=== PATIENT | female | born 1940 | race Two or more races ===

== ENCOUNTER → 2020-08-29 11:30 | Outpatient (BNVA) | payer MEDICARE, SELFPAY | PROVIDERS: PCP Internal Medicine; Referring Provider Internal Medicine; Visit Provider Student in an Organized Health Care Education/Training Program | DX: M81.0 Age-related osteoporosis without current pathological fracture (principal); Z79.899 Other long term (current) drug therapy | CPT/HCPCS: 96372; 99213; J0897 ==

== ENCOUNTER 2020-10-17 10:56 | Outpatient (REF) | payer MEDICARE, SELFPAY ==
--- NOTE | 2020-10-17 | MM_ITS ---
EXAMINATION: MM SCREENING DIGITAL BREAST TOMOSYNTHESIS, BILATERAL CLINICAL INFORMATION: Screening. Asymptomatic. The lifetime risk of breast cancer based on the Tyrer-Cuzick Model is 1.5%. COMPARISON: Mammography: January 28, 2018 and studies dating back to March 28, 2010 TECHNIQUE: Digital breast tomosynthesis is performed in both the craniocaudal and mediolateral oblique views along with computer-aided detection (CAD). Synthesized 2D images are generated from the tomosynthesis. FINDINGS: There are scattered areas of fibroglandular density (ACR BI-RADS breast composition Category b). There are no significant masses, abnormal calcifications, or other abnormalities. MM/MM tomosynthesis screening BI IMPRESSION: There are no significant changes from prior study. ASSESSMENT: BI-RADS 1: Negative RECOMMENDATION: Routine annual mammography screening. This patient's information was entered into a reminder system with a target due date for their next mammogram.
== END 2020-10-17 10:57 | disposition home or self-care (01) ==
LOC: HO.MAMMO 10:56
PROVIDERS: PCP Nurse Practitioner Family; Visit Provider Nurse Practitioner Family
DX: Z12.31 Encounter for screening mammogram for malignant neoplasm of breast (principal)
CPT/HCPCS: 77063; 77067

== ENCOUNTER → 2021-04-01 09:34 | Outpatient (BNVA) | payer MEDICARE, SELFPAY | PROVIDERS: PCP Internal Medicine; Visit Provider Internal Medicine Pulmonary Disease | DX: J44.9 Chronic obstructive pulmonary disease, unspecified (principal); R06.00 Dyspnea, unspecified | CPT/HCPCS: 99202 ==

== ENCOUNTER 2021-04-15 09:32 | Outpatient (REF) | payer MEDICARE, SELFPAY ==
--- NOTE | 2021-04-15 17:46 | PFT_ITS ---
Forced vital capacity and FEV1 both moderately reduced. FEV1 over FVC ratio is normal. [id number] is normal. MVV moderately reduced. TLC, total lung capacity is moderately reduced. Residual volume is slightly reduced. Diffusion capacity moderately reduced. As noted by the geoscience technician, the efforts were suboptimal. The reported findings are consistent with moderately severe restrictive pulmonary disorder. Bronchodilator challenge was not performed. Clinical correlation recommended. MD TASHI Hale/MONTEZ / [id number]
== END 2021-04-15 09:33 | disposition home or self-care (01) ==
LOC: HO.RESP 09:32
PROVIDERS: PCP Internal Medicine; Visit Provider Internal Medicine Pulmonary Disease
DX: R06.00 Dyspnea, unspecified (principal); R05 Cough
CPT/HCPCS: 94010; 94727; 94729

== ENCOUNTER 2021-05-02 09:27 | Outpatient (REF) | payer MEDICARE, SELFPAY ==
[2021-05-02 12:00] LABS: Anion Gap 13 (12-20); Blood Urea Nitrogen 23 mg/dL (9-16); Calcium 9.7 mg/dL (8.4-10.2); Carbon Dioxide 31 mmol/L (22-29); Chloride 102 mmol/L (96-108); Estimated Glomerular Filt Rate 47; Glucose Random 98 mg/dL (60-115); Potassium 4.9 mmol/L (3.3-5.1); Sodium 141 mmol/L (135-145)
[2021-05-02 12:05] LABS: B Type Natriuretic Peptide 182 pg/mL (<100)
== END 2021-05-02 09:28 | disposition home or self-care (01) ==
LOC: HO.LAB 09:27
PROVIDERS: PCP Internal Medicine; Referring Provider Internal Medicine; Visit Provider Internal Medicine Cardiovascular Disease
DX: I48.19 Other persistent atrial fibrillation (principal); I44.7 Left bundle-branch block, unspecified; R06.02 Shortness of breath; I10 Essential (primary) hypertension; M81.0 Age-related osteoporosis without current pathological fracture; Z98.51 Tubal ligation status; Z88.0 Allergy status to penicillin; Z79.82 Long term (current) use of aspirin; Z79.899 Other long term (current) drug therapy
CPT/HCPCS: 36415; 80048; 83880; 93005; 99202

== ENCOUNTER → 2021-05-14 10:51 | Outpatient (BNVA) | payer OTHER, SELFPAY | PROVIDERS: PCP Internal Medicine; Visit Provider Student in an Organized Health Care Education/Training Program | DX: M81.0 Age-related osteoporosis without current pathological fracture (principal) | CPT/HCPCS: 96372 ==

== ENCOUNTER → 2021-05-28 09:15 | Outpatient (REF) | payer MEDICARE, SELFPAY ==
--- NOTE | 2021-05-28 14:00 | ECG_ITS ---
Hook-up date: 2021-05-28 09:34:00 Duration: 27:12:00 Test Indications: PVC Medications: [id number] QRS complexes 529 Ventricular ectopics which represent <1 % of total QRS comp. * Supraventricular ectopics which represent % of total QRS comp. * Paced QRS complexs which represent % of total QRS comp. VENTRICULAR ECTOPY 517 Isolated 0 Bigeminal Cycles 2 Couplets 1 Runs 8 Beats in Runs 8 Beats LONGEST at 136 BPM at 13:48:07 2021-05-28 8 Beats FASTEST at 136 BPM at 13:48:07 2021-05-28 SUPRAVENTRICULAR ECTOPY * Isolated * Couplets * Runs * Beats in Runs * Beats LONGEST at * BPM at :: -- * Beats FASTEST at * BPM at :: -- HEART RATES 50 MIN at 07:56:10 2021-05-29 79 AVG 178 MAX at 10:42:03 2021-05-28 LONGEST RR 2.2000 secs at 07:54:44 2021-05-29 S-T LEVELS Channel 1 - 128 mm at 09:34:00 2021-05-28 - 128 mm at 09:34:00 2021-05-28 Channel 2 - 128 mm at 09:34:00 2021-05-28 - 128 mm at 09:34:00 2021-05-28 Channel 3 - 128 mm at 02:85:31 -- - 128 mm at 02:85:31 Artifact noted in tracings; Underlying rhythm is atrial fibrillation; Average ventricular rate 79/min; range 50-178/min; About 8% of rates >100/min; Longest pause 2.2sec at 07:54Hrs; Occasional Premature ventricular complexes - (<1%); longest run 8 beats; Overall reasonable rate control with some tendency for tachycardia; Patient diary not available for review. Referred By: Marquise Pak Overread By: PARISH ECHAVARRIA
== END ==
LOC: HO.CARD 09:15
PROVIDERS: PCP Internal Medicine; Referring Provider Internal Medicine; Visit Provider Internal Medicine Cardiovascular Disease
DX: I48.19 Other persistent atrial fibrillation (principal); I49.3 Ventricular premature depolarization
CPT/HCPCS: 93226

== ENCOUNTER → 2021-05-30 11:02 | Outpatient (BNVA) | payer MEDICARE, SELFPAY | PROVIDERS: PCP Internal Medicine; Visit Provider Internal Medicine Pulmonary Disease | DX: J44.9 Chronic obstructive pulmonary disease, unspecified (principal) | CPT/HCPCS: 99212 ==

== ENCOUNTER → 2021-07-03 10:32 | Outpatient (REF) | payer MEDICARE, SELFPAY ==
--- NOTE | 2021-07-03 10:39 | CA_ITS ---
Transthoracic Echocardiogram Patient (Last, First, Middle): Jemma Esquivel A Gender: Female Date of : 1940 Age: 81 Procedure Date: 07/03/2021 Procedure Type: Transthoracic Echocardiogram Location: OP Height: 149.86 cm Weight: 63.96 kg BSA: 1.59 m2 Heart Rate: bpm BP: 108 / 58 mmHg Solar Sales Advisor: AYNY Referring MD: Marquise Pak MD Product Advisor: Marquise Pak MD Symptoms: I48.19 - Other persistent atrial fibrillation Study Quality: Fair ECG Rhythm: Atrial Fibrillation Conclusions: - 1. Normal LV systolic function 2. Mildly dilated left atrium 3. Normal cardiac valvular Doppler 4. Normal RV systolic pressure 5. No gross pericardial effusion Findings Left Ventricle Normal left ventricular size, thickness, and systolic function. The visually estimated ejection fraction is between 55-60%. Regional wall motion abnormalities can not be excluded due to suboptimal endocardial definition. Diastolic function is indeterminate on the basis of available data. E/E prime ratio is between 8 and 15 consistent with indeterminate filling pressures. Right Ventricle Normal right ventricular cavity size and systolic function. Atria The left atrium is mildly dilated. Interatrial shunt cannot be excluded. The right atrium is normal in size. Aortic Valve The aortic valve was not well visualized. There is no aortic valve stenosis. There is no aortic valve regurgitation. Mitral Valve Likely normal mitral valve structure and function. There is trace mitral valve regurgitation. There is no mitral valve stenosis. Pulmonic Valve The pulmonic valve was not well visualized. Tricuspid Valve Likely normal tricuspid valve structure and function. There is trace tricuspid valve regurgitation. The right ventricular systolic pressure is normal. The right ventricular systolic pressure is 30 mmHg. Normal right atrial pressure. There is no evidence of pulmonary hypertension. Great Vessels All visible segments of the aorta are normal in size. The pulmonary artery was not well visualized. Venous The inferior vena cava is normal in size and collapses greater than 50% with inspiration. Pericardium/Pleural There is no evidence of pericardial effusion. Prior Study Comparison Changes noted compared to prior study dated: 12/20/2017. LV systolic function appears marginally improved Measurements 2D Linear Measurements IVSd: 1.02 0.6-0.9/0.6-1.0 cm LVIDd: 3.84 3.9-5.3/4.2-5.9 cm LVIDd Index: 2.42 2.4-3.2/2.2-3.1 cm/m2 LVIDs: 2.77 2.0-3.6 cm LVPWd: 0.79 0.7-1.1 cm Ao Root: 2.70 2.1-3.5 cm LA Diam: 3.40 2.7-3.8/3.0-4.0 cm LAIDs Index: 2.14 1.5-2.3 cm/m2 LV Mass: 158.42 67-162/88-224 g LV Mass Index: 99.64 43-95/49-115 g/m2 LVOT Diam: 1.90 3.0+(-)1.3 cm 2D Systolic Function EF 4C: 63.60 >55% EF 2C: 60.40 >55% EF BiP: 61.40 >55% Mitral Valve MV Pk E: 0.95 MV Decel Time: 120.00 E'Lateral: 8.74 E'Medial: 4.73 E/E' Med: 20.10 E/E' Lat: 10.90 PHT: 36.00 MVA PHT: 6.11 Decel Otero: 8.34 Aortic Valve AoV Pk Jed: 0.98 AoV Pk Grad: 4.00 LVOT LVOT Diam: 1.90 LVOT Area: 2.84 Diastolic Function MV Pk E: 0.95 E'Medial: 4.73 E/E' Med: 20.10 E' Laterial: 8.74 E/E' Lat: 10.90 Right Ventricle TAPSE (mm): 1.74 Tricuspid Valve TR Pk Jed: 2.58 TR Pk Grad: 27.00 RA Press: 3.00 RVSP: 30.00 Great Vessels Aorta Ao Root-2D: 2.70 2.0-3.7 cm Ao Asc: 3.10 2.1-3.4 cm Updated in Other Vendor System with Status of Final Marquise Pak MD electronically signed on 07/03/2021 12:42:25 PM with status of Final
== END ==
LOC: HO.CARD 10:32
PROVIDERS: Visit Provider Internal Medicine Cardiovascular Disease
DX: I48.19 Other persistent atrial fibrillation (principal); I49.3 Ventricular premature depolarization
CPT/HCPCS: 93306

== ENCOUNTER → 2021-07-07 13:19 | Outpatient (BNVA) | payer MEDICARE, SELFPAY | PROVIDERS: PCP Internal Medicine; Referring Provider Internal Medicine; Visit Provider Internal Medicine Cardiovascular Disease | DX: I48.19 Other persistent atrial fibrillation (principal); I50.9 Heart failure, unspecified | CPT/HCPCS: 99212 ==

== ENCOUNTER 2021-07-16 08:14 | Day surgery (SDC) | payer MEDICARE, SELFPAY ==
--- NOTE | 2021-07-15 10:35 | HO.ANESPROP2 ---
Documented by User: Merissa Kothari NP 07/15/21 10:41 HPI - Anesthesia Eval Consult details Narrative: 81yo F for Cardioversion Juanatye [facility] Active Problems Active Problems: All Active Problems (Updated 05/02/21 @ 10:08 by Marquise Pak MD) HTN (hypertension) (Acute) Left bundle branch block (Acute) Persistent atrial fibrillation (Acute) Asthma-COPD overlap syndrome (Acute) Dyspnea on exertion (Acute) Osteoporosis (Acute) Tubular adenoma of colon (Acute) Chronic idiopathic constipation (Acute) GERD (gastroesophageal reflux disease) (Acute) Past Medical History Medical History HTN (hypertension) Left bundle branch block Osteoporosis Persistent atrial fibrillation Family History Family History Father No problems noted. Mother Alzheimer disease Brother Heart disease CVD (cardiovascular disease) Son Diabetes Daughter Diabetes Paternal Aunt CVD (cardiovascular disease) Other Osteoarthritis Surgical History Surgical History History of nasal surgery Hx of colonoscopy (03/05/15) Hx of endoscopy Hx of tubal ligation Social History Social History Household Members: None Alcohol intake: never Advance Directives: No Advance Directives Information Provided: Yes Meds Allergies Allergy/AdvReac Type Severity Reaction Status Date / Time Penicillins Allergy Intermediate ITCHING Verified 05/30/21 11:11 Home Medications Medication Instructions Recorded Confirmed Last Taken Type docusate sodium 100 mg capsule 100 mg PO BID 08/20/20 07/07/21 Unknown History (Colace) famotidine 40 mg tablet (Pepcid) 40 mg PO DAILY 08/20/20 07/07/21 Unknown History acetaminophen 650 mg 650 mg PO Q12H PRN 08/29/20 07/07/21 Unknown History tablet,extended release (Tylenol 8 Hour) atorvastatin 40 mg tablet 40 mg PO DAILY 08/29/20 07/07/21 Unknown History benazepril 40 mg tablet 40 mg PO DAILY 08/29/20 07/07/21 Unknown History calcium carbonate 600 mg calcium 600 mg PO BID 08/29/20 07/07/21 Unknown History (1,500 mg) tablet (Calcium) loratadine 10 mg tablet (Allergy 10 mg PO DAILY 08/29/20 07/07/21 Unknown History Relief (loratadine)) memantine 10 mg tablet 10 mg PO BID 08/29/20 07/07/21 Unknown History metoprolol tartrate 25 mg tablet 25 mg PO BID 08/29/20 07/07/21 Unknown History multivitamin 1 tab PO DAILY 08/29/20 07/07/21 Unknown History venlafaxine 37.5 mg 37.5 mg PO BEDTIME 08/29/20 07/07/21 Unknown History tablet,extended release 24 hr cholecalciferol (vitamin D3) 50 50 mcg PO DAILY 07/07/21 07/07/21 Unknown History mcg (2,000 unit) capsule Exam Exam Date and Time: July 15, 2021 1035 Pertinent Lab Results Pertinent Lab Results: Laboratory Tests 09/15/19 05/02/21 09:25 10:40 WBC 6.4 Hgb 13.1 Hct 40.0 Plt Count 238 Sodium 141 Potassium 4.9 Chloride 102 Carbon Dioxide 31 H BUN 23 H Creatinine 1.12 Narrative Narrative: EKG 04/2021 atrial fibrillation with left bundle-branch block Holter 05/2021 Artifact noted in tracings; Underlying rhythm is atrial fibrillation; Average ventricular rate 79/min; range 50-178/min; About 8% of rates >100/min; Longest pause 2.2sec at 07:54Hrs; Occasional Premature ventricular complexes - (<1%);? longest run 8 beats; Overall reasonable rate control with some tendency for tachycardia; Patient diary not available for review.? ECHO 05/2021 Conclusions: -? 1. Normal LV systolic function? 2. Mildly dilated left atrium? 3. Normal cardiac valvular Doppler ? 4. Normal RV systolic pressure ? 5. No gross pericardial effusion ? ? Assessment and Plan Assessment Anesthesia Assessment: Chart Reviewed Documented by User: Vianey Mayfield MD 07/16/21 10:13 [facility] Past Medical History Medical History HTN (hypertension) Left bundle branch block Osteoporosis Persistent atrial fibrillation Family History Family History Father No problems noted. Mother Alzheimer disease Brother Heart disease CVD (cardiovascular disease) Son Diabetes Daughter Diabetes Paternal Aunt CVD (cardiovascular disease) Other Osteoarthritis Family history of problems with anesthesia: No Surgical History Surgical History History of nasal surgery Hx of colonoscopy (03/05/15) Hx of endoscopy Hx of tubal ligation History of Problems with Anesthesia: No Social History Social History Household Members: None Alcohol intake: never Advance Directives: No Advance Directives Information Provided: Yes Meds Allergies Allergy/AdvReac Type Severity Reaction Status Date / Time Penicillins Allergy Intermediate ITCHING Verified 05/30/21 11:11 Home Medications Medication Instructions Recorded Confirmed Last Taken Type docusate sodium 100 mg capsule 100 mg PO BID 08/20/20 07/07/21 Unknown History (Colace) famotidine 40 mg tablet (Pepcid) 40 mg PO DAILY 08/20/20 07/07/21 Unknown History acetaminophen 650 mg 650 mg PO Q12H PRN 08/29/20 07/07/21 Unknown History tablet,extended release (Tylenol 8 Hour) atorvastatin 40 mg tablet 40 mg PO DAILY 08/29/20 07/07/21 Unknown History benazepril 40 mg tablet 40 mg PO DAILY 08/29/20 07/07/21 Unknown History calcium carbonate 600 mg calcium 600 mg PO BID 08/29/20 07/07/21 Unknown History (1,500 mg) tablet (Calcium) loratadine 10 mg tablet (Allergy 10 mg PO DAILY 08/29/20 07/07/21 Unknown History Relief (loratadine)) memantine 10 mg tablet 10 mg PO BID 08/29/20 07/07/21 Unknown History metoprolol tartrate 25 mg tablet 25 mg PO BID 08/29/20 07/07/21 Unknown History multivitamin 1 tab PO DAILY 08/29/20 07/07/21 Unknown History venlafaxine 37.5 mg 37.5 mg PO BEDTIME 08/29/20 07/07/21 Unknown History tablet,extended release 24 hr cholecalciferol (vitamin D3) 50 50 mcg PO DAILY 07/07/21 07/07/21 Unknown History mcg (2,000 unit) capsule Exam Airway Mallampati Class: II TM Dist: >3cm Neck ROM: Full Denture: Upper Partial: Lower Heart: rrr Lungs: cta Assessment and Plan Assessment Anesthesia Assessment: Anesthesia Plan Discussed Final Anesthetic Review Family History of Problems with Anesthesia: No History of Problems with Anesthesia: No NPO: Yes ASA Class: III Final Preanesthetic Review: No Changes in Pt Med Stat, Meds/Allgs Chart Reviewed and Consent Obtained/Reviewed Patient Risk: Intermediate Procedure Risk: Intermediate Anesthetic Plan Anesthetic Plan: MAC: Disposition: Standard PACU
--- NOTE | 2021-07-16 09:17 | MHC.SHP ---
Pre-Procedural Eval Section A Date of Service: 07/16/21 The patient is an INPATIENT: No Changes since office visit: Yes Patient answered all questions; No Cold of Flu in the past 2 weeks, No New Medical Problems and No Changes in Medication The History & Physical has been completed within 30 days and I have reviewed it.: Yes Section B Chief Complaint: A fib Allergies: Allergies Allergy/AdvReac Type Severity Reaction Status Date / Time Penicillins Allergy Intermediate ITCHING Verified 05/30/21 11:11 Plan I have reviewed the history and physical and performed a pertinent physical examination on my patient. No changes have occurred unless specified.
[2021-07-16 10:05] VITALS: BP 169/83; PULSE 67; RESP 18; TEMP 36.3; O2SAT 98; BMI 41.3
[2021-07-16] MEDS: Lactated Ringers 1,000 ML 100 ML IVCONT (10:30)
[2021-07-16] MEDS: Apixaban 5 MG TABLET PO (10:41)
--- NOTE | 2021-07-16 11:10 | ECG_ITS ---
Test Reason : POST CARDIOVERSION Blood Pressure : / mmHG Vent. Rate : 070 BPM Atrial Rate : 000 BPM P-R Int : 000 ms QRS Dur : 122 ms QT Int : 454 ms P-R-T Axes : 000 -25 100 degrees QTc Int : 490 ms Normal sinus rhythm Left bundle branch block Abnormal ECG When compared with ECG of 02-SEP-2017 10:54, Left bundle branch block is now Present Referred By: Marquise Pak Electronically Signed By:TAMMY SUAREZ
[2021-07-16 11:13] VITALS: BP 114/62; PULSE 82; RESP 16; TEMP 36.3; O2SAT 100
--- NOTE | 2021-07-16 11:14 | P.PNCAR_ITS ---
Cardioversion Procedure Note Cardioversion Date of Procedure: 07/16/2021 Ordering Provider: Myself Performing Provider: Myself Indication for Procedure: Recurrent heart failure hospitalization with no other clear abnormality with persistent atrial fibrillation Pre-Op Diagnosis: Persistent atrial fibrillation Post-Op Diagnosis: Sinus rhythm Performed with Transesophageal Echo: No History: See history and physical for detail Consent: Verbal and Written consent was obtained from the patient before starting and providing her with a dose of Eliquis, consent obtained with help of substance abuse rn The patient was made aware of the risk of synchronized cardioversion including risk, benefits, alternatives to the procedure. Procedure: After consent obtained, cardioversion pads were attached in AP and the patient was sedated by the anesthesia team. Once adequate sedation achieved, 200 joules of biphasic synchronized energy was delivered in anterior-posterior configuration Complications: None Impression: Successful conversion to sinus rhythm Recommendations: 1. Twelve lead EKG 2. Continue full oral anticoagulation 3. Follow up with outpatient Holter monitor in few weeks
[2021-07-16 11:18] VITALS: BP 119/67; PULSE 75; RESP 18; O2SAT 100
[2021-07-16 11:23] VITALS: BP 118/62; PULSE 73; RESP 18; O2SAT 97
[2021-07-16 11:28] VITALS: BP 122/62; PULSE 74; RESP 20; O2SAT 95
[2021-07-16 11:43] VITALS: BP 143/75; PULSE 85; RESP 16; TEMP 36.5; O2SAT 97
== END 2021-07-16 12:41 | disposition home or self-care (01) ==
PROVIDERS: PCP Internal Medicine; Visit Provider Internal Medicine Cardiovascular Disease
PROC: 5A2204Z Restoration of Cardiac Rhythm, Single (ICD-10-PCS; principal; 2021-07-16 10:10)
DX: I48.19 Other persistent atrial fibrillation (principal); I11.0 Hypertensive heart disease with heart failure; I50.9 Heart failure, unspecified; I44.7 Left bundle-branch block, unspecified; J44.9 Chronic obstructive pulmonary disease, unspecified; Z79.01 Long term (current) use of anticoagulants; Z79.899 Other long term (current) drug therapy
CPT/HCPCS: 92960; 93005

== ENCOUNTER → 2021-07-29 11:05 | Outpatient (REF) | payer MEDICARE, SELFPAY | LOC: HO.CARD 11:05 | PROVIDERS: PCP Internal Medicine; Visit Provider Internal Medicine Cardiovascular Disease | DX: I48.19 Other persistent atrial fibrillation (principal) | CPT/HCPCS: 93242 ==

== ENCOUNTER → 2021-08-14 10:01 | Outpatient (BNVA) | payer MEDICARE, SELFPAY | PROVIDERS: PCP Internal Medicine; Visit Provider Nurse Practitioner | CPT/HCPCS: Q3014 ==

== ENCOUNTER → 2021-08-22 09:56 | Outpatient (REF) | payer MEDICARE, SELFPAY ==
--- NOTE | 2021-08-22 10:00 | HM_ITS ---
Conclusion: 1. Patient was monitored for total period of 3 days. 2. Patient in atrial fibrillation as baseline rhythm with average heart of 89 beats per minute. Maximum heart rate 125 beats per minute. Overall adequate rate control 3. No significant pauses or bradycardia noted 4. Total of 1080 PVCs or guarding 4 0.29% of total burden of cardiac for rare PVCs 5. No patient reported events MTDD
== END ==
LOC: HO.CARD 09:56
PROVIDERS: PCP Internal Medicine; Visit Provider Internal Medicine Cardiovascular Disease
DX: I48.19 Other persistent atrial fibrillation (principal)
CPT/HCPCS: 93242

== ENCOUNTER 2021-11-17 11:14 | Outpatient (REF) | payer MEDICARE, SELFPAY ==
[2021-11-17 11:51] LABS: Alanine Aminotransferase 12 U/L (0-31); Albumin Level 4.1 g/dL (3.5-5.0); Alkaline Phosphatase 45 U/L (39-117); Anion Gap 14 (12-20); Aspartate Amino Transferase 17 U/L (5-31); Bilirubin Total 0.3 mg/dL (0.0-1.0); Blood Urea Nitrogen 17 mg/dL (9-16); Calcium 9.5 mg/dL (8.4-10.2); Carbon Dioxide 28 mmol/L (22-29); Chloride 102 mmol/L (96-108); Estimated Glomerular Filt Rate 48; Glucose Random 119 mg/dL (60-115); Potassium 4.1 mmol/L (3.3-5.1); Sodium 140 mmol/L (135-145); Total Protein 7.3 g/dL (6.5-8.0)
[2021-11-17 12:11] LABS: Vitamin D 25-OH Total 40.1 ng/mL (>30)
== END 2021-11-17 11:15 | disposition home or self-care (01) ==
LOC: HO.LAB 11:14
PROVIDERS: PCP Internal Medicine; Visit Provider Nurse Practitioner Family
DX: M81.0 Age-related osteoporosis without current pathological fracture (principal)
CPT/HCPCS: 36415; 80053; 82306

== ENCOUNTER → 2021-11-20 10:53 | Outpatient (BNVA) | payer MEDICARE, SELFPAY | PROVIDERS: PCP Internal Medicine; Visit Provider Nurse Practitioner Family | DX: M81.0 Age-related osteoporosis without current pathological fracture (principal) | CPT/HCPCS: 96372 ==

== ENCOUNTER → 2021-12-22 11:15 | Outpatient (BNVA) | payer MEDICARE, SELFPAY | PROVIDERS: PCP Internal Medicine; Visit Provider Nurse Practitioner Family | DX: M81.0 Age-related osteoporosis without current pathological fracture (principal) | CPT/HCPCS: 99212 ==

== ENCOUNTER → 2021-12-24 11:29 | Outpatient (BNVA) | payer MEDICARE, SELFPAY | PROVIDERS: PCP Internal Medicine; Visit Provider Internal Medicine Pulmonary Disease | DX: J44.9 Chronic obstructive pulmonary disease, unspecified (principal); G47.34 Idiopathic sleep related nonobstructive alveolar hypoventilation | CPT/HCPCS: 99212 ==

== ENCOUNTER → 2022-02-27 14:41 | Outpatient (BNVA) | payer MEDICARE, SELFPAY | PROVIDERS: PCP Internal Medicine; Visit Provider Internal Medicine Pulmonary Disease | DX: J44.9 Chronic obstructive pulmonary disease, unspecified (principal); G47.34 Idiopathic sleep related nonobstructive alveolar hypoventilation; Z79.899 Other long term (current) drug therapy; Z87.891 Personal history of nicotine dependence | CPT/HCPCS: 99212 ==

== ENCOUNTER → 2022-03-03 12:33 | Outpatient (BNVA) | payer OTHER, SELFPAY | PROVIDERS: PCP Internal Medicine; Referring Provider Internal Medicine; Visit Provider Internal Medicine Cardiovascular Disease | DX: I50.32 Chronic diastolic (congestive) heart failure (principal); I48.19 Other persistent atrial fibrillation | CPT/HCPCS: 93005; 99212 ==

== ENCOUNTER 2022-06-26 13:56 | Outpatient (REF) | payer OTHER, SELFPAY ==
[2022-06-26 15:38] LABS: Alanine Aminotransferase 7 U/L (0-31); Albumin Level 4.4 g/dL (3.5-5.0); Alkaline Phosphatase 53 U/L (39-117); Anion Gap 17 (12-20); Aspartate Amino Transferase 14 U/L (5-31); Bilirubin Total 0.7 mg/dL (0.0-1.0); Blood Urea Nitrogen 21 mg/dL (9-16); Calcium 10.2 mg/dL (8.4-10.2); Carbon Dioxide 32 mmol/L (22-29); Chloride 98 mmol/L (96-108); Estimated Glomerular Filt Rate 59; Glucose Random 99 mg/dL (60-115); Potassium 4.5 mmol/L (3.3-5.1); Sodium 142 mmol/L (135-145); Total Protein 7.6 g/dL (6.5-8.0)
[2022-06-26 15:59] LABS: Vitamin D 25-OH Total 43.7 ng/mL (>30)
== END 2022-06-26 13:57 | disposition home or self-care (01) ==
LOC: HO.LAB 13:56
PROVIDERS: PCP Internal Medicine; Visit Provider Nurse Practitioner Family
DX: M81.0 Age-related osteoporosis without current pathological fracture (principal)
CPT/HCPCS: 36415; 80053; 82306

== ENCOUNTER 2022-06-29 11:04 | Outpatient (REF) | payer OTHER, SELFPAY ==
--- NOTE | ~2022-06-29 | XR_ITS ---
EXAMINATION: XR KNEE, LEFT CLINICAL INFORMATION: Pain COMPARISON: None TECHNIQUE: Three views of the left knee. FINDINGS: No fracture or dislocation. No suprapatellar joint effusion. Mild narrowing of the lateral joint space height. Small tricompartmental marginal osteophytes. Chondrocalcinosis noted. No focal soft tissue swelling of the anterior knee. Vascular calcifications appreciated. XR/XR knee LT 3V IMPRESSION: Mild to moderate degenerative changes of the left knee.
== END 2022-06-29 11:05 | disposition home or self-care (01) ==
LOC: HO.XRAY 11:04
PROVIDERS: PCP Internal Medicine; Visit Provider Nurse Practitioner Family
DX: M81.0 Age-related osteoporosis without current pathological fracture (principal); M25.562 Pain in left knee; Z79.899 Other long term (current) drug therapy
CPT/HCPCS: 73562; 96372; 99212

== ENCOUNTER → 2022-07-10 12:51 | Outpatient (BNVA) | payer OTHER, SELFPAY | PROVIDERS: PCP Internal Medicine; Visit Provider Internal Medicine Pulmonary Disease | DX: J44.9 Chronic obstructive pulmonary disease, unspecified (principal); G47.34 Idiopathic sleep related nonobstructive alveolar hypoventilation | CPT/HCPCS: 99212 ==

== ENCOUNTER 2022-11-13 13:59 | Outpatient (REF) | payer OTHER, SELFPAY ==
--- NOTE | ~2022-11-13 | MM_ITS ---
EXAMINATION: BONE DENSITOMETRY CLINICAL INDICATION: Age-related osteoporosis without current pathological fracture. COMPARISON: Previous BD dated 07/25/2020 and baseline BD dated 01/28/2007. TECHNIQUE: Using a ShieldEffect DXA System (software version: 13.1) manufactured by [employer], dual-energy x-ray absorptiometry was performed of the lumbar spine and left hip. The images are of good technical quality. Summary results are attached. FINDINGS: AP SPINE L1-L3 (excluding L4): The data of L1-L4 has been changed to exclude the L4 vertebral body, because degenerative changes at this level may cause overestimation of lumbar spine density. Current: BMD 1.020 g/cm2, Z-score 0.7, T-score -1.2, osteopenia, 1.8% decrease from previous, 9.3% increase from baseline (<5% change is not significant). Prior: BMD 1.039 g/cm2. Baseline: BMD 0.933 g/cm2. LEFT FEMUR, NECK: Current: BMD 0.615 g/cm2, Z-score -0.7, T-score -3.0, osteoporosis. Prior: BMD 0.729 g/cm2. Baseline: BMD 0.708 g/cm2. LEFT FEMUR, TOTAL: Current: BMD 0.705 g/cm2, Z-score -0.2, T-score -2.4, osteopenia, 21.0% decrease from previous, 17.9% decrease from baseline (<5% change is not significant). Prior: BMD 0.892 g/cm2. Baseline: BMD 0.859 g/cm2. IDENTIFIED RISK FACTORS: Rheumatoid arthritis. Dementia. Menopause. HISTORY OF FRACTURE: None listed. MEDICATIONS: Calcium supplement or multivitamin. Vitamin D. MM/XR DEXA axial skeleton IMPRESSION: 1. DIAGNOSIS: Osteoporosis based on the lowest T-score value of -3.0 in the femoral neck applying World Health Organization criteria. 2. 10-YEAR FRACTURE RISK PREDICTION, FRAX: According to the guidelines, FRAX calculation should only be performed on patients in the osteopenia bone density category. Therefore, FRAX was not performed on this patient.? 3. Treatment Recommendations: NOF guidelines recommend consideration for treatment in postmenopausal women and men age 50 and older presenting with the following: -A hip or vertebral (clinical or morphometric) fracture. -T-score less than or equal to -2.5 at the femoral neck or spine after appropriate evaluation to exclude secondary causes. -Low bone mass at the hip or spine and a 10-year fracture probability by FRAX of greater than or equal to 3% for hip fracture or greater than or equal to 20% for major osteoporotic fracture based on the [place] adapted WHO algorithm. 4. Other Recommendations: All treatment decisions require clinical judgment and consideration of individual patient factors, including patient preferences, comorbidities, previous drug use, risk factors not captured in the FRAX model (e.g. frailty, falls, vitamin D deficiency, increased bone turnover, interval significant decline in bone density) and possible under or overestimation of fracture risk by FRAX. Additional medical evaluation for secondary cause of low bone mineral density may be appropriate. FUTURE SCAN RECOMMENDATION: People with diagnosed cases of osteoporosis or at high risk for fracture should have regular bone mineral density tests. For patients eligible for Medicare, routine testing is allowed once every 2 years. The testing frequency can be increased to one year for patients who have rapidly progressing disease, those who are receiving or discontinuing medical therapy to restore bone mass, or have additional risk factors.
== END 2022-11-13 14:00 | disposition home or self-care (01) ==
LOC: HO.MAMMO 13:59
PROVIDERS: Visit Provider Nurse Practitioner Family
DX: Z13.820 Encounter for screening for osteoporosis (principal); Z78.0 Asymptomatic menopausal state; M81.0 Age-related osteoporosis without current pathological fracture
CPT/HCPCS: 77080

== ENCOUNTER 2023-03-01 14:05 | Outpatient (REF) | payer OTHER, SELFPAY ==
[2023-03-01 16:06] LABS: Alanine Aminotransferase 10 U/L (0-31); Albumin Level 4.4 g/dL (3.5-5.0); Alkaline Phosphatase 59 U/L (39-117); Anion Gap 16 (12-20); Aspartate Amino Transferase 17 U/L (5-31); Bilirubin Total 0.6 mg/dL (0.0-1.0); Blood Urea Nitrogen 18 mg/dL (9-16); Calcium 9.9 mg/dL (8.4-10.2); Carbon Dioxide 35 mmol/L (22-29); Chloride 96 mmol/L (96-108); Estimated Glomerular Filt Rate 52; Glucose Random 85 mg/dL (60-115); Phosphorus 2.8 mg/dL (2.7-4.5); Potassium 4.2 mmol/L (3.3-5.1); Sodium 143 mmol/L (135-145); Total Protein 7.5 g/dL (6.5-8.0)
[2023-03-01 16:23] LABS: Vitamin D 25-OH Total 69.3 ng/mL (>30)
== END 2023-03-01 14:06 | disposition home or self-care (01) ==
LOC: HO.LAB 14:05
PROVIDERS: PCP Internal Medicine; Visit Provider Nurse Practitioner Family
DX: M81.0 Age-related osteoporosis without current pathological fracture (principal)
CPT/HCPCS: 36415; 80053; 82306; 84100

== ENCOUNTER → 2023-03-05 11:08 | Outpatient (BNVA) | payer OTHER, SELFPAY | PROVIDERS: PCP Internal Medicine; Visit Provider Nurse Practitioner Family ==

== ENCOUNTER → 2023-03-16 10:20 | Outpatient (BNVA) | payer OTHER, SELFPAY | PROVIDERS: PCP Internal Medicine; Visit Provider Internal Medicine Pulmonary Disease | DX: J44.9 Chronic obstructive pulmonary disease, unspecified (principal); J45.909 Unspecified asthma, uncomplicated; R06.00 Dyspnea, unspecified; G47.34 Idiopathic sleep related nonobstructive alveolar hypoventilation; Z87.891 Personal history of nicotine dependence; Z99.81 Dependence on supplemental oxygen | CPT/HCPCS: 99212 ==

== ENCOUNTER 2023-07-07 14:22 | Outpatient (AMB) | payer OTHER, SELFPAY ==
[2023-07-07 14:24] VITALS: BP 132/70; PULSE 86; O2SAT 97; BMI 27.2
--- NOTE | 2023-07-07 14:24 | MHC.OFFVIS ---
Intake Vital Signs 07/07/23 14:24 Height 4 ft 11 in Weight 134 lb 7.712 oz BMI 27.2 BP 132/70 Blood Pressure Location Lt brachial Position Sitting Pulse 86 Pulse Source Doppler Pulse Oximetry (%) 97 Oxygen Delivery Method Room Air Intake Visit Reasons: asthma Allergies Penicillins Allergy (Intermediate, Verified 07/07/23 14:27) ITCHING HPI asthma HPI Details 83-year-old lady, former 30+ pack-year smoker, quit 20 years prior, followed for asthma/COPD overlap syndrome.? Patient has been using Trelegy and albuterol MDI with good control of her symptoms.? She also has been using supplemental oxygen at 2 L at night for nocturnal hypoxia.? She denies any recent exacerbations. Her heart failure symptoms are also well controlled. [facility] Medical History (Updated 06/29/22 @ 20:57 by Idalia Damon NP) Chronic heart failure with preserved ejection fraction (HFpEF) HTN (hypertension) Left bundle branch block Osteoporosis Persistent atrial fibrillation Surgical History History of nasal surgery Hx of colonoscopy (03/05/15) Hx of endoscopy Hx of tubal ligation Family History Father No problems noted. Mother Alzheimer disease Brother Heart disease CVD (cardiovascular disease) Son Diabetes Daughter Diabetes Paternal Aunt CVD (cardiovascular disease) Other Osteoarthritis Social History Household Members: None Housing: Apartment Alcohol intake: never Patient Tobacco Use Status: Former Tobacco user Second Hand Smoke Exposure: No Review of Systems Const Denies daytime sleepiness, Denies excessive sweating, Denies fatigue, Denies fever(s), Denies lethargy, Denies malaise, Denies night sweats, Denies snoring and Denies weight loss Eyes Denies blurry vision and Denies itchy eyes ENT Denies nasal congestion, Denies post nasal drip, Denies sinus pain, Denies sinus pressure and Denies other ( Thrush) Card Denies chest pain, Denies pedal edema, Denies dyspnea, Denies orthopnea and Denies paroxysmal nocturnal dyspnea Resp Denies cough, Denies hemoptysis, Denies excessive phlegm production, Denies dyspnea, Denies snoring and Denies wheezing GI Denies abdominal pain and Denies heartburn Musc Denies myalgias, Denies arthralgias and Denies joint swelling Skin/Breast Denies rash Neuro Denies memory loss and Denies seizure-like activity Psych Denies abnormal sleep pattern, Denies anxiety and Denies memory loss Endo Denies excessive sweating, Denies fatigue and Denies heat intolerance Regulo/Lymph Denies easy bruising Aller/Immun Denies itchy eyes, Denies seasonal rhinorrhea and Denies wheezing Physical Exam Vital Signs: Last Vital Signs Pulse 86 07/07/23 14:24 BP 132/70 07/07/23 14:24 Pulse Ox 97 07/07/23 14:24 Oxygen Delivery Method Room Air 07/07/23 14:24 BMI result Body Mass Index 27.2 Const General: no acute distress and alert Nutritional Appearance: not obese Orientation/consciousness: Other orientation findings ( oriented) HEENT Head: Yes atraumatic Eyes General: appearance normal, both eyes and all related structures Sclerae: sclerae normal EOM: EOMs intact bilaterally Neck Neck: Yes supple Lymphatic: no lymphadenopathy noted Resp Effort & Inspection: normal respiratory effort and no use of accessory muscles Auscultation: clear to auscultation bilaterally Cardio Rate: regular rate Rhythm: regular rhythm Heart sounds: no gallops, no murmurs and no rubs Skin General skin exam: other ( warm) Extrem General: No clubbing, No cyanosis and No edema Assessment & Plan Assessment & Plan (1) Asthma-COPD overlap syndrome: Code(s): J44.9 - Chronic obstructive pulmonary disease, unspecified Plan: Well controlled on current regimen of Trelegy and albuterol MDI. Continue current regimen. Coding Level of Care Code Est Pt Level 3 (32054) Diagnoses Asthma-COPD overlap syndrome J44.9
== END 2023-07-07 14:39 | disposition home or self-care (01) ==
PROVIDERS: PCP Internal Medicine; Visit Provider Internal Medicine Pulmonary Disease
DX: J44.9 Chronic obstructive pulmonary disease, unspecified (principal)
CPT/HCPCS: 99213

== ENCOUNTER → 2023-07-07 14:22 | Outpatient (BNVA) | payer OTHER, SELFPAY | PROVIDERS: PCP Internal Medicine; Visit Provider Internal Medicine Pulmonary Disease | DX: J44.9 Chronic obstructive pulmonary disease, unspecified (principal); Z79.899 Other long term (current) drug therapy | CPT/HCPCS: 99212 ==

== ENCOUNTER 2023-08-02 09:26 | Outpatient (AMB) | payer OTHER, SELFPAY ==
--- NOTE | 2023-08-02 09:32 | MHC.OFFVIS ---
Intake Vital Signs 08/02/23 09:33 Height 4 ft 11 in Weight 134 lb 14.766 oz BMI 27.2 BP 130/62 Blood Pressure Location Lt brachial Position Sitting Intake Visit Reasons: F/U Intake Note: f/u Spout Worker Required: Yes Spout Worker Language: Quality Control Microbiology Supervisor Name: kiet benedict [id number] Elementary Tutor: Elementary Tutor Present Accompanied by: Son Allergies Penicillins Allergy (Intermediate, Verified 08/02/23 09:38) ITCHING Medication List - Last Reconciled 08/02/23 by ELLIOT Kaur acetaminophen ER (Tylenol 8 Hour) 650 mg PO Q12H PRN albuterol sulfate 90 mcg/actuation 2 puffs inhalation Q6H PRN apixaban (Eliquis) 5 mg PO BID 90 days atorvastatin 40 mg PO DAILY cholecalciferol (vitamin D3) (Vitamin D3) 50 mcg PO DAILY docusate sodium (Colace) 100 mg PO BID ferrous sulfate (FeroSul) 325 mg PO DAILY fluticasone propionate 50 mcg/actuation sprays intranasal spkwnivmxge-xovzgmhrp-ebwujdrg 100-62.5-25 mcg (Trelegy Ellipta) 1 ea inhalation DAILY furosemide 1 tablet in a.m. and half tablet in p.m. PO daily; lansoprazole 30 mg PO DAILY lisinopril 10 mg PO DAILY loratadine (Allergy Relief (loratadine)) 10 mg PO DAILY melatonin 3 mg PO BEDTIME memantine 10 mg PO BID metoprolol tartrate 25 mg PO BID multivitamin 1 tab PO DAILY venlafaxine ER 37.5 mg PO BEDTIME HPI F/U HPI Details Kesha is an 83-year-old female with past medical history of hypertension, left bundle branch block, paroxysmal AFib, heart failure with preserved EF who presents for follow-up. Today she reports that she was hospitalized 6 months ago at [facility] for fluid buildup. She has been doing well since that time. She was discharged on her usual Lasix 40 mg in the morning and 20 mg in the afternoon. She currently describes her breathing as being normal. She denies PND, orthopnea or edema. No chest discomfort, palpitations, dizziness, presyncope, syncope, falls. Taking meds as directed. No bleeding issues reported. Certified automobile locator used. Son is present. [facility] Medical History (Updated 08/02/23 @ 11:34 by ANGI KaurC) Chronic heart failure with preserved ejection fraction (HFpEF) HTN (hypertension) Left bundle branch block Persistent atrial fibrillation Osteoporosis Surgical History Hx of endoscopy Hx of colonoscopy (03/05/15) Hx of tubal ligation History of nasal surgery Family History Father No problems noted. Mother Alzheimer disease Brother Heart disease CVD (cardiovascular disease) Son Diabetes Daughter Diabetes Paternal Aunt CVD (cardiovascular disease) Other Osteoarthritis Social History Household Members: None Housing: Apartment Alcohol intake: never Patient Tobacco Use Status: Former Tobacco user Second Hand Smoke Exposure: No Review of Systems Const All systems reviewed & are unremarkable except as noted in HPI and below ENT Denies dizziness Card Denies chest pain, Denies chest pain at rest, Denies chest pain with activity, Denies rapid heart rate, Denies pedal edema, Denies edema, Denies leg edema, Denies lightheadedness, Denies palpitations, Denies dyspnea, Denies dyspnea on exertion and Denies orthopnea Resp Denies cough, Denies dyspnea and Denies dyspnea on exertion GI Denies hematochezia and Denies change in stool character Musc Details: Uses cane Denies abnormal gait, Denies muscle weakness, Denies numbness, Denies radiating pain into limb, Denies stiffness and Denies tingling Neuro Denies abnormal gait, Denies dizziness, Denies numbness and Denies tingling Endo Denies palpitations Physical Exam Vital Signs: Last Vital Signs BP 130/62 08/02/23 09:33 BMI result Body Mass Index 27.2 Const General: cooperative, healthy appearing, comfortable and no acute distress Orientation/consciousness: patient oriented x3 Resp Effort & Inspection: normal respiratory effort Auscultation: clear to auscultation bilaterally, no crackles, no rales, no rhonchi and no wheezes Cardio Jugular venous distension: no JVD Rate: regular rate Rhythm: abnormal rhythm Heart sounds: S1 normal heart sound present, S2 normal heart sound present, no gallops, no murmurs and no rubs Neuro General: patient oriented x3 Extrem General: Yes normal to inspection and No no pedal edema Psych Appearance: grossly normal Mental Status: mental status grossly normal Speech and movement: Normal speech and movement present Office Procedures EKG Details: Today, read by me, atrial fibrillation, left bundle branch block, nonspecific T-wave abnormality, rate 63 [id number], Complete Assessment & Plan Assessment & Plan (1) Chronic heart failure with preserved ejection fraction (HFpEF): Code(s): I50.32 - Chronic diastolic (congestive) heart failure Plan: History of heart failure with preserved EF. Last echo in our system 07/03/2021 showing EF 55-60%, mildly dilated left atrium, normal valves. Today she reports she was hospitalized at [facility] 6 months ago with what sounds like decompensated heart failure. She was continued on her usual Lasix 40 mg in the morning and 20 mg in the evening. Her med list also includes metoprolol, lisinopril which were unchanged. Will work on obtaining those records. Will plan to update echocardiogram unless they did one at [facility]. On examination today she does not appear fluid overloaded. Will continue on current medications without change. Will have her update labs including CMP and CBC. Signs and symptoms of heart failure reviewed with her. Cardiology follow-up in 6 months, sooner if needed (2) Left bundle branch block: Code(s): I44.7 - Left bundle-branch block, unspecified Plan: Chronic left bundle branch block. (3) Persistent atrial fibrillation: Code(s): I48.19 - Other persistent atrial fibrillation Plan: History of persistent atrial fibrillation. EKG done today is showing atrial fibrillation with controlled heart rate at 63. She is on metoprolol 25 mg b.i.d. for heart rate control. She is on Eliquis 5 mg b.i.d. for anticoagulation. Labs done 03/01/2023 showed creatinine 1.02. Current weight is 61 kg. Weight goes below 60 kg her dose should be reduced to 2.5 mg b.i.d.. She has upcoming visits with rheumatology and pulmonology and weight is can be checked at that time. Please notify Cardiology if weight has dropped. (4) HTN (hypertension): Code(s): I10 - Essential (primary) hypertension Qualifiers: Hypertension type: primary hypertension Qualified Code(s): I10 - Essential (primary) hypertension Plan: Well controlled at this time. No med changes made. Updating last (5) Nocturnal hypoxemia: Code(s): G47.34 - Idiopathic sleep related nonobstructive alveolar hypoventilation Plan: She wears oxygen 2 L at night. Followed by pulmonology Orders: Orders Complete Blood Count Auto Diff Today I48.19 - Other persistent atrial fibrillation Comprehensive Met. Panel Today I48.19 - Other persistent atrial fibrillation Coding Level of Care Code Est Pt Level 4 (86011) Diagnoses Chronic heart failure with preserved ejection fraction (HFpEF) I50.32 Left bundle branch block I44.7 Persistent atrial fibrillation I48.19 Primary hypertension I10 Hypertension type: primary hypertension Nocturnal hypoxemia G47.34 CPT Codes EKG - CPT: 86924-[id number], Complete ([id number]) Time Spent (min) 26
[2023-08-02 09:33] VITALS: BP 130/62; BMI 27.2
== END 2023-08-02 10:04 | disposition home or self-care (01) ==
PROVIDERS: PCP Internal Medicine; Visit Provider Nurse Practitioner Family
DX: I50.32 Chronic diastolic (congestive) heart failure (principal); I44.7 Left bundle-branch block, unspecified; I48.19 Other persistent atrial fibrillation; I10 Essential (primary) hypertension; G47.34 Idiopathic sleep related nonobstructive alveolar hypoventilation
CPT/HCPCS: 93010; 99214

== ENCOUNTER → 2023-08-02 09:26 | Outpatient (BNVA) | payer OTHER, SELFPAY | PROVIDERS: PCP Internal Medicine; Visit Provider Nurse Practitioner Family | DX: I11.0 Hypertensive heart disease with heart failure (principal); I50.32 Chronic diastolic (congestive) heart failure; I44.7 Left bundle-branch block, unspecified; I48.19 Other persistent atrial fibrillation; G47.34 Idiopathic sleep related nonobstructive alveolar hypoventilation | CPT/HCPCS: 93005; 99212 ==

== ENCOUNTER 2023-08-10 11:08 | Outpatient (AMB) | payer OTHER, SELFPAY ==
--- NOTE | 2023-08-10 11:11 | MHC.OFFVIS ---
Intake Vital Signs 08/10/23 11:14 Height 4 ft 11 in Weight 135 lb 9.349 oz BMI 27.4 BP 110/60 Blood Pressure Location Lt brachial Position Sitting Respiration 24 H Pulse 76 Pulse Source Palpation Temp 97.3 F Temp Source Skin Intake Visit Reasons: Osteoporosis Intake Note: Patient presents today to follow up on osteoporosis. Accounting Machine Servicer Required: Yes Accounting Machine Servicer Language: Ramp Flight Attendant Name: Mukund Information Interpreted: clinical only Accompanied by: Son Allergies Penicillins Allergy (Intermediate, Verified 08/10/23 11:14) ITCHING Medication List - Last Reconciled 08/10/23 by You Ojeda MD acetaminophen ER (Tylenol 8 Hour) 650 mg PO Q12H PRN albuterol sulfate 90 mcg/actuation 2 puffs inhalation Q6H PRN apixaban (Eliquis) 5 mg PO BID 90 days atorvastatin 40 mg PO DAILY calcium carbonate 600 mg PO BID cholecalciferol (vitamin D3) (Vitamin D3) 50 mcg PO DAILY docusate sodium (Colace) 100 mg PO BID ferrous sulfate (FeroSul) 325 mg PO DAILY fluticasone propionate 50 mcg/actuation sprays intranasal hwxejfayumz-xgctjrihb-oncassyh 100-62.5-25 mcg (Trelegy Ellipta) 1 ea inhalation DAILY furosemide 20 mg PO DAILY lansoprazole 30 mg PO DAILY lisinopril 10 mg PO DAILY loratadine (Allergy Relief (loratadine)) 10 mg PO DAILY melatonin 3 mg PO BEDTIME memantine 10 mg PO BID metoprolol tartrate 25 mg PO BID multivitamin 1 tab PO DAILY venlafaxine ER 37.5 mg PO DAILY HPI HPI Comments History of Present Illness Details The patient presents today with her son to evaluate her osteoporosis treatment. We used the [employer] translating service to communicate. They indicate the patient has had a difficult year this year with repeated admissions for CHF. She is here to discuss her Prolia injections. These have been uneventful. She has received them apparently for about 10 years now. This would be the last planned injection this fall. Looking through her record, there may have been a few missed doses in around 2014. She had a fracture in 2019 of the radius. There was an attempt to get her to agree to treatment with daily Tymlos injections but she declined. She did have bone density done in the last year. She remains on vitamin-D supplementation. There have been no side effects with the Prolia injections. She gets occasional pains in the hands, lower back and the feet attributed to osteoarthritis. She does take occasional acetaminophen for the pains. [facility] Medical History (Updated 08/02/23 @ 11:34 by ELLIOT Kaur) Chronic heart failure with preserved ejection fraction (HFpEF) HTN (hypertension) Left bundle branch block Persistent atrial fibrillation Osteoporosis Surgical History Hx of endoscopy Hx of colonoscopy (03/05/15) Hx of tubal ligation History of nasal surgery Family History Father No problems noted. Mother Alzheimer disease Brother Heart disease CVD (cardiovascular disease) Son Diabetes Daughter Diabetes Paternal Aunt CVD (cardiovascular disease) Other Osteoarthritis Social History Household Members: None Housing: Apartment Alcohol intake: never Patient Tobacco Use Status: Former Tobacco user Second Hand Smoke Exposure: No Review of Systems Const Details: The low energy. Negative for appetite change, weight change, fever, chills, malaise Skin/Breast Details: Negative for itching, rash, hives, Raynaud's symptoms, sun sensitivity, and skin cancer Neuro Details: Some cognitive impairment and memory difficulties. Negative for epilepsy, palsy, stroke, changes in speech, tingling and weakness Endo Details: Negative for polyuria and polydypsia Regulo/Lymph Details: Negative for excessive bruising or bleeding. Physical Exam Vital Signs: Last Vital Signs Temp 97.3 F 08/10/23 11:14 Pulse 76 08/10/23 11:14 Resp 24 H 08/10/23 11:14 BP 110/60 08/10/23 11:14 BMI result Body Mass Index 27.4 APPEARANCE: Patient in no acute distress EXTREMITIES: No edema, no calf tenderness, normal peripheral pulses. JOINT EXAM:? Cervical Spine:? Full range of motion without pain; no tenderness. Thoracic Spine:? No scoliosis.? No tenderness on palpation. Lumbar Spine:? Alignment normal.? Mild pain with extremes of range of motion. No tenderness. Hands:? Normal pain-free range of motion without tenderness, swelling, increased warmth or erythema. Able to make a full fist and has a good drafter landscape strength. Wrists:? Normal pain-free range of motion without tenderness, swelling, increased warmth or erythema. Elbows: Normal pain-free range of motion without tenderness, swelling, increased warmth or erythema. Shoulders:? Full range of motion with mild discomfort at the extremes of motion. There is some slight anterior tenderness without weakness, swelling, increased warmth or erythema. Hips:? Full range of motion without pain. Hip bursa: No tenderness. Knees: LEFT: Tenderness to palpation of medial joint line, lateral joint line, and infrapatellar area. Pain radiates down the left maradiaga. No tenderness to palpation, erythema, or swelling noted of the left calf. Able to flex and extend knee, some pain with extension. No effusion or crepitation noted. RIGHT:? Normal pain-free range of motion without tenderness, swelling, increased warmth or erythema.? There is no effusion or crepitation Ankles: Normal pain-free range of motion without tenderness, swelling, increased warmth or erythema. Feet:? Normal pain-free range of motion without tenderness, swelling, increased warmth or erythema. Results Reviewed Results Reviewed: [facility] [place] [address] Mammography Report Signed Patient: Jemma Esquivel MR#: [id number] : 1940 Acct:[id number] Age/Sex: 82 / F ADM Date: 11/13/[address]: Idalia Damon NP Ordering Physician: Idalia Damon NP Results: Date of Service: 11/13/22 Follow Up: Procedure(s): XR DEXA axial skeleton Accession Number(s): [id number] cc: Idalia Damon NP~ EXAMINATION: BONE DENSITOMETRY CLINICAL INDICATION: Age-related osteoporosis without current pathological fracture. COMPARISON: Previous BD dated 07/25/2020 and baseline BD dated 01/28/2007. TECHNIQUE: Using a [employer] DXA System (software version: 13.1) manufactured by [employer], dual-energy x-ray absorptiometry was performed of the lumbar spine and left hip. The images are of good technical quality. Summary results are attached. FINDINGS: AP SPINE L1-L3 (excluding L4): The data of L1-L4 has been changed to exclude the L4 vertebral body, because degenerative changes at this level may cause overestimation of lumbar spine density. Current: BMD 1.020 g/cm2, Z-score 0.7, T-score -1.2, osteopenia, 1.8% decrease from previous, 9.3% increase from baseline (<5% change is not significant). Prior: BMD 1.039 g/cm2. Baseline: BMD 0.933 g/cm2. LEFT FEMUR, NECK: Current: BMD 0.615 g/cm2, Z-score -0.7, T-score -3.0, osteoporosis. Prior: BMD 0.729 g/cm2. Baseline: BMD 0.708 g/cm2. LEFT FEMUR, TOTAL: Current: BMD 0.705 g/cm2, Z-score -0.2, T-score -2.4, osteopenia, 21.0% decrease from previous, 17.9% decrease from baseline (<5% change is not significant). Prior: BMD 0.892 g/cm2. Baseline: BMD 0.859 g/cm2. IDENTIFIED RISK FACTORS: Rheumatoid arthritis. Dementia. Menopause. HISTORY OF FRACTURE: None listed. MEDICATIONS: Calcium supplement or multivitamin. Vitamin D. MM/XR DEXA axial skeleton IMPRESSION: 1. DIAGNOSIS: Osteoporosis based on the lowest T-score value of -3.0 in the femoral neck applying World Health Organization criteria. 2. 10-YEAR FRACTURE RISK PREDICTION, FRAX: According to the guidelines, FRAX calculation should only be performed on patients in the osteopenia bone density category. Therefore, FRAX was not performed on this patient.? 3. Treatment Recommendations: NOF guidelines recommend consideration for treatment in postmenopausal women and men age 50 and older presenting with the following: -A hip or vertebral (clinical or morphometric) fracture. -T-score less than or equal to -2.5 at the femoral neck or spine after appropriate evaluation to exclude secondary causes. -Low bone mass at the hip or spine and a 10-year fracture probability by FRAX of greater than or equal to 3% for hip fracture or greater than or equal to 20% for major osteoporotic fracture based on the [place] adapted WHO algorithm. 4. Other Recommendations: All treatment decisions require clinical judgment and consideration of individual patient factors, including patient preferences, comorbidities, previous drug use, risk factors not captured in the FRAX model (e.g. frailty, falls, vitamin D deficiency, increased bone turnover, interval significant decline in bone density) and possible under or overestimation of fracture risk by FRAX. Additional medical evaluation for secondary cause of low bone mineral density may be appropriate. FUTURE SCAN RECOMMENDATION: People with diagnosed cases of osteoporosis or at high risk for fracture should have regular bone mineral density tests. For patients eligible for Medicare, routine testing is allowed once every 2 years. The testing frequency can be increased to one year for patients who have rapidly progressing disease, those who are receiving or discontinuing medical therapy to restore bone mass, or have additional risk factors. Dictated By: Augusto Gil MD Laboratory Tests 03/01/23 14:22 Creatinine 1.02 Calcium 9.9 Phosphorus 2.8 25-OH Vitamin D Total 69.3 Assessment & Plan Assessment & Plan (1) Osteoporosis: Comment: prolia started 10/30/2014 Code(s): M81.0 - Age-related osteoporosis without current pathological fracture Qualifiers: Osteoporosis type: age-related Presence of current pathological fracture: without current pathological fracture Qualified Code(s): M81.0 - Age-related osteoporosis without current pathological fracture Plan Osteoporosis with no recent fractures. She seems to tolerate the Prolia without any difficulties. The vitamin-D level is adequate. The last bone density did show some worsening in the femur and femoral neck but persistent improvement in the LS spine. Given that the baseline studies we date back 10 years, it could have just been some effect from her aging. Alternatively I think she might have missed a few doses of the drug during the last 10 years. At this point I think we should recheck renal function, vitamin-D and calcium level. If those look okay we will administer the final dose of the Prolia. She would then schedule back for about 6 months to be considered for IV zoledronic acid. Orders: Orders Comprehensive Met. Panel Today M81.0 - Age-related osteoporosis without current pathological fracture Vitamin D 25-OH (D2 and D3) Today M81.0 - Age-related osteoporosis without current pathological fracture Coding Level of Care Code Est Pt Level 3 (56503) Diagnoses Age-related osteoporosis without current pathological fracture M81.0 Osteoporosis type: age-related Presence of current pathological fracture: without current pathological fracture
[2023-08-10 11:14] VITALS: BP 110/60; PULSE 76; RESP 24; TEMP 36.3; BMI 27.4
== END 2023-08-10 11:49 | disposition home or self-care (01) ==
PROVIDERS: PCP Internal Medicine; Visit Provider Internal Medicine Rheumatology
DX: M81.0 Age-related osteoporosis without current pathological fracture (principal)
CPT/HCPCS: 99213

== ENCOUNTER 2023-08-10 11:08 | Outpatient (REF) | payer OTHER, SELFPAY ==
[2023-08-10 12:14] LABS: MANUAL DIFF FLAG NO
[2023-08-10 12:50] LABS: Basophils Percent Auto 0.6 % (0-2); Eosinophils Absolute Auto 0.2 X10*3/uL (0.0-0.4); Eosinophils Percent Auto 2.2 % (0-4); Hematocrit 40.9 % (37.0-47.0); Hemoglobin 12.5 g/dl (12.0-16.0); Imm Gran Abs Auto 0.03 X10*3/uL (0.00-0.03); Imm Gran Pct Auto 0.4 % (0.0-0.4); Lymphocytes Absolute Auto 1.3 X10*3/uL (1.2-4.9); Lymphocytes Percent Auto 18.4 % (20-40); Mean Corpuscular HGB Conc 30.6 g/dl (31.0-35.0); Mean Corpuscular Hemoglobin 27.1 pg (27.0-33.0); Mean Corpuscular Volume 88.5 fL (80.0-98.0); Mean Platelet Volume 12.3 fL (9.4-12.3); Monocytes Absolute Auto 0.7 X10*3/uL (0.1-1.2); Monocytes Percent Auto 9.1 % (2-11); Neutrophils Percent Auto 69.3 % (45-73); Platelet Count 257 X10*3/uL (160-400); Red Blood Count 4.62 X10*6/uL (4.20-5.50); Red Cell Distribution Width 14.5 % (11.0-16.0); White Blood Count 7.3 X10*3/uL (4.8-10.8)
[2023-08-10 13:20] LABS: Alanine Aminotransferase 13 U/L (0-31); Albumin Level 4.4 g/dL (3.5-5.0); Alkaline Phosphatase 47 U/L (39-117); Anion Gap 15 (12-20); Aspartate Amino Transferase 22 U/L (5-31); Bilirubin Total 0.4 mg/dL (0.0-1.0); Blood Urea Nitrogen 15 mg/dL (9-16); Calcium 10.5 mg/dL (8.4-10.2); Carbon Dioxide 33 mmol/L (22-29); Chloride 97 mmol/L (96-108); Estimated Glomerular Filt Rate > 60; Glucose Random 102 mg/dL (60-115); Sodium 141 mmol/L (135-145); Total Protein 7.9 g/dL (6.5-8.0)
[2023-08-14 15:44] LABS: Vitamin D 25-OH, D2 <4 ng/mL; Vitamin D 25-OH, D3 37 ng/mL; Vitamin D 25-OH, Total 37 ng/mL (30-100)
== END 2023-08-10 11:09 | disposition home or self-care (01) ==
LOC: HO.LAB 11:08
PROVIDERS: Nurse Practitioner Family; PCP Internal Medicine; Visit Provider Internal Medicine Rheumatology
DX: I48.19 Other persistent atrial fibrillation (principal); M81.0 Age-related osteoporosis without current pathological fracture
CPT/HCPCS: 36415; 80053; 82306; 85025; 99212

== ENCOUNTER 2023-09-07 10:49 | Outpatient (AMB) | payer OTHER, SELFPAY ==
--- NOTE | 2023-09-07 14:19 | AM.OFFVISNUR ---
Intake Intake Visit Reasons: osteoporosis/prolia Allergies Penicillins Allergy (Intermediate, Verified 08/10/23 11:14) ITCHING Nursing Note Patient here for continued Prolia therapy. Dr. Ojeda reviewed labs and Prolia can be administered. Patient denies a reaction from previous injection or any new allergies. She gave verbal consent to administer Prolia. Prolia administered on left upper arm. Patient tolerated injection well. Office Meds Prolia 60 mg/mL subcutaneous syringe Performing Provider: Piper Sprague MD Performing Location: [facility] Rheumatology Administered by: Sandi Case RN on 09/07/23 14:38 Dose Route Admin Location Dispensed Lot Number Expiration Date [facility] [employer]le [employer] Mechan[employer] 60 mg subcut left upper arm 1 mL [id number] 11/01/25 19567-336-16 [employer]GEN Coding Level of Care Code Procedure Only Assessment & Plan Assessment & Plan Orders: Orders AMB Denosumab Injection Patient Supplied Today M81.0 - Age-related osteoporosis without current pathological fracture
== END 2023-09-07 11:25 | disposition home or self-care (01) ==
PROVIDERS: PCP Internal Medicine; Visit Provider Student in an Organized Health Care Education/Training Program
DX: M81.0 Age-related osteoporosis without current pathological fracture (principal)

== ENCOUNTER → 2023-09-07 10:49 | Outpatient (BNVA) | payer OTHER, SELFPAY | PROVIDERS: PCP Internal Medicine | DX: M81.0 Age-related osteoporosis without current pathological fracture (principal) | CPT/HCPCS: 96372; J0897 ==

== ENCOUNTER 2023-09-16 10:34 | Outpatient (AMB) | payer OTHER, SELFPAY ==
[2023-09-16 10:37] VITALS: BP 127/62; PULSE 73; O2SAT 94; BMI 26.0
--- NOTE | 2023-09-16 10:37 | A.OFFVIS_ITS ---
Intake Vital Signs 09/16/23 10:37 Height 4 ft 11 in Weight 128 lb 15.527 oz BMI 26.0 BP 127/62 Blood Pressure Location Rt brachial Position Sitting Pulse 73 Pulse Source Doppler Pulse Oximetry (%) 94 Oxygen Delivery Method Room Air Intake Visit Reasons: Asthma Allergies Penicillins Allergy (Intermediate, Verified 09/16/23 10:42) ITCHING HPI Asthma HPI Details 83-year-old lady, former 30+ pack-year s moker, quit 20 years prior, followed for asthma/COPD overlap syndrome.? Patient has been using Trelegy and albuterol MDI with good control of her symptoms.? She also has been using supplemental oxygen at 2 L at night for nocturnal hypoxia.? Recently evaluated at [facility] for shortness of breath and treated with course of prednisone [facility] Medical History (Updated 08/02/23 @ 11:34 by ANGI KaurC) Chronic heart failure with preserved ejection fraction (HFpEF) HTN (hypertension) Left bundle branch block Persistent atrial fibrillation Osteoporosis Surgical History Hx of endoscopy Hx of colonoscopy (03/05/15) Hx of tubal ligation History of nasal surgery Family History Father No problems noted. Mother Alzheimer disease Brother Heart disease CVD (cardiovascular disease) Son Diabetes Daughter Diabetes Paternal Aunt CVD (cardiovascular disease) Other Osteoarthritis Social History Household Members: None Housing: Apartment Alcohol intake: never Patient Tobacco Use Status: Former Tobacco user Second Hand Smoke Exposure: No Review of Systems Const Denies daytime sleepiness, Denies excessive sweating, Denies fatigue, Denies fever(s), Denies lethargy, Denies malaise, Denies night sweats, Denies snoring and Denies weight loss Eyes Denies blurry vision and Denies itchy eyes ENT Denies nasal congestion, Denies post nasal drip, Denies sinus pain, Denies sinus pressure and Denies other ( Thrush) Card Denies chest pain, Denies pedal edema, Denies dyspnea, Denies orthopnea and Denies paroxysmal nocturnal dyspnea Resp Denies cough, Denies hemoptysis, Denies excessive phlegm production, Denies dyspnea, Denies snoring and Denies wheezing GI Denies abdominal pain and Denies heartburn Musc Denies myalgias, Denies arthralgias and Denies joint swelling Skin/Breast Denies rash Neuro Denies memory loss and Denies seizure-like activity Psych Denies abnormal sleep pattern, Denies anxiety and Denies memory loss Endo Denies excessive sweating, Denies fatigue and Denies heat intolerance Regulo/Lymph Denies easy bruising Aller/Immun Denies itchy eyes, Denies seasonal rhinorrhea and Denies wheezing Physical Exam Vital Signs: Last Vital Signs Pulse 73 09/16/23 10:37 BP 127/62 09/16/23 10:37 Pulse Ox 94 09/16/23 10:37 Oxygen Delivery Method Room Air 09/16/23 10:37 BMI result Body Mass Index 26.0 Const General: no acute distress and alert Nutritional Appearance: not obese Orientation/consciousness: Other orientation findings ( oriented) HEENT Head: Yes atraumatic Eyes General: appearance normal, both eyes and all related structures Sclerae: sclerae normal EOM: EOMs intact bilaterally Neck Neck: Yes supple Lymphatic: no lymphadenopathy noted Resp Effort & Inspection: normal respiratory effort and no use of accessory muscles Auscultation: clear to auscultation bilaterally Cardio Rate: regular rate Rhythm: regular rhythm Heart sounds: no gallops, no murmurs and no rubs Skin General skin exam: other ( warm) Extrem General: No clubbing, No cyanosis and No edema Assessment & Plan Assessment & Plan (1) Asthma-COPD overlap syndrome: Code(s): J44.9 - Chronic obstructive pulmonary disease, unspecified Plan: Well controlled on current regimen of Trelegy and albuterol MDI. Continue current regimen. (2) Nocturnal hypoxemia: Code(s): G47.34 - Idiopathic sleep related nonobstructive alveolar hypoventilation Plan: Controlled on supplemental oxygen at 2 L at night. Continue current O2 therapy. Coding Level of Care Code Est Pt Level 4 (25922) Diagnoses Asthma-COPD overlap syndrome J44.9 Nocturnal hypoxemia G47.34
== END 2023-09-16 10:56 | disposition home or self-care (01) ==
PROVIDERS: PCP Internal Medicine; Visit Provider Internal Medicine Pulmonary Disease
DX: J44.9 Chronic obstructive pulmonary disease, unspecified (principal); G47.34 Idiopathic sleep related nonobstructive alveolar hypoventilation
CPT/HCPCS: 99214

== ENCOUNTER → 2023-09-16 10:34 | Outpatient (BNVA) | payer OTHER, SELFPAY | PROVIDERS: PCP Internal Medicine; Visit Provider Internal Medicine Pulmonary Disease | DX: J44.9 Chronic obstructive pulmonary disease, unspecified (principal); G47.34 Idiopathic sleep related nonobstructive alveolar hypoventilation | CPT/HCPCS: 99212 ==

== ENCOUNTER 2023-09-22 12:02 | Outpatient (REF) | payer OTHER, SELFPAY ==
[2023-09-22 12:57] LABS: B Type Natriuretic Peptide 265 pg/mL (<100)
[2023-09-22 13:19] LABS: Anion Gap 15 (12-20)
[2023-09-22 13:21] LABS: Blood Urea Nitrogen 34 mg/dL (9-16); Calcium 10.4 mg/dL (8.4-10.2); Estimated Glomerular Filt Rate 46; Glucose Random 144 mg/dL (60-115)
[2023-09-22 13:39] LABS: Carbon Dioxide 41 mmol/L (22-29); Chloride 96 mmol/L (96-108); Sodium 146 mmol/L (135-145)
== END 2023-09-22 12:03 | disposition home or self-care (01) ==
LOC: HO.LAB 12:02
PROVIDERS: PCP Internal Medicine; Visit Provider Internal Medicine
DX: I50.22 Chronic systolic (congestive) heart failure (principal)
CPT/HCPCS: 36415; 80048; 83880

== ENCOUNTER 2023-09-27 11:22 | Outpatient (REF) | payer OTHER, SELFPAY ==
[2023-09-27 12:59] LABS: B Type Natriuretic Peptide 205 pg/mL (<100)
[2023-09-27 13:10] LABS: Anion Gap 15 (12-20); Blood Urea Nitrogen 14 mg/dL (9-16); Calcium 9.9 mg/dL (8.4-10.2); Carbon Dioxide 36 mmol/L (22-29); Chloride 96 mmol/L (96-108); Estimated Glomerular Filt Rate 54; Glucose Random 142 mg/dL (60-115); Magnesium 1.8 mg/dL (1.6-2.6); Potassium 4.4 mmol/L (3.3-5.1); Sodium 143 mmol/L (135-145)
== END 2023-09-27 11:23 | disposition home or self-care (01) ==
LOC: HO.LAB 11:22
PROVIDERS: Visit Provider Internal Medicine
DX: I50.22 Chronic systolic (congestive) heart failure (principal); N18.31 Chronic kidney disease, stage 3a
CPT/HCPCS: 36415; 80048; 83735; 83880

== ENCOUNTER 2023-09-28 12:25 | Outpatient (REF) | payer OTHER, SELFPAY | END 2023-09-28 12:26 | disposition home or self-care (01) | LOC: HO.HHCLNP 12:25 | PROVIDERS: Visit Provider Nurse Practitioner Family | DX: Z13.89 Encounter for screening for other disorder (principal) ==

== ENCOUNTER 2023-11-30 11:22 | Outpatient (REF) | payer OTHER, SELFPAY ==
[2023-11-30 12:33] LABS: Anion Gap 14 (12-20); Blood Urea Nitrogen 17 mg/dL (9-16); Calcium 10.2 mg/dL (8.4-10.2); Carbon Dioxide 35 mmol/L (22-29); Chloride 98 mmol/L (96-108); Estimated Glomerular Filt Rate 40; Glucose Random 118 mg/dL (60-115); Potassium 4.6 mmol/L (3.3-5.1); Sodium 142 mmol/L (135-145)
== END 2023-11-30 11:23 | disposition home or self-care (01) ==
LOC: HO.LAB 11:22
PROVIDERS: Absent Provider Internal Medicine; PCP Internal Medicine; Visit Provider Internal Medicine
DX: I50.22 Chronic systolic (congestive) heart failure (principal)
CPT/HCPCS: 36415; 80048

== ENCOUNTER 2023-12-10 12:39 | Outpatient (REF) | payer OTHER, SELFPAY ==
[2023-12-10 14:20] LABS: B Type Natriuretic Peptide 158 pg/mL (<100)
[2023-12-10 15:11] LABS: Anion Gap 15 (12-20); Blood Urea Nitrogen 24 mg/dL (9-16); Calcium 9.7 mg/dL (8.4-10.2); Carbon Dioxide 31 mmol/L (22-29); Chloride 99 mmol/L (96-108); Estimated Glomerular Filt Rate 49; Glucose Random 117 mg/dL (60-115); Phosphorus 3.5 mg/dL (2.7-4.5); Potassium 4.4 mmol/L (3.3-5.1); Sodium 141 mmol/L (135-145)
== END 2023-12-10 12:40 | disposition home or self-care (01) ==
LOC: HO.LAB 12:39
PROVIDERS: PCP Internal Medicine; Visit Provider Internal Medicine
DX: I48.91 Unspecified atrial fibrillation (principal); I11.0 Hypertensive heart disease with heart failure; I50.22 Chronic systolic (congestive) heart failure; N18.31 Chronic kidney disease, stage 3a
CPT/HCPCS: 36415; 80048; 83735; 83880; 84100

== ENCOUNTER 2023-12-27 10:13 | Outpatient (REF) | payer OTHER, SELFPAY ==
[2023-12-27 11:19] LABS: Anion Gap 14 (12-20); Blood Urea Nitrogen 22 mg/dL (9-16); Carbon Dioxide 33 mmol/L (22-29); Chloride 98 mmol/L (96-108); Estimated Glomerular Filt Rate 42; Glucose Random 116 mg/dL (60-115); Potassium 4.1 mmol/L (3.3-5.1); Sodium 141 mmol/L (135-145)
== END 2023-12-27 10:14 | disposition home or self-care (01) ==
LOC: HO.LAB 10:13
PROVIDERS: PCP Internal Medicine; Visit Provider Internal Medicine
DX: I10 Essential (primary) hypertension (principal)
CPT/HCPCS: 36415; 80048

== ENCOUNTER 2024-01-25 10:02 | Outpatient (AMB) | payer OTHER, SELFPAY ==
[2024-01-25 10:18] VITALS: BP 114/72; PULSE 50; BMI 26.5
--- NOTE | 2024-01-25 10:18 | A.OFFVIS_ITS ---
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 Embosser Apprentice Language: Program Management Intern Name: kiet de luna [id number] Movie Shot Cameraman: Movie Shot Cameraman Present Allergies Penicillins Allergy (Intermediate, Verified 01/25/24 10:21) ITCHING Medication List - Last Reconciled 01/25/24 by ELLIOT Kaur acetaminophen ER (Tylenol 8 Hour) 650 mg PO Q12H PRN albuterol sulfate 90 mcg/actuation 2 puffs inhalation Q6H PRN apixaban (Eliquis) 5 mg PO BID 90 days atorvastatin 40 mg PO DAILY calcium carbonate 600 mg PO BID cholecalciferol (vitamin D3) (Vitamin D3) 50 mcg PO DAILY docusate sodium (Colace) 100 mg PO BID ferrous sulfate (FeroSul) 325 mg PO DAILY fluticasone propionate 50 mcg/actuation sprays intranasal vgakwsoasqq-fgmvulqme-ylbcqyqh 100-62.5-25 mcg (Trelegy Ellipta) 1 ea PO DAILY furosemide 20 mg PO DAILY lansoprazole 30 mg PO DAILY lisinopril 10 mg PO DAILY loratadine (Allergy Relief (loratadine)) 10 mg PO DAILY melatonin 3 mg PO BEDTIME memantine 10 mg PO BID metoprolol tartrate 25 mg PO BID multivitamin 1 tab PO DAILY venlafaxine ER 37.5 mg PO DAILY HPI 6 mth f/up HPI Details Kesha is an 84-year-old female with past medical history of hypertension, left bundle branch block, paroxysmal AFib, heart failure with preserved EF who presents for follow-up. Today she reports that she was hospitalized 2 months ago at [facility] for fluid buildup. She has been doing well since that time. She was discharged on her usual Lasix 40 mg in the morning and 20 mg in the afternoon. She currently describes her breathing as being normal. She denies PND, orthopnea or edema. No chest discomfort, palpitations, dizziness, presyncope, syncope, falls. Taking meds as directed. No bleeding issues reported. She does only light physical activity at home. Certified marketing intelligence manager used. Son is present. [facility] Medical History Chronic heart failure with preserved ejection fraction (HFpEF) HTN (hypertension) Left bundle branch block Persistent atrial fibrillation Osteoporosis Surgical History Hx of endoscopy Hx of colonoscopy (03/05/15) Hx of tubal ligation History of nasal surgery Family History Father No problems noted. Mother Alzheimer disease Brother Heart disease CVD (cardiovascular disease) Son Diabetes Daughter Diabetes Paternal Aunt CVD (cardiovascular disease) Other Osteoarthritis Social History Household Members: None Housing: Apartment Alcohol intake: never Patient Tobacco Use Status: Former Tobacco user Second Hand Smoke Exposure: No Review of Systems Const All systems reviewed & are unremarkable except as noted in HPI and below ENT Denies dizziness Card Denies chest pain, Denies chest pain at rest, Denies chest pain with activity, Denies rapid heart rate, Denies pedal edema, Denies edema, Denies leg edema, Denies lightheadedness, Denies palpitations, Denies dyspnea, Denies dyspnea on exertion and Denies orthopnea Resp Details: sleeps with 2 pillows Denies cough, Denies dyspnea and Denies dyspnea on exertion GI Denies hematochezia and Denies change in stool character Musc Denies abnormal gait, Denies limited range of motion, Denies muscle cramps, Denies muscle weakness, Denies numbness, Denies radiating pain into limb, Denies stiffness and Denies tingling Neuro Denies abnormal gait, Denies dizziness, Denies numbness and Denies tingling Endo Denies palpitations Physical Exam Vital Signs: Last Vital Signs Pulse 50 01/25/24 10:18 BP 114/72 01/25/24 10:18 BMI result Body Mass Index 26.5 Const General: cooperative, healthy appearing, comfortable and no acute distress Orientation/consciousness: patient oriented x3 Neck Neck: Yes normal visual inspection and Yes no JVD Resp Effort & Inspection: normal respiratory effort Auscultation: clear to auscultation bilaterally, no crackles, no rales, no rhonchi and no wheezes Cardio Jugular venous distension: no JVD Rate: regular rate Rhythm: abnormal rhythm Heart sounds: S1 normal heart sound present, S2 normal heart sound present, no murmurs and no rubs Neuro General: patient oriented x3 Extrem General: Yes normal to inspection and No no pedal edema Psych Appearance: grossly normal Mental Status: mental status grossly normal Speech and movement: Normal speech and movement present Office Procedures EKG Details: Today, read by me, atrial fibrillation, low-voltage QRS, septal Q-wave, can not exclude lateral infarct, incomplete left bundle branch block, rate 66, QTC 490 millisecond [id number], Complete Assessment & Plan Assessment & Plan (1) Chronic heart failure with preserved ejection fraction (HFpEF): Code(s): I50.32 - Chronic diastolic (congestive) heart failure Plan: History of heart failure with preserved EF. Last echo at [facility] for 02/2023 showed EF 60-65%, mildly dilated left atrium, mild TR. Today she reports she was hospitalized at [facility] 2 months ago with what sounds like decompensated heart failure. She was continued on her usual Lasix 40 mg in the morning and 20 mg in the evening. Her med list also includes metoprolol, lisinopril which were unchanged. Will work on obtaining those records. On examination today she does not appear fluid overloaded. Will continue on current medications without change. Signs and symptoms of heart failure reviewed with her. Cardiology follow-up in 6 months, sooner if needed (2) Left bundle branch block: Code(s): I44.7 - Left bundle-branch block, unspecified Plan: Chronic left bundle branch block. EKG done today looks more like incomplete left bundle branch block. (3) Persistent atrial fibrillation: Code(s): I48.19 - Other persistent atrial fibrillation Plan: History of persistent atrial fibrillation. EKG done today is showing atrial fibrillation with controlled heart rate at 66. She is on metoprolol 25 mg b.i.d. for heart rate control. She is on Eliquis 5 mg b.i.d. for anticoagulation. Labs done 12/27/2023 showed creatinine 1.22. Current weight is 59.5kg. Since her weight is below 60 kg age 84 will reduce her Eliquis down to 2.5 mg b.i.d. (4) HTN (hypertension): Code(s): I10 - Essential (primary) hypertension Qualifiers: Hypertension type: primary hypertension Qualified Code(s): I10 - Essential (primary) hypertension Plan: Well controlled at this time. No med changes made. (5) Nocturnal hypoxemia: Code(s): G47.34 - Idiopathic sleep related nonobstructive alveolar hypoventilation Plan: She wears oxygen 2 L at night. Followed by pulmonology Plan Time spent on chart review, documentation, interview and assessment Medications: New apixaban (Eliquis) Dose reduction: age 84, Wt 59.5kg 2.5 mg PO BID 60 tabs 5RF Discontinued apixaban (Eliquis) Discontinued Reason: Doctor's Order 5 mg PO BID 180 tabs 3RF 90 days Coding Level of Care Code Est Pt Level 4 (96186) Diagnoses Chronic heart failure with preserved ejection fraction (HFpEF) I50.32 Left bundle branch block I44.7 Persistent atrial fibrillation I48.19 Primary hypertension I10 Hypertension type: primary hypertension Nocturnal hypoxemia G47.34 CPT Codes EKG - CPT: 76771-[id number], Complete ([id number]) Time Spent (min) 28
== END 2024-01-25 10:53 | disposition home or self-care (01) ==
PROVIDERS: PCP Internal Medicine; Visit Provider Nurse Practitioner Family
DX: I50.32 Chronic diastolic (congestive) heart failure (principal); I44.7 Left bundle-branch block, unspecified; I48.19 Other persistent atrial fibrillation; I10 Essential (primary) hypertension; G47.34 Idiopathic sleep related nonobstructive alveolar hypoventilation
CPT/HCPCS: 93010; 99214

== ENCOUNTER → 2024-01-25 10:02 | Outpatient (BNVA) | payer OTHER, SELFPAY | PROVIDERS: PCP Internal Medicine; Visit Provider Nurse Practitioner Family | DX: I48.0 Paroxysmal atrial fibrillation (principal); I44.7 Left bundle-branch block, unspecified; I11.0 Hypertensive heart disease with heart failure; I50.32 Chronic diastolic (congestive) heart failure; G47.34 Idiopathic sleep related nonobstructive alveolar hypoventilation | CPT/HCPCS: 93005; 99212 ==

== ENCOUNTER 2024-01-27 10:57 | Outpatient (AMB) | payer OTHER, SELFPAY ==
--- NOTE | 2024-01-27 11:19 | MHC.OFFVIS ---
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 Ojeda, presents today for follow up and Prolia injection. 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 Easton 84-year-old female is here today with her son, Jonny, to evaluate her osteoporosis treatment. The patient continues to be monitored for CHF. She has received Prolia apparently for about 10 years now, the last injection was July 2023. At that last visit it was identified that there may have been a few missed doses in around 2014. She had a fracture in 2018 of the radius. There was an attempt to get her to agree to treatment with daily Tymlos injections but she declined. She did have bone density done November 2022. She remains on vitamin-D supplementation. There have been no side effects with the Prolia injections. She gets occasional pains in the hands, lower back and the feet attributed to osteoarthritis. She does take occasional acetaminophen for the pains. She was referred by PCP and has to schedule an appointment with the speech therapist early intervention. [facility] Medical History (Updated 01/27/24 @ 13:43 by Barbara Arthur [facility]) Chronic kidney disease Hypovitaminosis D Chronic heart failure with preserved ejection fraction (HFpEF) HTN (hypertension) Left bundle branch block Persistent atrial fibrillation Osteoporosis Surgical History Hx of endoscopy Hx of colonoscopy (03/05/15) Hx of tubal ligation History of nasal surgery Family History Father No problems noted. Mother Alzheimer disease Brother Heart disease CVD (cardiovascular disease) Son Diabetes Daughter Diabetes Paternal Aunt CVD (cardiovascular disease) Other Osteoarthritis Social History Household Members: None Housing: Apartment Alcohol intake: never Patient Tobacco Use Status: Former Tobacco user Second Hand Smoke Exposure: No Review of Systems Const All systems reviewed & are unremarkable except as noted in HPI and below Physical Exam Vital Signs: Last Vital Signs Pulse 64 01/27/24 11:21 Resp 18 01/27/24 11:21 BP 98/58 L 01/27/24 11:21 BMI result Body Mass Index 26.5 Vital signs reviewed. Constitutional: Non-toxic appearing. No acute distress. Well-developed and well-nourished. HEENT: Normocephalic and atraumatic. External auditory canals without erythema or edema bilaterally. Dry mucous membranes. No pharyngeal erythema or exudates. Skin: Warm and dry. No rashes or lesions noted. Neck: Full and painless range of motion. No cervical lymphadenopathy. Cardio: Regular rate and rhythm. No murmurs, gallops, or rubs. No lower extremity edema. No JVD. Pulmonary: No respiratory distress. No accessory muscle usage. Genitourinary: No CVA tenderness. Musculoskeletal: Normal range of motion in joints throughout the body. No deformity or other signs of injury. Neuro: Alert and oriented x3. Cranial nerves 2-12 grossly intact. No focal deficits appreciated. Results Reviewed Results Reviewed: [facility] [address] [place] [address] Mammography Report Signed Patient: Jemma Esquivel MR#: [id number] : 1940 Acct:[id number] Age/Sex: 82 / F ADM Date: 11/13/[address]: Idalia Damon NP Ordering Physician: Idalia Damon NP Results: Date of Service: 11/13/22 Follow Up: Procedure(s): XR DEXA axial skeleton Accession Number(s): [id number] cc: Idalia Damon NP~ EXAMINATION: BONE DENSITOMETRY CLINICAL INDICATION: Age-related osteoporosis without current pathological fracture. COMPARISON: Previous BD dated 07/25/2020 and baseline BD dated 01/28/2007. TECHNIQUE: Using a [employer] DXA System (software version: 13.1) manufactured by [employer], dual-energy x-ray absorptiometry was performed of the lumbar spine and left hip. The images are of good technical quality. Summary results are attached. FINDINGS: AP SPINE L1-L3 (excluding L4): The data of L1-L4 has been changed to exclude the L4 vertebral body, because degenerative changes at this level may cause overestimation of lumbar spine density. Current: BMD 1.020 g/cm2, Z-score 0.7, T-score -1.2, osteopenia, 1.8% decrease from previous, 9.3% increase from baseline (<5% change is not significant). Prior: BMD 1.039 g/cm2. Baseline: BMD 0.933 g/cm2. LEFT FEMUR, NECK: Current: BMD 0.615 g/cm2, Z-score -0.7, T-score -3.0, osteoporosis. Prior: BMD 0.729 g/cm2. Baseline: BMD 0.708 g/cm2. LEFT FEMUR, TOTAL: Current: BMD 0.705 g/cm2, Z-score -0.2, T-score -2.4, osteopenia, 21.0% decrease from previous, 17.9% decrease from baseline (<5% change is not significant). Prior: BMD 0.892 g/cm2. Baseline: BMD 0.859 g/cm2. IDENTIFIED RISK FACTORS: Rheumatoid arthritis. Dementia. Menopause. HISTORY OF FRACTURE: None listed. MEDICATIONS: Calcium supplement or multivitamin. Vitamin D. MM/XR DEXA axial skeleton IMPRESSION: 1. DIAGNOSIS: Osteoporosis based on the lowest T-score value of -3.0 in the femoral neck applying World Health Organization criteria. 2. 10-YEAR FRACTURE RISK PREDICTION, FRAX: According to the guidelines, FRAX calculation should only be performed on patients in the osteopenia bone density category. Therefore, FRAX was not performed on this patient.? 3. Treatment Recommendations: NOF guidelines recommend consideration for treatment in postmenopausal women and men age 50 and older presenting with the following: -A hip or vertebral (clinical or morphometric) fracture. -T-score less than or equal to -2.5 at the femoral neck or spine after appropriate evaluation to exclude secondary causes. -Low bone mass at the hip or spine and a 10-year fracture probability by FRAX of greater than or equal to 3% for hip fracture or greater than or equal to 20% for major osteoporotic fracture based on the [place] adapted WHO algorithm. 4. Other Recommendations: All treatment decisions require clinical judgment and consideration of individual patient factors, including patient preferences, comorbidities, previous drug use, risk factors not captured in the FRAX model (e.g. frailty, falls, vitamin D deficiency, increased bone turnover, interval significant decline in bone density) and possible under or overestimation of fracture risk by FRAX. Additional medical evaluation for secondary cause of low bone mineral density may be appropriate. FUTURE SCAN RECOMMENDATION: People with diagnosed cases of osteoporosis or at high risk for fracture should have regular bone mineral density tests. For patients eligible for Medicare, routine testing is allowed once every 2 years. The testing frequency can be increased to one year for patients who have rapidly progressing disease, those who are receiving or discontinuing medical therapy to restore bone mass, or have additional risk factors. Dictated By: Augusto Gil MD Laboratory Tests 03/01/23 14:22 Creatinine 1.02 Calcium 9.9 Phosphorus 2.8 25-OH Vitamin D Total 69.3 Laboratory Tests 12/27/23 10:23 Sodium 141 Potassium 4.1 Chloride 98 Carbon Dioxide 33 H BUN 22 H Creatinine 1.22 Estimated GFR 42 Calcium 10.0 Assessment & Plan Assessment & Plan (1) Osteoporosis: Comment: prolia started 10/30/2014 Code(s): M81.0 - Age-related osteoporosis without current pathological fracture Qualifiers: Osteoporosis type: age-related Presence of current pathological fracture: without current pathological fracture Qualified Code(s): M81.0 - Age-related osteoporosis without current pathological fracture (2) Hypovitaminosis D: Code(s): E55.9 - Vitamin D deficiency, unspecified (3) Chronic heart failure with preserved ejection fraction (HFpEF): Code(s): I50.32 - Chronic diastolic (congestive) heart failure (4) Chronic kidney disease: Code(s): N18.9 - Chronic kidney disease, unspecified Qualifiers: Chronic kidney disease stage: stage 3 (moderate) Chronic kidney disease stage 3 subtype: stage 3a (GFR 45-59) Qualified Code(s): N18.31 - Chronic kidney disease, stage 3a Plan # osteoporosis/CHF/vitamin-D Osteoporosis with no recent fractures. The vitamin-D level is adequate. The November 2022 bone density did show some worsening in the femur and femoral neck but persistent improvement in the LS spine. Given that the baseline studies we date back 10 years, it could have just been some effect from her aging. Alternatively I think she might have missed a few doses of the drug during the last 10 years. At this point I think we should recheck her bone density. We will also obtain labs for renal function, vitamin-D and calcium level to assess for start IV zoledronic acid. I discussed with the patient and her son the possible side effects of IV zoledronic acid to include but not limited to flu-like symptoms a week or so afterwards, but, should not persist beyond 2 weeks. For this she can take Tylenol. There is also the potential for personal allergies with the medication. In light of her history of CHF, they should monitor her the day after treatment to make sure there is no increased fluid retention and to call the office or seek medical attention if this occurs. She will continue her vitamin-D supplements. The patient and her son agrees with this plan #CKD:They will follow-up with the speech therapist early intervention to start closer monitoring of her kidney function. Orders: Orders Vitamin D 1,25 dihydroxy 1 Week E55.9 - Vitamin D deficiency, unspecified, M81.0 - Age-related osteoporosis without current pathological fracture Comprehensive Met. Panel 1 Week M81.0 - Age-related osteoporosis without current pathological fracture Collagen Crosslinks NTX 1 Week M81.0 - Age-related osteoporosis without current pathological fracture Collagen Type I C-Telopeptide 1 Week M81.0 - Age-related osteoporosis without current pathological fracture XR DEXA axial skeleton 1 Week M81.0 - Age-related osteoporosis without current pathological fracture Collagen Cross-linked,24U 1 Week M81.0 - Age-related osteoporosis without current pathological fracture Alkaline Phosphatase Bone 1 Week M81.0 - Age-related osteoporosis without current pathological fracture Albumin Level 1 Week M81.0 - Age-related osteoporosis without current pathological fracture Phosphorus 1 Week M81.0 - Age-related osteoporosis without current pathological fracture Parathyroid Hormone Intact 1 Week M81.0 - Age-related osteoporosis without current pathological fracture Coding Level of Care Code Est Pt Level 4 (03631) Diagnoses Age-related osteoporosis without current pathological fracture M81.0 Osteoporosis type: age-related Presence of current pathological fracture: without current pathological fracture Hypovitaminosis D E55.9 Chronic heart failure with preserved ejection fraction (HFpEF) I50.32 Stage 3a chronic kidney disease N18.31 Chronic kidney disease stage: stage 3 (moderate) Chronic kidney disease stage 3 subtype: stage 3a (GFR 45-59)
[2024-01-27 11:21] VITALS: BP 98/58; PULSE 64; RESP 18; BMI 26.5
== END 2024-01-27 11:39 | disposition home or self-care (01) ==
PROVIDERS: PCP Internal Medicine; Visit Provider Nurse Practitioner Family
DX: M81.0 Age-related osteoporosis without current pathological fracture (principal); E55.9 Vitamin D deficiency, unspecified; I50.32 Chronic diastolic (congestive) heart failure; N18.31 Chronic kidney disease, stage 3a
CPT/HCPCS: 99214

== ENCOUNTER → 2024-01-27 10:57 | Outpatient (BNVA) | payer OTHER, SELFPAY | PROVIDERS: PCP Internal Medicine; Visit Provider Nurse Practitioner Family | DX: M81.0 Age-related osteoporosis without current pathological fracture (principal); E55.9 Vitamin D deficiency, unspecified; N18.31 Chronic kidney disease, stage 3a; I50.32 Chronic diastolic (congestive) heart failure | CPT/HCPCS: 99212 ==

== ENCOUNTER 2024-04-07 10:19 | Outpatient (AMB) | payer OTHER, SELFPAY ==
[2024-04-07 10:21] VITALS: BP 132/60; PULSE 60; O2SAT 98; BMI 26.1
--- NOTE | 2024-04-07 10:21 | HO.NEPHOV_ITS ---
Vital Signs 04/07/24 10:21 Height 4 ft 11 in Weight 129 lb BMI 26.1 BP 132/60 Blood Pressure Location Lt brachial Position Sitting Pulse 60 Pulse Source Pulse Oximeter Pulse Oximetry (%) 98 Oxygen Delivery Method Room Air Intake Visit Reasons: STG 3 CKD/ Confirmed Forge Press Operator Required: Yes Forge Press Operator Name: Miguelito [id number] Accompanied by: Son Allergies Penicillins Allergy (Intermediate, Verified 04/07/24 10:24) ITCHING HPI Comments Details: . Jemma is a pleasant 84-year-old woman referred for chronic kidney disease. In 12/28/2023 serum creatinine was 1.22 with a EGFR of 42 mL/minute. She was accompanied by her son. Forge Press Operator service was used. Jemma has history of congestive heart failure. She is on low-dose of Lasix. Her son monitors her weight daily and she has on a low-sodium diet. History of COPD. Has a history of hypertension. Blood pressure has been well controlled. Today she has no specific complaints. No headache nausea vomiting. No shortness of breath no cough. No edema no urinary symptoms no polyuria polydipsia. No hematuria. No rash no joint pains. [facility] Medical History (Updated 04/07/24 @ 10:42 by Shree Briseno MD) Chronic kidney disease Hypovitaminosis D Chronic heart failure with preserved ejection fraction (HFpEF) HTN (hypertension) Left bundle branch block Persistent atrial fibrillation Osteoporosis Surgical History Hx of endoscopy Hx of colonoscopy (03/05/15) Hx of tubal ligation History of nasal surgery Family History Father No problems noted. Mother Alzheimer disease Brother Heart disease CVD (cardiovascular disease) Son Diabetes Daughter Diabetes Paternal Aunt CVD (cardiovascular disease) Other Osteoarthritis Social History Household Members: None Housing: Apartment Alcohol intake: never Patient Tobacco Use Status: Former Tobacco user Second Hand Smoke Exposure: No Physical Exam Vital Signs: Last Vital Signs Pulse 60 04/07/24 10:21 BP 132/60 04/07/24 10:21 Pulse Ox 98 04/07/24 10:21 Oxygen Delivery Method Room Air 04/07/24 10:21 BMI result Body Mass Index 26.1 Const General: comfortable Nutritional Appearance: well nourished Orientation/consciousness: patient oriented x3 HEENT Head: No normal to inspection Mouth: moist mucous membranes Neck Neck: Yes supple and Yes no JVD Resp Auscultation: no rales and rub present Cardio Jugular venous distension: no JVD Palpation: no palpable S3 and no palpable S4 Heart sounds: no rubs GI Palpation (GI): Soft to palpation and nontender Percussion: No Fluid wave present General: Yes no CVA tenderness Back/Spine/Pelvis Back: no CVA tenderness Skin General skin exam: no rashes or lesions noted Neuro General: patient oriented x3 Extrem General: Yes no pedal edema and No clubbing Results Reviewed Nephrology Results: Sodium 141 mmol/L (135-145) 12/27/23 Potassium 4.1 mmol/L (3.3-5.1) 12/27/23 Chloride 98 mmol/L (96-108) 12/27/23 Carbon Dioxide 33 mmol/L (22-29) H 12/27/23 BUN 22 mg/dL (9-16) H 12/27/23 Creatinine 1.22 mg/dL (0.5-1.4) 12/27/23 Calcium 10.0 mg/dL (8.4-10.2) 12/27/23 Phosphorus 3.5 mg/dL (2.7-4.5) 12/10/23 Assessment & Plan Assessment & Plan (1) Chronic heart failure with preserved ejection fraction (HFpEF): Code(s): I50.32 - Chronic diastolic (congestive) heart failure Category: Medical (2) Asthma-COPD overlap syndrome: Code(s): J44.9 - Chronic obstructive pulmonary disease, unspecified Category: Medical (3) CKD (chronic kidney disease) stage 3, GFR 30-59 ml/min: Code(s): N18.30 - Chronic kidney disease, stage 3 unspecified Category: Medical Plan Margoth Easton is a 84-year-old man with a history of longstanding hypertension and congestive heart failure with stage 3 chronic kidney disease. Baseline serum creatinine is around 1.2-1.2 mg/dL. With a EGFR of about 42 mL/minute. She probably has a age-related loss of nephrons/hypertensive nephrosclerosis. Obstructive uropathy should be ruled out all those seems unlikely at this point. There is no reason to believe she is any active glomerulonephritis or interstitial disease. Nevertheless we will rule that out. Blood pressure is well controlled. As for the congestive heart failure she appears well compensated. Recommendations Continue to keep on low-sodium diet. Continue to avoid nephrotoxic agents including NSAIDs. I have not made any changes to her antihypertensive regimen. We will screen for comorbid conditions including anemia and secondary hyperparathyroidism. Obtain renal ultrasonogram to assess echogenicity and to rule out hyd ronephrosis. Urine studies ordered to check for any proteinuria. Lab work ordered to assess renal function All questions were answered. Orders: Orders Comprehensive Met. Panel Today I50.32 - Chronic diastolic (congestive) heart failure, N18.30 - Chronic kidney disease, stage 3 unspecified, N18.9 - Chronic kidney disease, unspecified Total Protein Urine Random Today I50.32 - Chronic diastolic (congestive) heart failure, N18.30 - Chronic kidney disease, stage 3 unspecified UA and rflx microscopic Today I50.32 - Chronic diastolic (congestive) heart failure, N18.30 - Chronic kidney disease, stage 3 unspecified US renal BI Today I50.32 - Chronic diastolic (congestive) heart failure, N18.30 - Chronic kidney disease, stage 3 unspecified Complete Blood Count Auto Diff Today I50.32 - Chronic diastolic (congestive) heart failure, N18.30 - Chronic kidney disease, stage 3 unspecified Creatinine Urine Today I50.32 - Chronic diastolic (congestive) heart failure, N18.30 - Chronic kidney disease, stage 3 unspecified Vitamin D 25-OH (D2 and D3) Today N18.30 - Chronic kidney disease, stage 3 unspecified Coding Level of Care Code New Pt Level 4 (10054) Diagnoses Chronic heart failure with preserved ejection fraction (HFpEF) I50.32 Asthma-COPD overlap syndrome J44.9 CKD (chronic kidney disease) stage 3, GFR 30-59 ml/min N18.30
== END 2024-04-07 10:52 | disposition home or self-care (01) ==
PROVIDERS: PCP Internal Medicine; Referring Provider Internal Medicine; Visit Provider Internal Medicine Hypertension Specialist
DX: I50.32 Chronic diastolic (congestive) heart failure (principal); J44.9 Chronic obstructive pulmonary disease, unspecified; N18.30 Chronic kidney disease, stage 3 unspecified
CPT/HCPCS: 99204

== ENCOUNTER → 2024-04-07 10:19 | Outpatient (BNVA) | payer OTHER, SELFPAY | PROVIDERS: PCP Internal Medicine; Referring Provider Internal Medicine; Visit Provider Internal Medicine Hypertension Specialist | DX: N18.30 Chronic kidney disease, stage 3 unspecified (principal); I50.32 Chronic diastolic (congestive) heart failure; J44.9 Chronic obstructive pulmonary disease, unspecified | CPT/HCPCS: 99202 ==

== ENCOUNTER 2024-04-07 11:09 | Outpatient (REF) | payer OTHER, SELFPAY ==
[2024-04-07 13:18] LABS: Appearance Urine Clear; Color Urine Yellow; Glucose Urine UA Negative (Negative); Leukocyte Esterase Urine Negative (Negative); Nitrite Urine Negative (Negative); PH 7.5 (5.0-9.0); Specific Gravity - Urine <= 1.005 (1.005-1.025); Urine Blood Negative (Negative); Urine Ketones Negative (Negative); Urine Protein Negative (Neg-Trace)
[2024-04-07 13:35] LABS: MANUAL DIFF FLAG NO
[2024-04-07 13:53] LABS: Basophils Absolute Auto 0.1 X10*3/uL (0.0-0.2); Basophils Percent Auto 0.8 % (0-2); Eosinophils Absolute Auto 0.5 X10*3/uL (0.0-0.4); Eosinophils Percent Auto 5.1 % (0-4); Hematocrit 39.6 % (37.0-47.0); Hemoglobin 12.2 g/dl (12.0-16.0); Imm Gran Abs Auto 0.03 X10*3/uL (0.00-0.03); Imm Gran Pct Auto 0.3 % (0.0-0.4); Lymphocytes Percent Auto 22.8 % (20-40); Mean Corpuscular HGB Conc 30.8 g/dl (31.0-35.0); Mean Corpuscular Hemoglobin 26.1 pg (27.0-33.0); Mean Corpuscular Volume 84.6 fL (80.0-98.0); Mean Platelet Volume 12.4 fL (9.4-12.3); Monocytes Absolute Auto 0.8 X10*3/uL (0.1-1.2); Monocytes Percent Auto 8.7 % (2-11); Neutrophils Absolute Auto 5.5 x10*3/uL (2.0-8.3); Neutrophils Percent Auto 62.3 % (45-73); Platelet Count 280 X10*3/uL (160-400); Red Blood Count 4.68 X10*6/uL (4.20-5.50); Red Cell Distribution Width 15.9 % (11.0-16.0); White Blood Count 8.8 X10*3/uL (4.8-10.8)
[2024-04-07 14:02] LABS: Alanine Aminotransferase 7 U/L (0-31); Albumin Level 4.1 g/dL (3.5-5.0); Alkaline Phosphatase 55 U/L (39-117); Anion Gap 16 (12-20); Aspartate Amino Transferase 15 U/L (5-31); Bilirubin Total 0.4 mg/dL (0.0-1.0); Blood Urea Nitrogen 17 mg/dL (9-16); Calcium 10.4 mg/dL (8.4-10.2); Carbon Dioxide 33 mmol/L (22-29); Chloride 96 mmol/L (96-108); Estimated Glomerular Filt Rate 58; Glucose Random 124 mg/dL (60-115); Potassium 3.8 mmol/L (3.3-5.1); Sodium 141 mmol/L (135-145); Total Protein 7.7 g/dL (6.5-8.0)
[2024-04-07 14:36] LABS: Creatinine Urine 13.86 mg/dL; Total Protein Urine Random < 7 mg/dL (<12)
[2024-04-12 14:13] LABS: Vitamin D 25-OH, D2 <4 ng/mL; Vitamin D 25-OH, D3 31 ng/mL; Vitamin D 25-OH, Total 31 ng/mL (30-100)
== END 2024-04-07 11:10 | disposition home or self-care (01) ==
LOC: HO.10HDL 11:09
PROVIDERS: Visit Provider Internal Medicine Hypertension Specialist
DX: N18.9 Chronic kidney disease, unspecified (principal); N18.30 Chronic kidney disease, stage 3 unspecified; I50.32 Chronic diastolic (congestive) heart failure
CPT/HCPCS: 36415; 80053; 81003; 82306; 82570; 84156; 85025

== ENCOUNTER 2024-04-13 11:18 | Outpatient (REF) | payer OTHER, SELFPAY ==
--- NOTE | ~2024-04-13 | US_ITS ---
EXAMINATION: US RETROPERITONEAL LIMITED (RENAL ONLY) CLINICAL INFORMATION: Chronic kidney disease, stage III, unspecified. COMPARISON: CT abdomen and pelvis 03/05/2015. TECHNIQUE: Real-time imaging of the kidneys. Limited visualization due to bowel gas. FINDINGS: RIGHT KIDNEY: 9.5 x 4.2 x 5.4 cm (SAG x AP x TRV). 4 mm right lower pole echogenic focus may represent a nonobstructive calculus versus nonobstructive vessel. 0.7 cm lateral pole cyst with benign features. There is no indication for follow up imaging. 3.5 x 3.1 x 3.0 cm right renal upper pole echogenic mass. Limited visualization. LEFT KIDNEY: 9.9 x 4.7 x 5.2 cm (SAG x AP x TRV). Left renal 5 mm calculus versus cluster of calculi versus calcified vessels difficult to evaluate due to limited visualization. No hydronephrosis. Limited visualization. Renal cortical thickness is normal. US/US renal BI IMPRESSION: 1. 3.5 cm right renal upper pole echogenic mass. CT scan with intravenous contrast employing renal mass protocol recommended for further evaluation. 2. Bilateral renal calculi versus calcified vessels. No hydronephrosis. This study was presented Friday, April 26, 2024, for interpretation. [facility] staff will provide results to referring provider at this time.
== END 2024-04-13 11:19 | disposition home or self-care (01) ==
LOC: HO.US 11:18
PROVIDERS: PCP Internal Medicine; Visit Provider Psychiatry & Neurology Neurology
DX: N18.30 Chronic kidney disease, stage 3 unspecified (principal); I50.32 Chronic diastolic (congestive) heart failure
CPT/HCPCS: 76775

== ENCOUNTER 2024-04-27 10:52 | Outpatient (AMB) | payer OTHER, SELFPAY ==
[2024-04-27 10:55] VITALS: BP 128/70; PULSE 68; O2SAT 97; BMI 26.5
--- NOTE | 2024-04-27 10:55 | HO.NEPHOV_ITS ---
Vital Signs 04/27/24 10:55 Height 4 ft 11 in Weight 131 lb BMI 26.5 BP 128/70 Blood Pressure Location Lt brachial Position Sitting Pulse 68 Pulse Source Pulse Oximeter Pulse Oximetry (%) 97 Oxygen Delivery Method Room Air Intake Visit Reasons: 3 wks follow up/ Conf Carpenter Helper Hardwood Flooring Required: Yes Carpenter Helper Hardwood Flooring Name: Kamari [id number] Accompanied by: Son Allergies Penicillins Allergy (Intermediate, Verified 04/27/24 10:57) ITCHING Medication List - Last Reconciled 04/27/24 by Shree Briseno MD acetaminophen ER (Tylenol 8 Hour) 650 mg PO Q12H PRN albuterol sulfate 90 mcg/actuation 2 puffs inhalation Q6H PRN apixaban (Eliquis) 2.5 mg PO BID atorvastatin 40 mg PO DAILY calcium carbonate 600 mg PO ONCE cholecalciferol (vitamin D3) (Vitamin D3) 50 mcg PO .every other day docusate sodium (Colace) 100 mg PO BID ferrous sulfate (FeroSul) 325 mg PO DAILY xeaxihvydjy-jcskaewje-mjeiblvj 100-62.5-25 mcg (Trelegy Ellipta) 1 ea PO DAILY furosemide 20 mg PO DAILY lansoprazole 30 mg PO DAILY lisinopril 10 mg PO DAILY loratadine (Allergy Relief (loratadine)) 10 mg PO DAILY melatonin 3 mg PO BEDTIME memantine 10 mg PO BID metoprolol tartrate 25 mg PO BID multivitamin 1 tab PO DAILY venlafaxine ER (Effexor XR) 37.5 mg PO DAILY venlafaxine ER 37.5 mg PO DAILY HPI Comments Details: . Jemma is a pleasant 84-year-old woman referred for chronic kidney disease. In 12/28/2023 serum creatinine was 1.22 with a EGFR of 42 mL/minute. She was accompanied by her son. Jemma has history of congestive heart failure. She is on low-dose of Lasix. Her son monitors her weight daily and she has on a low-sodium diet. History of COPD. Has a history of hypertension. Blood pressure has been well controlled. Today she has no specific complaints. No headache nausea vomiting. No shortness of breath no cough. No edema no urinary symptoms no polyuria polydipsia. No hematuria. No rash no joint pains. 04/27/2024. Overall doing well. No new issues.Carpenter Hel[employer] service was used. PFSH Medical History (Updated 04/27/24 @ 11:10 by Shree Briseno MD) Chronic kidney disease Hypovitaminosis D Chronic heart failure with preserved ejection fraction (HFpEF) HTN (hypertension) Left bundle branch block Persistent atrial fibrillation Osteoporosis Surgical History Hx of endoscopy Hx of colonoscopy (03/05/15) Hx of tubal ligation History of nasal surgery Family History Father No problems noted. Mother Alzheimer disease Brother Heart disease CVD (cardiovascular disease) Son Diabetes Daughter Diabetes Paternal Aunt CVD (cardiovascular disease) Other Osteoarthritis Social History Household Members: None Housing: Apartment Alcohol intake: never Patient Tobacco Use Status: Former Tobacco user Second Hand Smoke Exposure: No Physical Exam Vital Signs: Last Vital Signs Pulse 68 04/27/24 10:55 BP 128/70 04/27/24 10:55 Pulse Ox 97 04/27/24 10:55 Oxygen Delivery Method Room Air 04/27/24 10:55 BMI result Body Mass Index 26.5 Const General: comfortable; No acute distress Orientation/consciousness: patient oriented x3 Eyes General: appearance normal, both eyes and all related structures Visual Martinez: normal visual martinez by confrontation Neck Neck: Yes supple and Yes no JVD Resp Effort & Inspection: normal respiratory effort and respiratory effort not decreased Auscultation: rhonchi Cardio Palpation: no palpable S3 and no palpable S4 Heart sounds: no rubs GI Inspection: Yes normal to inspection Palpation (GI): Soft to palpation Percussion: Yes normal to percussion Auscultation: normal bowel sounds General: Yes no CVA tenderness Back/Spine/Pelvis Back: no CVA tenderness Skin General skin exam: no petechiae and no purpura Neuro General: patient oriented x3 and no focal motor deficits Extrem General: No clubbing and No edema Results Reviewed Results Reviewed: Renal ultrasonogram April 2024 RIGHT KIDNEY: 9.5 x 4.2 x 5.4 cm (SAG x AP x TRV). 4 mm right lower pole echogenic focus may represent a nonobstructive calculus versus nonobstructive vessel. 0.7 cm lateral pole cyst with benign features. There is no indication for follow up imaging. 3.5 x 3.1 x 3.0 cm right renal upper pole echogenic mass. Limited visualization. LEFT KIDNEY: 9.9 x 4.7 x 5.2 cm (SAG x AP x TRV). Left renal 5 mm calculus versus cluster of calculi versus calcified vessels difficult to evaluate due to limited visualization. No hydronephrosis. Limited visualization. Renal cortical thickness is normal. US/US renal BI IMPRESSION: 1. 3.5 cm right renal upper pole echogenic mass. CT scan with intravenous contrast employing renal mass protocol recommended for further evaluation. 2. Bilateral renal calculi versus calcified vessels. No hydronephrosis. Nephrology Results: Hgb 12.2 g/dl (12.0-16.0) 04/07/24 WBC 8.8 X10*3/uL (4.8-10.8) 04/07/24 Plt Count 280 X10*3/uL (160-400) 04/07/24 Sodium 141 mmol/L (135-145) 04/07/24 Potassium 3.8 mmol/L (3.3-5.1) 04/07/24 Chloride 96 mmol/L (96-108) 04/07/24 Carbon Dioxide 33 mmol/L (22-29) H 04/07/24 BUN 17 mg/dL (9-16) H 04/07/24 Creatinine 0.93 mg/dL (0.5-1.4) 04/07/24 Calcium 10.4 mg/dL (8.4-10.2) H 04/07/24 Phosphorus 3.5 mg/dL (2.7-4.5) 12/10/23 Urine Protein Negative mg/dL (Neg-Trace) 04/07/24 Urine Creatinine 13.86 mg/dL 04/07/24 Renal US 04/13/24 Assessment & Plan Assessment & Plan (1) Chronic heart failure with preserved ejection fraction (HFpEF): Code(s): I50.32 - Chronic diastolic (congestive) heart failure Category: Medical (2) Asthma-COPD overlap syndrome: Code(s): J44.9 - Chronic obstructive pulmonary disease, unspecified Category: Medical (3) CKD (chronic kidney disease) stage 3, GFR 30-59 ml/min: Code(s): N18.30 - Chronic kidney disease, stage 3 unspecified Category: Medical (4) Renal cyst: Code(s): N28.1 - Cyst of kidney, acquired Category: Medical Plan . Jemma is a 84-year-old woman with a history of longstanding hypertension and congestive heart failure with stage 3 chronic kidney disease. Baseline serum creatinine is around 1.2-1.2 mg/dL. With a EGFR of about 42 mL/minute. Repeat creatinine was 0.92. 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 No Obstructive uropathy based on ultrasonogram There is no reason to believe she is any active glomerulonephritis or interstitial disease. Urine sediments or bland Blood pressure is well controlled. As for the congestive heart failure she appears well compensated. Renal cyst. CT scan has been recommended. Mild hypercalcemia. Most likely due to increase calcium supplementation and high dose of vitamin-D. Recommendations Continue to keep on low-sodium diet. Continue to avoid nephrotoxic agents including NSAIDs. I have not made any changes to her antihypertensive regimen. No evidence of anemia and secondary hyperparathyroidism. Obtain renal ultrasonogram to assess echogenicity and to rule out hydronephrosis. Decrease calcium supplementation to 600 mg once a day from twice a day. Decrease vitamin D 2000 units a day down to 2000 units every other day. Recheck serum calcium Ordered CT scan with IV contrast to assess renal cyst. Orders: Orders CT abdomen w IV con Today N28.1 - Cyst of kidney, acquired Medications: New calcium carbonate 600 mg PO ONCE 90 tabs 1RF cholecalciferol (vitamin D3) (Vitamin D3) 50 mcg PO .every other day 90 caps 0RF Coding Level of Care Code Est Pt Level 4 (05258) Diagnoses Chronic heart failure with preserved ejection fraction (HFpEF) I50.32 Asthma-COPD overlap syndrome J44.9 CKD (chronic kidney disease) stage 3, GFR 30-59 ml/min N18.30 Renal cyst N28.1
== END 2024-04-27 11:14 | disposition home or self-care (01) ==
PROVIDERS: PCP Internal Medicine; Visit Provider Internal Medicine Hypertension Specialist
DX: I50.32 Chronic diastolic (congestive) heart failure (principal); J44.9 Chronic obstructive pulmonary disease, unspecified; N18.30 Chronic kidney disease, stage 3 unspecified; N28.1 Cyst of kidney, acquired
CPT/HCPCS: 99214

== ENCOUNTER 2024-04-27 10:52 | Outpatient (REF) | payer OTHER, SELFPAY ==
--- NOTE | ~2024-04-27 | XR_ITS ---
EXAMINATION: XR CHEST CLINICAL INFORMATION: Productive cough. COPD exacerbation. COMPARISON: Previous chest x-ray from 2018 TECHNIQUE: 2 views of the chest were obtained. FINDINGS: The cardiac silhouette is enlarged but stable. Hilar and mediastinal contours are unremarkable. The lungs are clear without evidence of pneumonia. No pleural effusion or pneumothorax. Mild old lower thoracic vertebral body compression fracture unchanged. Degenerative changes of the spine. XR/XR chest 2V IMPRESSION: No evidence for acute disease in the chest.
== END 2024-04-27 10:53 | disposition home or self-care (01) ==
LOC: HO.HHCX 10:52
PROVIDERS: PCP Internal Medicine; Visit Provider Internal Medicine Hypertension Specialist
DX: J44.1 Chronic obstructive pulmonary disease with (acute) exacerbation (principal); I50.9 Heart failure, unspecified; N18.30 Chronic kidney disease, stage 3 unspecified; N28.1 Cyst of kidney, acquired; Z79.899 Other long term (current) drug therapy
CPT/HCPCS: 71046; 99212

== ENCOUNTER 2024-05-04 11:07 | Outpatient (AMB) | payer OTHER, SELFPAY ==
[2024-05-04 11:08] VITALS: BP 120/64; PULSE 62; O2SAT 93; BMI 27.1
--- NOTE | 2024-05-04 11:08 | MHC.OFFVIS ---
Vital Signs 05/04/24 11:08 Height 4 ft 11 in Weight 134 lb BMI 27.1 BP 120/64 Blood Pressure Location Rt brachial Position Sitting Pulse 62 Pulse Source Doppler Pulse Oximetry (%) 93 Oxygen Delivery Method Room Air Intake Visit Reasons: Asthma Electric Power Machine Operator Required: Yes Electric Power Machine Operator Name: Barbara Beard RuslanDarnell Allergies Penicillins Allergy (Intermediate, Verified 04/27/24 10:57) ITCHING HPI HPI Asthma: Details: 84-year-old lady, former 30+ pack-year smoker, quit 20 years prior, followed for asthma/COPD overlap syndrome and nocturnal hypoxemia.? Patient has been using Trelegy and albuterol MDI with good control of her symptoms.? She also has been using supplemental oxygen at 2 L at night for nocturnal hypoxia.? Patient denies any recent exacerbations. [facility] Medical History (Updated 04/27/24 @ 11:10 by Shree Briseno MD) Chronic kidney disease Hypovitaminosis D Chronic heart failure with preserved ejection fraction (HFpEF) HTN (hypertension) Left bundle branch block Persistent atrial fibrillation Osteoporosis Surgical History Hx of endoscopy Hx of colonoscopy (03/05/15) Hx of tubal ligation History of nasal surgery Family History Father No problems noted. Mother Alzheimer disease Brother Heart disease CVD (cardiovascular disease) Son Diabetes Daughter Diabetes Paternal Aunt CVD (cardiovascular disease) Other Osteoarthritis Social History Household Members: None Housing: Apartment Alcohol intake: never Patient Tobacco Use Status: Former Tobacco user Second Hand Smoke Exposure: No Review of Systems Const Denies daytime sleepiness, Denies excessive sweating, Denies fatigue, Denies fever(s), Denies lethargy, Denies malaise, Denies night sweats, Denies snoring and Denies weight loss Eyes Denies blurry vision and Denies itchy eyes ENT Denies nasal congestion, Denies post nasal drip, Denies sinus pain, Denies sinus pressure and Denies other ( Thrush) Card Denies chest pain, Denies pedal edema, Denies dyspnea, Denies orthopnea and Denies paroxysmal nocturnal dyspnea Resp Denies cough, Denies hemoptysis, Denies excessive phlegm production, Denies dyspnea, Denies snoring and Denies wheezing GI Denies abdominal pain and Denies heartburn Musc Denies myalgias, Denies arthralgias and Denies joint swelling Skin/Breast Denies rash Neuro Denies memory loss and Denies seizure-like activity Psych Denies abnormal sleep pattern, Denies anxiety and Denies memory loss Endo Denies excessive sweating, Denies fatigue and Denies heat intolerance Regulo/Lymph Denies easy bruising Aller/Immun Denies itchy eyes, Denies seasonal rhinorrhea and Denies wheezing Physical Exam Vital Signs: Last Vital Signs Pulse 62 05/04/24 11:08 BP 120/64 05/04/24 11:08 Pulse Ox 93 05/04/24 11:08 Oxygen Delivery Method Room Air 05/04/24 11:08 BMI result Body Mass Index 27.1 Const General: no acute distress and alert Nutritional Appearance: not obese Orientation/consciousness: Other orientation findings ( oriented) HEENT Head: Yes atraumatic Eyes General: appearance normal, both eyes and all related structures Sclerae: sclerae normal EOM: EOMs intact bilaterally Neck Neck: Yes supple Lymphatic: no lymphadenopathy noted Resp Effort & Inspection: normal respiratory effort and no use of accessory muscles Auscultation: clear to auscultation bilaterally Cardio Rate: regular rate Rhythm: regular rhythm Heart sounds: no gallops, no murmurs and no rubs Skin General skin exam: other ( warm) Extrem General: No clubbing, No cyanosis and No edema Assessment & Plan Assessment & Plan (1) Asthma-COPD overlap syndrome: Code(s): J44.9 - Chronic obstructive pulmonary disease, unspecified Category: Medical Plan: Well controlled on Trelegy and albuterol MDI. Continue current regimen. (2) Nocturnal hypoxemia: Code(s): G47.34 - Idiopathic sleep related nonobstructive alveolar hypoventilation Category: Medical Plan: Controlled on nocturnal oxygen at 2 L continuous flow. Continue supplemental oxygen to maintain O2 sat above 88%. Coding Level of Care Code Est Pt Level 4 (58805) Diagnoses Asthma-COPD overlap syndrome J44.9 Nocturnal hypoxemia G47.34
== END 2024-05-04 11:31 | disposition home or self-care (01) ==
PROVIDERS: PCP Internal Medicine; Visit Provider Internal Medicine Pulmonary Disease
DX: J44.9 Chronic obstructive pulmonary disease, unspecified (principal); G47.34 Idiopathic sleep related nonobstructive alveolar hypoventilation
CPT/HCPCS: 99214

== ENCOUNTER → 2024-05-04 11:07 | Outpatient (BNVA) | payer OTHER, SELFPAY | PROVIDERS: PCP Internal Medicine; Visit Provider Internal Medicine Pulmonary Disease | DX: J44.9 Chronic obstructive pulmonary disease, unspecified (principal); G47.34 Idiopathic sleep related nonobstructive alveolar hypoventilation; Z99.81 Dependence on supplemental oxygen | CPT/HCPCS: 99212 ==

== ENCOUNTER 2024-06-29 11:03 | Outpatient (AMB) | payer OTHER, SELFPAY ==
[2024-06-29 11:08] VITALS: BP 122/54; PULSE 59; O2SAT 97; BMI 26.5
--- NOTE | 2024-06-29 11:08 | HO.NEPHOV_ITS ---
Vital Signs 06/29/24 11:08 Height 4 ft 11 in Weight 131 lb BMI 26.5 BP 122/54 L Blood Pressure Location Lt brachial Position Sitting Pulse 59 Pulse Source Pulse Oximeter Pulse Oximetry (%) 97 Oxygen Delivery Method Room Air Intake Visit Reasons: Asthma-COPD/ Conf Custodial Maintenance Worker Required: Yes Custodial Maintenance Worker Name: [id number] Hilario Accompanied by: Son Allergies Penicillins Allergy (Intermediate, Verified 06/29/24 11:12) ITCHING Medication List - Last Reconciled 06/29/24 by Shree Briseno MD acetaminophen ER (Tylenol 8 Hour) 650 mg PO Q12H PRN albuterol sulfate 90 mcg/actuation 2 puffs inhalation Q6H PRN apixaban (Eliquis) 2.5 mg PO BID atorvastatin 40 mg PO DAILY calcium carbonate 600 mg PO ONCE cetirizine (All Day Allergy (cetirizine)) 10 mg PO DAILY PRN cholecalciferol (vitamin D3) (Vitamin D3) 50 mcg PO .every other day docusate sodium (Colace) 100 mg PO BID ferrous sulfate (FeroSul) 325 mg PO DAILY fluticasone propionate 50 mcg/actuation sprays intranasal czkqkwgwtvj-hbtpdcvzs-hviabshd 100-62.5-25 mcg (Trelegy Ellipta) 1 ea PO DAILY furosemide 20 mg PO DAILY lansoprazole 30 mg PO DAILY lisinopril 10 mg PO DAILY melatonin 3 mg PO BEDTIME memantine 10 mg PO BID metoprolol tartrate 25 mg PO BID multivitamin 1 tab PO DAILY venlafaxine ER (Effexor XR) 37.5 mg PO DAILY HPI Comments Details: . Jemma is a pleasant 84-year-old woman referred for chronic kidney disease. In 12/28/2023 serum creatinine was 1.22 with a EGFR of 42 mL/minute. She was accompanied by her son. Jemma has history of congestive heart failure. She is on low-dose of Lasix. Her son monitors her weight daily and she has on a low-sodium diet. History of COPD. Has a history of hypertension. Blood pressure has been well controlled. Today she has no specific complaints. No headache nausea vomiting. No shortness of breath no cough. No edema no urinary symptoms no polyuria polydipsia. No hematuria. No rash no joint pains. 04/27/2024. Overall doing well. No new issues.Custodial Maintenance Worker service was used. [facility] Medical History (Updated 04/27/24 @ 11:10 by Shree Briseno MD) Chronic kidney disease Hypovitaminosis D Chronic heart failure with preserved ejection fraction (HFpEF) HTN (hypertension) Left bundle branch block Persistent atrial fibrillation Osteoporosis Surgical History Hx of endoscopy Hx of colonoscopy (03/05/15) Hx of tubal ligation History of nasal surgery Family History Father No problems noted. Mother Alzheimer disease Brother Heart disease CVD (cardiovascular disease) Son Diabetes Daughter Diabetes Paternal Aunt CVD (cardiovascular disease) Other Osteoarthritis Social History Household Members: None Housing: Apartment Alcohol intake: never Patient Tobacco Use Status: Former Tobacco user Second Hand Smoke Exposure: No Physical Exam Vital Signs: Last Vital Signs Pulse 59 06/29/24 11:08 BP 122/54 L 06/29/24 11:08 Pulse Ox 97 06/29/24 11:08 Oxygen Delivery Method Room Air 06/29/24 11:08 BMI result Body Mass Index 26.5 Const General: comfortable; No acute distress Orientation/consciousness: patient oriented x3 Eyes General: appearance normal, both eyes and all related structures Visual Martinez: normal visual martinez by confrontation Neck Neck: Yes supple and Yes no JVD Resp Effort & Inspection: normal respiratory effort and respiratory effort not d ecreased Auscultation: rhonchi Cardio Palpation: no palpable S3 and no palpable S4 Heart sounds: no rubs GI Inspection: Yes normal to inspection Palpation (GI): Soft to palpation Percussion: Yes normal to percussion Auscultation: normal bowel sounds General: Yes no CVA tenderness Back/Spine/Pelvis Back: no CVA tenderness Skin General skin exam: no petechiae and no purpura Neuro General: patient oriented x3 and no focal motor deficits Extrem General: No clubbing and No edema Results Reviewed Nephrology Results: Hgb 12.2 g/dl (12.0-16.0) 04/07/24 WBC 8.8 X10*3/uL (4.8-10.8) 04/07/24 Plt Count 280 X10*3/uL (160-400) 04/07/24 Sodium 141 mmol/L (135-145) 04/07/24 Potassium 3.8 mmol/L (3.3-5.1) 04/07/24 Chloride 96 mmol/L (96-108) 04/07/24 Carbon Dioxide 33 mmol/L (22-29) H 04/07/24 BUN 17 mg/dL (9-16) H 04/07/24 Creatinine 0.93 mg/dL (0.5-1.4) 04/07/24 Calcium 10.4 mg/dL (8.4-10.2) H 04/07/24 Urine Protein Negative mg/dL (Neg-Trace) 04/07/24 Urine Creatinine 13.86 mg/dL 04/07/24 Renal US 04/13/24 Assessment & Plan Assessment & Plan (1) Chronic heart failure with preserved ejection fraction (HFpEF): Code(s): I50.32 - Chronic diastolic (congestive) heart failure Category: Medical (2) Asthma-COPD overlap syndrome: Code(s): J44.9 - Chronic obstructive pulmonary disease, unspecified Category: Medical (3) CKD (chronic kidney disease) stage 3, GFR 30-59 ml/min: Code(s): N18.30 - Chronic kidney disease, stage 3 unspecified Category: Medical (4) Renal cyst: Code(s): N28.1 - Cyst of kidney, acquired Category: Medical Plan . Jemma is a 84-year-old woman with a history of longstanding hypertension and congestive heart failure with stage 3 chronic kidney disease. Baseline serum creatinine is around 1.2-1.2 mg/dL. With a EGFR of about 42 mL/minute. Repeat creatinine was 0.92. 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 No Obstructive uropathy based on ultrasonogram There is no reason to believe she is any active glomerulonephritis or interstitial disease. Urine sediments or bland Blood pressure is well controlled. As for the congestive heart failure she appears well compensated. Renal cyst. CT scan has been recommended. Mild hypercalcemia. Most likely due to increase calcium supplementation and high dose of vitamin-D. Recommendations Continue to keep on low-sodium diet. Continue to avoid nephrotoxic agents including NSAIDs. I have not made any changes to her antihypertensive regimen. No evidence of anemia and secondary hyperparathyroidism. Obtain renal ultrasonogram to assess echogenicity and to rule out hydronephrosis. Decrease calcium supplementation to 600 mg once a day from twice a day. Decrease vitamin D 2000 units a day down to 2000 units every other day. Recheck serum calcium - reordered today Ordered CT scan with IV contrast to assess renal cyst.-- reordered Orders: Orders Basic Metabolic Panel Today N18.30 - Chronic kidney disease, stage 3 unspecified, N28.1 - Cyst of kidney, acquired CT abdomen pelvis wo IV con Today N28.1 - Cyst of kidney, acquired Coding Level of Care Code Est Pt Level 4 (01240) Diagnoses Chronic heart failure with preserved ejection fraction (HFpEF) I50.32 Asthma-COPD overlap syndrome J44.9 CKD (chronic kidney disease) stage 3, GFR 30-59 ml/min N18.30 Renal cyst N28.1
== END 2024-06-29 11:28 | disposition home or self-care (01) ==
PROVIDERS: PCP Internal Medicine; Visit Provider Internal Medicine Hypertension Specialist
DX: I50.32 Chronic diastolic (congestive) heart failure (principal); J44.9 Chronic obstructive pulmonary disease, unspecified; N18.30 Chronic kidney disease, stage 3 unspecified; N28.1 Cyst of kidney, acquired
CPT/HCPCS: 99214

== ENCOUNTER 2024-06-29 11:03 | Outpatient (REF) | payer OTHER, SELFPAY ==
[2024-06-29 12:38] LABS: Anion Gap 16 (12-20); Blood Urea Nitrogen 10 mg/dL (9-16); Calcium 10.6 mg/dL (8.4-10.2); Carbon Dioxide 31 mmol/L (22-29); Chloride 98 mmol/L (96-108); Estimated Glomerular Filt Rate > 60; Glucose Random 99 mg/dL (60-115); Potassium 4.1 mmol/L (3.3-5.1); Sodium 141 mmol/L (135-145)
== END 2024-06-29 11:04 | disposition home or self-care (01) ==
LOC: HO.LAB 11:03
PROVIDERS: PCP Internal Medicine; Visit Provider Internal Medicine Hypertension Specialist
DX: N28.1 Cyst of kidney, acquired (principal); N18.30 Chronic kidney disease, stage 3 unspecified; I50.32 Chronic diastolic (congestive) heart failure; J44.9 Chronic obstructive pulmonary disease, unspecified
CPT/HCPCS: 36415; 80048; 99212

== ENCOUNTER 2024-08-09 10:34 | Outpatient (AMB) | payer OTHER, SELFPAY ==
--- NOTE | 2024-08-09 10:35 | MHC.OFFVIS ---
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 Patient has been using Trelegy and albuterol MDI with good control of her symptoms.? She continues to use supplemental oxygen at 2 L at night for nocturnal hypoxia.? Patient denies any recent exacerbations. [facility] Medical History (Updated 04/27/24 @ 11:10 by Shree Briseno MD) Chronic kidney disease Hypovitaminosis D Chronic heart failure with preserved ejection fraction (HFpEF) HTN (hypertension) Left bundle branch block Persistent atrial fibrillation Osteoporosis Surgical History Hx of endoscopy Hx of colonoscopy (03/05/15) Hx of tubal ligation History of nasal surgery Family History Father No problems noted. Mother Alzheimer disease Brother Heart disease CVD (cardiovascular disease) Son Diabetes Daughter Diabetes Paternal Aunt CVD (cardiovascular disease) Other Osteoarthritis Social History Household Members: None Housing: Apartment Alcohol intake: never Patient Tobacco Use Status: Former Tobacco user Second Hand Smoke Exposure: No Review of Systems Const Denies daytime sleepiness, Denies excessive sweating, Denies fatigue, Denies fever(s), Denies lethargy, Denies malaise, Denies night sweats, Denies snoring and Denies weight loss Eyes Denies blurry vision and Denies itchy eyes ENT Denies nasal congestion, Denies post nasal drip, Denies sinus pain, Denies sinus pressure and Denies other ( Thrush) Card Denies chest pain, Denies pedal edema, Denies dyspnea, Denies orthopnea and Denies paroxysmal nocturnal dyspnea Resp Denies cough, Denies hemoptysis, Denies excessive phlegm production, Denies dyspnea, Denies snoring and Denies wheezing GI Denies abdominal pain and Denies heartburn Musc Denies myalgias, Denies arthralgias and Denies joint swelling Skin/Breast Denies rash Neuro Denies memory loss and Denies seizure-like activity Psych Denies abnormal sleep pattern, Denies anxiety and Denies memory loss Endo Denies excessive sweating, Denies fatigue and Denies heat intolerance Regulo/Lymph Denies easy bruising Aller/Immun Denies itchy eyes, Denies seasonal rhinorrhea and Denies wheezing Physical Exam Vital Signs: Last Vital Signs Pulse 66 08/09/24 10:36 BP 110/60 08/09/24 10:36 Pulse Ox 95 08/09/24 10:36 Oxygen Delivery Method Room Air 08/09/24 10:36 BMI result Body Mass Index 26.7 Const General: no acute distress and alert Nutritional Appearance: not obese Orientation/consciousness: Other orientation findings ( oriented) HEENT Head: Yes atraumatic Eyes General: appearance normal, both eyes and all related structures Sclerae: sclerae normal EOM: EOMs intact bilaterally Neck Neck: Yes supple Lymphatic: no lymphadenopathy noted Resp Effort & Inspection: normal respiratory effort and no use of accessory muscles Auscultation: clear to auscultation bilaterally Cardio Rate: regular rate Rhythm: regular rhythm Heart sounds: no gallops, no murmurs and no rubs Skin General skin exam: other ( warm) Extrem General: No clubbing, No cyanosis and No edema Assessment & Plan Assessment & Plan (1) Asthma-COPD overlap syndrome: Code(s): J44.9 - Chronic obstructive pulmonary disease, unspecified Category: Medical Plan: Well controlled on the current regimen of Trelegy and albuterol MDI. Continue current regimen. (2) Nocturnal hypoxemia: Code(s): G47.34 - Idiopathic sleep related nonobstructive alveolar hypoventilation Category: Medical Plan: Continue nocturnal supplemental O2 to maintain O2 sat >88%. Coding Level of Care Code Est Pt Level 4 (36075) Diagnoses Asthma-COPD overlap syndrome J44.9 Nocturnal hypoxemia G47.34
[2024-08-09 10:36] VITALS: BP 110/60; PULSE 66; O2SAT 95; BMI 26.7
== END 2024-08-09 10:49 | disposition home or self-care (01) ==
PROVIDERS: PCP Internal Medicine; Visit Provider Internal Medicine Pulmonary Disease
DX: J44.9 Chronic obstructive pulmonary disease, unspecified (principal); G47.34 Idiopathic sleep related nonobstructive alveolar hypoventilation
CPT/HCPCS: 99214

== ENCOUNTER → 2024-08-09 10:34 | Outpatient (BNVA) | payer OTHER, SELFPAY | PROVIDERS: PCP Internal Medicine; Visit Provider Internal Medicine Pulmonary Disease | DX: J44.9 Chronic obstructive pulmonary disease, unspecified (principal); G47.34 Idiopathic sleep related nonobstructive alveolar hypoventilation | CPT/HCPCS: 99212 ==

== ENCOUNTER 2024-09-05 15:17 | Outpatient (AMB) | payer OTHER, SELFPAY ==
--- NOTE | 2024-09-05 15:32 | A.OFFVIS_ITS ---
Vital Signs 09/05/24 15:34 Height 4 ft 11 in Weight 135 lb 9.349 oz BMI 27.4 BP 112/63 Blood Pressure Location Lt brachial Pulse 59 Pulse Source Pulse Oximeter Pulse Oximetry (%) 96 Oxygen Delivery Method Room Air Intake Visit Reasons: Osteoporosis/ Changing to Reclast. Intake Note: Patient presents today for follow up on osteoporosis/ changing to Reclast and lab review. She was last seen in the office by Barbara Arthur on 01/27/24. Comb Winder Name: [id number] Kathya /Neo [id number] Accompanied by: Son Allergies Penicillins Allergy (Intermediate, Verified 09/05/24 15:38) ITCHING Medication List - Last Reconciled 09/05/24 by Lolita Fagan MD acetaminophen ER (Tylenol 8 Hour) 650 mg PO Q12H PRN albuterol sulfate 90 mcg/actuation 2 puffs inhalation Q6H PRN apixaban (Eliquis) 2.5 mg PO BID atorvastatin 40 mg PO DAILY calcium carbonate 600 mg PO ONCE cetirizine (All Day Allergy (cetirizine)) 10 mg PO DAILY PRN cholecalciferol (vitamin D3) (Vitamin D3) 50 mcg PO .every other day docusate sodium (Colace) 100 mg PO BID ferrous sulfate (FeroSul) 325 mg PO DAILY fluticasone propionate 50 mcg/actuation sprays intranasal guwhmurfrse-znbexrzlf-jhsnusfq 100-62.5-25 mcg (Trelegy Ellipta) 1 ea PO DAILY furosemide 20 mg PO DAILY lansoprazole 30 mg PO DAILY lisinopril 10 mg PO DAILY melatonin 3 mg PO BEDTIME memantine 10 mg PO BID metoprolol tartrate 25 mg PO BID multivitamin 1 tab PO DAILY venlafaxine ER (Effexor XR) 37.5 mg PO DAILY HPI Comments Details: Patient is an 84-year-old female with hyperlipidemia, hypertension complicated by heart failure with preserved ejection fraction who presents for follow-up of her osteoporosis Interval History: Patient last seen 01/27/2024 with Barbara Arthur. At that time decision was made to switch from Prolia to IV Reclast due to worsening osteoporosis. Patient came today with son. No new fractures and no falls. Rheumatologic History: Has had osteoporosis for several years. Was receiving Prolia for about 10 years. Had repeat DEXA which showed worsening bone density. Current Rheumatology Medication(s): Calcium and vitamin-D COUNTS INCLUDE 234 BEDS AT THE [facility] Medical History (Updated 09/05/24 @ 16:31 by Lolita Fagan MD) Chronic kidney disease Hypovitaminosis D Chronic heart failure with preserved ejection fraction (HFpEF) HTN (hypertension) Left bundle branch block Persistent atrial fibrillation Osteoporosis Surgical History Hx of endoscopy Hx of colonoscopy (03/05/15) Hx of tubal ligation History of nasal surgery Family History Father No problems noted. Mother Alzheimer disease Brother Heart disease CVD (cardiovascular disease) Son Diabetes Daughter Diabetes Paternal Aunt CVD (cardiovascular disease) Other Osteoarthritis Social History Household Members: None Housing: Apartment Alcohol intake: never Patient Tobacco Use Status: Former Tobacco user Second Hand Smoke Exposure: No Review of Systems Const Details: Review of Systems Constitutional: Denies fever, chills, weight loss ENT: Denies vision changes, eye pain or eye redness, dental caries, dry mouth GI: Denies nausea, vomiting, diarrhea, abdominal pain, change in BM Pulm: Denies SOB, JUSTICE, hemoptysis, wheezing Cards: Denies chest pain, palpitations Skin: Denies Raynaud's, rash, nail changes, photosensitivity, ORAL AND MAXILLOFACIAL SURGERY RESIDENT: Denies headaches, weakness, paresthesias, recurrent falls MSK: as per HPI All other systems reviewed and are unremarkable except noted above Physical Exam Vital Signs: Last Vital Signs Pulse 59 09/05/24 15:34 BP 112/63 09/05/24 15:34 Pulse Ox 96 09/05/24 15:34 Oxygen Delivery Method Room Air 09/05/24 15:34 BMI result Body Mass Index 27.4 Vital signs reviewed. Constitutional: Non-toxic appearing. No acute distress. Well-developed and well-nourished. HEENT: Normocephalic and atraumatic. External auditory canals without erythema or edema bilaterally. Dry mucous membranes. No pharyngeal erythema or exudates. Skin: Warm and dry. No rashes or lesions noted. Neck: Full and painless range of motion. No cervical lymphadenopathy. Cardio: Regular rate and rhythm. No murmurs, gallops, or rubs. No lower extremity edema. No JVD. Pulmonary: No respiratory distress. No accessory muscle usage. Genitourinary: No CVA tenderness. Musculoskeletal: Normal range of motion in joints throughout the body. No deformity or other signs of injury. Neuro: Alert and oriented x3. Cranial nerves 2-12 grossly intact. No focal def icits appreciated. Results Reviewed Results Reviewed: Normal vitamin-D. Elevated calcium Assessment & Plan Assessment & Plan (1) Hypovitaminosis D: Code(s): E55.9 - Vitamin D deficiency, unspecified Category: Medical Plan: Vitamin D Deficiency Vitamin-D was normal last check. We will recheck again prior to getting IV Reclast. (2) Osteoporosis: Comment: prolia started 10/30/2014. Stoppe 01/2024 IV reclast 08/2024 Code(s): M81.0 - Age-related osteoporosis without current pathological fracture Category: Medical Qualifiers: Osteoporosis type: age-related Presence of current pathological fracture: without current pathological fracture Qualified Code(s): M81.0 - Age- related osteoporosis without current pathological fracture Plan: #Osteoporosis Patient with osteoporosis and history of fragility fracture. We will start IV Reclast. Plan I spent 20 minutes reviewing the record and labs, seeing the patient, discussing the treatment plan and documenting in the medical record ? Orders: Orders Parathyroid Hormone Intact Today E55.9 - Vitamin D deficiency, unspecified, M81.0 - Age-related osteoporosis without current pathological fracture Protein Electrophoresis, Serum Today E55.9 - Vitamin D deficiency, unspecified, M81.0 - Age-related osteoporosis without current pathological fracture Calcium Today E55.9 - Vitamin D deficiency, unspecified, M81.0 - Age-related osteoporosis without current pathological fracture Calcium, Ionized Today E55.9 - Vitamin D deficiency, unspecified, M81.0 - Age-related osteoporosis without current pathological fracture Comprehensive Met. Panel Today E55.9 - Vitamin D deficiency, unspecified, M81.0 - Age-related osteoporosis without current pathological fracture Vitamin D 25-OH (D2 and D3) Today E55.9 - Vitamin D deficiency, unspecified, M81.0 - Age-related osteoporosis without current pathological fracture Thyroid Stimulating Hormone Today E55.9 - Vitamin D deficiency, unspecified, M81.0 - Age-related osteoporosis without current pathological fracture Referrals Infusion Center Notification M81.0 - Age-related osteoporosis without current pathological fracture Coding Level of Care Code Est Pt Level 3 (60109) Diagnoses Hypovitaminosis D E55.9 Age-related osteoporosis without current pathological fracture M81.0 Osteoporosis type: age-related Presence of current pathological fracture: without current pathological fracture
[2024-09-05 15:34] VITALS: BP 112/63; PULSE 59; O2SAT 96; BMI 27.4
== END 2024-09-05 16:14 | disposition home or self-care (01) ==
LOC: HO.RHE 15:18
PROVIDERS: PCP Internal Medicine; Visit Provider Student in an Organized Health Care Education/Training Program
DX: E55.9 Vitamin D deficiency, unspecified (principal); M81.0 Age-related osteoporosis without current pathological fracture
CPT/HCPCS: 99213

== ENCOUNTER 2024-09-05 15:17 | Outpatient (REF) | payer OTHER, SELFPAY ==
[2024-09-05 17:44] LABS: Alanine Aminotransferase 9 U/L (0-31); Alkaline Phosphatase 60 U/L (39-117); Anion Gap 13 (12-20); Aspartate Amino Transferase 19 U/L (5-31); Bilirubin Total 0.4 mg/dL (0.0-1.0); Blood Urea Nitrogen 20 mg/dL (9-16); Calcium 9.9 mg/dL (8.4-10.2); Carbon Dioxide 33 mmol/L (22-29); Chloride 99 mmol/L (96-108); Estimated Glomerular Filt Rate 50; Glucose Random 102 mg/dL (60-115); Potassium 4.4 mmol/L (3.3-5.1); Sodium 141 mmol/L (135-145); Total Protein 7.5 g/dL (6.5-8.0)
[2024-09-05 18:00] LABS: Thyroid Stimulating Hormone 1.64 uIU/mL (0.32-4.0)
[2024-09-06 06:26] LABS: Parathyroid Hormone Intact 112.1 pg/mL (8.7-77.1)
[2024-09-07 14:28] LABS: Prot Elec - Albumin 3.6 g/dL (3.8-4.8); Prot Elec - Alpha1 0.3 g/dL (0.2-0.3); Prot Elec - Alpha2 1.1 g/dL (0.5-0.9); Prot Elec - Beta 1 0.5 g/dL (0.4-0.6); Prot Elec - Beta 2 0.5 g/dL (0.2-0.5); Prot Elec - Gamma 1.1 g/dL (0.8-1.7)
[2024-09-07 15:48] LABS: Calcium, Ionized 5.1 mg/dL (4.7-5.5)
[2024-09-11 16:09] LABS: Vitamin D 25-OH, D2 <4 ng/mL; Vitamin D 25-OH, D3 27 ng/mL; Vitamin D 25-OH, Total 27 ng/mL (30-100)
== END 2024-09-05 15:18 | disposition home or self-care (01) ==
LOC: HO.LAB 15:17
PROVIDERS: PCP Internal Medicine; Visit Provider Student in an Organized Health Care Education/Training Program
DX: E55.9 Vitamin D deficiency, unspecified (principal); M81.0 Age-related osteoporosis without current pathological fracture; Z79.899 Other long term (current) drug therapy
CPT/HCPCS: 36415; 80053; 82306; 82330; 83970; 84165; 84443; 99212

== ENCOUNTER 2024-09-12 13:08 | Outpatient (RCR) | payer OTHER, SELFPAY ==
[2024-09-12 13:16] VITALS: BP 142/59; PULSE 64; RESP 16; TEMP 36.6; O2SAT 96
[2024-09-12] MEDS: Zoledronic Acid/Mannitol-Water 5 MG/100 ML PGGYBK.BTL IV (13:24)
== END 2024-09-12 13:41 | disposition home or self-care (01) ==
LOC: HO.INF 13:08
PROVIDERS: Visit Provider Student in an Organized Health Care Education/Training Program
DX: M81.0 Age-related osteoporosis without current pathological fracture (principal)
CPT/HCPCS: 96374; J3489

== ENCOUNTER 2024-09-14 09:47 | Outpatient (AMB) | payer OTHER, SELFPAY ==
--- NOTE | 2024-09-14 09:50 | MHC.OFFVIS ---
Vital Signs 09/14/24 09:51 Height 4 ft 11 in Weight 136 lb 7.458 oz BMI 27.6 BP 104/48 L Blood Pressure Location Lt brachial Position Sitting Pulse 56 Pulse Source Pulse Oximeter Intake Visit Reasons: Hyperparathyroidism-conf Intake Note: New patient present today for Hyperparathyroidism office visit. Forest Pathology Teacher Required: Yes Forest Pathology Teacher Language: Armoring Machine Operator Services: Forest Pathology Teacher Present Information Interpreted: non-clinical & clinical Accompanied by: Son Allergies Penicillins Allergy (Intermediate, Verified 09/14/24 09:55) ITCHING Medication List - Last Reconciled 09/14/24 by Natalie Farfan MD acetaminophen ER (Tylenol 8 Hour) 650 mg PO Q12H PRN albuterol sulfate 90 mcg/actuation 2 puffs inhalation Q6H PRN apixaban (Eliquis) 2.5 mg PO BID atorvastatin 40 mg PO DAILY calcium carbonate 600 mg PO ONCE cetirizine (All Day Allergy (cetirizine)) 10 mg PO DAILY PRN cholecalciferol (vitamin D3) (Vitamin D3) 50 mcg PO .every other day docusate sodium (Colace) 100 mg PO BID ferrous sulfate (FeroSul) 325 mg PO DAILY fluticasone propionate 50 mcg/actuation sprays intranasal fhtuyfneewg-uzkeqehwm-ykcghrui 100-62.5-25 mcg (Trelegy Ellipta) 1 ea PO DAILY furosemide 20 mg PO DAILY lansoprazole 30 mg PO DAILY lisinopril 10 mg PO DAILY melatonin 3 mg PO BEDTIME memantine 10 mg PO BID metoprolol tartrate 25 mg PO BID multivitamin 1 tab PO DAILY venlafaxine ER (Effexor XR) 37.5 mg PO DAILY HPI Comments Details: 84-year-old female who is here today with a history of osteoporosis, CKD stage 3 (long standing HTN ) , to establish care for hyperparathyroidism. Here today with son Jonny who is doing the translation. On labs 09/05/24 PTH noted to be 112 with normal calcium 9.9 , albumin 4 and ical 5.1 On chart review mild hypercalemia noted previously in range of 10.4 but no concurrent PTH levels. Currently on vitamin D 2000 units every other day and calcium 600 mg once daily She was taking 600 mg twice daily before of calcium up until June 2024 and vitamin D 2000 units daily when she saw nephrology and these were reduced due to mild hypercalcmeia on labs. Milk in cereal, often eats cheese, sometimes yogurt Has history of Osteoporosis , prolia started 10/30/2014. Stopped 01/2024 Received IV reclast 09/12/2024 Bone density 11/13/2022 showed osteopenia of the spine, with T-score of-1.2, with 1.8% decrease in bone density compared to previous bone density from 2019. T-scores much lower in the hip with T-score of-3 consistent with osteoporosis at the left femoral neck and T-score of-2.4 at the left femur total. 21% decrease from previous bone density. . Renal Us 04/13/24 suggestive of possible B/L renal calculi. No blood in urine. FRacture : left radial fracture in her 50s back in [place] from standing height, no other fractures Uses a cane/walker to walk. Goes to bathroom herself but needs help with showering/dressing. No constipation. No abd pain. No polyuria. Some memory issues. She has history of hypertension, left bundle branch block, paroxysmal AFib, heart failure with preserved EF, sees cardiology and pulmonology and on O2 2 L via NC at night 30+ pack-year smoker, quit 20 years prior, followed for asthma/COPD overlap syndrome and nocturnal hypoxemia. Her son has history of kidney stones and s/P minimally invasive parathyroidectomy with resolution of high calcium levels. Review of systems Constitutional: no fevers, chills or weight loss HEENT: no changes in vision Cardiac: No chest pain, discomfort or palpitations. Pulmonary: No SOB GI:No abdominal pain, no nausea or vomiting, no anorexia, no blood in stool : no burning micturition, dysuria or increase in urinary frequency Physical exam General: sitting comfortably in no acute distress HEENT: normocephalic/atraumatic,, moist oral mucosa Neck: supple, symmetrical, no thyromegaly , no dorsocervical or supraclavicular fat pads Cardiac: normal heart sounds Pulm: normal breath sounds B/L, no added breath sounds Abd: not distended, no tenderness Extremities: no edema, no signs of myxedema Neuro: AAO x3, Speech: normal, no facial droop, moving all 4 extremities Laboratory Tests 11/03/18 01/16/19 01/16/19 09:20 00:00 10:22 Creatinine Estimated GFR Calcium Ionized Calcium 5.0 Albumin 4.3 Albumin (PEP) Ajwjs-5-Cumdunpdk Krrko-6-Joobehmxo Cjpd-8-Myvusrxu Fhci-6-Xotzugvf Gamma Globulins 25-OH Vitamin D Total 25-Hydroxy Vitamin D2 25-Hydroxy Vitamin D3 TSH PTH Intact 51 Ur 24 Hour Volume 1300 Ur Creatinine mg/dL 51.50 Ur Creatinine 24 Hour 0.66 Ur Calcium 24 Hr 69 Calcium/Creat 24 Hr 105 11/17/21 06/26/22 03/01/23 11:24 14:22 14:22 Creatinine Estimated GFR Calcium Ionized Calcium Albumin 4.1 4.4 4.4 Albumin (PEP) Qlenz-1-Ahoyhjavq Lzshg-1-Rkhqwsjzc Fevz-6-Vylhruqp Rtbl-4-Qizliyxt Gamma Globulins 25-OH Vitamin D Total 25-Hydroxy Vitamin D2 25-Hydroxy Vitamin D3 TSH PTH Intact Ur 24 Hour Volume Ur Creatinine mg/dL Ur Creatinine 24 Hour Ur Calcium 24 Hr Calcium/Creat 24 Hr 08/10/23 09/22/23 12/10/23 12:13 12:14 12:56 Creatinine Estimated GFR Calcium 10.5 H D 10.4 H 9.7 Ionized Calcium Albumin 4.4 Albumin (PEP) Mctwr-3-Ggawowuop Pqtgh-3-Bxpmwmvlu Qapn-9-Vlegmkyh Tndp-5-Xbitzfhf Gamma Globulins 25-OH Vitamin D Total 25-Hydroxy Vitamin D2 25-Hydroxy Vitamin D3 TSH PTH Intact Ur 24 Hour Volume Ur Creatinine mg/dL Ur Creatinine 24 Hour Ur Calcium 24 Hr Calcium/Creat 24 Hr 12/27/23 04/07/24 06/29/24 10:23 11:15 11:53 Creatinine 1.22 0.88 Estimated GFR 42 > 60 Calcium 10.0 10.4 H 10.6 H Ionized Calcium Albumin 4.1 Albumin (PEP) Hrbkc-3-Seoyggxud Fabzt-0-Tprcaqxoi Nlfo-2-Smodyexl Tphm-5-Ozoljtqi Gamma Globulins 25-OH Vitamin D Total 31 25-Hydroxy Vitamin D2 <4 25-Hydroxy Vitamin D3 31 TSH PTH Intact Ur 24 Hour Volume Ur Creatinine mg/dL Ur Creatinine 24 Hour Ur Calcium 24 Hr Calcium/Creat 24 Hr 09/05/24 16:40 Creatinine 1.06 Estimated GFR 50 Calcium 9.9 D Ionized Calcium 5.1 Albumin 4.0 Albumin (PEP) 3.6 L Fmrxi-6-Vufmgovsb 0.3 Shfzi-1-Ungpsqjaw 1.1 H Ckar-5-Pvbktgvy 0.5 Logx-0-Pbgoylfe 0.5 Gamma Globulins 1.1 25-OH Vitamin D Total 27 L 25-Hydroxy Vitamin D2 <4 25-Hydroxy Vitamin D3 27 TSH 1.64 PTH Intact 112.1 H Ur 24 Hour Volume Ur Creatinine mg/dL Ur Creatinine 24 Hour Ur Calcium 24 Hr Calcium/Creat 24 Hr Imaging US RETROPERITONEAL LIMITED (RENAL ONLY) 04/13/24 CLINICAL INFORMATION: Chronic kidney disease, stage III, unspecified. COMPARISON: CT abdomen and pelvis 03/05/2015. TECHNIQUE: Real-time imaging of the kidneys. Limited visualization due to bowel gas. FINDINGS: RIGHT KIDNEY: 9.5 x 4.2 x 5.4 cm (SAG x AP x TRV). 4 mm right lower pole echogenic focus may represent a nonobstructive calculus versus nonobstructive vessel. 0.7 cm lateral pole cyst with benign features. There is no indication for follow up imaging. 3.5 x 3.1 x 3.0 cm right renal upper pole echogenic mass. Limited visualization. LEFT KIDNEY: 9.9 x 4.7 x 5.2 cm (SAG x AP x TRV). Left renal 5 mm calculus versus cluster of calculi versus calcified vessels difficult to evaluate due to limited visualization. No hydronephrosis. Limited visualization. Renal cortical thickness is normal. US/US renal BI IMPRESSION: 1. 3.5 cm right renal upper pole echogenic mass. CT scan with intravenous contrast employing renal mass protocol recommended for further evaluation. 2. Bilateral renal calculi versus calcified vessels. No hydronephrosis. This study was presented Friday, April 26, 2024, for interpretation. PSA staff will provide results to referring provider at this time. BONE DENSITOMETRY 11/13/22 CLINICAL INDICATION: Age-related osteoporosis without current pathological fracture. COMPARISON: Previous BD dated 07/25/2020 and baseline BD dated 01/28/2007. TECHNIQUE: Using a [employer] DXA System (software version: 13.1) manufactured by [employer], dual-energy x-ray absorptiometry was performed of the lumbar spine and left hip. The images are of good technical quality. Summary results are attached. FINDINGS: AP SPINE L1-L3 (excluding L4): The data of L1-L4 has been changed to exclude the L4 vertebral body, because degenerative changes at this level may cause overestimation of lumbar spine density. Current: BMD 1.020 g/cm2, Z-score 0.7, T-score -1.2, osteopenia, 1.8% decrease from previous, 9.3% increase from baseline (<5% change is not significant). Prior: BMD 1.039 g/cm2. Baseline: BMD 0.933 g/cm2. LEFT FEMUR, NECK: Current: BMD 0.615 g/cm2, Z-score -0.7, T-score -3.0, osteoporosis. Prior: BMD 0.729 g/cm2. Baseline: BMD 0.708 g/cm2. LEFT FEMUR, TOTAL: Current: BMD 0.705 g/cm2, Z-score -0.2, T-score -2.4, osteopenia, 21.0% decrease from previous, 17.9% decrease from baseline (<5% change is not significant). Prior: BMD 0.892 g/cm2. Baseline: BMD 0.859 g/cm2. IDENTIFIED RISK FACTORS: Rheumatoid arthritis. Dementia. Menopause. HISTORY OF FRACTURE: None listed. MEDICATIONS: Calcium supplement or multivitamin. Vitamin D. MM/XR DEXA axial skeleton IMPRESSION: 1. DIAGNOSIS: Osteoporosis based on the lowest T-score value of -3.0 in the femoral neck applying World Health Organization criteria. 2. 10-YEAR FRACTURE RISK PREDICTION, FRAX: According to the guidelines, FRAX calculation should only be performed on patients in the osteopenia bone density category. Therefore, FRAX was not performed on this patient.? [facility], [facility] Medical History (Updated 09/14/24 @ 10:36 by Natalie Farfan MD) Hypercalcemia Hyperparathyroidism Chronic kidney disease Hypovitaminosis D Chronic heart failure with preserved ejection fraction (HFpEF) HTN (hypertension) Left bundle branch block Persistent atrial fibrillation Osteoporosis Surgical History Hx of endoscopy Hx of colonoscopy (03/05/15) Hx of tubal ligation History of nasal surgery Family History Father No problems noted. Mother Alzheimer disease Brother Heart disease CVD (cardiovascular disease) Son Diabetes Daughter Diabetes Paternal Aunt CVD (cardiovascular disease) Other Osteoarthritis Social History Household Members: None Housing: Apartment Alcohol intake: never Patient Tobacco Use Status: Former Tobacco user Second Hand Smoke Exposure: No Physical Exam Vital Signs: Last Vital Signs Pulse 56 09/14/24 09:51 BP 104/48 L 09/14/24 09:51 BMI result Body Mass Index 27.6 Assessment & Plan Assessment & Plan (1) Hyperparathyroidism: Code(s): E21.3 - Hyperparathyroidism, unspecified Category: Medical Plan: 84-year-old female past medical history significant for osteoporosis, CKD stage 3 with longstanding hypertension, coming in today for initial evaluation of hyperparathyroidism. Labs 09/05/2024 showed elevated PTH of 112 with normal calcium of 9.9, albumin 4 and ionized calcium 5.1. She has never had elevated PTH levels in the chart before, labs from 2019 showed normal PTH of 51. She has had mildly elevated calcium levels in the range of 10.4-10.5 back from 2022 and March 2024. No concurrent PTH level from that time. Vitamin-D level was normal at 31. She has a history of CKD stage 3 with her GFR anywhere from 40s to 50s. Unlikely that this is secondary hyperparathyroidism given calcium levels are in the higher side. Most recent labs from 09/05/2024 showed vitamin-D mildly low at27 given that recently she has been taking her vitamin-D every other day 2000 units. However again vitamin-D is not significantly low to result in secondary hyperparathyroidism plus again her calcium is on the higher side. I have asked her to take her vitamin-D 2000 units daily. She is not on any thiazide. Given elevated PTH with high normal calcium levels, she likely has mild primary hyperparathyroidism. Ultrasound renal from April 2024 also shows bilateral kidney stones/nephrosclerosis. However the kidney stones are not symptomatic and small. She is pending a CT abdomen to clarify whether these are really kidney stones versus calcified vessels. She is also following with Nephrology. I will order 24 hour urine collection to see if she has hypercalciuria back in 2019 her 24 hour urine collection showed calcium on the lower side. Her son has a history of kidney stones, hypercalcemia and has undergone parathyroidectomy with the resolution of these. Hence unlikely that this is FHH given that son had resolution of his condition with parathyroidectomy plus patient herself has never had high PTH levels in the past and only developed with this later in age. She does have low nutritional intake of calcium so I am okay with her continuing the calcium carbonate 600 mg once daily. If she does have mild primary hyperparathyroidism, her calcium levels are not high enough nor she does not have any symptoms to warrant treatment with cinacalcet. She would be a poor surgical candidate for primary hyperparthyrodiism given comorbidities and age. For her osteoporosis she is following with Rheumatology, has had treatments with Prolia for 10 years from 2013-01/2024, however has persistent osteoporosis in the hip again suggestive of cortical bone loss with primary hyperparathyroidism as her bone densities much better in the spine. She received Reclast infusion on 09/12/2024, and she can be assessed for another infusion 1 year from this to manage her osteoporosis given she would not be a good surgical candidate for possible primary hyperparathyroidism. While PTH levels can be elevated with antiresorptive use, her last dose of Prolia was in January 2024 and usually PTH elevations are seen right after dose administrations in the 1st month or so. She did not receive Reclast up until September 12. I will have her do 24 hour urine calcium/creatinine evaluation for me. We will also re-evaluate her calcium, PTH levels given normal levels in the past. Plan: -containing calcium carbonate 600 mg once daily -improved nutritional intake calcium to minimize supplement use with milk/shoe GERD/cheese -increase vitamin-D back to 2000 units daily -ordered 24 hour urine calcium/creatinine levels -ordered repeat blood work with calcium, PTH and related labs -Continue Reclast infusion through Rheum , ;last infusion 09/12/2024 and tg will need another one in Sep 2025 given peristent osteoporosis in hip , I have ordered bone resoprtion markers to monitor -follow up in 4 weeks to discuss results (2) Osteoporosis: Comment: prolia started 10/30/2014. Stoppe 01/2024 IV reclast 08/2024 Code(s): M81.0 - Age-related osteoporosis without current pathological fracture Category: Medical Qualifiers: Osteoporosis type: age-related Presence of current pathological fracture: without current pathological fracture Qualified Code(s): M81.0 - Age-related osteoporosis without current pathological fracture Plan: See above Plan I spent 45 minutes in reviewing the record, seeing the patient and documenting in the medical record. Orders: Orders Albumin Level Today E21.3 - Hyperparathyroidism, unspecified, E83.52 - Hypercalcemia, M81.0 - Age-related osteoporosis without current pathological fracture Calcium Today E21.3 - Hyperparathyroidism, unspecified, E83.52 - Hypercalcemia, M81.0 - Age-related osteoporosis without current pathological fracture Magnesium Today E21.3 - Hyperparathyroidism, unspecified, E83.52 - Hypercalcemia, M81.0 - Age-related osteoporosis without current pathological fracture Calcium, Ionized Today E21.3 - Hyperparathyroidism, unspecified, E83.52 - Hypercalcemia, M81.0 - Age-related osteoporosis without current pathological fracture Sodium, 24Hr Urine Group Today E21.3 - Hyperparathyroidism, unspecified, E83.52 - Hypercalcemia, M81.0 - Age-related osteoporosis without current pathological fracture Phosphorus Today E21.3 - Hyperparathyroidism, unspecified, E83.52 - Hypercalcemia, M81.0 - Age-related osteoporosis without current pathological fracture Parathyroid Hormone Intact Today E21.3 - Hyperparathyroidism, unspecified, E83.52 - Hypercalcemia, M81.0 - Age-related osteoporosis without current pathological fracture Calcium, 24 Hr Ur Today E21.3 - Hyperparathyroidism, unspecified, E83.52 - Hypercalcemia, M81.0 - Age-related osteoporosis without current pathological fracture Creatinine, 24 Hr Group Today E21.3 - Hyperparathyroidism, unspecified, E83.52 - Hypercalcemia, M81.0 - Age-related osteoporosis without current pathological fracture Alkaline Phosphatase Bone Today E21.3 - Hyperparathyroidism, unspecified, E83.52 - Hypercalcemia, M81.0 - Age-related osteoporosis without current pathological fracture Collagen Type I C-Telopeptide Today E21.3 - Hyperparathyroidism, unspecified, E83.52 - Hypercalcemia, M81.0 - Age-related osteoporosis without current pathological fracture Basic Metabolic Panel Today E21.3 - Hyperparathyroidism, unspecified, E83.52 - Hypercalcemia, M81.0 - Age-related osteoporosis without current pathological fracture Patient Instructions: Do 24 hr urine collection and same day that you bring in the urine give fasting blood work 24 hr urine collection instructions You have been asked to collect your urine for 24 hours to assess for calcium excretion. You must choose a 24 hour period of time when you will be home. The morning of the first day, DISCARD the FIRST morning void and then note the time. You will collect every single void from then on for 24 hours. For example, if you wake up at 6am and urinate, flush down that void. You will then collect every drop of urine all day and all night through 6am the following day. You will urinate one last time at 6am for the collection. The jug of urine must be kept in the refrigerator until you bring it to the lab.You have been asked to collect your urine for 24 hours to assess for calcium excretion. You must choose a 24 hour period of time when you will be home. The morning of the first day, DISCARD the FIRST morning void and then note the time. You will collect every single void from then on for 24 hours. For example, if you wake up at 6am and urinate, flush down that void. You will then collect every drop of urine all day and all night through 6am the following day. You will urinate one last time at 6am for the collection. The jug of urine must be kept in the refrigerator until you bring it to the lab. Increase vitamin D to 2000 units daily Continue calcium only once daily Take milk or yogurt daily I will see you back in 4 weeks to discuss results Realice ulisses recolecci?n de orina de 24 horas y el mismo d?a en que extraiga la orina, realice an?lisis de sandy en ayunas. Instrucciones para la recolecci?n de orina de 24 horas. Se le giron pedido que recolecte orina fernando 24 horas para evaluar la excreci?n de calcio. Debe elegir un per?odo de 24 horas en el que estar? en casa. La ma?amilcar del primer d?a, DESCARTE el PRIMER vac?o de la ma?amilcar y luego anote la hora. A partir de garcia momento, recolectar?s todos los vac?os fernando 24 horas. Por ejemplo, si te despiertas a las 6 de la ma?amilcar y orinas, heidy garcia vac?o. Luego recolectar? cada gota de orina fernando todo el d?a y toda la noche hasta las 6 a.m. del d?a siguiente. Orinar?s por ?ltima vez a las 6 a. m. para la recolecci?n. La jarra de orina debe guardarse en el refrigerador hasta que la lleve al laboratorio. Se le giron pedido que recolecte orina fernando 24 horas para evaluar la excreci?n de calcio. Debe elegir un per?odo de 24 horas en el que estar? en casa. La ma?amilcar del primer d?a, DESCARTE el PRIMER vac?o de la ma?amilcar y luego anote la hora. A partir de garcia momento, recolectar?s todos los vac?os fernando 24 horas. Por ejemplo, si te despiertas a las 6 de la ma?amilcar y orinas, heidy garcia vac?o. Luego recolectar? cada gota de orina fernando todo el d?a y toda la noche hasta las 6 a.m. del d?a siguiente. Orinar?s por ?ltima vez a las 6 a. m. para la recolecci?n. El frasco de orina debe conservarse en el frigor?fico hasta melvin llegada al laboratorio. Aumentar la vitamina D a 1999 unidades diarias. Contin?e con calcio solo ulisses vez al d?a. Jessica leche o yogur diariamente Te chaim? en 4 semanas para discutir los resultados. Coding Level of Care Code New Pt Level 4 (46110) Diagnoses Hyperparathyroidism E21.3 Age-related osteoporosis without current pathological fracture M81.0 Osteoporosis type: age-related Presence of current pathological fracture: without current pathological fracture Time Spent (min) 45
[2024-09-14 09:51] VITALS: BP 104/48; PULSE 56; BMI 27.6
== END 2024-09-14 10:47 | disposition home or self-care (01) ==
LOC: HO.ENCR 09:48
PROVIDERS: PCP Internal Medicine; Visit Provider Student in an Organized Health Care Education/Training Program
DX: E21.3 Hyperparathyroidism, unspecified (principal); M81.0 Age-related osteoporosis without current pathological fracture
CPT/HCPCS: 99204

== ENCOUNTER → 2024-09-14 09:47 | Outpatient (BNVA) | payer OTHER, SELFPAY | PROVIDERS: PCP Internal Medicine; Visit Provider Student in an Organized Health Care Education/Training Program | DX: E21.3 Hyperparathyroidism, unspecified (principal); M81.0 Age-related osteoporosis without current pathological fracture; I12.9 Hypertensive chronic kidney disease with stage 1 through stage 4 chronic kidney disease, or unspecified chronic kidney disease; N18.30 Chronic kidney disease, stage 3 unspecified; Z78.0 Asymptomatic menopausal state; Z79.83 Long term (current) use of bisphosphonates | CPT/HCPCS: 99202 ==

== ENCOUNTER 2024-11-13 13:00 | Outpatient (AMB) | payer OTHER, SELFPAY ==
[2024-11-13 13:07] VITALS: BP 150/59; PULSE 78; BMI 26.9
--- NOTE | 2024-11-13 13:07 | A.OFFVIS_ITS ---
Vital Signs 11/13/24 13:07 Height 4 ft 11 in Weight 133 lb 2.547 oz BMI 26.9 BP 150/59 H Blood Pressure Location Rt brachial Position Sitting Pulse 78 Pulse Source Pulse Oximeter Intake Visit Reasons: 6mth f/up Cleaning Staff Supervisor Required: Yes Cleaning Staff Supervisor Language: Point Of Care Technician Name: voice conroy [id number] Cigarette Seller: Cigarette Seller Present Allergies Penicillins Allergy (Intermediate, Verified 11/13/24 13:11) ITCHING Medication List - Last Reconciled 11/13/24 by ELLIOT Kaur acetaminophen ER (Tylenol 8 Hour) 650 mg PO Q12H PRN albuterol sulfate 90 mcg/actuation 2 puffs inhalation Q6H PRN apixaban (Eliquis) 2.5 mg PO BID atorvastatin 40 mg PO DAILY calcium carbonate 600 mg PO ONCE cetirizine (All Day Allergy (cetirizine)) 10 mg PO DAILY PRN cholecalciferol (vitamin D3) (Vitamin D3) 50 mcg PO DAILY docusate sodium (Colace) 100 mg PO BID ferrous sulfate (FeroSul) 325 mg PO DAILY fluticasone propionate 50 mcg/actuation sprays intranasal xjmgjiexdws-cobkerezt-vdggqqyn 100-62.5-25 mcg (Trelegy Ellipta) 1 ea PO DAILY furosemide 20 mg PO DAILY lansoprazole 30 mg PO DAILY lisinopril 10 mg PO DAILY melatonin 3 mg PO BEDTIME memantine 10 mg PO BID metoprolol tartrate 25 mg PO BID multivitamin 1 tab PO DAILY venlafaxine ER (Effexor XR) 37.5 mg PO DAILY HPI HPI 6mth f/up: Details: Kesha is an 84-year-old female with past medical history of hypertension, left bundle branch block, persistent AFib, heart failure with preserved EF who presents for follow-up. Today she reports that she reports he has been doing very well since her last visit 01/25/2024. She denies any concerning symptoms. She has some mild shortness of breath if she over exerts. She has been trying to do only light physical activity including walking and light exercises. No chest discomfort at rest or with activity. No PND, orthopnea or edema. No palpitations, lightheadedness, presyncope, syncope, falls. Taking meds as directed. No bleeding issues reported. Son is present. He says that he and her LOAN ADVISER help her out. Certified coal unloader used. [facility] [place] Medical History Hypercalcemia Hyperparathyroidism Chronic kidney disease Hypovitaminosis D Chronic heart failure with preserved ejection fraction (HFpEF) HTN (hypertension) Left bundle branch block Persistent atrial fibrillation Osteoporosis Surgical History Hx of endoscopy Hx of colonoscopy (03/05/15) Hx of tubal ligation History of nasal surgery Family History Father No problems noted. Mother Alzheimer disease Brother Heart disease CVD (cardiovascular disease) Son Diabetes Daughter Diabetes Paternal Aunt CVD (cardiovascular disease) Other Osteoarthritis Social History Household Members: None Housing: Apartment Alcohol intake: never Patient Tobacco Use Status: Former Tobacco user Second Hand Smoke Exposure: No Review of Systems Const All systems reviewed & are unremarkable except as noted in HPI and below ENT Denies dizziness Card Denies chest pain, Denies chest pain at rest, Denies chest pain with activity, Denies rapid heart rate, Denies pedal edema, Denies edema, Denies leg edema, Denies lightheadedness, Denies palpitations, Reports dyspnea, Reports dyspnea on exertion and Denies orthopnea Resp Denies cough, Reports dyspnea and Reports dyspnea on exertion GI Denies hematochezia and Denies change in stool character Musc Denies abnormal gait, Denies limited range of motion, Denies muscle cramps, Denies muscle weakness, Denies numbness, Denies radiating pain into limb, Denies stiffness and Denies tingling Neuro Denies abnormal gait, Denies dizziness, Denies numbness and Denies tingling Endo Denies palpitations Physical Exam Vital Signs: Last Vital Signs Pulse 78 11/13/24 13:07 BP 150/59 H 11/13/24 13:07 BMI result Body Mass Index 26.9 Const General: cooperative, healthy appearing, comfortable and no acute distress Orientation/consciousness: patient oriented x3 Neck Neck: Yes normal visual inspection Resp Effort & Inspection: normal respiratory effort Auscultation: clear to auscultation bilaterally, no rales, no rhonchi and no wheezes Cardio Jugular venous distension: no JVD Rate: regular rate Rhythm: regular rhythm Heart sounds: S1 normal heart sound present, S2 normal heart sound present, no murmurs and no rubs Neuro General: patient oriented x3 Extrem General: Yes normal to inspection Psych Appearance: grossly normal Mental Status: mental status grossly normal Speech and movement: Normal speech and movement present Assessment & Plan Assessment & Plan (1) Chronic heart failure with preserved ejection fraction (HFpEF): Code(s): I50.32 - Chronic diastolic (congestive) heart failure Category: Medical Plan: History of heart failure with preserved EF. Last echo at [facility] for 02/2023 showed EF 60-65%, mildly dilated left atrium, mild TR. Condition stable since last visit 01/25/2024 with no recurrent hospitalizations. On exam she does not appear fluid overloaded. She does have some mild shortness of breath if she over exerts. She continues on Lasix. Labs done 09/05/2024 shows potassium 4.4, creatinine 1.06. Signs and symptoms of heart failure reviewed with her. Low-salt diet discussed. Cardiology follow-up 6 months, sooner if needed. (2) Left bundle branch block: Code(s): I44.7 - Left bundle-branch block, unspecified Category: Medical Plan: Chronic left bundle branch block. EKG done last visit looks more like incomplete left bundle branch block. (3) Persistent atrial fibrillation: Code(s): I48.19 - Other persistent atrial fibrillation Category: Medical Plan: History of persistent atrial fibrillation. EKG done last visit showed atrial fibrillation with controlled heart rate at 78. She is on metoprolol 25 mg b.i.d. for heart rate control. She is on Eliquis 2.5 mg b.i.d. for anticoagulation. This dose is appropriate for her age and weight. No bleeding issues reported. (4) HTN (hypertension): Code(s): I10 - Essential (primary) hypertension Category: Medical Qualifiers: Hypertension type: primary hypertension Qualified Code(s): I10 - Essential (primary) hypertension Plan: Blood pressure initially mildly elevated at 150/59, recheck done by me 135/62. She is on metoprolol and lisinopril as well as Lasix. No med changes made. (5) Nocturnal hypoxemia: Code(s): G47.34 - Idiopathic sleep related nonobstructive alveolar hypoventilation Category: Medical Plan: She wears oxygen 2 L at night. Followed by pulmonology Plan Time spent on chart review, documentation, interview and assessment Coding Level of Care Code Est Pt Level 4 (45589) Complex EM visit Add On G2211 Diagnoses Chronic heart failure with preserved ejection fraction (HFpEF) I50.32 Left bundle branch block I44.7 Persistent atrial fibrillation I48.19 Primary hypertension I10 Hypertension type: primary hypertension Nocturnal hypoxemia G47.34 Time Spent (min) 30
== END 2024-11-13 13:55 | disposition home or self-care (01) ==
PROVIDERS: PCP Internal Medicine; Visit Provider Nurse Practitioner Family
DX: I50.32 Chronic diastolic (congestive) heart failure (principal); I44.7 Left bundle-branch block, unspecified; I48.19 Other persistent atrial fibrillation; I10 Essential (primary) hypertension; G47.34 Idiopathic sleep related nonobstructive alveolar hypoventilation
CPT/HCPCS: 99214; G2211

== ENCOUNTER 2024-11-24 08:04 | Outpatient (REF) | payer OTHER, SELFPAY ==
[2024-11-24 09:11] LABS: Parathyroid Hormone Intact 111.9 pg/mL (8.7-77.1)
[2024-11-24 09:14] LABS: Anion Gap 11 (12-20); Blood Urea Nitrogen 16 mg/dL (9-16); Calcium 9.2 mg/dL (8.4-10.2); Carbon Dioxide 30 mmol/L (22-29); Chloride 104 mmol/L (96-108); Estimated Glomerular Filt Rate 45; Glucose Random 101 mg/dL (60-115); Magnesium 1.7 mg/dL (1.6-2.6); Phosphorus 3.6 mg/dL (2.7-4.5); Potassium 3.8 mmol/L (3.3-5.1); Sodium 141 mmol/L (135-145)
[2024-11-24 10:59] LABS: Creatinine, mg/dL 40.59
[2024-11-24 11:00] LABS: Creatinine, mg/dL 39.64
[2024-11-24 11:05] LABS: Creatinine, 24Hr Urine 0.5 G/Day (1.0-2.0); Total Volume 24 Hour Urine 1150 mL
[2024-11-24 11:05] LABS: Creatinine, 24Hr Urine 0.5 G/Day (1.0-2.0); Sodium 24 Hr Urine 44.9 mmol/Day (40-220); Total Volume 24 Hour Urine 1150 mL
[2024-11-25 15:49] LABS: Calcium, 24 Hr Urine 43 mg/24 h; Calcium/Creatinine Ratio 97 mg/g creat (30-275); Creatinine 24Hr Urine 0.44 g/24 h (0.50-2.15)
[2024-11-28 11:13] LABS: Calcium, Ionized 5.1 mg/dL (4.7-5.5)
[2024-11-29 22:34] LABS: Collagen Type I C-Telopeptide 211 pg/mL (see note)
[2024-11-29 22:49] LABS: Alkaline Phosphatase Bone 7.4 mcg/L (see note)
== END 2024-11-24 08:05 | disposition home or self-care (01) ==
LOC: HO.LAB 08:04
PROVIDERS: PCP Internal Medicine; Visit Provider Student in an Organized Health Care Education/Training Program
DX: M81.0 Age-related osteoporosis without current pathological fracture (principal); E83.52 Hypercalcemia
CPT/HCPCS: 36415; 80048; 82040; 82330; 82340; 82523; 82570; 83735; 83970; 84075; 84100; 84300

== ENCOUNTER 2024-12-05 13:16 | Outpatient (AMB) | payer OTHER, SELFPAY ==
--- NOTE | 2024-12-05 13:17 | A.OFFVIS_ITS ---
Vital Signs 12/05/24 13:21 Height 4 ft 11 in Weight 130 lb 1.164 oz BMI 26.3 BP 123/50 L Blood Pressure Location Rt brachial Position Sitting Pulse 73 Pulse Source Pulse Oximeter Intake Visit Reasons: DM Intake Note: Patient presents here today for a follow-up on Hyperparathyroidism: Pole Lift Operator Required: Yes Pole Lift Operator Services: Pole Lift Operator Offered & Declined Accompanied by: Son Allergies Penicillins Allergy (Intermediate, Verified 12/05/24 13:28) ITCHING HPI Comments Details: 84-year-old female who is here today with a history of osteoporosis, CKD stage 3 (long standing HTN ) , follow up of concerns hyperparathyroidism. Here today with son Jonny who is doing the translation. HPI from initial visit On labs 09/05/24 PTH noted to be 112 with normal calcium 9.9 , albumin 4 and ical 5.1 On chart review mild hypercalemia noted previously in 2022 in range of 10.4 but no concurrent PTH levels. Currently on vitamin D 2000 units every other day and calcium 600 mg once daily She was taking 600 mg twice daily before of calcium up until June 2024 and vitamin D 2000 units daily when she saw nephrology and these were reduced due to mild hypercalcmeia on labs. Milk in cereal, often eats cheese, sometimes yogurt Has history of Osteoporosis , prolia started 10/30/2014. Stopped 01/2024 Received IV reclast 09/12/2024, getting treated with rheum Bone density 11/13/2022 showed osteopenia of the spine, with T-score of-1.2, with 1.8% decrease in bone density compared to previous bone density from 2019. T- scores much lower in the hip with T-score of-3 consistent with osteoporosis at the left femoral neck and T-score of-2.4 at the left femur total. 21% decrease from previous bone density. . Renal Us 04/13/24 suggestive of possible B/L renal calculi. No blood in urine. FRacture : left radial fracture in her 50s back in [place] from standing height, no other fractures Uses a cane/walker to walk. Goes to bathroom herself but needs help with showering/dressing. No constipation. No abd pain. No polyuria. Some memory issues. She has history of hypertension, left bundle branch block, paroxysmal AFib, heart failure with preserved EF, sees cardiology and pulmonology and on O2 2 L via NC at night 30+ pack-year smoker, quit 20 years prior, followed for asthma/COPD overlap syndrome and nocturnal hypoxemia. Her son has history of kidney stones and s/P minimally invasive parathyroidectomy with resolution of high calcium levels. Interval history Most recent labs 11/24/2024 showed Normal calcium level of 9.2 with albumin of 4, ionized calcium normal at 5.1, normal phosphorus, nicely suppressed CTX of 211. PTH noted to be elevated at 111.9 but again patient received a dose of Reclast in September 2024. 24 hour urine calcium levels from 11/24/2024 showed calcium levels on the lower end at 43 mg per 24 hour. Review of systems Constitutional: no fevers, chills or weight loss HEENT: no changes in vision Cardiac: No chest pain, discomfort or palpitations. Pulmonary: No SOB GI:No abdominal pain, no nausea or vomiting, no anorexia, no blood in stool : no burning micturition, dysuria or increase in urinary frequency Physical exam General: sitting comfortably in no acute distress HEENT: normocephalic/atraumatic,, moist oral mucosa Neck: supple, symmetrical, no thyromegaly , no dorsocervical or supraclavicular fat pads Cardiac: normal heart sounds Pulm: normal breath sounds B/L, no added breath sounds Abd: not distended, no tenderness Extremities: no edema, no signs of myxedema Neuro: AAO x3, Speech: normal, no facial droop, moving all 4 extremities Laboratory Tests 11/03/18 01/16/19 01/16/19 09:20 00:00 10:22 Creatinine Estimated GFR Calcium Ionized Calcium 5.0 Albumin 4.3 Albumin (PEP) Mnmxr-6-Qdamhodax Gluwq-8-Wcpbxblcj Wbmu-3-Kvmphswl Kjcl-6-Rfwmfpaj Gamma Globulins 25-OH Vitamin D Total 25-Hydroxy Vitamin D2 25-Hydroxy Vitamin D3 TSH PTH Intact 51 Ur 24 Hour Volume 1300 Ur Creatinine mg/dL 51.50 Ur Creatinine 24 Hour 0.66 Ur Calcium 24 Hr 69 Calcium/Creat 24 Hr 105 11/17/21 06/26/22 03/01/23 11:24 14:22 14:22 Creatinine Estimated GFR Calcium Ionized Calcium Albumin 4.1 4.4 4.4 Albumin (PEP) Infka-1-Pcswdpegh Byjhk-4-Tlqkozulp Gcbo-6-Fzqgpfza Tmpr-2-Psiuliui Gamma Globulins 25-OH Vitamin D Total 25-Hydroxy Vitamin D2 25-Hydroxy Vitamin D3 TSH PTH Intact Ur 24 Hour Volume Ur Creatinine mg/dL Ur Creatinine 24 Hour Ur Calcium 24 Hr Calcium/Creat 24 Hr 08/10/23 09/22/23 12/10/23 12:13 12:14 12:56 Creatinine Estimated GFR Calcium 10.5 H D 10.4 H 9.7 Ionized Calcium Albumin 4.4 Albumin (PEP) Xulls-9-Icitutjhn Olkcq-9-Bgjbdkbro Zslj-3-Ebgwvchx Trkh-6-Mxnzklcy Gamma Globulins 25-OH Vitamin D Total 25-Hydroxy Vitamin D2 25-Hydroxy Vitamin D3 TSH PTH Intact Ur 24 Hour Volume Ur Creatinine mg/dL Ur Creatinine 24 Hour Ur Calcium 24 Hr Calcium/Creat 24 Hr 12/27/23 04/07/24 06/29/24 10:23 11:15 11:53 Creatinine 1.22 0.88 Estimated GFR 42 > 60 Calcium 10.0 10.4 H 10.6 H Ionized Calcium Albumin 4.1 Albumin (PEP) Ylijl-4-Gdxcpbrca Hywkm-9-Xodfswkwn Nopb-1-Qsykzhno Wnbc-9-Vyacsrdg Gamma Globulins 25-OH Vitamin D Total 31 25-Hydroxy Vitamin D2 <4 25-Hydroxy Vitamin D3 31 TSH PTH Intact Ur 24 Hour Volume Ur Creatinine mg/dL Ur Creatinine 24 Hour Ur Calcium 24 Hr Calcium/Creat 24 Hr 09/05/24 16:40 Creatinine 1.06 Estimated GFR 50 Calcium 9.9 D Ionized Calcium 5.1 Albumin 4.0 Albumin (PEP) 3.6 L Aobih-2-Kzejfhqok 0.3 Yxxwf-1-Fpwvqbfpr 1.1 H Ywdl-9-Sokpzyxr 0.5 Lktn-9-Vuxcqslw 0.5 Gamma Globulins 1.1 25-OH Vitamin D Total 27 L 25-Hydroxy Vitamin D2 <4 25-Hydroxy Vitamin D3 27 TSH 1.64 PTH Intact 112.1 H Ur 24 Hour Volume Ur Creatinine mg/dL Ur Creatinine 24 Hour Ur Calcium 24 Hr Calcium/Creat 24 Hr Laboratory Tests 09/05/24 11/24/24 11/24/24 16:40 08:18 08:19 Potassium 3.8 Creatinine 1.16 Estimated GFR 45 Calcium 9.2 D Ionized Calcium 5.1 Phosphorus 3.6 Magnesium 1.7 Alk Phos Bone Specific 7.4 Albumin 4.0 Collgn I C-Telopeptide 211 TSH 1.64 PTH Intact 111.9 H Ur 24 Hour Volume 1150 Ur Creatinine mg/dL 39.64 Ur Creatinine 24 Hour 0.5 L Ur Calcium 24 Hr 43 Calcium/Creat 24 Hr 97 Imaging US RETROPERITONEAL LIMITED (RENAL ONLY) 04/13/24 CLINICAL INFORMATION: Chronic kidney disease, stage III, unspecified. COMPARISON: CT abdomen and pelvis 03/05/2015. TECHNIQUE: Real-time imaging of the kidneys. Limited visualization due to bowel gas. FINDINGS: RIGHT KIDNEY: 9.5 x 4.2 x 5.4 cm (SAG x AP x TRV). 4 mm right lower pole echogenic focus may represent a nonobstructive calculus versus nonobstructive vessel. 0.7 cm lateral pole cyst with benign features. There is no indication for follow up imaging. 3.5 x 3.1 x 3.0 cm right renal upper pole echogenic mass. Limited visualization. LEFT KIDNEY: 9.9 x 4.7 x 5.2 cm (SAG x AP x TRV). Left renal 5 mm calculus versus cluster of calculi versus calcified vessels difficult to evaluate due to limited visualization. No hydronephrosis. Limited visualization. Renal cortical thickness is normal. US/US renal BI IMPRESSION: 1. 3.5 cm right renal upper pole echogenic mass. CT scan with intravenous contrast employing renal mass protocol recommended for further evaluation. 2. Bilateral renal calculi versus calcified vessels. No hydronephrosis. This study was presented Friday, April 26, 2024, for interpretation. PSA staff will provide results to referring provider at this time. BONE DENSITOMETRY 11/13/22 CLINICAL INDICATION: Age-related osteoporosis without current pathological fracture. COMPARISON: Previous BD dated 07/25/2020 and baseline BD dated 01/28/2007. TECHNIQUE: Using a [employer] DXA System (software version: 13.1) manufactured by [employer], dual-energy x-ray absorptiometry was performed of the lumbar spine and left hip. The images are of good technical quality. Summary results are attached. FINDINGS: AP SPINE L1-L3 (excluding L4): The data of L1-L4 has been changed to exclude the L4 vertebral body, because degenerative changes at this level may cause overestimation of lumbar spine density. Current: BMD 1.020 g/cm2, Z-score 0.7, T-score -1.2, osteopenia, 1.8% decrease from previous, 9.3% increase from baseline (<5% change is not significant). Prior: BMD 1.039 g/cm2. Baseline: BMD 0.933 g/cm2. LEFT FEMUR, NECK: Current: BMD 0.615 g/cm2, Z-score -0.7, T-score -3.0, osteoporosis. Prior: BMD 0.729 g/cm2. Baseline: BMD 0.708 g/cm2. LEFT FEMUR, TOTAL: Current: BMD 0.705 g/cm2, Z-score -0.2, T-score -2.4, osteopenia, 21.0% decrease from previous, 17.9% decrease from baseline (<5% change is not significant). Prior: BMD 0.892 g/cm2. Baseline: BMD 0.859 g/cm2. IDENTIFIED RISK FACTORS: Rheumatoid arthritis. Dementia. Menopause. HISTORY OF FRACTURE: None listed. MEDICATIONS: Calcium supplement or multivitamin. Vitamin D. MM/XR DEXA axial skeleton IMPRESSION: 1. DIAGNOSIS: Osteoporosis based on the lowest T-score value of -3.0 in the femoral neck applying World Health Organization criteria. 2. 10-YEAR FRACTURE RISK PREDICTION, FRAX: According to the guidelines, FRAX calculation should only be performed on patients in the osteopenia bone density category. Therefore, FRAX was not performed on this patient.? PFSH Medical History Hypercalcemia Hyperparathyroidism Chronic kidney disease Hypovitaminosis D Chronic heart failure with preserved ejection fraction (HFpEF) HTN (hypertension) Left bundle branch block Persistent atrial fibrillation Osteoporosis Surgical History Hx of endoscopy Hx of colonoscopy (03/05/15) Hx of tubal ligation History of nasal surgery Family History Father No problems noted. Mother Alzheimer disease Brother Heart disease CVD (cardiovascular disease) Son Diabetes Daughter Diabetes Paternal Aunt CVD (cardiovascular disease) Other Osteoarthritis Social History Household Members: None Housing: Apartment Alcohol intake: never Patient Tobacco Use Status: Former Tobacco user Second Hand Smoke Exposure: No Physical Exam Vital Signs: Last Vital Signs Pulse 73 12/05/24 13:21 BP 123/50 L 12/05/24 13:21 BMI result Body Mass Index 26.3 Assessment & Plan Assessment & Plan (1) Hyperparathyroidism: Code(s): E21.3 - Hyperparathyroidism, unspecified Category: Medical Plan: 84-year-old female past medical history significant for osteoporosis, CKD stage 3 with longstanding hypertension, coming in today for follow up of PTH elevation. Labs 09/05/2024 showed elevated PTH of 112 with normal calcium of 9.9, albumin 4 and ionized calcium 5.1. She has never had elevated PTH levels in the chart before, labs from 2019 showed normal PTH of 51. She has had mildly elevated calcium levels in the range of 10.4-10.5 back from 2022 and March 2024. No concurrent PTH level from that time. Vitamin-D level was normal at 31. She has a history of CKD stage 3 with her GFR anywhere from 40s to 50s. Unlikely that this is secondary hyperparathyroidism given calcium levels are on the higher side. Most recent labs from 09/05/2024 showed vitamin-D mildly low at27 given that recently she has been taking her vitamin-D every other day 2000 units. However again vitamin-D is not significantly low to result in secondary hyperparathyroidism plus again her calcium is on the higher side. Last visit we increased her vitamin-D back to 2000 units daily. She is not on any thiazide. Given elevated PTH with high normal calcium levels, she likely has mild primary hyperparathyroidism or normocalcemic hyperparathyroidism. Ultrasound renal from April 2024 also shows bilateral kidney s tones/nephrosclerosis. However the kidney stones are not symptomatic and small. She is also following with Nephrology. Most recent labs 11/24/2024 showed Normal calcium level of 9.2 with albumin of 4, ionized calcium normal at 5.1, normal phosphorus, nicely suppressed CTX of 211. PTH noted to be elevated at 111.9 but again patient received a dose of Reclast in September 2024. 24 hour urine calcium levels from 11/24/2024 showed calcium levels on the lower end at 43 mg per 24 hour. This is likely due to poor nutritional intake of calcium. Her son has a history of kidney stones, hypercalcemia and has undergone parathyroidectomy with the resolution of these. Hence unlikely that this is [facility] given that son had resolution of his condition with parathyroidectomy plus patient herself has never had high PTH levels in the past and only developed with this later in age. She does have low nutritional intake of calcium so I am okay with her continuing the calcium carbonate 600 mg once daily if she is not able to take 1000 mg of calcium in her diet. At this point given her age, comorbidities there is no point in going chasing after a PTH level when calcium levels are normal as she would not be a good candidate for surgery. She can have annual calcium, PTH, kidney function checked with her primary care physician and if she starts having significant elevations in calcium levels greater than 11 mg/dL, she can be referred back to us and cinacalcet can be considered for treatment. Cinacalcet has no data to show that it results in fracture reduction or bone density improvement hence for her osteoporosis she can continue treatment with Rheumatology with Reclast infusions. It is important to keep in mind that Reclast infusion itself results in PTH elevations. Plan: -maintain 1000 mg of calcium through diet if not, can supplement with calcium carbonate 600 mg once daily - vitamin-D back 2000 units daily -Continue Reclast infusion through Rheum , ;last infusion 09/12/2024 and tg will need another one in Sep 2025 given peristent osteoporosis in hip - patient does not need to follow up with me unless she starts having significant elevations in her calcium levels in which case we can consider treating her with cinacalcet. She might also have a component of secondary hyperparathyroidism given decline in kidney function. Nephrology can assess whether she would benefit from calcitriol. Primary care can check calcium, PTH, albumin, kidney function at least annually for monitoring. (2) Osteoporosis: Comment: prolia started 10/30/2014. Stoppe 01/2024 IV reclast 08/2024 Code(s): Darnell81.0 - Age-related osteoporosis without current pathological fracture Category: Medical Qualifiers: Osteoporosis type: age-related Presence of current pathological fracture: without current pathological fracture Qualified Code(s): M81.0 - Age- related osteoporosis without current pathological fracture Plan: See above Plan See above Patient Instructions: Continue vitamin D 2000 units daily Take 1000 mg of calcium daily ideally through diet but if she cannot do through use supplement for the rest Continue Reclast infusion through Rheumatology Coding Level of Care Code Est Pt Level 3 (79141) Diagnoses Hyperparathyroidism E21.3 Age-related osteoporosis without current pathological fracture M81.0 Osteoporosis type: age-related Presence of current pathological fracture: without current pathological fracture
[2024-12-05 13:21] VITALS: BP 123/50; PULSE 73; BMI 26.3
--- OUTSIDE RECORDS SUMMARY | 2024-12-05 14:15 | XMS_ITS | Encounter Summary ---
Author Organization [employer] Address [address] [facility] [address] [place] [address] Care Team Providers Care Civil Preparedness Coordinator Name Role Phone Jemma Louise MD Primary Care Provide r Encounter Details Date Type Department Care Team ([facility] st Contact Info) Description 11/19/2023 Orders Only [facility] [address] [place], [place] [phone] Jemma Louise MD [address] [place], [place] [phone] Social History Tobacco Use Types Packs/Day Years Used Date Smoking Tobacco: Former Cigarettes Passive Smoke Exposure: Past Smokeless Tobacco: Never Alcohol Use Standard Drinks/Week Comments Never 0 (1 standard drink = 0.6 oz pur e alcohol) Depression Answer Date Recorded Patient Health Questionnaire-9 Score 0 03/01/2023 Housing Stability Answer Date Recorded What is your housing situation today? I have gio escalona 08/23/[address] you li ve. Do you have problems with any of the following? None of the above 08/23/2023 Food Insecurity Answer Date Recorded Within the past 12 months, y ou worried that your food would run out before you got money to buy more: Never True 08/23/2023 Within the past 12 months,th e food you bought just didn't last and you didn't have enough money to get more: Never True Transportation Answer Date Recorded In the past 12 months, has l ack of transportation kept you from medical appts, meetings, work or from getting things needed for daily living? No 08/23/2023 Utilities Answer Date Recorded In the past 12 months, has t he electric, gas, oil or water company threatened to shut off services in your home? No 08/23/2023 Depression Answer Date Recorded Patient Health Questionnaire-2 Score 0 03/01/2023 Comments Unknown Sex and Gender Information Value Date Recorded Sex Assigned at Female 09/07/2022 10:14 AM EDT Legal Sex Female 10:14 AM EDT Gender Identity Female 09/07/2022 10:14 AM EDT Sexual Orientation Straight 09/07/2022 10 :14 AM EDT documented as of this encounter Plan of Treatment Upcoming Encounters Date Type Department Care Team (Late st Contact Info) Description 12/05/2024 4:00 PM EST Office Visit [facility] [address] [place] [address] documented as of this encounter Visit Diagnoses Not on filedocumented in this encounter Additional Health Concerns Assessment Noted Time PHQ-9 Depression Total Score: 0 03/01/20 23 1:02 PM EDT documented as of this encounter Care Teams Civil Preparedness Coordinator Relationship Specialty Start Date End Date Jemma Louise MD [address] [place] [address] PCP - General Family Medicine 09/11/19 documented as of this encounter
--- OUTSIDE RECORDS SUMMARY | 2024-12-05 14:15 | XMS_ITS | Clinical Summary ---
Author Organization [facility] Address [address] [place] [address] Care Team Providers Care Product Safety Technical Assistant Name Role Phone Unavailable Primary Care Provider Unavailabl e Social History Tobacco Use Types Packs/Day Years Used Date Smoking Tobacco: Never Assessed Sex and Gender Information Value Date Recorded Sex Assigned at Not on file Gender Identity Not on file Sexual Orientation Not on file Plan of Treatment Health Maintenance Due Date Last Done Comments DTaP,Tdap,and Td Vaccines (1 - Tdap) 01/24/1960 Zoster Vaccines (1 of 2) 1991 Pneumococcal Vaccine: 65+ Ye ars (1 of 1 - PCV) 2006 RSV Immunization Patients 60 + Years Old (1 - 1-dose 75+ series) 01/24/2016 Cholesterol Screening (Lipid Panel) 10/07/2022 Depression Screening 10/07/2022 Falls Risk Assessment 10/07/2022 Osteoporosis Screening (Bone Density Screening) 10/07/2022 Social Influencers of Health Screening 10/07/2022 Hypertension/CHF/CAD Annual BMP Blood Test 10/20/2022 COVID-19 Vaccine (2 - 2023-2 5 season) 2024 02/19/2021 Influenza Vaccine (#1) 2024 08/29/2020 HIB Vaccines Aged Out No longer eligi ble based on patient's age to complete this topic HPV Vaccines Aged Out No longer eligi ble based on patient's age to complete this topic Hepatitis A Vaccines Aged Out No long er eligible based on patient's age to complete this topic Hepatitis B Vaccines Aged Out No long er eligible based on patient's age to complete this topic IPV Vaccines Aged Out No longer eligi ble based on patient's age to complete this topic MMR Vaccines Aged Out No longer eligi ble based on patient's age to complete this topic Meningococcal ACWY Vaccine Aged Out N o longer eligible based on patient's age to complete this topic RSV Immunization Patients Un darya 20 months Aged Out No longer eligible b ased on patient's age to complete this topic Varicella Vaccines Aged Out No longer eligible based on patient's age to complete this topic
--- OUTSIDE RECORDS SUMMARY | 2024-12-05 14:15 | XMS_ITS | Data Portability ---
Author Organization [facility] [employer] [place], [place] - [facility] Address [address] [place] [phone] Care Team Providers Care Installation Tech Name Role Phone [facility] Referring Provider Assessment No assessment recorded. Plan of Treatment Reminders Order Date Submit Date Provider Last Modified By Organization Details Last Modified Time Details Appointments None recorded. Lab rapid SARS CoV 2 Ag, QL IA, respiratory specimen 2021 [facility], [address] [place] [address], [id number], 10:35:12 Referral None recorded. Procedures None recorded. Surgeries None recorded. Imaging None recorded. Medication Orders prednisone 20 mg tablet 2021 [facility], [address] [place] [address], [id number], 10:31:37 prednisone 20 mg tablet 2021 022 [facility], [address] [place] [address], [id number], 10:28:37 Patient TargetsNo targets recorded. Patient InstructionsNo instructions recorded. Reason for Referral None Reported. Results Created Date Observation Date Name Description Value Unit Range Abnormal Flag Note LastModifiedBy Organization Detail LastModifiedTime 04/01/20 22 04/01/2022 rapid SARS CoV 2 Ag, QL IA, respi rator y speci men rapid SARS CoV 2 Ag, QL IA, respiratory specimen negati ve Not Available [address], [phone], 04/01/2022 10:34:06 Result Notes None recorded. Medical Equipment None Reported. Allergies Allergen ID Allergen Name Allergen Category Reaction Reaction Severity Criticality Documentation Date Start Date Code Code System Note Provider Name and Address Organization Details Recorded Time 7787 Product containin g penicilli n and antibioti c (product) medicatio n Not available Not available Not available 09/05/2024 28934 05 SNOMED Not Available [facility] - production 4 03:39:49 Medications Name Sig Start Date Stop Date Status Note LastModified by Organization Details LastModified Time multivitamin tablet TAKE 1 TABLET BY MOUTH EVERY MORNING WITH FOOD active Not Available Not Available No t Available furosemide 40 mg tablet TAKE 1 TABLET BY MOUTH EVERY MORNING active Not Available Not Available No t Available atorvastatin 40 mg tablet TAKE 1 TABLET BY MOUTH AT BEDTIME active Not Available Not Available No t Available venlafaxine ER 37.5 mg capsule,extend ed release 24 hr TAKE 1 CAPSULE BY MOUTH AT BEDTIME WITH FOOD active Not Available Not Available No t Available prednisone 20 mg tablet TAKE 2 TABLETS BY MOUTH DAILY FOR 4 DAYS active Not Available Not Available No t Available melatonin 3 mg tablet TAKE 2 TABLETS BY MOUTH EVERY DAY AT BEDTIME active Not Available Not Available No t Available acetaminophen ER 650 mg tablet,extende d release TAKE 1 TABLET BY MOUTH EVERY 8 HOURS WITH WATER NEEDED. DO NOT BREAK, CRUSH, DISSOLVE OR CHEW active Not Available Not Available No t Available calcium 600 mg (as calcium carbonate 1,500 mg) tablet TAKE 1 TABLET BY MOUTH TWICE DAILY IN THE MORNING AND IN THE EVENING active Not Available Not Available No t Available lansoprazole 30 mg capsule,delaye d release TAKE 1 CAPSULE BY MOUTH EVERY MORNING BEFORE A MEAL active Not Available Not Available No t Available docusate sodium 100 mg capsule TAKE 1 CAPSULE BY MOUTH TWICE DAILY IN THE MORNING AND IN THE EVENING active Not Available Not Available No t Available furosemide 20 mg tablet TAKE 1 TABLET BY MOUTH EVERYDAY AT NOON active Not Available Not Available No t Available fluticasone propionate 50 mcg/actuation nasal spray,suspensi on USE 2 SPRAYS IN EACH NOSTRIL EVERY MORNING active Not Available Not Available No t Available lisinopril 2.5 mg tablet TAKE 1 TABLET BY MOUTH EVERY MORNING active Not Available Not Available No t Available loratadine 10 mg tablet TAKE 1 TABLET BY MOUTH EVERY MORNING active Not Available Not Available No t Available Ventolin HFA 90 mcg/actuation aerosol inhaler INHALE 2 PUFFS EVERY 4 TO 6 HOURS NEEDED active Not Available Not Available No t Available memantine 10 mg tablet TAKE 1 TABLET BY MOUTH TWICE DAILY IN THE MORNING AND IN THE EVENING active Not Available Not Available No t Available metoprolol tartrate 25 mg tablet TAKE 1 TABLET BY MOUTH TWICE DAILY IN THE MORNING AND IN THE EVENING active Not Available Not Available No t Available Dry Eye Relief 1 %-0.2 %-0.2 % drops INSTILL 1 TO 2 DROPS IN EACH EYE THREE TIMES DAILY OR MORE NEEDED active Not Available Not Available No t Available FeroSul 325 mg (65 mg iron) tablet TAKE 1 TABLET BY MOUTH EVERY OTHER DAY IN THE MORNING active Not Available Not Available No t Available cholecalcifero l (vitamin D3) 50 mcg (2,000 unit) capsule TAKE 1 CAPSULE BY MOUTH EVERY MORNING active Not Available Not Available No t Available Prolia 60 mg/mL subcutaneous syringe active Not Available Not Available Not Available Eliquis 5 mg tablet TAKE 1 TABLET BY MOUTH TWICE DAILY IN THE MORNING AND IN THE EVENING active Not Available Not Available No t Available Trelegy Ellipta 100 mcg-62.5 mcg-25 mcg powder for inhalation INHALE 1 PUFF EVERY DAY AT THE SAME TIME active Not Available Not Available No t Available Vitals Date Recorded Respiratory rate Heart rate Oxygen saturation Oxygen saturation in Arterial blood by Pulse oximetry Body temperature Oxygen saturation Oxygen saturation in Arterial blood by Pulse oximetry Heart rate Respiratory rate Body temperature Systolic blood pressure Diastolic blood pressure Systolic blood pressure Diastolic blood pressure Provider Name and Address Organization Details Last Updated DateTime 2 20 /min 86 /min 98 % 98 % 96.2 [degF] 98 % 98 % 86 /min 20 /min 96.2 [degF] 150 mm[Hg] 90 mm[Hg] 150 mm[Hg] 90 mm[Hg] Not Available [facility] - production 2 10:47:25 Social History None recorded. Functional Status None recorded. Mental Status None recorded. Family History Nothing Reported. Medical History No medical history recorded. Gynecological HistoryNo gynecological history recorded. Obstetrics History GPAL:G 0 P 0 0 0 0 Past Encounters Encounter ID Performer Location Encounter Start Date Encounter Closed Date Diagnosis/Indication Diagnosis SNOMED-CT Code Diagnosis ICD10 Code Diagnosis Note [id number] Rosales Richard MD [facility] - [facility] [address] [place] [phone] 04/01/2022 10:19:55 07/30/2022 11:19:05 Acute exacerbation of chronic obstructive pulmonary disease 572584159 J44.1 Reports increase in sputum production over the last two days without significan t shortness of breath. No hypoxemia, fevers, or focal rales to suggest pneumonia. Plan for a short steroid burst, reviewed red flag symptoms, encouraged to call back if worsening or if new symptoms develop. Health Concerns Section Related Observation LastModified by Organization Detai ls LastModified Time None Recorded Concern Status LastModified by Organization Details LastModified Time None Recorded Advance Directives Directive None Recorded Payers Encounter Date Sequence Insurance Name Policy Number Policy Hong Covered Member ID Hong Member ID Guarantor Name 04/01/2022 1 [facility] - DOS PRIOR TO 2023 - DUAL ELIGIBLE (MEDICARE REPLACEMENT/ADV ANTAGE - HMO) Jemma Esquivel [id number] Jemma Esquivel Notes Date Note Type Note Provider Name and Address Organization Details Recorded Time 04/01/2022 text/html [facility] Nursing Assessment: Reason For Request: Coughing up flem Pain in shoulder (think it could be due to the member's arthrites) Patient Reports: Sputum increase ; Cough Denies: Increased work of breathing/labored ? with or without fever Unable to speak in full sentences without distress Discoloration of skin -cyanosis Needs to sleep sitting up, can? t catch breath Shortness of breath in setting of confusion Cough, fever greater than 2 days Lower extremity swelling History of asthma, increased use of inhaler COPD COVID Exposure Shortness of breath with exertion Pain with inspiration Chief Complaints: Cough, Pain PMH: Hypertension, COPD/Asthma Allergies: Penicillin Comments: Member has had cough for a few days w congestion , Member denies F/C/N/V/D . Member has Had VNA who told the family they could hear something in her lungs , N further detail from family. Member denies sob .................. .................. .................. .................. .................. .................. .................. ............... 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 positive Chills HEENT: Denies visual changes Resp: productive cough with green flem slight expiratory Wheeze left lower lobe. no Hemoptysis, SOB or JUSTICE Cardio: Denies Chest pain or palpitations GI: Denies N/V/D or current loss of appetite Genitourinary: urine normal no burning or fowel odor Musculoskeletal: Pt denies pain or swelling Neuro: Alert to baseline Psych: Denies anxiety or depression Skin: Denies rashes or wounds Endocrine: No new unexpected weight loss/gain Focused Physical Assessment Findings Pts daughter states non productive cough since wednesday is worse at night. Pt is taking over the counter cough medicine and vicks vapor rub with improvement. Denies any other complaints. General: Well developed and well nourished in no acute distress HEENT: Unremarkable Neck: Unremarkable Lungs: no crackles/rales/rho nchi Heart: Regular rate and rhythm Abdomen: Soft, Non-distended and non-tender Extremities: No Cyanosis, rash, lesions or edema Neuro: At baseline Psych: Good Affect/Mood/ Attention Skin Intact without rash Covid test performed neg. 40mg Prednisone given PO per MD. also faxed over prescription. Red flags covered. Pt will follow up with pcp .................. .................. .................. .................. .................. .................. .................. ............... Disposition: Fulfilled Rosales Richard MD [address] [facility],[address], [place], [phone], [employer] 04/01/2022 11:09:16 OBGyn Episode No OBEpisode recorded.
--- OUTSIDE RECORDS SUMMARY | 2024-12-05 14:15 | XMS_ITS | Encounter Summary ---
Author Organization [employer] Address [address] [facility] [address] [place] [address] Care Team Providers Care Stars Analytical Lead Name Role Phone Jemma Louise MD Primary Care Provide r Reason for Visit * Reason Comments Med Refill Encounter Details Date Type Department Care Team (Late st Contact Info) Description 11/14/2023 Refill [facility] [address] [place], [place] [phone] Elias Croft MD [address] [place] [address] Constipation, unspecified constipation type Social History Tobacco Use Types Packs/Day Years [...] Description 12/05/2024 4:00 PM EST Office Visit [facility] [address] [place] [address] documented as of this encounter Visit Diagnoses Diagnosis Constipation, unspecified constipation type documented in this encounter Additional Health Concerns Assessment Noted Time PHQ-9 Depression Total Score: 0 03/01/20 23 1:02 PM EDT documented as of this encounter Care Teams Stars Analytical Lead Relationship Specialty Start Date End Date Jemma Louise MD [address] [place] [address] PCP - General Family Medicine 09/11/19 documented as of this encounter
--- OUTSIDE RECORDS SUMMARY | 2024-12-05 14:15 | XMS_ITS | Encounter Summary ---
Author Organization [employer] Address [address] [facility] 7[address] [place] [address] Care Team Providers Care Program Advisor Name Role Phone Jemma Louise MD Primary Care Provide r Reason for Visit * Reason Comments Med Refill Encounter Details Date Type Department Care Team ([facility] st Contact Info) Description 11/25/2024 Refill [facility] [address] [place], [place] [phone] Jemma Louise MD [address] [place], [place] [phone] Seasonal allergies Social History Tobacco Use Types Packs/Day Years Used Date Smoking Tobacco: Former Cigarettes Passive Smoke Exposure: Past Smokeless Tobacco: Never Alcohol Use Standard Drinks/Week Comments Never 0 (1 standard drink = 0.6 oz pur e alcohol) Alcohol Answer Date Recorded Frequency of Alcohol Consumption Not on file 09/12/2024 Average Number of Drinks Not on file 024 Frequency of Binge Drinking Not on file 03/2024 Score 0 09/12/2024 Depression Answer Date Recorded Patient Health Questionnaire-9 Score 0 03/30/2024 Patient Health Questionnaire-9 Score 0 03/30/2024 Last PHQ-9: Questionnaire Data Not on file 0 03/30/2024 Housing Stability Answer Date Recorded What is your housing situation today? I have gio escalona 03/30/[address] you li ve. Do you have problems with any of the following? None of the above 03/30/2024 Food Insecurity Answer Date Recorded Within the past 12 months, y ou worried that your food would run out before you got money to buy more: Never True 03/30/2024 Within the past 12 months,th e food you bought just didn't last and you didn't have enough money to get more: Never True Transportation Answer Date Recorded In the past 12 months, has l ack of transportation kept you from medical appts, meetings, work or from getting things needed for daily living? Yes, it has kept me from medical appointments or getting medications. 03/30/2024 Utilities Answer Date Recorded In the past 12 months, has t he electric, gas, oil or water company threatened to shut off services in your home? No 03/30/2024 Depression Answer Date Recorded Patient Health Questionnaire-2 Score 0 03/30/2024 Comments Unknown Sex and Gender Information Value [...] Description 12/05/2024 4:00 PM EST Office Visit [facility] [address] [place] [address] documented as of this encounter Visit Diagnoses Diagnosis Seasonal allergies Allergic rhinitis, cause unspecified documented in this encounter Additional Health Concerns Assessment Noted Time PHQ-9 Depression Total Score: 0 03/30/20 24 12:00 PM EDT documented as of this encounter Care Teams Program Advisor Relationship Specialty Start Date End Date Jemma Louise MD [address] [place] [id number] PCP - General Family Medicine 09/11/19 documented as of this encounter
--- OUTSIDE RECORDS SUMMARY | 2024-12-05 14:15 | XMS_ITS | Encounter Summary ---
Author Organization [email or web address] Address [address] [place] [address] Care Team Providers Care Correctional Maintenance Technician Name Role Phone Jemma Louise MD Primary Care Provide r Encounter Details Date Type Department Care Team ([facility] st Contact Info) Description 11/24/2024 Orders Only GENERIC EXTERNAL DATA DEPARTMENT Provider, Generic External Data Social History Tobacco Use Types Packs/Day Years [...] Description 12/05/2024 4:00 PM EST Office Visit [facility] [address] [place] [phone] documented as of this encounter Procedures Procedure Name Priority Date/Time Associated Diagnosis Comments CREATININE, 24 HR GROUP Routine 11/24/2024 9:45 AM EST COLLAGEN TYPE I C-TELOPEPTIDE (CTX) Routine 11/24/2024 8:19 AM EST ALKALINE PHOSPHATASE, BONE SPECIFIC Routine 11/24/2024 8:19 AM EST PHOSPHATE ( PHOSPHORUS) Routine 11/24/2024 8:19 AM EST PTH, INTACT WITHOUT CALCIUM Routine 11/24/2024 8:19 AM EST MAGNESIUM Routine 11/24/2024 8:19 AM EST CALCIUM, IONIZED Routine 11/24/2024 8:19 AM EST ALBUMIN Routine 11/24/2024 8:19 AM EST BASIC METABOLIC PANEL Routine 11/24/2024 8:19 AM EST SODIUM, 24-HOUR URINE WITH CREATININE Routine 11/24/2024 8:18 AM EST CALCIUM, 24 HOUR URINE (W/ CREATININE) Routine 11/24/2024 8:18 AM EST documented in this encounter Results * (ABNORMAL) CREATININE, 24 HR GROUP (11/24/2024 9:45 AM EST) Creatinine, 24 Hour Urine 0.5(L) 1.0 - 2.0 G/Day [facility] Creatinine, Urine 40.59 [facility] Urine Total Volume 24 Hour 1,150 mL [facility] 11/24/2024 9:45 AM EST 11/24/2024 9:45 AM EST Narrative [facility] - 11/24/2024 11:05 AM EST [id number] us Generic External Data Provider LAB URINE ORDERAB LES Final Result Performing Organization Address City/State/[facility] de Phone Number [facility] [address] [place] [phone] * Alkaline Phosphatase, Bone Specific (11/24/2024 8:19 AM EST) Alkaline Phosphatase, Bone Specific 7.4 see note mcg/L [facility] Comment: ?Unable to flag abnormal result(s), please refer ?to reference range(s) below:Reference Ranges for Alkaline Phosphatase (mcg/L): ?Age ?Females ? Males ??0 - ??1 month ? Not Established ?? Not Established ??2 - 24 months ? 25.4-124.0 ? 25.4-124.025 months - 5 years ??Not Established ?? Not Established ??6 - ??9 years ?41.0- 134.6 ? 41.0-134.6 10 - 13 years ?24.2-154.2 ? 43.8-177.4 14 - 17 years ?10.5- 75.2 ? 13.7-128.0 18 - 29 years ? 4.7- 17.8 ?8.4- 29.3 30 - 39 years ? 5.3- 19.5 ?7.7- 21.3 40 - 49 years ? 5.0- 18.8 ?7.0- 18.3 50 - 68 years ?7.6- 14.9 50 - 76 years ? 5.6- 29.0 Premenopausal 35 - 45 years ? 5.0- 18.2Pediatric data from Int J Biol Markers (1996) ??11:[id number] Range, Premenopausal (mcg/L) 35-45 years ?5.0-18.2THIS TEST WAS PERFORMED AT:[facility] [id number] [place], [place] ??[phone] W. MASON,MD,PHD 11/24/2024 8:19 AM EST 11/24/2024 8:25 AM EST us Generic External Data Provider LAB BLOOD ORDERAB LES Final Result [facility] [address] [place] [phone] * Collagen Type I C-Telopeptide (CTx) (11/24/2024 8:19 AM EST) C-Telopeptide (CTx) 211 see note pg/mL [facility] Comment: ?Unable to flag abnormal result(s), please refer ?to reference range(s) below:Reference Range, Females: ?<5 years: Not Established ? 5-9 years: 574-1849 pg/mL ? 10-13 years: 519-2415 pg/mL ? 14-17 years: 242-1291 pg/mL ? 18- 29 years: 64-640 pg/mL ? 30-39 years: 60-650 pg/mL ? 40-49 years: 50-465 pg/mL ? >49 years: Not EstablishedNo reference range is provided for postmenopausal womenbecause of the increased rate of bone turnoverpost- menopause. It is recommended that results forpostmenopausal women be compared to the premenopausalreference range as this will give a better indicationof their rate of bone loss.For additional information, please refer tohttps://[email or web address]/faq/MSG422(This link is being provided for informational/educational purposes only.)THIS TEST WAS PERFORMED AT:[facility] [place], [place] ??[address]WMOMTIGOTILIA CASTAÑEDA MD,PHD 11/24/2024 8:19 AM EST 11/24/2024 8:25 AM EST us Generic External Data Provider LAB BLOOD ORDERAB LES Final Result Performing Organization Address [facility] Co de Phone Number [facility] [address] [place] [phone] * Calcium, Ionized (11/24/2024 8:19 AM EST) Calcium, Ionized 5.1 4.7 - 5.5 mg/dL [facility] Comment:THIS TEST WAS PERFOR MED AT:[facility] [place] [id number] PALMA MD 11/24/2024 8:19 AM EST 11/24/2024 8:25 AM EST us Generic External Data Provider LAB BLOOD ORDERAB LES Final Result Performing Organization Address [facility] Phone Number [facility] [address] [place] [phone] * Albumin (11/24/2024 8:19 AM EST) Albumin Level 4.0 3.5 - 5.0 g/dL [facility] 11/24/2024 8:19 AM EST 11/24/2024 8:25 AM EST us Generic External Data Provider LAB BLOOD ORDERAB LES Final Result Performing Organization Address [facility] Co de Phone Number [facility] [address] [place] [phone] * Magnesium (11/24/2024 8:19 AM EST) Magnesium 1.7 1.6 - 2.6 mg/dL [facility] 11/24/2024 8:19 AM EST 11/24/2024 8:25 AM EST us Generic External Data Provider LAB BLOOD ORDERAB LES Final Result Performing Organization Address City/State/[facility] Co de Phone Number [facility] [address] [place] [phone] * Phosphate (As Phosphorus) (11/24/2024 8:19 AM EST) Phosphorus 3.6 2.7 - 4.5 mg/dL [facility] 11/24/2024 8:19 AM EST 11/24/2024 8:25 AM EST us Generic External Data Provider LAB BLOOD ORDERAB LES Final Result Performing Organization Address [facility] de Phone Number [facility] [address] [place] [phone] * (ABNORMAL) Basic Metabolic Panel (11/24/2024 8:19 AM EST) Sodium 141 135 - 145 mmol/L [facility] Potassium 3.8 3.3 - 5.1 mmol/L [facility] Chloride 104 96 - 108 mmol/L [facility] Carbon Dioxide 30(H) 22 - 29 mmol/L [facility] Anion Gap 11(L) 12 - 20 [facility] Urea Nitrogen (BUN) 16 9 - 16 mg/dL [facility] Creatinine, Serum 1.16 0.5 - 1.4 mg/dL [facility] Estimated Glomerular Filt Rate 45 [facility] Comment:Chronic Kidney Disea se: Estimated GFR < 60 mL/min/1.65k3Rtcamd Kidney Disease: Estimated GFR < 15 mL/min/1.73m2 Glucose 101 60 - 115 mg/dL [facility] Calcium 9.2 8.4 - 10.2 mg/dL [facility] 11/24/2024 8:19 AM EST 11/24/2024 8:25 AM EST us Generic External Data Provider LAB BLOOD ORDERAB LES Final Result Performing Organization Address [facility] Co de Phone Number [facility] [address] [place] [phone] * (ABNORMAL) PTH, Intact Without Calcium (11/24/2024 8:19 AM EST) Parathyroid Hormone, Intact 111.9(H) 8.7 - 77.1 pg/mL [facility] 11/24/2024 8:19 AM EST 11/24/2024 8:25 AM EST Generic External Data Provider LAB BLOOD ORDERAB LES Final Result Performing Organization Address [facility]/ZIP Co de Phone Number [facility] [address] [place] [phone] * (ABNORMAL) Calcium, 24 Hour Urine W/ Creatinine (11/24/2024 8:18 AM EST) Calcium, 24 Hour Urine 43 mg/24 h [facility] Comment:Reference Range 35-2 50 Low calcium diet 35-200 Calcium/Creatini ne Ratio 97 30 - 275 mg/g creat [facility] Creatinine, 24 Hour Urine 0.44(A) 0.50 - 2.15 g/24 h [facility] Comment:THIS TEST WAS PERFOR MED AT:[facility] [place] [phone] PALMA MD 11/24/2024 8:18 AM EST 11/24/2024 9:47 AM EST Narrative [facility] - 11/25/2024 3:49 PM EST [id number] Generic External Data Provider LAB URINE ORDERAB LES Final Result Performing Organization Address [facility]/ZIP Co de Phone Number [facility] [address] [place] [phone] * (ABNORMAL) Sodium, 24-Hour Urine with Creatinine (11/24/2024 8:18 AM EST) Sodium, 24 Hour Urine 44.9 40 - 220 mmol/Day [facility] Creatinine, 24 Hour Urine 0.5(L) 1.0 - 2.0 G/Day [facility] Creatinine, Urine 39.64 [facility] Urine Total Volume 24 Hour 1,150 mL [facility] 11/24/2024 8:18 AM EST 11/24/2024 9:47 AM EST Narrative [facility] - 11/24/2024 11:05 AM EST [id number] us Generic External Data Provider LAB URINE ORDERAB LES Final Result [facility] [address] [place] [phone] documented in this encounter Visit Diagnoses Not on filedocumented in this encounter Additional Health Concerns Assessment Noted Time PHQ-9 Depression Total Score: 0 03/30/20 24 12:00 PM EDT documented as of this encounter Care Teams Correctional Maintenance Technician Relationship Specialty Start Date End Date Jemma Louise MD [address] [place] [phone] PCP - General Family Medicine 09/11/19 documented as of this encounter
--- OUTSIDE RECORDS SUMMARY | 2024-12-05 14:15 | XMS_ITS | Encounter Summary ---
Author Organization [employer] Address [address] [place] [address] Care Team Providers Care Bone Char Kiln Operator Name Role Phone Jemma Louise MD Primary Care Provide r Reason for Visit * Reason Comments Med Refill Encounter Details Date Type Department Care Team (Late st Contact Info) Description 06/25/2023 Refill [facility] [address] [place], [place] [phone] Juana Vanegas, ANP [address] [place], [place] [phone] Vitamin D deficiency Social History Tobacco Use Types Packs/Day Years Used Date Smoking Tobacco: Former Cigarettes Passive Smoke Exposure: Past Smokeless Tobacco: Never Alcohol Use Standard Drinks/Week Comments Never 0 (1 standard drink = 0.6 oz pur e alcohol) Depression Answer Date Recorded Patient Health Questionnaire-9 Score 0 03/01/2023 Depression Answer Date Recorded Patient Health Questionnaire-2 [...] Description 12/05/2024 4:00 PM EST Office Visit [facility] [address] [place], [place] [phone] documented as of this encounter Visit Diagnoses Diagnosis Vitamin D deficiency documented in this encounter Additional Health Concerns Assessment Noted Time PHQ-9 Depression Total Score: 0 03/01/20 23 1:02 PM EDT documented as of this encounter Care Teams Bone Char Kiln Operator Relationship Specialty Start Date End Date Jemma Louise MD [address] [place] [phone] PCP - General Family Medicine 09/11/19 documented as of this encounter
--- OUTSIDE RECORDS SUMMARY | 2024-12-05 14:15 | XMS_ITS | Encounter Summary ---
Author Organization [employer] Address [address] [facility] [address] [place] [address] Care Team Providers Care Soda Maker Name Role Phone Jemma Louise MD Primary Care Provide r Reason for Visit * Reason Onset Date Comments Nurse Triage 09/28/2023 Encounter Details Date Type Department Care Team ([facility] st Contact Info) Description 09/28/2023 Telephone [facility] [address] [place], [place] [phone] Jemma Louise MD [address] [place], [place] [phone] Nurse Triage Social History Tobacco Use Types Packs/Day Years [...] AM EDT documented as of this encounter Miscellaneous Notes * Telephone Encounter - Ayesha Solis RN - 09/28/2023 3:23 PM EST Triage call with [employer] Super[employer] ID [id number] Pt son, THIAGO Fuller, reports Pt has had some sinus/nasal congestion for some time now. Pt has nasal drainage which is clear and some nasal congestion. Neg for fever, cough, headache. Jonny is concerned about some snoring, whistling sound with breathing especially at night. No difficulty breathing is reported. Advised to come to [facility] today or tomorrow open til 800pm, for Pt to be seen by provider and Jonny agrees with disposition. Advised N/S nose spray OTC. Protocol Used: Sinus Pain or Congestion (Adult) Protocol-Based Disposition: See in Office or Video Visit Today or Tomorrow Video visit not offered Positive Triage Question: * Patient wants to be seen * All higher-acuity triage questions were negative Care Advice Discussed: * Reasons To Call Back - Severe pain persists over 2 hours after pain medicine - Sinus pain persists over 1 day after using nasal washes - Sinus congestion (fullness) persists over 10 days - Fever lasts over 3 days - You become worse * Telephone Encounter - Vin Ortiz - 09/28/2023 2:58 PM EST Symptom: Sinus Symptoms Outcome: Schedule an urgent appointment (within 1 hour) or talk to a nurse or provider soon Reason: Any trouble breathing through the mouth The caller accepted this outcome Patient speaks vietnamese documented in this encounter Plan of Treatment Upcoming Encounters Date Type Department Care Team (Late st Contact Info) Description 12/05/2024 4:00 PM EST Office Visit [facility] [address] [place] [address] documented as of this encounter Visit Diagnoses Not on filedocumented in this encounter Additional Health Concerns Assessment Noted Time PHQ-9 Depression Total Score: 0 03/01/20 23 1:02 PM EDT documented as of this encounter Care Teams Soda Maker Relationship Specialty Start Date End Date Jemma Louise MD [address] [place] [phone] PCP - General Family Medicine 09/11/19 documented as of this encounter
--- OUTSIDE RECORDS SUMMARY | 2024-12-05 14:15 | XMS_ITS | Encounter Summary ---
Author Organization [employer] Address [address] [place] [address] Care Team Providers Care Straightening Press Operator Helper Name Role Phone Jemma Louise MD Primary Care Provide r Reason for Visit * Reason Comments Med Refill Encounter Details Date Type Department Care Team (Late st Contact Info) Description 11/15/2023 Refill [facility] [address] [place], [place] [phone] Juana Vanegas, ANP [address] [place], [place] [phone] Iron deficiency Social History Tobacco Use Types Packs/Day [...] Description 12/05/2024 4:00 PM EST Office Visit [facility] [address] [place] [address] documented as of this encounter Visit Diagnoses Diagnosis Iron deficiency Disorders of iron metabolism documented in this encounter Additional Health Concerns Assessment Noted Time PHQ-9 Depression Total Score: 0 03/01/20 23 1:02 PM EDT documented as of this encounter Care Teams Straightening Press Operator Helper Relationship Specialty Start Date End Date Jemma Louise MD [address] [place] [phone] PCP - General Family Medicine 09/11/19 documented as of this encounter
--- OUTSIDE RECORDS SUMMARY | 2024-12-05 14:15 | XMS_ITS | Clinical Summary ---
Author Organization [employer] Address [address] [facility] [address] [place] [address] Care Team Providers Care Tourism Radio Presenter Name Role Phone Jemma Louise MD Primary Care Provide r Allergies Active Allergy Reactions Criticality Noted Date Comments Penicillin V 11/04/2010 Other reaction(s): unspecified Medications Eliquis 5 MG tablet Take 1 tablet by mouth 2 times daily. 01/23/20 23 Active Trelegy Ellipta 100-62.5-25 MCG/ACT aerosol powder Take 1 puff by mouth 1 (one) time each day at the same time. 01/23/20 23 Active Blood Pressure Monitor kitIndications:E ssential hypertension Use as directed 3x/week 1 kit 03/01/20 23 Active melatonin 3 MG tablet TAKE 2 TABLETS BY MOUTH EVERY DAY AT BEDTIME 60 tablet 11 02/14/20 24 Active calcium carbonate 1500 (600 Ca) MG tabletIndication s:Vitamin D deficiency Take 1 tablet (1,500 mg) by mouth every other day. 180 tablet 1 04/27/20 24 Active D3 Super Strength 50 MCG (2000 UT) capsuleIndicatio ns:Vitamin D deficiency Take 1 capsule (50 mcg) by mouth every other day. TAKE 1 CAPSULE BY MOUTH EVERY MORNING 90 capsule 1 04/27/20 24 Active azithromycin (Zithromax) 250 MG tabletIndication s:COPD exacerbation (CMS/HCC) Take 2 tabs PO daily x 1d then 1 tab PO daily on D2 to D5 6 tablet 04/27/20 24 Active atorvastatin (Lipitor) 40 MG tablet TAKE 1 TABLET BY MOUTH AT BEDTIME 90 tablet 3 06/14/20 24 Active lansoprazole (Prevacid) [address] capsule TAKE 1 CAPSULE BY MOUTH EVERY MORNING BEFORE A MEAL 90 capsule 3 06/14/20 24 Active polyvinyl alcohol (Liquifilm Tears) 1.4 % ophthalmic solution INSTILL 1 TO 2 DROPS IN EACH EYE THREE TIMES DAILY OR MORE NEEDED 15 mL 1 07/19/20 24 Active acetaminophen (Tylenol 8 Hour) 650 MG ER tablet TAKE 1 TABLET BY MOUTH EVERY 8 HOURS NEEDED 60 tablet 07/19/20 24 Active lisinopril 10 MG tabletIndication s:Chronic systolic congestive heart failure (CMS/HCC),Essent ial hypertension TAKE 1 TABLET BY MOUTH EVERY MORNING 90 tablet 1 08/09/20 24 Active albuterol (Ventolin HFA) 108 (90 Base) MCG/ACT inhalerIndicatio ns:COPD exacerbation (CMS/[facility]) INHALE 2 PUFFS BY MOUTH EVERY 4 TO 6 HOURS NEEDED 18 g 1 08/22/20 24 Active venlafaxine XR (Effexor XR) 37.5 MG 24 hr capsule TAKE 1 CAPSULE BY MOUTH AT BEDTIME WITH FOOD 90 capsule 1 09/04/20 24 Active Multiple Vitamin (Multivitamin) tablet Take 1 tablet by mouth Once per day. TAKE 1 TABLET BY MOUTH EVERY MORNING WITH FOOD 90 tablet 1 09/06/20 24 Active fluticasone (Flonase) 50 MCG/ACT nasal spray USE 2 SPRAYS IN EACH NOSTRIL EVERY MORNING 16 g 11 10/03/20 24 Active metoprolol tartrate (Lopressor) 25 MG tablet TAKE 1 TABLET BY MOUTH TWICE DAILY IN THE MORNING AND IN THE EVENING 180 tablet 1 10/03/20 24 Active furosemide (Lasix) 20 MG tabletIndication s:Chronic systolic congestive heart failure (CMS/HCC) TAKE 2 TABLETS BY MOUTH ONCE DAILY IN THE MORNING and TAKE 1 TABLET BY MOUTH EVERY EVENING 90 tablet 11 10/25/20 24 Active memantine (Namenda) 10 MG tabletIndication s:Dementia, unspecified dementia severity, unspecified dementia type, unspecified whether behavioral, psychotic, or mood disturbance or anxiety (CMS/HCC) TAKE 1 TABLET BY MOUTH TWICE DAILY IN THE MORNING AND IN THE EVENING 60 tablet 11 10/25/20 24 Active Ferrous Sulfate (iron) 325 (65 Fe) MG tabletIndication s:Iron deficiency TAKE 1 TABLET BY MOUTH EVERY OTHER DAY IN THE MORNING 45 tablet 1 10/31/20 24 Active docusate sodium (Colace) 100 MG capsuleIndicatio ns:Constipation, unspecified constipation type TAKE 1 CAPSULE BY MOUTH TWICE DAILY IN THE MORNING AND IN THE EVENING 180 capsule 1 10/31/20 24 Active cetirizine (ZyrTEC) 10 MG tabletIndication s:Seasonal allergies TAKE 1 TABLET BY MOUTH EVERY MORNING 30 tablet 1 11/28/19 25 Active cetirizine (ZyrTEC) 10 MG tabletIndication s:Seasonal allergies TAKE 1 TABLET BY MOUTH EVERY MORNING 30 tablet 1 09/27/20 24 025 Discontinued Active Problems Problem Noted Date Diagnosed Date Seasonal allergies 03/30/2024 Assessment & Plan (03/30/2024 11:34 AM EDT): I discontinue loratadine and start her on cetrizine Stage 3a chronic kidney disease 09/23/2023 Assessment & Plan (03/30/2024 11:34 AM EDT): Son will re-schedule her appointment information was provided today Assessment & Plan (12/30/2023 11:33 AM EST): Avoid nephrotoxic medications C/w good control of blood pressure I will continue with same lasix dose (balancing risks and benefits) I will refer her to nephrology Assessment & Plan (12/02/2023 11:16 AM EST): Progressing probably because of increase lasix dose Hold lasix x 1 day and restart doses as above, check BMP in 1 wk Cont lasix and FU w PCP in 1 m Assessment & Plan (10/06/2023 12:53 PM EST): F/u BMP in 2 weeks COPD exacerbation 09/22/2023 Assessment & Plan (09/22/2023 11:46 AM EST): Seems to be improving Son will give her albuterol q6h for 2 days PRN Continue other medications and f/u with PCP Atrial fibrillation 02/18/2023 Assessment & Plan (09/12/2024 12:08 PM EST): C/w metoprolol 25mg daily and elequis 5mg BID Assessment & Plan (12/02/2023 11:15 AM EST): HR seems to be controlled Continue Eliquis + metoprolol Counseled about Covid IZ and booster, son will take her to our walk-in IZ clinic Assessment & Plan (03/01/2023 1:44 PM EDT): Rate is controlled C/w metoprolol and equis Follow up wit cardiology Chronic systolic heart failure 02/18/2023 Assessment & Plan (09/12/2024 12:08 PM EST): Clinically compensated C/w same medication regimen Continue to follow with cardiology Assessment & Plan (03/30/2024 11:33 AM EDT): Continue to follow with cardiology C/w same medication regimen Assessment & Plan (08/31/2023 11:51 AM EDT): Stable c/w same medications and interventions Assessment & Plan (03/01/2023 1:42 PM EDT): Patient was hospitlaized for acute on chronic systolic CHF now is resolved I agree to continue with lasix 40mg BID and lisinopril 10mg daily Continue metoprolol 25mg BID and atorvastatin 40mg daily Patient has appointment with cardiology 03/15/23, it was advise not to miss her appointment I advise to continue monitoring BP, and weight at home, call us if weight increases or uncontrolled BP >140/90mmhg Congestive heart failure 02/18/2023 Assessment & Plan (12/30/2023 11:32 AM EST): C/w current medications and O2 supplement at night Continue to follow with cardiology Assessment & Plan (12/02/2023 2:17 PM EST): Seems to be improved w increase doses of lasix, however she has progression of CKD Hold Lasix x 1 day and restart lasix 40mg in the morning and 20mg in the evening, his son received pharmaco education and will give her the meds out of med bottle this month. [facility] aware to give Lasix on a bottle as opposed to in [facility]. FU BMP in 1 wk and adjust lasix dose Counseled regarding control of HTN and Afib Her son will call cardiology and see if they can see them sooner Cont metoprolol, lisinopril, and atorvastatin Assessment & Plan (10/06/2023 3:11 PM EST): Lower Lasix to 20 mg BID, no change on other meds. Euvolemic at this time F/u with PCP in 6 weeks Assessment & Plan (09/22/2023 11:47 AM EST): No change in medication Will obtain labs from ED visit Order [facility] today Dementia 02/18/2023 Pneumonia due to infectious organism 02/18/2023 Senile osteoporosis 02/01/2019 Assessment & Plan (03/30/2024 11:34 AM EDT): Followed by rheumatology, they are waiting for insurance approval for medication Ptosis of eyelid 11/30/2018 Tubular adenoma of colon 04/21/2018 Cough 02/03/2018 Dry eyes 02/03/2018 Mild cognitive disorder 02/03/2018 Vitamin D deficiency 02/03/2018 Thoracic spondylosis without myelopathy 05/08/20 16 Allergic rhinitis 11/04/2015 Chronic obstructive lung disease 11/04/2015 Assessment & Plan (09/12/2024 12:07 PM EST): Stable c/w same interventions Assessment & Plan (03/30/2024 11:33 AM EDT): Continue to follow with pulmonology, continue to use O2 nasal canula at night Assessment & Plan (08/31/2023 11:51 AM EDT): Stable c/w same medication regimen and continue to follow with pulmonology Assessment & Plan (03/01/2023 1:45 PM EDT): Patient is stable using oxygen at night and during the day PRN C/w same treatment referral to tree surgeon helper will be done today Constipation 11/04/2015 Essential hypertension 11/04/2015 Assessment & Plan (09/12/2024 12:09 PM EST): Maintenance: BMP: up to date Lipid Panel: up to date On atorvastatin 40mg daily and elequis BID - Aerobic exercise to reduce BP. Initial goal of 30 min walk 3-5x/week. Increase as tolerated. - low-sodium diet (goal: <2g/day) and heart healthy diet such as DASH to reduce BP and prevent ASCVD. - Home BP monitoring 1-2 x day with goal of <140/90. - Seek immediate medical attention for chest pain, palpitations, SOB, syncope, or sudden changes in mental status. - Do not change or discontinue current prescriptions without first consulting health care provider Assessment & Plan (12/30/2023 11:32 AM EST): Maintenance: BMP: up to date Lipid Panel: up to date ASCVD Risk: high risk on atorvastaitn 40mg, ASA 81mg, elequis and metoprolol - Aerobic exercise to reduce BP. Initial goal of 30 min walk 3-5x/week. Increase as tolerated. - low-sodium diet (goal: <2g/day) and heart healthy diet such as DASH to reduce BP and prevent ASCVD. - Home BP monitoring 1-2 x day with goal of <140/90. - Seek immediate medical attention for chest pain, palpitations, SOB, syncope, or sudden changes in mental status. - Do not change or discontinue current prescriptions without first consulting health care provider Assessment & Plan (12/02/2023 11:16 AM EST): Controlled. Compliant w/meds Continue lisinopril + metoprolol. Lasik dose adjusted as above Counseled re low salt diet/increase moderate physical activity. Check home BP BIW and prn CP/CAREY/JUSTICE Non smoking patient. FU PCP 1 m Order labs Assessment & Plan (08/31/2023 11:51 AM EDT): - Aerobic exercise to reduce BP. Initial goal of 30 min walk 3-5x/week. Increase as tolerated. - low-sodium diet (goal: <2g/day) and heart healthy diet such as DASH to reduce BP and prevent ASCVD. - Home BP monitoring 1-2 x day with goal of <140/90. - Seek immediate medical attention for chest pain, palpitations, SOB, syncope, or sudden changes in mental status. - Do not change or discontinue current prescriptions without first consulting health care provider Assessment & Plan (03/01/2023 1:49 PM EDT): Maintenance: BMP: ordered again today - Aerobic exercise to reduce BP. Initial goal of 30 min walk 3-5x/week. Increase as tolerated. - low-sodium diet (goal: <2g/day) and heart healthy diet such as DASH to reduce BP and prevent ASCVD. - Home BP monitoring 1-2 x day with goal of <140/90. ( I will prescribe a BP kit today) - Seek immediate medical attention for chest pain, palpitations, SOB, syncope, or sudden changes in mental status. - Do not change or discontinue current prescriptions without first consulting health care provider Gastroesophageal reflux disease without esophagi tis 11/04/2015 Hyperlipidemia 11/04/2015 Impaired glucose tolerance 11/04/2015 Overweight 11/04/2015 Primary osteoarthritis involving multiple joints 11/04/2015 Encounters Date Type Department Care Team Description 11/25/2024 Refill [facility] [address] [place] [address] Jemma Louise MD Seasonal allergies 11/24/2024 Orders Only GENERIC EXTERNAL DATA DEPARTMENT Provider, Generic External Data 10/31/2024 Refill [facility] [address] [place] [address] Jemma Louise MD Constipation, unspecified constipation type 10/30/2024 Refill [facility] [address] [place] [address] Jemma Louise MD Iron deficiency 10/25/2024 Refill [facility] [address] [place] [address] Jemma Louise MD Dementia, unspecified dementia severity, unspecified dementia type, unspecified whether behavioral, psychotic, or mood disturbance or anxiety ([facility]) 10/25/2024 Refill [facility] [address] [place] [address] Radha Yanez MD Chronic systolic congestive heart failure ([facility]/HCC); Dementia, unspecified dementia severity, unspecified dementia type, unspecified whether behavioral, psychotic, or mood disturbance or anxiety ([facility]/HCC) 10/02/2024 Refill [facility] [address] [place] [address] Brenda Khan MD 10/02/2024 Refill [facility] [address] [place] [address] Jemma Louise MD 09/27/2024 Refill [facility] [address] [place] [address] Jemma Louise MD Seasonal allergies 09/12/2024 11:00 AM EST Office Visit [facility] [address] [place] [address] Jemma Louise MD Essential hypertension (Primary Dx); Chronic systolic heart failure ([facility]); Chronic obstructive pulmonary disease, unspecified COPD type ([facility]); Atrial fibrillation, unspecified type ([facility]); Encounter for immunization 09/12/2024 Travel 09/05/2024 Orders Only GENERIC EXTERNAL DATA DEPARTMENT Provider, Generic External Data 09/05/2024 Refill [facility] [address] [place] [address] Jemma Louise MD 09/04/2024 Patient Outreach [facility] [address] [place] [phone] Jemma Louise MD Pre-visit Planning (SDID screening completed on 03/30/2024) 09/04/2024 Refill [facility] [address] [place] [address] Jemma Louise MD from Last 3 Months Immunizations Name Administration Dates Next Due Influenza High-dose Quadriva lent Preservative Free 08/31/2023,07/28/2022,09/11/2021,08/29 Influenza injectable quadriv alent IIV4 with preservative 08/26/2016,07/24/2015 Influenza injectable quadriv alent preservative free 10/24/2018,09/01/2017 Influenza, IIV3, injectable 07/24/2011 Influenza, Split (incl. lyubov fied surface antigen) 08/10/2013,09/01/2012 Influenza, seasonal, injecta ble, preservative free 09/12/2024 Pfizer Covid-19 Vaccine 12+ 09/12/2024, Pneumococcal Conjugate PCV 13 11/04/2015 Pneumococcal Polysaccharide PPSV23 09/05/2010,,06/05/1998 RSV Bivalent 12/16/2023 TD (adult), 2 Lf tetanus tox oid, preservative free, adsorbed 01/28/2010,04/29/1999 Tdap 12/30/2023,03/02/2013 Zoster, Recombinant 12/16/2023 Zoster, live 01/28/2010 Social History Tobacco Use Types Packs/Day Years Used Date Smoking Tobacco: Former Cigarettes Passive Smoke Exposure: Past Smokeless Tobacco: Never Tobacco Cessation:Counseling Given: Not Answered Alcohol Use Standard Drinks/Week Comments Never 0 [...] Orientation Straight 09/07/2022 10 :14 AM EDT Last Filed Vital Signs Vital Sign Reading Time Taken Comments Blood Pressure 148/66 09/12/2024 11:21 AM EST Pulse 65 09/12/2024 11:03 AM EST Temperature 36.2 ??C (97.2 ??F) 09/12/2024 11:[address] Respiratory Rate 20 09/12/2024 11:03 AM EST Oxygen Saturation 97% 09/12/2024 11:03 AM EST Inhaled Oxygen Concentration - - Weight 61.7 kg (136 lb) 09/12/2024 11:03 AM EST Height 149.9 cm (4' 11 ) 09/12/2024 11:03 AM EST Body Mass Index 27.47 09/12/2024 11:03 AM EST Plan of Treatment Upcoming Encounters Date Type Department Care Team (Late st Contact Info) Description 12/05/2024 4:00 PM EST Office Visit [facility] [address] [place] [phone] Health Maintenance Due Date Last Done Comments Zoster Vaccines (3 of 3) 02/10/2024 12/16/2023, 01/07 Depression Screening 03/30/2025 03/30/2024, 03/30/20 24 SDOH Screening 03/30/2025 03/30/2024 Alcohol/Substance Use Screening 09/12/2025 09/12/2024 Tobacco Screening 09/12/2025 09/12/2024 Lipid Panel 07/28/2027 07/28/2022, 09/11/2021 DTaP/Tdap/Td Vaccines (3 - Td or Tdap) 12/30/2033 12/30/2023, 03/02/2013, 01/28/2010, Additional history exists Pneumococcal Vaccine: 65+ Years Completed 11/04/2015, 09/05/2010, 08/06/2008, Additional history exists RSV Patients and Patients Aged 60 years or older Completed 12/16/2023 COVID-19 Vaccine Completed 09/12/2024, , 03/24/2021, Additional history exists Influenza Vaccine Completed 09/12/2024, , 07/28/2022, Additional history exists HIB Vaccines Aged Out No longer eligi [...] patient's age to complete this topic Meningococcal Vaccine Aged Out No rafael marciano eligible based on patient's age to complete this topic RSV under 20 months Aged Out No longe r eligible based on patient's age to complete this topic Rotavirus Vaccines Aged Out No longer eligible based on patient's age to complete this topic Procedures Procedure Name Priority Date/Time Associated Diagnosis Comments CREATININE, 24 HR GROUP Routine 11/24/19 9:45 AM EST ALKALINE PHOSPHATASE, BONE SPECIFIC Routine 11/24/2024 8:19 AM EST COLLAGEN TYPE I C-TELOPEPTIDE (CTX) Routine 11/24/2024 8:19 AM EST CALCIUM, IONIZED Routine 11/24/2024 8:19 AM EST ALBUMIN Routine 11/24/2024 8:19 AM EST MAGNESIUM Routine 11/24/2024 8:19 AM EST PHOSPHATE ( PHOSPHORUS) Routine 11/24/2024 8:19 AM EST BASIC METABOLIC PANEL Routine 11/24/2024 8:19 AM EST PTH, INTACT WITHOUT CALCIUM Routine 11/24/2024 8:19 AM EST CALCIUM, 24 HOUR URINE (W/ CREATININE) Routine 11/24/2024 8:18 AM EST SODIUM, 24-HOUR URINE WITH CREATININE Routine 11/24/2024 8:18 AM EST VITAMIN D 25-OH (D2 AND D3) Routine 09/05/2024 4:40 PM EDT CALCIUM, IONIZED Routine 09/05/2024 4:40 PM EDT PROTEIN ELECTROPHORESIS AND KAPPA/LAMBDA LIGHT CHAINS, SERUM Routine 09/05/2024 4:40 PM EDT PTH, INTACT WITHOUT CALCIUM Routine 09/05/2024 4:40 PM EDT TSH Routine 09/05/2024 4:40 PM EDT COMPREHENSIVE METABOLIC PANEL Routine 09/05/2024 4:40 PM EDT LIPID PANEL, STANDARD Routine 07/28/2022 11:36 AM EDT from Last 3 Months or Most Recently Relevant to Health Maintenance Results * (ABNORMAL) CREATININE, 24 HR GROUP (11/24/2024 9:45 AM EST) Creatinine, 24 Hour Urine 0.5(L) 1.0 - 2.0 G/Day [facility] Creatinine, Urine 40.59 [facility] Urine Total Volume 24 Hour 1,150 mL [facility] 11/24/2024 9:45 AM EST 11/24/2024 9:45 AM EST Narrative [facility] - 11/24/2024 11:05 AM EST [id number] us Generic External Data Provider LAB URINE ORDERAB LES Final Result [facility] [address] [place] [address] [phone] * Collagen Type I C-Telopeptide (CTx) (11/24/2024 8:19 AM EST) C-Telopeptide (CTx) 211 see note pg/mL [facility] Comment: ?Unable to flag abnormal result(s), [...] of bone loss.For additional information, please refer totps://education.quest[employer].com/faq/SYS466(This link is being provided for informational/educational purposes only.)THIS TEST WAS PERFORMED AT:[employer]/[id number] [place], [place] ??[phone] CASTAÑEDA MD,PHD 11/24/2024 8:19 AM EST 11/24/2024 8:25 AM EST us Generic External Data Provider LAB BLOOD ORDERAB LES Final Result [facility] [address] [place] [address] [phone] * Alkaline Phosphatase, Bone Specific (11/24/2024 8:19 AM EST) Alkaline Phosphatase, Bone Specific 7.4 see note mcg/L [facility] Comment: ?Unable to flag abnormal result(s), [...] 18.2Pediatric data from Int J Biol Markers (1995) ??[id number] Range, Premenopausal (mcg/L) 35-45 years ?5.0-18.2THIS TEST WAS PERFORMED AT:[employer]/[id number] [place], [place] ??[id number] W. MASON,MD,PHD 11/24/2024 8:19 AM EST 11/24/2024 8:25 AM EST us Generic External Data Provider LAB BLOOD ORDERAB LES Final Result Performing Organization Address [facility] de Phone Number [facility] [address] [place] [phone] * Phosphate (As Phosphorus) (11/24/2024 8:19 AM EST) Phosphorus 3.6 2.7 - 4.5 mg/dL [facility] 11/24/2024 8:19 AM EST 11/24/2024 8:25 AM EST Generic External Data Provider LAB BLOOD ORDERAB LES Final Result Performing Organization Address [facility] de Phone Number [facility] [address] [place] [phone] * (ABNORMAL) PTH, Intact Without Calcium (11/24/2024 8:19 AM EST) Only the most recent of2 resultswithin the time period is included. Parathyroid Hormone, Intact 111.9(H) 8.7 - 77.1 pg/mL [facility] 11/24/2024 8:19 AM EST 11/24/2024 8:25 AM EST Generic External Data Provider LAB BLOOD ORDERAB LES Final Result Performing Organization Address [facility]/ZIP Co de Phone Number [facility] [address] [place] [phone] * Magnesium (11/24/2024 8:19 AM EST) Magnesium 1.7 1.6 - 2.6 mg/dL [facility] 11/24/2024 8:19 AM EST 11/24/2024 8:25 AM EST Generic External Data Provider LAB BLOOD ORDERAB LES Final Result Performing Organization Address [facility] de Phone Number [facility] [address] [place] [phone] * Calcium, Ionized (11/24/2024 8:19 AM EST) Only the most recent of2 resultswithin the time period is included. Calcium, Ionized 5.1 4.7 - 5.5 mg/dL [facility] Comment:THIS TEST WAS PERFOR MED AT:[address] [place] [id number] PALMA MD 11/24/2024 8:19 AM EST 11/24/2024 8:25 AM EST Generic External Data Provider LAB BLOOD ORDERAB LES Final Result Performing Organization Address [facility] Co de Phone Number [facility] [address] [place] [phone] * Albumin (11/24/2024 8:19 AM EST) Albumin Level 4.0 3.5 - 5.0 g/dL [facility] 11/24/2024 8:19 AM EST 11/24/2024 8:25 AM EST us Generic External Data Provider LAB BLOOD ORDERAB LES Final Result Performing Organization Address [facility]/ZIP Co de Phone Number [facility] [address] [place] [phone] * (ABNORMAL) Basic Metabolic Panel (11/24/2024 8:19 AM EST) Sodium 141 135 - 145 mmol/L [facility] Potassium 3.8 3.3 - 5.1 mmol/L [facility] Chloride 104 96 - 108 mmol/L [facility] Carbon Dioxide 30(H) 22 - 29 mmol/L [facility] Anion Gap 11(L) 12 - 20 [facility] Urea Nitrogen (BUN) 16 9 - 16 mg/dL [facility] Creatinine, Serum 1.16 0.5 - 1.4 mg/dL [facility] Estimated Glomerular Filt Rate 45 [facility] Comment:Chronic Kidney Disea se: Estimated GFR < 60 mL/min/1.73s7Imxpvf Kidney Disease: Estimated GFR < 15 mL/min/1.73m2 Glucose 101 60 - 115 mg/dL [facility] Calcium 9.2 8.4 - 10.2 mg/dL [facility] 11/24/2024 8:19 AM EST 11/24/2024 8:25 AM EST Generic External Data Provider LAB BLOOD ORDERAB LES Final Result Performing Organization Address [facility]/ZIP Co de Phone Number [facility] [address] [place] [phone] * (ABNORMAL) Sodium, 24-Hour Urine with Creatinine (11/24/2024 8:18 AM EST) Sodium, 24 Hour Urine 44.9 40 - 220 mmol/Day [facility] Creatinine, 24 Hour Urine 0.5(L) 1.0 - 2.0 G/Day [facility] Creatinine, Urine 39.64 [facility] Urine Total Volume 24 Hour 1,150 mL [facility] 11/24/2024 8:18 AM EST 11/24/2024 9:47 AM EST [facility] - 11/24/2024 11:05 AM EST [id number] Generic External Data Provider LAB URINE ORDERAB LES Final Result Performing Organization Address [facility] Co de Phone Number [facility] [address] [place] [phone] * (ABNORMAL) Calcium, 24 Hour Urine W/ Creatinine (11/24/2024 8:18 AM EST) Calcium, 24 Hour Urine 43 mg/24 h [facility] Comment:Reference Range 35-2 50 Low calcium diet 35-200 Calcium/Creatini ne Ratio 97 30 - 275 mg/g creat [facility] Creatinine, 24 Hour Urine 0.44(A) 0.50 - 2.15 g/24 h [facility] Comment:THIS TEST WAS PERFOR MED AT:[address] [place] [id number] PALMA MD 11/24/2024 8:18 AM EST 11/24/2024 9:47 AM EST [facility] - 11/25/2024 3:49 PM EST [id number] us Generic External Data Provider LAB URINE ORDERAB LES Final Result Performing Organization Address [facility] Co de Phone Number [facility] [address] [place] [phone] * (ABNORMAL) VITAMIN D 25-OH (D2 AND D3) (09/05/2024 4:40 PM EDT) Vitamin D, 25-OH, D2 <4 ng/mL [facility] Comment:This test was develo ped and its analytical performancecharacteristics have been determined by [address] [place], [place]. It hasnot been cleared or approved by the U.S. Food and DrugAdministration. This assay has been validated pursuantto the CLIA regulations and is used for clinicalpurposes.THIS TEST WAS PERFORMED AT:[employer] [id number] [place] [id number] CASTAÑEDA MD,PHD Vitamin D, 25-OH, D3 27 ng/mL [facility] Comment:This test was develo ped and its analytical performancecharacteristics have been determined by [address] [place], [place]. It hasnot been cleared or approved by the U.S. Food and DrugAdministration. This assay has been validated pursuantto the CLIA regulations and is used for clinicalpurposes. Vitamin D, 25-OH, Total 27(A) 30 - 100 ng/mL [facility] Comment:Vitamin D, 25-Hydrox y reports concentrations of twocommon forms, 25-OHD2 and 25-OHD3. 25-OHD3 indicatesboth endogenous production and supplementation.25-OHD2 is an indicator of exogenous sources such asdiet or supplementation. Therapy is based onmeasurement of Total 25-OHD, with levels <20 ng/mLindicative of Vitamin D deficiency, while levelsbetween 20 ng/mL and 30 ng/mL suggest insufficiency.Optimal levels are > or = 30 ng/mL.For additional information, please refer tohttp://education.iBuildApp/faq/PDD995(This link is being provided for informational/educational purposes only.) 09/05/2024 4:40 PM EDT 09/05/2024 4:40 PM EDT us Generic External Data Provider LAB BLOOD ORDERAB LES Final Result Performing Organization Address City/[facility]/ZIP Co de Phone Number [facility] [address] [place] [phone] * (ABNORMAL) Protein Electrophoresis and [place] (09/05/2024 4:40 PM EDT) Prot Elec - Total Protein 7.0 6.1 - 8.1 g/dL [facility] Prot Elec - Albumin 3.6(A) 3.8 - 4.8 g/dL [facility] Prot Elec - Alpha1 0.3 0.2 - 0.3 g/dL [facility] Prot Elec - Alpha2 1.1(A) 0.5 - 0.9 g/dL [facility] Prot Elec - Beta 1 0.5 0.4 - 0.6 g/dL [facility] Prot Elec - Beta 2 0.5 0.2 - 0.5 g/dL [facility] Prot Elec - Gamma 1.1 0.8 - 1.7 g/dL [facility] PES - Abn Protein Band 1 [facility] PES-Abn Protein Band 2 [facility] PES-Abn Protein Band 3 [facility] Prot Elec - Interpretation SEE NOTE [facility] Comment:Suggestive of acute inflammation pattern with elevationof acute phase proteinsTHIS TEST WAS PERFORMED AT:[address] [place] [id number] PALMA MD 09/05/2024 4:40 PM EDT 09/05/2024 4:40 PM EDT us Generic External Data Provider LAB BLOOD ORDERAB LES Final Result Performing Organization Address City/[facility]/ZIP Co de Phone Number [facility] [address] [place] [phone] * TSH (09/05/2024 4:40 PM EDT) Thyroid Stimulating Hormone 1.64 0.32 - 4.0 uIU/mL [facility] Comment:TSH 3rd Generation ( [facility]) 09/05/2024 4:40 PM EDT 09/05/2024 4:40 PM EDT us Generic External Data Provider LAB BLOOD ORDERAB LES Final Result [facility] [address] [place] [phone] * (ABNORMAL) Comprehensive Metabolic Panel (09/05/2024 4:40 PM EDT) Sodium 141 135 - 145 mmol/L [facility] Potassium 4.4 3.3 - 5.1 mmol/L [facility] Chloride 99 96 - 108 mmol/L [facility] Carbon Dioxide 33(H) 22 - 29 mmol/L [facility] Anion Gap 13 12 - 20 [facility] Urea Nitrogen (BUN) 20(H) 9 - 16 mg/dL [facility] Creatinine, Serum 1.06 0.5 - 1.4 mg/dL [facility] Estimated Glomerular Filt Rate 50 [facility] Comment:NOTE: For -Am erican individuals, multiply the result by 1.210.Chronic Kidney Disease: Estimated GFR < 60 mL/min/1.71l7Ynwnyw Kidney Disease: Estimated GFR < 15 mL/min/1.73m2 Glucose 102 60 - 115 mg/dL [facility] Calcium 9.9 8.4 - 10.2 mg/dL [facility] Bilirubin, Total 0.4 0.0 - 1.0 mg/dL [facility] Aspartate Amino Transferase 19 5 - 31 U/L [facility] Alanine Aminotransferase 9 0 - 31 U/L [facility] Total Protein 7.5 6.5 - 8.0 g/dL [facility] Albumin Level 4.0 3.5 - 5.0 g/dL [facility] Alkaline Phosphatase 60 39 - 117 U/L [facility] 09/05/2024 4:40 PM EDT 09/05/2024 4:40 PM EDT us Generic External Data Provider LAB BLOOD ORDERAB LES Final Result [facility] [address] [place] [phone] * (ABNORMAL) LIPID PANEL, STANDARD (07/28/2022 11:36 AM EDT) Chol/HDLC Ratio 2.2 <5.0 (calc) [facility] Cholesterol, Total 132 <200 mg/dL [facility] HDL Cholesterol 61 > OR = 50 mg/dL [facility] LDL Cholesterol 47 mg/dL (calc) [facility] Comment: Reference range: <100 ?? Desirable range <100 mg/dL for primary prevention; ?? <70 mg/dL for patients with CHD or diabetic patients ?? with > or = 2 CHD risk factors. ?? LDL-C is now calculated using the Jannet ?? calculation, which is a validated novel method providing ?? better accuracy than the Friedewald equation in the ?? estimation of LDL-C. ?? En SS et al. EVAN. 2013;310(19): 1671-6421 ?? (http://education.[address].PlastiPure/faq/DDN322) Non-HDL Cholesterol 71 <130 mg/dL (calc) [facility] Comment: For patients with diabetes plus 1 major ASCVD risk ?? factor, treating to a non-HDL-C goal of <100 mg/dL ?? (LDL-C of <70 mg/dL) is considered a therapeutic ?? option. Triglycerides 154(H) <150 mg/dL [facility] 07/28/2022 11:3 6 AM EDT us Jemma Mccarthy MD LAB BLOOD ORDERABLES Final Result Performing Organization Address [facility]/ZIP Co de Phone Number [facility] [address] from Last 3 Months or Most Recently Relevant to Health Maintenance Insurance [facility] Care Teams Tourism Radio Presenter Relationship Specialty Start Date End Date Jemma Louise MD [address] [place] [phone] PCP - General Family Medicine 09/11/19
--- OUTSIDE RECORDS SUMMARY | 2024-12-05 14:15 | XMS_ITS | Encounter Summary ---
Author Organization [employer] Address [address] [place] [address] Care Team Providers Care Vp Corporate Development Name Role Phone Jemma Louise MD Primary Care Provide r Encounter Details Date Type Department Care Team (Late st Contact Info) Description 01/04/2023 Orders Only [facility] [address] [place], [place] [phone] Barbara Portillo LPN Social History Tobacco Use Types Packs/Day Years Used Date Smoking Tobacco: Never Assessed Comments Unknown Sex and Gender Information Value [...] PM EST Office Visit [facility] [address] [place] [phone] documented as of this encounter Procedures Procedure Name Priority Date/Time Associated Diagnosis Comments VITAMIN D 25-OH (D2 AND D3) Routine 08/10/2023 12:13 PM EDT CBC WITH AUTO DIFFERENTIAL Routine 08/10/2023 12:13 PM EDT COMPREHENSIVE METABOLIC PANEL Routine 08/10/2023 12:13 PM EDT VITAMIN D,25-OH,TOTAL,IA Routine 03/01/2023 2:22 PM EDT PHOSPHATE ( PHOSPHORUS) Routine 03/01/2023 2:22 PM EDT COMPREHENSIVE METABOLIC PANEL Routine 03/01/2023 2:22 PM EDT documented in this encounter Results * VITAMIN D 25-OH (D2 AND D3) (08/10/2023 12:13 PM EDT) Vitamin D, 25-OH, D2 <4 ng/mL [facility] Comment:This test was develo ped and its analytical performancecharacteristics have been determined by [employer] [place], [place]. It hasnot been cleared or approved by the U.S. Food and DrugAdministration. This assay has been validated pursuantto the CLIA regulations and is used for clinicalpurposes.THIS TEST WAS PERFORMED AT:[employer] [id number] [place] [id number] CASTAÑEDA MD,PHD Vitamin D, 25-OH, D3 37 ng/mL [facility] Comment:This test was develo ped and its analytical performancecharacteristics have been determined by [employer] [place], [place]. It hasnot been cleared or approved by the U.S. Food and DrugAdministration. This assay has been validated pursuantto the CLIA regulations and is used for clinicalpurposes. Vitamin D, 25-OH, Total 37 30 - 100 ng/mL [facility] Comment:Vitamin D, 25-Hydrox y [...] = 30 ng/mL.For additional information, please refer tohttp://education.[employer].Tagoo/faq/SBJ284(This link is being provided for informational/educational purposes only.) 08/10/2023 12:1 3 PM EDT 08/10/2023 12:13 PM EDT us [facility] External Provider LAB BLO OD ORDERABLES Final Result [facility] [address] [place] [phone] * (ABNORMAL) Comprehensive Metabolic Panel (08/10/2023 12:13 PM EDT) Sodium 141 135 - 145 mmol/L [facility] Potassium 4.0 3.3 - 5.1 mmol/L [facility] Chloride 97 96 - 108 mmol/L [facility] Carbon Dioxide 33(H) 22 - 29 mmol/L [facility] Anion Gap 15 12 - 20 [facility] Urea Nitrogen (BUN) 15 9 - 16 mg/dL [facility] Creatinine, Serum 0.89 0.5 - 1.4 mg/dL [facility] Estimated Glomerular Filt Rate >60 [facility] Comment:NOTE: For -Am erican individuals, multiply the result by 1.210.Chronic Kidney Disease: Estimated GFR < 60 mL/min/1.84c1Siglie Kidney Disease: Estimated GFR < 15 mL/min/1.73m2 Glucose 102 60 - 115 mg/dL [facility] Calcium 10.5(H) 8.4 - 10.2 mg/dL [facility] Bilirubin, Total 0.4 0.0 - 1.0 mg/dL [facility] Aspartate Amino Transferase 22 5 - 31 U/L [facility] Alanine Aminotransferase 13 0 - 31 U/L [facility] Total Protein 7.9 6.5 - 8.0 g/dL [facility] Albumin Level 4.4 3.5 - 5.0 g/dL [facility] Alkaline Phosphatase 47 39 - 117 U/L [facility] 08/10/2023 12:1 3 PM EDT 08/10/2023 12:13 PM EDT us [facility] External Provider LAB BLO OD ORDERABLES Final Result [facility] [address] [place] [phone] * (ABNORMAL) CBC auto differential (08/10/2023 12:13 PM EDT) White Blood Count 7.3 4.8 - 10.8 X10*3/uL [facility] Red Blood Count 4.62 4.20 - 5.50 X10*6/uL [facility] Hemoglobin 12.5 12.0 - 16.0 g/dl [facility] Hematocrit 40.9 37.0 - 47.0 % [facility] Mean Corpuscular Volume 88.5 80.0 - 98.0 fL [facility] Mean Corpuscular Hemoglobin 27.1 27.0 - 33.0 pg [facility] Mean Corpuscular HGB Conc 30.6(L) 31.0 - 35.0 g/dl [facility] Red Cell Distribution Width 14.5 11.0 - 16.0 % [facility] Platelet Count 257 160 - 400 X10*3/uL [facility] Mean Platelet Volume 12.3 9.4 - 12.3 fL [facility] Neutrophils Percent Auto 69.3 45 - 73 % [facility] Imm Gran Pct Auto 0.4 0.0 - 0.4 % [facility] Lymphocytes Percent Auto 18.4(L) 20 - 40 % [facility] Monocytes Percent Auto 9.1 2 - 11 % [facility] Eosinophils Percent Auto 2.2 0 - 4 % [facility] Basophils Percent Auto 0.6 0 - 2 % [facility] NRBC Pct Auto 0.0 0.0 - 0.2 /100WBC [facility] Neutrophils Absolute Auto 5.0 2.0 - 8.3 x10*3/uL [facility] Imm Gran Abs Auto 0.03 0.00 - 0.03 X10*3/uL [facility] Lymphocytes Absolute Auto 1.3 1.2 - 4.9 X10*3/uL [facility] Monocytes Absolute Auto 0.7 0.1 - 1.2 X10*3/uL [facility] Eosinophils Absolute Auto 0.2 0.0 - 0.4 X10*3/uL [facility] Basophils Absolute Auto 0.0 0.0 - 0.2 X10*3/uL [facility] NRBC Abs Auto 0.000 0.0 - 0.012 X10*3/uL [facility] 08/10/2023 12:1 3 PM EDT 08/10/2023 12:13 PM EDT [facility] External Provider LAB BLO OD ORDERABLES Final Result [facility] [address] [place] [phone] * Vitamin D, 25-Hydroxy, Total, Immunoassay (03/01/2023 2:22 PM EDT) Vitamin D 25-OH Total 69.3 >30 ng/mL [facility] Comment:Health Based Referen ce Values*< 20 ng/mL [id number] ng/mL Insufficient> 30 ng/mL Sufficient*Larisa CARMONA. N Engl J Med. 2007;357:266-280Care must be taken in interpreting Vitamin D results fromdifferent laboratories and methodologies. Published datademonstrated that results from patients undergoinghemodialysis may show a negative bias when tested withvarious automated 25-OH vitamin D assays when compared toLC-MS/MS.When testing samples from patients whose predominant form ofVitamin D is Vitamin D2, such as patients receiving VitaminD2 supplementation, results that are subtherapeutic shouldbe confirmed with another method such as LC-MS/MS. 03/01/2023 2:22 PM EDT 03/01/2023 2:22 PM EDT [facility] External Provider LAB BLO OD ORDERABLES Final Result Performing Organization Address City/[facility]/ZIP Co de Phone Number [facility] [address] [place] [phone] [phone] * Phosphate (As Phosphorus) (03/01/2023 2:22 PM EDT) Phosphorus 2.8 2.7 - 4.5 mg/dL [facility] 03/01/2023 2:22 PM EDT 03/01/2023 2:22 PM EDT [facility] External Provider LAB BLO OD ORDERABLES Final Result Performing Organization Address [facility] Co de Phone Number [facility] [address] [place] [address] [phone] * (ABNORMAL) Comprehensive Metabolic Panel (03/01/2023 2:22 PM EDT) Pathologist [facility] Sodium 143 135 - 145 mmol/L [facility] Potassium 4.2 3.3 - 5.1 mmol/L [facility] Chloride 96 96 - 108 mmol/L [facility] Carbon Dioxide 35(H) 22 - 29 mmol/L [facility] Anion Gap 16 12 - 20 [facility] Urea Nitrogen (BUN) 18(H) 9 - 16 mg/dL [facility] Creatinine, Serum 1.02 0.5 - 1.4 mg/dL [facility] Estimated Glomerular Filt Rate 52 [facility] Comment:NOTE: For -Am erican individuals, multiply the result by 1.210.Chronic Kidney Disease: Estimated GFR < 60 mL/min/1.03k9Wxtwhz Kidney Disease: Estimated GFR < 15 mL/min/1.73m2 Glucose 85 60 - 115 mg/dL [facility] Calcium 9.9 8.4 - 10.2 mg/dL [facility] Bilirubin, Total 0.6 0.0 - 1.0 mg/dL [facility] Aspartate Amino Transferase 17 5 - 31 U/L [facility] Alanine Aminotransferase 10 0 - 31 U/L [facility] Total Protein 7.5 6.5 - 8.0 g/dL [facility] Albumin Level 4.4 3.5 - 5.0 g/dL [facility] Alkaline Phosphatase 59 39 - 117 U/L [facility] 03/01/2023 2:22 PM EDT 03/01/2023 2:22 PM EDT us [facility] External Provider LAB BLO OD ORDERABLES Final Result Performing Organization Address City/State/[facility] Co de Phone Number [facility] [address] [place] [address] [phone] documented in this encounter Visit Diagnoses Not on filedocumented in this encounter Care Teams Vp Corporate Development Relationship Specialty Start Date End Date Jemma Louise MD [address] [place] [phone] PCP - General Family Medicine 09/11/19 documented as of this encounter
== END 2024-12-05 13:52 | disposition home or self-care (01) ==
PROVIDERS: PCP Internal Medicine; Visit Provider Student in an Organized Health Care Education/Training Program
DX: E21.3 Hyperparathyroidism, unspecified (principal); M81.0 Age-related osteoporosis without current pathological fracture
CPT/HCPCS: 99213

== ENCOUNTER → 2024-12-05 13:16 | Outpatient (BNVA) | payer OTHER, SELFPAY | PROVIDERS: PCP Internal Medicine; Visit Provider Student in an Organized Health Care Education/Training Program | DX: E21.3 Hyperparathyroidism, unspecified (principal); M81.0 Age-related osteoporosis without current pathological fracture; I12.9 Hypertensive chronic kidney disease with stage 1 through stage 4 chronic kidney disease, or unspecified chronic kidney disease; N18.30 Chronic kidney disease, stage 3 unspecified | CPT/HCPCS: 99212 ==

== ENCOUNTER 2024-12-09 08:53 | Outpatient (REF) | payer OTHER, SELFPAY ==
--- NOTE | ~2024-12-09 | XR_ITS ---
CLINICAL HISTORY: left ankle foot pain 3 view left foot Comparison: CR - FOOT LEFT COMPLETE [id number] - 03/06/16 13:33 EDT Findings: No fractures or dislocations. Mild midfoot joint space loss. No erosions. Vascular calcium. Calcaneal spurring. No ankle effusion. No radiopaque foreign body. IMPRESSION: 1. Midfoot degenerative changes. No acute fracture. This document has been electronically signed by: Lelo Sanford MD on 12/12/2024 06:14:03
--- NOTE | ~2024-12-09 | XR_ITS ---
CLINICAL HISTORY: left ankle foot pain 3 view left ankle Comparison: CR - ANKLE LEFT COMPLETE [id number] - 08/05/15 11:09 EDT Findings: No acute fractures or dislocations. Findings suggest old ankle fracture. No significant loss of joint space, osteophytes, or erosions. No ankle effusion. No radiopaque foreign body. IMPRESSION: 1. No acute findings. Findings suggest old ankle fracture. No more than mild degenerative change. This document has been electronically signed by: Lelo Sanford MD on 12/12/2024 06:14:15
--- OUTSIDE RECORDS SUMMARY | 2024-12-09 08:56 | XMS_ITS | Encounter Summary ---
Author Organization [employer] Address [facility] [address] [place] [address] Care Team Providers Care Occupational Therapist Assistants Name Role Phone Jemma Louise MD Primary Care Provide r Encounter Details Date Type Department Care Team (Late st Contact Info) Description 01/04/2023 Orders Only [facility] [address] [place], [place] [phone] Barbara Portillo LPN Social History Tobacco Use Types Packs/Day Years Used Date Smoking Tobacco: Never Assessed Comments Unknown Sex and Gender Information Value Date Recorded Sex Assigned at Female 09/07/2022 10:14 AM EDT Legal Sex Female 10:14 AM EDT Gender Identity Female 09/07/2022 10:14 AM EDT Sexual Orientation Straight 09/07/2022 10 :14 AM EDT documented as of this encounter Plan of Treatment Not on file documented as of this encounter Procedures Procedure [...] EDT) Vitamin D, 25-OH, D2 <4 ng/mL [facility] Comment:This test was develo ped and its analytical performancecharacteristics have been determined by [employer] [place], [place]. It hasnot been cleared or approved by the .[place]. Food and DrugAdministration. This assay has been validated pursuantto the CLIA regulations and is used for clinicalpurposes.THIS TEST WAS PERFORMED AT:[employer] [id number] [place] [id number] CASTAÑEDA MD,PHD Vitamin D, 25-OH, D3 37 ng/mL [facility] Comment:This test was develo ped and its analytical performancecharacteristics have been determined by [employer] [place], [place]. It hasnot been cleared or approved by the U.S. Food and DrugAdministration. This assay has been validated pursuantto the CLIA regulations and is used for clinicalpurposes. Vitamin D, 25-OH, Total 37 30 - 100 ng/mL [facility] Comment:Vitamin D, 25-Hydrox y reports concentrations [...] = 30 ng/mL.For additional information, please refer [email or web address]/[email or web address](This link is being provided for informational/educational purposes only.) 08/10/2023 12:1 3 PM EDT 08/10/2023 12:13 PM EDT [facility] External Provider LAB BLO OD ORDERABLES Final Result [facility] [address] [place] [phone] * (ABNORMAL) Comprehensive Metabolic Panel (08/10/2023 12:13 PM EDT) Sodium 141 135 - 145 mmol/L [facility] Potassium 4.0 3.3 - 5.1 mmol/L [facility] Chloride 97 96 - 108 mmol/L [facility] Carbon Dioxide 33(H) 22 - 29 mmol/L [facility] Anion Gap 15 12 - 20 [facility] Urea Nitrogen (BUN) 15 9 - 16 mg/dL [facility] Creatinine, Serum 0.89 0.5 - 1.4 mg/dL [facility] Estimated Glomerular Filt Rate >60 [facility] Comment:NOTE: For -Am erican individuals, multiply the result by 1.210.Chronic Kidney Disease: Estimated GFR < 60 mL/min/[id number] Kidney Disease: Estimated GFR < 15 mL/min/1.73m2 Glucose 102 60 - 115 mg/dL [facility] Calcium 10.5(H) 8.4 - 10.2 mg/dL [facility] Bilirubin, Total 0.4 0.0 - 1.0 mg/dL [facility] Aspartate Amino Transferase 22 5 - 31 U/L [facility] Alanine Aminotransferase 13 0 - 31 U/L [facility] Total Protein 7.9 6.5 - 8.0 g/dL [facility] Albumin Level 4.4 3.5 - 5.0 g/dL [facility] Alkaline Phosphatase 47 39 - 117 U/L [facility] 08/10/2023 12:1 3 PM EDT 08/10/2023 12:13 PM EDT [facility] External Provider LAB BLO OD ORDERABLES Final Result [facility] [address], [place] [phone] * (ABNORMAL) CBC auto differential (08/10/2023 12:13 PM EDT) White Blood Count 7.3 4.8 - 10.8 X10*3/uL [facility] Red Blood Count 4.62 4.20 - 5.50 X10*6/uL [facility] Hemoglobin 12.5 12.0 - 16.0 g/dl [facility] Hematocrit 40.9 37.0 - 47.0 % [facility] Mean Corpuscular Volume 88.5 80.0 - 98.0 fL [facility] Mean Corpuscular Hemoglobin 27.1 27.0 - 33.0 pg [facility] Mean Corpuscular HGB Conc 30.6(L) 31.0 - 35.0 g/dl [facility] Red Cell Distribution Width 14.5 11.0 - 16.0 % [facility] Platelet Count 257 160 - 400 X10*3/uL [facility] Mean Platelet Volume 12.3 9.4 - 12.3 fL [facility] Neutrophils Percent Auto 69.3 45 - 73 % [facility] Imm Gran Pct Auto 0.4 0.0 - 0.4 % [facility] Lymphocytes Percent Auto 18.4(L) 20 - 40 % [facility] Monocytes Percent Auto 9.1 2 - 11 % [facility] Eosinophils Percent Auto 2.2 0 - 4 % [facility] Basophils Percent Auto 0.6 0 - 2 % [facility] NRBC Pct Auto 0.0 0.0 - 0.2 /100WBC [facility] Neutrophils Absolute Auto 5.0 2.0 - 8.3 x10*3/uL [facility] Imm Gran Abs Auto 0.03 0.00 - 0.03 X10*3/uL [facility] Lymphocytes Absolute Auto 1.3 1.2 - 4.9 X10*3/uL [facility] Monocytes Absolute Auto 0.7 0.1 - 1.2 X10*3/uL [facility] Eosinophils Absolute Auto 0.2 0.0 - 0.4 X10*3/uL [facility] Basophils Absolute Auto 0.0 0.0 - 0.2 X10*3/uL [facility] NRBC Abs Auto 0.000 0.0 - 0.012 X10*3/uL [facility] 08/10/2023 12:1 3 PM EDT 08/10/2023 12:13 PM EDT [facility] External Provider LAB BLO OD ORDERABLES Final Result Performing Organization Address [facility]/ZIP Co de Phone Number [facility] [address] [place] [phone] * Vitamin D, 25-Hydroxy, Total, Immunoassay (03/01/2023 2:22 PM EDT) Vitamin D 25-OH Total 69.3 >30 ng/mL [facility] Comment:Health Based Referen ce Values*< 20 ng/mL Yeuftorky02-10 ng/mL Insufficient> 30 ng/mL Sufficient*Larisa CARMONA. N [...] 2:22 PM EDT 03/01/2023 2:22 PM EDT [facility] External Provider LAB BLO OD ORDERABLES Final Result Performing Organization Address [facility]/ZIP Co de Phone Number [facility] [address] [place] [phone] * Phosphate (As Phosphorus) (03/01/2023 2:22 PM EDT) Phosphorus 2.8 2.7 - 4.5 mg/dL [facility] 03/01/2023 2:22 PM EDT 03/01/2023 2:22 PM EDT [facility] External Provider LAB BLO OD ORDERABLES Final Result [facility] [address] [place] [phone] * (ABNORMAL) Comprehensive Metabolic Panel (03/01/2023 2:22 PM EDT) Sodium 143 135 - 145 mmol/L [facility] Potassium 4.2 3.3 - 5.1 mmol/L [facility] Chloride 96 96 - 108 mmol/L [facility] Carbon Dioxide 35(H) 22 - 29 mmol/L [facility] Anion Gap 16 12 - 20 [facility] Urea Nitrogen (BUN) 18(H) 9 - 16 mg/dL [facility] Creatinine, Serum 1.02 0.5 - 1.4 mg/dL [facility] Estimated Glomerular Filt Rate 52 [facility] Comment:NOTE: For -Am erican individuals, multiply the result by 1.210.Chronic Kidney Disease: Estimated GFR < 60 mL/min/[id number] Kidney Disease: Estimated GFR < 15 mL/min/1.73m2 Glucose 85 60 - 115 mg/dL [facility] Calcium 9.9 8.4 - 10.2 mg/dL [facility] Bilirubin, Total 0.6 0.0 - 1.0 mg/dL [facility] Aspartate Amino Transferase 17 5 - 31 U/L [facility] Alanine Aminotransferase 10 0 - 31 U/L [facility] Total Protein 7.5 6.5 - 8.0 g/dL [facility] Albumin Level 4.4 3.5 - 5.0 g/dL [facility] Alkaline Phosphatase 59 39 - 117 U/L [facility] 03/01/2023 2:22 PM EDT 03/01/2023 2:22 PM EDT [facility] External Provider LAB BLO OD ORDERABLES Final Result Performing Organization Address City/State/[facility] Co de Phone Number [facility] [address] [place] [phone] documented in this encounter Visit Diagnoses Not on filedocumented in this encounter Care Teams Occupational Therapist Assistants Relationship Specialty Start Date End Date Jemma Louise MD [address] [place] [address] PCP - General Family Medicine 09/11/19 documented as of this encounter
--- OUTSIDE RECORDS SUMMARY | 2024-12-09 08:56 | XMS_ITS | Encounter Summary ---
Author Organization [employer] Address [address] [facility] [address] [place] [address] Care Team Providers Care Superintendent Building Name Role Phone Jemma Louise MD Primary Care Provide r Reason for Visit * Reason Comments Foot Pain Encounter Details Date Type Department Care Team ([facility] st Contact Info) Description 12/05/2024 4:00 PM EST Office Visit [facility] [address], [place] [phone] Radha Yanez MD [address] [place] [address] Sprain of other ligament of left ankle, initial encounter (Primary Dx) Social History Tobacco Use Types Packs/Day Years [...] AM EDT documented as of this encounter Last Filed Vital Signs Vital Sign Reading Time Taken Comments Blood Pressure 122/67 12/05/2024 3:43 PM EST Pulse 76 12/05/2024 3:43 PM EST Temperature 36.2 ??C (97.2 ??F) 12/05/2024 3:43 PM ES T Respiratory Rate 18 12/05/2024 3:43 PM EST Oxygen Saturation 98% 12/05/2024 3:43 PM EST Inhaled Oxygen Concentration - - Weight 59.6 kg (131 lb 6.4 oz) 12/05/2024 3:43 P M EST Height - - Body Mass Index 26.54 09/12/2024 11:03 AM EST documented in this encounter Progress Notes * Radha Yanez MD - 12/05/2024 4:00 PM EST SUBJECTIVE: Jemma Esquivel is a 84 y.o. year old female who presents for [facility]/foot pain . Denies recent illness, injury, or hospitalization. Here with her son Jonny. Acute Concerns: Patient here with her son for evaluation of left ankle pain for the past 2 days. No history of fallor accidents, he has difficulty walking more than 1 block. He has noticed increased pain especiallyin the evening, no swelling no erythema no fever. Patient has history of osteoporosis and hyperparathyroidism, she receives Cinacalcet, vitamin D and calcium supplementation + Reclast Social History Social History Narrative Not on file Patient Active Problem List Diagnosis Allergic rhinitis Atrial fibrillation ([facility]) Chronic obstructive lung disease ([facility]/H[facility]) Chronic systolic heart failure ([facility]/HCC) Congestive heart failure ([facility]/HCC) Constipation Cough Dementia ([facility]) Dry eyes Essential hypertension Gastroesophageal reflux disease without esophagitis Hyperlipidemia Impaired glucose tolerance Mild cognitive disorder Overweight Pneumonia due to infectious organism Primary osteoarthritis involving multiple joints Ptosis of eyelid Senile osteoporosis Thoracic spondylosis without myelopathy Tubular adenoma of colon Vitamin D deficiency COPD exacerbation ([facility]) Stage 3a chronic kidney disease ([facility]) Seasonal allergies Sprain of left ankle No family history on file. Review of Systems Constitutional: Negative for chills, fatigue and fever. HENT: Negative for congestion, ear pain, nosebleeds, rhinorrhea, sinus pressure, sore throat and trouble swallowing. Eyes: Negative for pain and discharge. Respiratory: Negative for cough, chest tightness and shortness of breath. Cardiovascular: Negative for chest pain, palpitations and leg swelling. Gastrointestinal: Negative for abdominal pain, blood in stool, constipation, diarrhea and nausea. Endocrine: Negative for polydipsia and polyuria. Genitourinary: Negative for dysuria, frequency, genital sores, pelvic pain and vaginal discharge. Musculoskeletal: Positive for arthralgias and gait problem. Negative for back pain and neck pain. Skin: Negative for rash. Allergic/Immunologic: Negative for environmental allergies. Neurological: Negative for dizziness, seizures, weakness, light-headedness and headaches. Hematological: Negative for adenopathy. Psychiatric/Behavioral: Negative for agitation, behavioral problems, self-injury and suicidal ideas. OBJECTIVE: Vitals: 12/05/24 1543 BP: 122/67 Pulse: 76 Resp: 18 Temp: 97.2 ??F (36.2 ??C) SpO2: 98% Physical Exam HENT: Right Ear: Tympanic membrane and ear canal normal. Left Ear: Tympanic membrane and ear canal normal. Mouth/Throat: Mouth: Mucous membranes are moist. Pharynx: No oropharyngeal exudate or posterior oropharyngeal erythema. Eyes: Pupils: Pupils are equal, round, and reactive to light. Cardiovascular: Rate and Rhythm: Regular rhythm. Pulses: Normal pulses. Heart sounds: Normal heart sounds. No murmur heard. Pulmonary: Breath sounds: Normal breath sounds. Abdominal: General: Bowel sounds are normal. Palpations: Abdomen is soft. Tenderness: There is no abdominal tenderness. Musculoskeletal: Cervical back: Neck supple. Left ankle: Tenderness present over the lateral malleolus. Decreased range of motion. Left foot: Tenderness present. Skin: General: Skin is warm. Neurological: General: No focal deficit present. Mental Status: She is alert and oriented to person, place, and time. Psychiatric: Mood and Affect: Mood normal. Behavior: Behavior normal. Problem List Items Addressed This Visit Sprain of left ankle - Primary Will rule out pathological fracture due to history of osteoporosis. Order x-rays Immobilization with an AFO splint, she will continue to ambulate with a cane, and advised to put ice on affected area. Use tylenol prn pain Relevant Orders XR Ankle 3+ Views Left XR Foot 3+ Views Left Follow Up: Current Outpatient Medications on File Prior to Visit Medication Sig Dispense Refill acetaminophen (Tylenol 8 Hour) 650 MG ER tablet TAKE 1 TABLET BY MOUTH EVERY 8 HOURS NEEDED 60 tablet 0 albuterol (Ventolin HFA) 108 (90 Base) MCG/ACT inhaler INHALE 2 PUFFS BY MOUTH EVERY 4 TO 6 HOURS NEEDED 18 g 1 atorvastatin (Lipitor) 40 MG tablet TAKE 1 TABLET BY MOUTH AT BEDTIME 90 tablet 3 azithromycin (Zithromax) 250 MG tablet Take 2 tabs PO daily x 1d then 1 tab PO daily on D2 to D5 6 tablet 0 Blood Pressure Monitor kit Use as directed 3x/week 1 kit 0 calcium carbonate 1500 (600 Ca) MG tablet Take 1 tablet (1,500 mg) by mouth every other day. 180 tablet 1 cetirizine (ZyrTEC) 10 MG tablet TAKE 1 TABLET BY MOUTH EVERY MORNING 30 tablet 1 D3 Super Strength 50 MCG (2000 UT) capsule Take 1 capsule (50 mcg) by mouth every other day. TAKE 1CAPSULE BY MOUTH EVERY MORNING 90 capsule 1 docusate sodium (Colace) 100 MG capsule TAKE 1 CAPSULE BY MOUTH TWICE DAILY IN THE MORNING AND IN THE EVENING 180 capsule 1 Eliquis 5 MG tablet Take 1 tablet by mouth 2 times daily. Ferrous Sulfate (iron) 325 (65 Fe) MG tablet TAKE 1 TABLET BY MOUTH EVERY OTHER DAY IN THE MORNING 45 tablet 1 fluticasone (Flonase) 50 MCG/ACT nasal spray USE 2 SPRAYS IN EACH NOSTRIL EVERY MORNING 16 g 11 furosemide (Lasix) 20 MG tablet TAKE 2 TABLETS BY MOUTH ONCE DAILY IN THE MORNING and TAKE 1 TABLETBY MOUTH EVERY EVENING 90 tablet 11 lansoprazole (Prevacid) [address] capsule TAKE 1 CAPSULE BY MOUTH EVERY MORNING BEFORE A MEAL 90 capsule 3 lisinopril 10 MG tablet TAKE 1 TABLET BY MOUTH EVERY MORNING 90 tablet 1 melatonin 3 MG tablet TAKE 2 TABLETS BY MOUTH EVERY DAY AT BEDTIME 60 tablet 11 memantine (Namenda) 10 MG tablet TAKE 1 TABLET BY MOUTH TWICE DAILY IN THE MORNING AND IN THE EVENING 60 tablet 11 metoprolol tartrate (Lopressor) 25 MG tablet TAKE 1 TABLET BY MOUTH TWICE DAILY IN THE MORNING AND IN THE EVENING 180 tablet 1 Multiple Vitamin (Multivitamin) tablet Take 1 tablet by mouth Once per day. TAKE 1 TABLET BY MOUTH EVERY MORNING WITH FOOD 90 tablet 1 polyvinyl alcohol (Liquifilm Tears) 1.4 % ophthalmic solution INSTILL 1 TO 2 DROPS IN EACH EYE THREE TIMES DAILY OR MORE NEEDED 15 mL 1 Trelegy Ellipta 100-62.5-25 MCG/ACT aerosol powder Take 1 puff by mouth 1 (one) time each day at the same time. venlafaxine XR (Effexor XR) 37.5 MG 24 hr capsule TAKE 1 CAPSULE BY MOUTH AT BEDTIME WITH FOOD 90 capsule 1 No current facility-administered medications on file prior to visit. documented in this encounter Miscellaneous Notes * Assessment & Plan Note - Radha Yanez MD - 12/05/2024 4:22 PM EST Associated Problem(s): Sprain of left ankle Will rule out pathological fracture due to history of osteoporosis. Order x-rays Immobilization with an AFO splint, she will continue to ambulate with a cane, and advised to put ice on affected area. Use tylenol prn pain documented in this encounter Plan of Treatment Scheduled Orders Name Type Priority Associated Diagnoses Orde r Schedule XR Ankle 3+ Views Left Imaging Routine Sprain of other ligament of left ankle, initial encounter Expected: 12/05/2024 (Approximate), Expires: 12/05/2025 XR Foot 3+ Views Left Imaging Routine Sprain of other ligament of left ankle, initial encounter Expected: 12/05/2024 (Approximate), Expires: 12/05/2025 documented as of this encounter Visit Diagnoses Diagnosis Sprain of other ligament of left ankle, initial encounter- Primary documented in this encounter Additional Health Concerns Assessment Noted Time PHQ-9 Depression Total Score: 0 03/30/20 24 12:00 PM EDT documented as of this encounter Care Teams Superintendent Building Relationship Specialty Start Date End Date Jemma Louise MD [address] [place] [address] PCP - General Family Medicine 09/11/19 documented as of this encounter
--- OUTSIDE RECORDS SUMMARY | 2024-12-09 08:56 | XMS_ITS | Encounter Summary ---
Author Organization [employer] Address [address] [facility] 7t [place] [address] Care Team Providers Care Forestry Pilot Name Role Phone Jemma Louise MD Primary Care Provide r Encounter Details Date Type Department Care Team ([facility] st Contact Info) Description 11/24/2024 Orders Only [...] is your housing situation today? I have gioaurelio escalona 03/30/[address] you [...] Hour Urine 0.5(L) 1.0 - 2.0 G/Day [facility] Creatinine, Urine 40.59 [facility] Urine Total Volume 24 Hour 1,150 mL [facility] 11/24/2024 9:45 AM EST 11/24/2024 9:45 AM EST Narrative [facility] - 11/24/2024 11:05 AM EST [id number] us Generic External Data Provider LAB URINE ORDERAB LES Final Result [facility] [address] [place] [phone] [phone] * Alkaline Phosphatase, Bone Specific (11/24/2024 8:19 AM EST) Alkaline Phosphatase, Bone Specific 7.4 see note mcg/L [facility] Comment: ?Unable to flag abnormal [...] (mcg/L) 35-45 years ?5.0-18.2THIS TEST WAS PERFORMED AT:[employer] [id number] [place], [place] ??[phone] W. MASON,MD,PHD 11/24/2024 8:19 AM EST 11/24/2024 8:25 AM EST us Generic External Data Provider LAB BLOOD ORDERAB LES Final Result Performing Organization Address City/State/[facility] Co de Phone Number [facility] [address] [place] [phone] * Collagen Type I C-Telopeptide (CTx) (11/24/2024 8:19 AM EST) C-Telopeptide (CTx) 211 see note pg/mL [facility] Comment: ?Unable to flag abnormal [...] of bone loss.For additional information, please refer totps://education.[employer]/faq/PNW103(This link is being provided for informational/educational purposes only.)THIS TEST WAS PERFORMED AT:[employer] [place]/[address] [place], [place] ??[phone] W. MASON,MD,PHD 11/24/2024 8:19 AM EST 11/24/2024 8:25 AM EST us Generic External Data Provider LAB BLOOD ORDERAB LES Final Result [facility] [address] [place] [phone] * Calcium, Ionized (11/24/2024 8:19 AM EST) Calcium, Ionized 5.1 4.7 - 5.5 mg/dL [facility] Comment:THIS TEST WAS PERFOR MED AT:[employer] [place] [phone] PALMA MD 11/24/2024 8:19 AM EST 11/24/2024 8:25 AM EST us Generic External Data Provider LAB BLOOD ORDERAB LES Final Result Performing Organization Address [facility] Co de Phone Number [facility] [address] [place] [phone] * Albumin (11/24/2024 8:19 AM EST) Albumin Level 4.0 3.5 - 5.0 g/dL [facility] 11/24/2024 8:19 AM EST 11/24/2024 8:25 AM EST us Generic External Data Provider LAB BLOOD ORDERAB LES Final Result Performing Organization Address [facility] de Phone Number [facility] [address] [place] [phone] * Magnesium (11/24/2024 8:19 AM EST) Magnesium 1.7 1.6 - 2.6 mg/dL [facility] 11/24/2024 8:19 AM EST 11/24/2024 8:25 AM EST Generic External Data Provider LAB BLOOD ORDERAB LES Final Result Performing Organization Address [facility] de Phone Number [facility] [address] [place] [phone] * Phosphate (As Phosphorus) (11/24/2024 8:19 AM EST) Phosphorus 3.6 2.7 - 4.5 mg/dL [facility] 11/24/2024 8:19 AM EST 11/24/2024 8:25 AM EST Generic External Data Provider LAB BLOOD ORDERAB LES Final Result Performing Organization Address [facility] de Phone Number [facility] [address] [place] [phone] * (ABNORMAL) Basic Metabolic Panel (11/24/2024 8:19 AM EST) Sodium 141 135 - 145 mmol/L [facility] Potassium 3.8 3.3 - 5.1 mmol/L [facility] Chloride 104 96 - 108 mmol/L [facility] Carbon Dioxide 30(H) 22 - 29 mmol/L [facility] Anion Gap 11(L) 12 - 20 [facility] Urea Nitrogen (BUN) 16 9 - 16 mg/dL [facility] Creatinine, Serum 1.16 0.5 - 1.4 mg/dL [facility] Estimated Glomerular Filt Rate 45 [facility] Comment:Chronic Kidney Disea se: Estimated GFR < 60 mL/min/1.86s7Qoefwc Kidney Disease: Estimated GFR < 15 mL/min/1.73m2 Glucose 101 60 - 115 mg/dL [facility] Calcium 9.2 8.4 - 10.2 mg/dL [facility] 11/24/2024 8:19 AM EST 11/24/2024 8:25 AM EST Generic External Data Provider LAB BLOOD ORDERAB LES Final Result Performing Organization Address [facility] Co de Phone Number [facility] [address] [place] [phone] * (ABNORMAL) PTH, Intact Without Calcium (11/24/2024 8:19 AM EST) Parathyroid Hormone, Intact 111.9(H) 8.7 - 77.1 pg/mL [facility] 11/24/2024 8:19 AM EST 11/24/2024 8:25 AM EST us Generic External Data Provider LAB BLOOD ORDERAB LES Final Result Performing Organization Address City/[facility]/ZIP Co de Phone Number [facility] [address] [place] [phone] * (ABNORMAL) Calcium, 24 Hour Urine W/ Creatinine (11/24/2024 8:18 AM EST) Calcium, 24 Hour Urine 43 mg/24 h [facility] Comment:Reference Range 35-2 50 Low calcium diet 35-200 Calcium/Creatini ne Ratio 97 30 - 275 mg/g creat [facility] Creatinine, 24 Hour Urine 0.44(A) 0.50 - 2.15 g/24 h [facility] Comment:THIS TEST WAS PERFOR MED AT:[employer] [place] [phone] PALMA MD 11/24/2024 8:18 AM EST 11/24/2024 9:47 AM EST Narrative [facility] - 11/25/2024 3:49 PM EST [id number] us Generic External Data Provider LAB URINE ORDERAB LES Final Result Performing Organization Address [facility]/ZIP Co de Phone Number [facility] [address] [place] [phone] * (ABNORMAL) Sodium, 24-Hour Urine with Creatinine (11/24/2024 8:18 AM EST) Sodium, 24 Hour Urine 44.9 40 - 220 mmol/Day [facility] Creatinine, 24 Hour Urine 0.5(L) 1.0 - 2.0 G/Day [facility] Creatinine, Urine 39.64 [facility] Urine Total Volume 24 Hour 1,150 mL [facility] 11/24/2024 8:18 AM EST 11/24/2024 9:47 AM EST Narrative [facility] - 11/24/2024 11:05 AM EST [id number] us Generic External Data Provider LAB URINE ORDERAB LES Final Result [facility] [address] [place] [phone] documented in this encounter Visit Diagnoses Not on filedocumented in this encounter Additional Health Concerns Assessment Noted Time PHQ-9 Depression Total Score: 0 03/30/20 24 12:00 PM EDT documented as of this encounter Care Teams Forestry Pilot Relationship Specialty Start Date End Date Jemma Louise MD [address] [place] [address] PCP - General Family Medicine 09/11/19 documented as of this encounter
--- OUTSIDE RECORDS SUMMARY | 2024-12-09 08:56 | XMS_ITS | Encounter Summary ---
Author Organization [employer] Address [address] [facility] 7t [place] [address] Care Team Providers Care Seamless Tube Mill Operator Name Role Phone Jemma Louise MD Primary Care Provide r Reason for Visit * Reason Comments Med Refill Encounter Details Date Type Department Care Team ([facility] st Contact Info) Description 06/25/2023 Refill [facility] & PEDS [address] [place] [address] Juana Vanegas ANP [address] [place] [address] Vitamin D deficiency Social History Tobacco Use [...] on file documented as of this encounter Visit Diagnoses Diagnosis Vitamin D deficiency documented in this encounter Additional Health Concerns Assessment Noted Time PHQ-9 Depression Total Score: 0 03/01/20 23 1:02 PM EDT documented as of this encounter Care Teams Seamless Tube Mill Operator Relationship Specialty Start Date End Date Jemma Louise MD [address] [place] [address] PCP - General Family Medicine 09/11/19 documented as of this encounter
--- OUTSIDE RECORDS SUMMARY | 2024-12-09 08:56 | XMS_ITS | Clinical Summary ---
Author Organization [employer] Address [address] [facility] 7t [place] [address] Care Team Providers Care Membership Assistant Name Role Phone Jemma Louise MD Primary [...] 108 (90 Base) MCG/ACT inhalerIndicatio ns:COPD exacerbation (CMS/[facility]) INHALE 2 PUFFS BY MOUTH [...] Active Problems Problem Noted Date Diagnosed Date Sprain of left ankle 12/05/2024 Assessment & Plan (12/05/2024 4:22 PM EST): Will rule out pathological fracture due to history of osteoporosis. Order x-rays Immobilization with an AFO splint, she will continue to ambulate with a cane, and advised to put ice on affected area. Use tylenol prn pain Seasonal allergies 03/30/2024 Assessment & Plan (03/30/2024 [...] day PRN C/w same treatment referral to grain mill worker will be done today Constipation 11/04/2015 Essential [...] Encounters Date Type Department Care Team Description 12/07/[address] [facility] MEDICINE [address] [place] [address] Jemma Louise MD Call Back Request 12/05/2024 4:00 PM EST Office Visit [facility] [address] [place] [address] Radha Yanez MD Sprain of other ligament of left ankle, initial encounter (Primary Dx) 11/25/[address] [facility] MED[facility] [address] [place], [place] [phone] Jemma Louise MD Seasonal allergies 11/24/2024 Orders Only GENERIC EXTERNAL DATA DEPARTMENT Provider, Generic External Data 10/31/2024 Refill [facility] [address] [place] [address] Jemma Louise MD Constipation, unspecified constipation type 10/30/2024 Refill [facility] [address] [place] [address] Jemma Louise MD Iron deficiency 10/25/2024 Refill [facility] [address] [place], [place] [phone] Jemma Louise MD Dementia, unspecified dementia severity, unspecified dementia type, unspecified whether behavioral, psychotic, or mood disturbance or anxiety ([facility]) 10/25/[address] [facility] [address] [place] [address] Radha Yanez MD Chronic systolic congestive heart failure ([facility]/HCC); Dementia, unspecified dementia severity, unspecified dementia type, unspecified whether behavioral, psychotic, or mood disturbance or anxiety ([facility]/HCC) 10/02/[address] [facility] [address] [place] [address] Brenda Khan MD 10/02/[address] [facility] [address] [place] [address] Jemma Louise MD 09/27/[address] [facility] [address] [place] [address] Jemma Louise MD Seasonal allergies 09/12/2024 11:00 AM EST Office Visit [facility] [address] [place] [address] Jemma Louise MD Essential hypertension (Primary Dx); Chronic systolic heart failure ([facility]/HCC); Chronic obstructive pulmonary disease, unspecified COPD type ([facility]/HCC); Atrial fibrillation, unspecified type ([facility]); Encounter for immunization 09/12/2024 Travel from Last 3 Months Immunizations Name Administration [...] oz) 12/05/2024 3:43 P M EST Height 149.9 cm (4' 11 ) 09/12/2024 11:03 AM EST Body Mass Index 26.54 09/12/2024 11:03 AM EST Plan of Treatment Health Maintenance Due Date Last Done Comments Zoster Vaccines (3 of 3) 02/10/2024 12/16/2023, 01/07 Depression Screening 03/30/2025 03/30/2024, 03/30/20 24 SDOH Screening 03/30/2025 03/30/2024 Alcohol/Substance Use Screening 09/12/2025 09/12/2024 Tobacco Screening 09/12/2025 09/12/2024 Lipid Panel 07/28/2027 07/28/2022, 09/11/2021 DTaP/Tdap/Td Vaccines (3 - Td or Tdap) 12/30/2033 12/30/2023, 03/02/2013, 01/28/2010, Additional history exists Pneumococcal Vaccine: 50+ Years Completed 11/04/2015, 09/05/2010, 08/06/2008, Additional history [...] HR GROUP Routine 11/24/2024 9:45 AM EST ALKALINE PHOSPHATASE, BONE SPECIFIC [...] WITH CREATININE Routine 11/24/2024 8:18 AM EST LIPID PANEL, STANDARD Routine 07/28/2022 11:36 AM EDT from Last 3 Months or Most Recently Relevant to Health Maintenance Results * (ABNORMAL) CREATININE, 24 HR GROUP (11/24/2024 9:45 AM EST) Creatinine, 24 Hour Urine 0.5(L) 1.0 - 2.0 G/Day [facility] Creatinine, Urine 40.59 [facility] Urine Total Volume 24 Hour 1,150 mL [facility] 11/24/2024 9:45 AM EST 11/24/2024 9:45 AM EST Narrative [facility] - 11/24/2024 11:05 AM EST [id number] us Generic External Data Provider LAB URINE ORDERAB LES Final Result Performing Organization Address City/State/[facility] de Phone Number [facility] [address] [place] [phone] * Collagen Type I C-Telopeptide (CTx) (11/24/2024 8:19 AM EST) C-Telopeptide (CTx) 211 see note pg/mL [facility] Comment: ?Unable to flag abnormal [...] of bone loss.For additional information, please refer tohttps://education.[employer]faq/KHH348(This link is being provided for informational/educational purposes only.)THIS TEST WAS PERFORMED AT:[employer] [id number] [place], [place] ??[id number] W. MASON,MD,PHD 11/24/2024 8:19 AM EST 11/24/2024 8:25 AM EST us Generic External Data Provider LAB BLOOD ORDERAB LES Final Result [facility] [address] [place] [phone] * Alkaline Phosphatase, Bone Specific (11/24/2024 8:19 AM EST) Alkaline Phosphatase, Bone Specific 7.4 see note mcg/L [facility] Comment: ?Unable to flag abnormal [...] (mcg/L) 35-45 years ?5.0-18.2THIS TEST WAS PERFORMED AT:[employer] [id number] [place], [place] ??[phone] CASTAÑEDA MD,PHD 11/24/2024 8:19 AM EST 11/24/2024 8:25 AM EST Generic External Data Provider LAB BLOOD ORDERAB LES Final Result Performing Organization Address [facility] de Phone Number [facility] [address] [place] [phone] * Phosphate (As Phosphorus) (11/24/2024 8:19 AM EST) Phosphorus 3.6 2.7 - 4.5 mg/dL [facility] 11/24/2024 8:19 AM EST 11/24/2024 8:25 AM EST Generic External Data Provider LAB BLOOD ORDERAB LES Final Result Performing Organization Address [facility] de Phone Number [facility] [address] [place] [phone] * (ABNORMAL) PTH, Intact Without Calcium (11/24/2024 8:19 AM EST) Parathyroid Hormone, Intact 111.9(H) 8.7 - 77.1 pg/mL [facility] 11/24/2024 8:19 AM EST 11/24/2024 8:25 AM EST Generic External Data Provider LAB BLOOD ORDERAB LES Final Result Performing Organization Address [facility] de Phone Number [facility] [address] [place] [phone] * Magnesium (11/24/2024 8:19 AM EST) Magnesium 1.7 1.6 - 2.6 mg/dL [facility] 11/24/2024 8:19 AM EST 11/24/2024 8:25 AM EST us Generic External Data Provider LAB BLOOD ORDERAB LES Final Result Performing Organization Address [facility] Co de Phone Number [facility] [address] [place] [phone] * Calcium, Ionized (11/24/2024 8:19 AM EST) Calcium, Ionized 5.1 4.7 - 5.5 mg/dL [facility] Comment:THIS TEST WAS PERFOR MED AT:[employer] [place] [id number] PALMA MD 11/24/2024 8:19 AM EST 11/24/2024 8:25 AM EST us Generic External Data Provider LAB BLOOD ORDERAB LES Final Result Performing Organization Address [facility] de Phone Number [facility] [address] [place] [phone] * Albumin (11/24/2024 8:19 AM EST) Pathologist [facility] Albumin Level 4.0 3.5 - 5.0 g/dL [facility] 11/24/2024 8:19 AM EST 11/24/2024 8:25 AM EST us Generic External Data Provider LAB BLOOD ORDERAB LES Final Result Performing Organization Address [facility] de Phone Number [facility] [address] [place] [phone] * (ABNORMAL) Basic Metabolic Panel (11/24/2024 8:19 AM EST) Sodium 141 135 - 145 mmol/L [facility] Potassium 3.8 3.3 - 5.1 mmol/L [facility] Chloride 104 96 - 108 mmol/L [facility] Carbon Dioxide 30(H) 22 - 29 mmol/L [facility] Anion Gap 11(L) 12 - 20 [facility] Urea Nitrogen (BUN) 16 9 - 16 mg/dL [facility] Creatinine, Serum 1.16 0.5 - 1.4 mg/dL [facility] Estimated Glomerular Filt Rate 45 [facility] Comment:Chronic Kidney Disea se: Estimated GFR < 60 mL/min/1.24q5Pvbmyw Kidney Disease: Estimated GFR < 15 mL/min/1.73m2 Glucose 101 60 - 115 mg/dL [facility] Calcium 9.2 8.4 - 10.2 mg/dL [facility] 11/24/2024 8:19 AM EST 11/24/2024 8:25 AM EST Generic External Data Provider LAB BLOOD ORDERAB LES Final Result Performing Organization Address [facility] de Phone Number [facility] [address] [place] [phone] * (ABNORMAL) Sodium, 24-Hour Urine with Creatinine (11/24/2024 8:18 AM EST) Sodium, 24 Hour Urine 44.9 40 - 220 mmol/Day [facility] Creatinine, 24 Hour Urine 0.5(L) 1.0 - 2.0 G/Day [facility] Creatinine, Urine 39.64 [facility] Urine Total Volume 24 Hour 1,150 mL [facility] 11/24/2024 8:18 AM EST 11/24/2024 9:47 AM EST Narrative [facility] - 11/24/2024 11:05 AM EST [id number] us Generic External Data Provider LAB URINE ORDERAB LES Final Result Performing Organization Address [facility] Co de Phone Number [facility] [address] [place] [phone] * (ABNORMAL) Calcium, 24 Hour Urine W/ Creatinine (11/24/2024 8:18 AM EST) Calcium, 24 Hour Urine 43 mg/24 h [facility] Comment:Reference Range 35-2 50 Low calcium diet 35-200 Calcium/Creatini ne Ratio 97 30 - 275 mg/g creat [facility] Creatinine, 24 Hour Urine 0.44(A) 0.50 - 2.15 g/24 h [facility] Comment:THIS TEST WAS PERFOR MED AT:[employer] [place] [id number] PALMA MD 11/24/2024 8:18 AM EST 11/24/2024 9:47 AM EST Narrative [facility] - 11/25/2024 3:49 PM EST [id number] us Generic External Data Provider LAB URINE ORDERAB LES Final Result [facility] [address] [place] [phone] * (ABNORMAL) LIPID PANEL, STANDARD (07/28/2022 11:36 AM EDT) Chol/HDLC Ratio 2.2 <5.0 (calc) [facility] Cholesterol, Total 132 <200 mg/dL [...] the ?? estimation of LDL-C. ?? En OBRIEN et al. EVAN. 2013;310(19): 3923-3398 ?? (http://education.[employer].com/faq/MSS383) Non-HDL Cholesterol 71 <130 mg/dL (calc) [facility] Comment: For patients with diabetes plus 1 major ASCVD risk ?? factor, treating to a non-HDL-C goal of <100 mg/dL ?? (LDL-C of <70 mg/dL) is considered a therapeutic ?? option. Triglycerides 154(H) <150 mg/dL [facility] 07/28/2022 11:3 6 AM EDT Jemma Mccarthy MD LAB BLOOD ORDERABLES Final Result [facility] [address] from Last 3 Months or Most Recently Relevant to Health Maintenance Insurance Care Teams Membership Assistant Relationship Specialty Start Date End Date Jemma Louise MD [address] [place] [address] PCP - General Family Medicine 09/11/19
--- OUTSIDE RECORDS SUMMARY | 2024-12-09 08:56 | XMS_ITS | Encounter Summary ---
Author Organization [employer] Address [address] [facility] 7t [place] [address] Care Team Providers Care Structural Rigger Name Role Phone Jemma Louise MD Primary Care Provide r Reason for Visit * Reason Onset Date Comments Nurse Triage 09/28/2023 Encounter Details Date Type Department Care Team ([facility] st Contact Info) Description 09/28/2023 Telephone [facility] MEDICINE [address] [place], [place] [phone] Jemma Louise MD [address] [place], [place] [phone] Nurse Triage Social History Tobacco Use Types [...] 09/28/2023 3:23 PM EST Triage call with [employer] Ppap Coordinator ID [id number] Pt son, THIAGO Fuller, reports Pt has had some sinus/nasal congestion for some time now. Pt has nasal drainage which is clear and some nasal congestion. Neg for fever, cough, headache. Jonny is concerned about some snoring, whistling sound with breathing especially at night. No difficulty breathing is reported. Advised to come to [facility] today or tomorrow open til 800pm, for [...] The caller accepted this outcome Patient speaks chadian documented in this encounter Plan of Treatment Not on file documented as of this encounter Visit Diagnoses Not on filedocumented in this encounter Additional Health Concerns Assessment Noted Time PHQ-9 Depression Total Score: 0 03/01/20 1:02 PM EDT documented as of this encounter Care Teams Structural Rigger Relationship Specialty Start Date End Date Jemma Louise MD [address] [place] [address] PCP - General Family Medicine 09/11/19 documented as of this encounter
--- OUTSIDE RECORDS SUMMARY | 2024-12-09 08:56 | XMS_ITS | Clinical Summary ---
Author Organization [facility] Address [address] [place] [address] Care Team Providers Care Nutrient Management Specialist Name Role Phone Unavailable Primary Care Provider [...]
--- OUTSIDE RECORDS SUMMARY | 2024-12-09 08:56 | XMS_ITS | Encounter Summary ---
Author Organization [employer] Address [address] [facility] [address] [place] [address] Care Team Providers Care Rail Car Operator Name Role Phone Jemma Louise MD Primary Care Provide r Reason for Visit * Reason Comments Med Refill Encounter Details Date Type Department Care Team ([facility] st Contact Info) Description 11/25/2024 Refill [facility] MEDICINE [address] [place], [place] [phone] Jemma Louise MD [address] [place], [place] [phone] Seasonal allergies Social History Tobacco Use Types [...] documented as of this encounter Care Teams Rail Car Operator Relationship Specialty Start Date End Date Jemma Louise MD [address] [place] [address] PCP - General Family Medicine 09/11/19 documented as of this encounter
--- OUTSIDE RECORDS SUMMARY | 2024-12-09 08:56 | XMS_ITS | Encounter Summary ---
Author Organization [employer] Address [address] [place] [address] Care Team Providers Care Correctional Medicine Physician Name Role Phone Jemma Louise MD Primary Care Provide r Reason for Visit * Reason Onset Date Comments Call Back Request 12/07/2024 Encounter Details Date Type Department Care Team ([facility] st Contact Info) Description 12/07/2024 Telephone [facility] [address] [place], [place] [phone] Jemma Louise MD 230 [place], [place] [phone] Call Back Request Social History Tobacco Use Types Packs/Day Years [...] encounter Miscellaneous Notes * Telephone Encounter - Rocio Alexander RN - 12/07/2024 3:00 PM EST TC returned to Son [phone] who reports he will wait to talk to the doctor when the patient hasanother appointment with the provider. RN inquired if son wanted to schedule an appointment howeverson stated he will just wait . Son to f/u PRN. * Telephone Encounter - Pierce Daniels - 12/07/2024 1:49 PM EST Tc from pt Son requesting a call back from PCP to discuss something regarding pt. Son did not want to give anymore information. Contact Son at [phone] documented in this encounter Plan of Treatment Not on file documented as of this encounter Visit Diagnoses Not on filedocumented in this encounter Additional Health Concerns Assessment Noted Time PHQ-9 Depression Total Score: 0 03/30/20 24 12:00 PM EDT documented as of this encounter Care Teams Correctional Medicine Physician Relationship Specialty Start Date End Date Jemma Louise MD [address] [place] [address] PCP - General Family Medicine 09/11/19 documented as of this encounter
--- OUTSIDE RECORDS SUMMARY | 2024-12-09 08:56 | XMS_ITS | Encounter Summary ---
Author Organization [employer] Address [address] [facility] [facility] [address] [place] [address] Care Team Providers Care Crusher Screen Repairer Name Role Phone Jemma Louise MD Primary Care Provide r Reason for Visit * Reason Comments Med Refill Encounter Details Date Type Department Care Team (Late st Contact Info) Description 11/14/2023 Refill [facility] MED & PEDS [address] [place], [place] [phone] Elias Croft MD 230 [place] [address] Constipation, unspecified constipation type Social History Tobacco [...] documented as of this encounter Care Teams Crusher Screen Repairer Relationship Specialty Start Date End Date Jemma Louise MD [address] [place] [address] PCP - General Family Medicine 09/11/19 documented as of this encounter
--- OUTSIDE RECORDS SUMMARY | 2024-12-09 08:56 | XMS_ITS | Data Portability ---
Author Organization [facility] [employer] [place] - [facility] Address [address] [place] [phone] Care Team Providers Care Sports Team Marketing Intern Name Role Phone [facility] Referring Provider Assessment No assessment recorded. Plan of Treatment Reminders Order Date Submit Date Provider Last Modified By Organization Details Last Modified Time Details Appointments None recorded. Lab rapid SARS CoV 2 Ag, QL IA, respiratory specimen 2021 [facility], [address] [place] [address], [id number], 10:35:12 Referral None recorded. Procedures None recorded. Surgeries None recorded. Imaging None recorded. Medication Orders prednisone 20 mg tablet 2021 [facility], [address] [place] [address], [id number], 10:31:37 prednisone 20 mg tablet 2021 022 [facility], [address] [place] [address], [id number], 10:28:37 Patient TargetsNo targets recorded. Patient InstructionsNo instructions recorded. Reason for Referral None Reported. Results Created Date Observation Date Name Description Value Unit Range Abnormal Flag Note LastModifiedBy Organization Detail LastModifiedTime 04/01/20 22 04/01/2022 rapid SARS CoV 2 Ag, QL IA, respi rator y speci men rapid SARS CoV 2 Ag, QL IA, respiratory specimen negati ve Not Available [address], [phone], 04/01/2022 10:34:06 Result Notes None recorded. Medical Equipment None Reported. Allergies Allergen ID Allergen Name Allergen Category Reaction Reaction Severity Criticality Documentation Date Start Date Code Code System Note Provider Name and Address Organization Details Recorded Time 7787 Product containin g penicilli n and antibioti c (product) medicatio n Not available Not available Not available 09/05/2024 59819 05 SNOMED Not Available [facility] - production [...] Arterial blood by Pulse oximetry Body temperature Systolic blood pressure Diastolic blood pressure Provider Name and Address Organization Details Last Updated DateTime 2 20 /min 86 /min 98 % 98 % 96.2 [degF] 150 mm[Hg] 90 mm[Hg] Not Available [facility] - production 2 10:19:58 Date Recorded Oxygen saturation Oxygen saturation in Arterial blood by Pulse oximetry Heart rate Respiratory rate Body temperature Systolic blood pressure Diastolic blood pressure Provider Name and Address Organization Details Last Updated DateTime 2 98 % 98 % 86 /min 20 /min 96.2 [degF] 150 mm[Hg] 90 mm[Hg] Not Available [facility] [...] 1773 Rosales Richard MD Main - [facility] 30 [place] [phone] 04/01/2022 10:19:55 07/30/2022 11:19:05 Acute exacerbation of chronic obstructive pulmonary disease 271818410 J44.1 Reports increase in sputum production over [...] Hong Member ID Guarantor Name 04/01/2022 1 [facility] - DOS PRIOR TO 2023 - DUAL ELIGIBLE (MEDICARE REPLACEMENT/ADV ANTAGE - HMO) Jemma Esquivel [id number] Jemma Esquivel Notes Date Note Type Note [...] .................. .................. .................. .................. .................. .................. ............... Secondary Connector Armature Note: Chief Complaint cough Pertinent positive and [...] ............... Disposition: Fulfilled Rosales Richard MD [address] [facility],[address] [facility], [place], [address], [employer] 04/01/2022 11:09:16 OBGyn Episode No OBEpisode recorded.
--- OUTSIDE RECORDS SUMMARY | 2024-12-09 08:56 | XMS_ITS | Encounter Summary ---
Author Organization [employer] Address [address] [facility] 7t [place] [address] Care Team Providers Care Power Marketer Name Role Phone Jemma Louise MD Primary Care Provide r Encounter Details Date Type Department Care Team ([facility] st Contact Info) Description 11/19/2023 Orders Only [facility] 230 [place], [place] [phone] Jemma Louise MD 230 [place], [place] [phone] Social History Tobacco Use Types Packs/Day Years [...] documented as of this encounter Care Teams Power Marketer Relationship Specialty Start Date End Date Jemma Louise MD 230 [place] [address] PCP - General Family Medicine 09/11/19 documented as of this encounter
== END 2024-12-09 08:54 | disposition home or self-care (01) ==
LOC: HO.XRAY 08:53
PROVIDERS: PCP Internal Medicine; Visit Provider Internal Medicine
DX: S93.492A Sprain of other ligament of left ankle, initial encounter (principal)
CPT/HCPCS: 73610; 73630

== ENCOUNTER → 2024-12-09 09:02 | Outpatient (BNV) | payer OTHER, SELFPAY | PROVIDERS: PCP Internal Medicine; Visit Provider Radiology Diagnostic Radiology | DX: M25.572 Pain in left ankle and joints of left foot (principal) | CPT/HCPCS: 73610; 73630 ==

== ENCOUNTER 2025-03-05 13:19 | Outpatient (AMB) | payer OTHER, SELFPAY ==
--- NOTE | 2025-03-05 13:30 | A.OFFVIS_ITS ---
Vital Signs 03/05/25 13:39 Height 4 ft 11 in Weight 130 lb BMI 26.3 BP 108/56 L Blood Pressure Location Rt brachial Position Sitting Pulse 60 Pulse Source Doppler Pulse Oximetry (%) 97 Oxygen Delivery Method Room Air Intake Visit Reasons: Asthma Coke Loader Required: Yes Coke Loader Name: Barbara Chirag Mohamud Allergies Penicillins Allergy (Intermediate, Verified 03/05/25 13:41) ITCHING HPI HPI Asthma: Details: 85-year-old lady, former 30+ pack-year smoker, quit 20 years prior, followed for asthma/COPD overlap syndrome and nocturnal hypoxemia.? Patient has been using Trelegy and albuterol MDI with good control of her symptoms.? She continues to use supplemental oxygen at 2 L at night for nocturnal hypoxia.? Patient denies any recent exacerbations. No significant changes since prior. [facility] Medical History Hypercalcemia Hyperparathyroidism Chronic kidney disease Hypovitaminosis D Chronic heart failure with preserved ejection fraction (HFpEF) HTN (hypertension) Left bundle branch block Persistent atrial fibrillation Osteoporosis Surgical History Hx of endoscopy Hx of colonoscopy (03/05/15) Hx of tubal ligation History of nasal surgery Family History Father No problems noted. Mother Alzheimer disease Brother Heart disease CVD (cardiovascular disease) Son Diabetes Daughter Diabetes Paternal Aunt CVD (cardiovascular disease) Other Osteoarthritis Social History Household Members: None Housing: Apartment Alcohol intake: never Patient Tobacco Use Status: Former Tobacco user Second Hand Smoke Exposure: No Review of Systems Const Denies daytime sleepiness, Denies excessive sweating, Denies fatigue, Denies fever(s), Denies lethargy, Denies malaise, Denies night sweats, Denies snoring and Denies weight loss Eyes Denies blurry vision and Denies itchy eyes ENT Denies nasal congestion, Denies post nasal drip, Denies sinus pain, Denies sinus pressure and Denies other ( Thrush) Card Denies chest pain, Denies pedal edema, Denies dyspnea, Denies orthopnea and Denies paroxysmal nocturnal dyspnea Resp Denies cough, Denies hemoptysis, Denies excessive phlegm production, Denies dyspnea, Denies snoring and Denies wheezing GI Denies abdominal pain and Denies heartburn Musc Denies myalgias, Denies arthralgias and Denies joint swelling Skin/Breast Denies rash Neuro Denies memory loss and Denies seizure-like activity Psych Denies abnormal sleep pattern, Denies anxiety and Denies memory loss Endo Denies excessive sweating, Denies fatigue and Denies heat intolerance Regulo/Lymph Denies easy bruising Aller/Immun Denies itchy eyes, Denies seasonal rhinorrhea and Denies wheezing Physical Exam Vital Signs: Last Vital Signs Pulse 60 03/05/25 13:39 BP 108/56 L 03/05/25 13:39 Pulse Ox 97 03/05/25 13:39 Oxygen Delivery Method Room Air 03/05/25 13:39 BMI result Body Mass Index 26.3 Const General: no acute distress and alert Nutritional Appearance: not obese Orientation/consciousness: Other orientation findings ( oriented) HEENT Head: Yes atraumatic Eyes General: appearance normal, both eyes and all related structures Sclerae: sclerae normal EOM: EOMs intact bilaterally Neck Neck: Yes supple Lymphatic: no lymphadenopathy noted Resp Effort & Inspection: normal respiratory effort and no use of accessory muscles Auscultation: clear to auscultation bilaterally Cardio Rate: regular rate Rhythm: regular rhythm Heart sounds: no gallops, no murmurs and no rubs Skin General skin exam: other ( warm) Extrem General: No clubbing, No cyanosis and No edema Assessment & Plan Assessment & Plan (1) Asthma-COPD overlap syndrome: Code(s): J44.9 - Chronic obstructive pulmonary disease, unspecified Category: Medical Plan: Well controlled on Trelegy and albuterol MDI. Continue current regimen. (2) Nocturnal hypoxemia: Code(s): G47.34 - Idiopathic sleep related nonobstructive alveolar hypoventilation Category: Medical Plan: Continue supplemental nocturnal oxygen to maintain O2 saturation above 88%. Coding Level of Care Code Est Pt Level 4 (06093) Diagnoses Asthma-COPD overlap syndrome J44.9 Nocturnal hypoxemia G47.34
[2025-03-05 13:39] VITALS: BP 108/56; PULSE 60; O2SAT 97; BMI 26.3
--- OUTSIDE RECORDS SUMMARY | 2025-03-05 15:51 | XMS_ITS | Encounter Summary ---
Author Organization [employer] Address [address] [place] [address] Care Team Providers Care Scarifier Operator Name Role Phone Jemma Louise MD Primary Care Provide r Reason for Visit * Reason Comments Med Refill Encounter Details Date Type Department Care Team (Late st Contact Info) Description 11/14/2023 Refill [facility] CH[facility] MED & PEDS [address] [place], [place] [phone] Elias Croft MD 230 [place] [address] Constipation, unspecified constipation type Social History Tobacco [...] documented as of this encounter Care Teams Scarifier Operator Relationship Specialty Start Date End Date Jemma Louise MD 230 [place] [address] PCP - General Family Medicine 09/11/19 documented as of this encounter
--- OUTSIDE RECORDS SUMMARY | 2025-03-05 15:51 | XMS_ITS | Data Portability ---
Author Organization [facility] [address] [place], [place] [facility] Address [address] [place] [phone] Care Team Providers Care Care Administrative Tech Name Role Phone [facility] Referring Provider [phone] Assessment No assessment recorded. Plan of Treatment Reminders Order Date Submit Date Provider Last Modified By Organization Details Last Modified Time Details Appointments None recorded. Lab rapid SARS CoV 2 Ag, QL IA, respiratory specimen 2021 [facility], [address] [place] [address], [id number] 10:35:12 Referral None recorded. Procedures None recorded. Surgeries None recorded. Imaging None recorded. Medication Orders prednisone [address] [facility], [address] [place] [address], [id number], 10:31:37 prednisone 20 mg tablet 2021 022 [facility], [address] [place] [address], [id number], 10:28:37 Patient TargetsNo targets recorded. Patient InstructionsNo instructions recorded. Reason for Referral None Reported. Results Created Date Observation Date Name Description Value Unit Range Abnormal Flag Note LastModifiedBy Organization Detail LastModifiedTime 04/01/20 22 04/01/2022 rapid SARS CoV 2 Ag, QL IA, respi rator y speci men rapid SARS CoV 2 Ag, QL IA, respiratory specimen negati ve Not Available [address], [phone] 04/01/2022 10:34:06 Result Notes None recorded. Medical Equipment None Reported. Allergies Allergen ID Allergen Name Allergen Category Reaction Reaction Severity Criticality Documentation Date Start Date Code Code System Note Provider Name and Address Organization Details Recorded Time 9234 Product containin g penicilli n (product) medicatio n Not available Not available Not available 09/05/2024 92237 8001 SNOMED Not Available [facility] - production 4 [...] 1773 Rosales Richard MD Main - [facility] [address] [place] [phone] 04/01/2022 10:19:55 07/30/2022 11:19:05 Acute exacerbation of chronic obstructive pulmonary disease [id number] J44.1 Reports increase in sputum production over the last two days without significan t shortness of breath. No hypoxemia, fevers, or focal rales to suggest pneumonia. Plan for a short steroid burst, reviewed red flag symptoms, encouraged to call back if worsening or if new symptoms develop. Health Concerns Section Related Observation LastModified by Organization Steve ls LastModified Time None Recorded Concern Status LastModified by Organization Details LastModified Time None Recorded Advance Directives Directive None Recorded Payers Encounter Date Sequence Insurance Name Policy Number Policy Hong Covered Member ID Hong Member ID Guarantor Name 04/01/2022 1 [facility] - DOS PRIOR TO 2023 - DUAL ELIGIBLE (MEDICARE REPLACEMENT/ADV ANTAGE - HMO) Jemma Esquivel [id number] Jemma Esquivel Notes Date Note Type Note [...] .................. .................. .................. .................. .................. .................. ............... Gas Tester Note: Chief Complaint cough Pertinent positive and [...] ............... Disposition: Fulfilled Rosales Richard MD [address] [facility],[address], [place], [address], [employer] 04/01/2022 11:09:16 OBGyn Episode No OBEpisode recorded.
--- OUTSIDE RECORDS SUMMARY | 2025-03-05 15:51 | XMS_ITS | Encounter Summary ---
Author Organization [employer] Address [address] [facility] [address] [place] [address] Care Team Providers Care Market Gardener Name Role Phone Jemma Louise MD Primary Care Provide r Reason for Visit * Reason Onset Date Comments Nurse Triage 09/28/2023 Encounter Details Date Type Department Care Team ([facility] st Contact Info) Description 09/28/2023 Telephone [facility] 230 [place], [place] [phone] Jemma Louise MD 230 [place], [place] [phone] Nurse Triage Social History Tobacco Use Types [...] 09/28/2023 3:23 PM EST Triage call with [employer] [place] [id number] Pt son, THIAGO Fuller, reports Pt has had some sinus/nasal congestion for some time now. Pt has nasal drainage which is clear and some nasal congestion. Neg for fever, cough, headache. Jonny is concerned about some snoring, whistling sound with breathing especially at night. No difficulty breathing is reported. Advised to come to [facility] today or tomorrow open til [...] The caller accepted this outcome Patient speaks polish documented in this encounter Plan of Treatment Not on file documented as of this encounter Visit Diagnoses Not on filedocumented in this encounter Additional Health Concerns Assessment Noted Time PHQ-9 Depression Total Score: 0 03/01/20 1:02 PM EDT documented as of this encounter Care Teams Market Gardener Relationship Specialty Start Date End Date Jemma Louise MD [address] [place] [address] PCP - General Family Medicine 09/11/19 documented as of this encounter
--- OUTSIDE RECORDS SUMMARY | 2025-03-05 15:51 | XMS_ITS | Encounter Summary ---
Author Organization [employer] Address [address] [facility] [place] [address] Care Team Providers Care Music Sound Light Technician Name Role Phone Jemma Louise MD Primary Care Provide r Encounter Details Date Type Department Care Team (Late st Contact Info) Description 01/04/2023 Orders Only [facility] [address] [place], [place] [phone] Barbara Portillo LPN Social History Tobacco Use [...] EDT) Vitamin D, 25-OH, D2 <4 ng/mL [facility] Comment:This test was develo ped and its analytical performancecharacteristics have been determined by [employer] [place], [place]. It hasnot been cleared or approved by the .S. Food and DrugAdministration. This assay has been validated pursuantto the CLIA regulations and is used for clinicalpurposes.THIS TEST WAS PERFORMED AT:[employer] [id number] [place] [address]XSEARPJOTILIA CASTAÑEDA MD,PHD Vitamin D, 25-OH, D3 37 ng/mL [facility] Comment:This test was develo ped and its analytical performancecharacteristics have been determined by [facility] [place], [place]. It hasnot been cleared or approved by the U.S. Food and DrugAdministration. This assay has been validated pursuantto the CLIA regulations and is used for clinicalpurposes. Vitamin D, 25-OH, Total 37 30 - 100 ng/mL [facility] Comment:Vitamin D, 25-Hydrox y reports concentrations [...] = 30 ng/mL.For additional information, please refer tohttp://education.[employer]Pal/faq/ETE601(This link is being provided for informational/educational purposes only.) 08/10/2023 12:1 3 PM EDT 08/10/2023 12:13 PM EDT [facility] External Provider LAB BLO OD ORDERABLES Final Result [facility] [address] [place] [address] [phone] * (ABNORMAL) Comprehensive Metabolic Panel (08/10/2023 12:13 PM EDT) Sodium 141 135 - 145 mmol/L [facility] Potassium 4.0 3.3 - 5.1 mmol/L [facility] Chloride 97 96 - 108 mmol/L [facility] Carbon Dioxide 33(H) 22 - 29 mmol/L [facility] Anion Gap 15 12 - 20 [facility] Urea Nitrogen (BUN) 15 9 - 16 mg/dL [facility] Creatinine, Serum 0.89 0.5 - 1.4 mg/dL [facility] Estimated Glomerular Filt Rate >60 [facility] Comment:NOTE: For -Am erican individuals, multiply the result by 1.210.Chronic Kidney Disease: Estimated GFR < 60 mL/min/1.75h6Welcrd Kidney Disease: Estimated GFR < 15 mL/min/1.73m2 Glucose 102 60 - 115 mg/dL [facility] Calcium 10.5(H) 8.4 - 10.2 mg/dL [facility] Bilirubin, Total 0.4 0.0 - 1.0 mg/dL [facility] Aspartate Amino Transferase 22 5 - 31 U/L [facility] Alanine Aminotransferase 13 0 - 31 U/L [facility] Total Protein 7.9 6.5 - 8.0 g/dL [facility] Albumin Level 4.4 3.5 - 5.0 g/dL [facility] Alkaline Phosphatase 47 39 - 117 U/L [facility] 08/10/2023 12:1 3 PM EDT 08/10/2023 12:13 PM EDT [facility] External Provider LAB BLO OD ORDERABLES Final Result [facility] [address], [place] [phone] * (ABNORMAL) CBC auto differential (08/10/2023 12:13 PM EDT) White Blood Count 7.3 4.8 - 10.8 X10*3/uL [facility] Red Blood Count 4.62 4.20 - 5.50 X10*6/uL [facility] Hemoglobin 12.5 12.0 - 16.0 g/dl [facility] Hematocrit 40.9 37.0 - 47.0 % [facility] Mean Corpuscular Volume 88.5 80.0 - 98.0 fL [facility] Mean Corpuscular Hemoglobin 27.1 27.0 - 33.0 pg [facility] Mean Corpuscular HGB Conc 30.6(L) 31.0 - 35.0 g/dl [facility] Red Cell Distribution Width 14.5 11.0 - 16.0 % [facility] Platelet Count 257 160 - 400 X10*3/uL [facility] Mean Platelet Volume 12.3 9.4 - 12.3 fL [facility] Neutrophils Percent Auto 69.3 45 - 73 % [facility] Imm Gran Pct Auto 0.4 0.0 - 0.4 % [facility] Lymphocytes Percent Auto 18.4(L) 20 - 40 % [facility] Monocytes Percent Auto 9.1 2 - 11 % [facility] Eosinophils Percent Auto 2.2 0 - 4 % [facility] Basophils Percent Auto 0.6 0 - 2 % [facility] NRBC Pct Auto 0.0 0.0 - 0.2 /100WBC [facility] Neutrophils Absolute Auto 5.0 2.0 - 8.3 x10*3/uL [facility] Imm Gran Abs Auto 0.03 0.00 - 0.03 X10*3/uL [facility] Lymphocytes Absolute Auto 1.3 1.2 - 4.9 X10*3/uL [facility] Monocytes Absolute Auto 0.7 0.1 - 1.2 X10*3/uL [facility] Eosinophils Absolute Auto 0.2 0.0 - 0.4 X10*3/uL [facility] Basophils Absolute Auto 0.0 0.0 - 0.2 X10*3/uL [facility] NRBC Abs Auto 0.000 0.0 - 0.012 X10*3/uL [facility] 08/10/2023 12:1 3 PM EDT 08/10/2023 12:13 PM EDT [facility] External Provider LAB BLO OD ORDERABLES Final Result Performing Organization Address [facility]/ZIP Co de Phone Number [facility] [address] [place] [phone] * Vitamin D, 25-Hydroxy, Total, Immunoassay (03/01/2023 2:22 PM EDT) Vitamin D 25-OH Total 69.3 >30 ng/mL [facility] Comment:Health Based Referen ce Values*< 20 ng/mL Omiirzlqy29-24 ng/mL Insufficient> 30 ng/mL Sufficient*Larisa CARMONA. N [...] 2:22 PM EDT 03/01/2023 2:22 PM EDT [facility] External Provider LAB BLO OD ORDERABLES Final Result Performing Organization Address [facility]/ZIP Co de Phone Number [facility] [address] [place] [phone] * Phosphate (As Phosphorus) (03/01/2023 2:22 PM EDT) Phosphorus 2.8 2.7 - 4.5 mg/dL [facility] 03/01/2023 2:22 PM EDT 03/01/2023 2:22 PM EDT [facility] External Provider LAB BLO OD ORDERABLES Final Result [facility] [address] [place] [address] [phone] * (ABNORMAL) Comprehensive Metabolic Panel (03/01/2023 2:22 PM EDT) Sodium 143 135 - 145 mmol/L [facility] Potassium 4.2 3.3 - 5.1 mmol/L [facility] Chloride 96 96 - 108 mmol/L [facility] Carbon Dioxide 35(H) 22 - 29 mmol/L [facility] Anion Gap 16 12 - 20 [facility] Urea Nitrogen (BUN) 18(H) 9 - 16 mg/dL [facility] Creatinine, Serum 1.02 0.5 - 1.4 mg/dL [facility] Estimated Glomerular Filt Rate 52 [facility] Comment:NOTE: For -Am erican individuals, multiply the result by 1.210.Chronic Kidney Disease: Estimated GFR < 60 mL/min/1.02j6Csapqg Kidney Disease: Estimated GFR < 15 mL/min/1.73m2 Glucose 85 60 - 115 mg/dL [facility] Calcium 9.9 8.4 - 10.2 mg/dL [facility] Bilirubin, Total 0.6 0.0 - 1.0 mg/dL [facility] Aspartate Amino Transferase 17 5 - 31 U/L [facility] Alanine Aminotransferase 10 0 - 31 U/L [facility] Total Protein 7.5 6.5 - 8.0 g/dL [facility] Albumin Level 4.4 3.5 - 5.0 g/dL [facility] Alkaline Phosphatase 59 39 - 117 U/L [facility] 03/01/2023 2:22 PM EDT 03/01/2023 2:22 PM EDT [facility] External Provider LAB BLO OD ORDERABLES Final Result Performing Organization Address City/State/[facility] Co de Phone Number [facility] [address] [place] [address] [phone] documented in this encounter Visit Diagnoses Not on filedocumented in this encounter Care Teams Music Sound Light Technician Relationship Specialty Start Date End Date Jemma Louise MD [address] [place] [address] PCP - General Family Medicine 09/11/19 documented as of this encounter
--- OUTSIDE RECORDS SUMMARY | 2025-03-05 15:51 | XMS_ITS | Encounter Summary ---
Author Organization [employer] Address [address] [place] [address] Care Team Providers Care Fashion Buyer Name Role Phone Jemma Louise MD Primary Care Provide r Reason for Visit * Reason Comments Med Refill Encounter Details Date Type Department Care Team (Late st Contact Info) Description 11/15/2023 Refill [facility] [address] [place], [place] [phone] Juana Vanegas, ANP [address] [place], [place] [phone] Iron deficiency Social History Tobacco Use Types [...] documented as of this encounter Care Teams Fashion Buyer Relationship Specialty Start Date End Date Jemam Louise MD [address] [place] [phone] PCP - General Family Medicine 09/11/19 documented as of this encounter
--- OUTSIDE RECORDS SUMMARY | 2025-03-05 15:51 | XMS_ITS | Encounter Summary ---
Author Organization [employer] Address [address] [facility] [address] [place] [address] Care Team Providers Care Instructional Systems Design Consultant Name Role Phone Jemma Louise MD Primary Care Provide r Reason for Visit * Reason Comments Med Refill Encounter Details Date Type Department Care Team ([facility] st Contact Info) Description 06/25/2023 Refill [facility] [address] [place] [address] Juana Vanegas ANP [address] [place] [address] Vitamin D deficiency Social History Tobacco Use [...] documented as of this encounter Care Teams Instructional Systems Design Consultant Relationship Specialty Start Date End Date Jemma Louise MD [address] [place] [phone] PCP - General Family Medicine 09/11/19 documented as of this encounter
--- OUTSIDE RECORDS SUMMARY | 2025-03-05 15:51 | XMS_ITS | Clinical Summary ---
Author Organization [email or web address] Address [address] [facility] [address] [place] [address] Care Team Providers Care Kick Boxer Name Role Phone Jemma Louise MD Primary [...] directed 3x/week 1 kit 03/01/20 23 Active D3 Super Strength 50 MCG (2000 [...] HOURS NEEDED 60 tablet 07/19/20 24 Active albuterol (Ventolin HFA) 108 (90 Base) MCG/ACT inhalerIndicatio ns:COPD exacerbation (CMS/HCC) INHALE 2 PUFFS BY MOUTH EVERY 4 TO 6 HOURS NEEDED 18 g 1 08/22/20 24 Active fluticasone (Flonase) 50 MCG/ACT nasal [...] behavioral, psychotic, or mood disturbance or anxiety (CMS/[facility]) TAKE 1 TABLET BY MOUTH TWICE DAILY [...] BY MOUTH EVERY MORNING 30 tablet 1 01/23/20 25 Active melatonin 3 MG tablet TAKE 2 TABLETS BY MOUTH EVERY DAY AT BEDTIME 60 tablet 01/23/20 25 Active calcium carbonate 1500 (600 Ca) MG tabletIndication s:Vitamin D deficiency TAKE 1 TABLET BY MOUTH EVERY OTHER DAY IN THE MORNING vit d 45 tablet 01/25/20 25 Active lisinopril 10 MG tabletIndication s:Chronic systolic congestive heart failure (CMS/HCC),Essent ial hypertension TAKE 1 TABLET BY MOUTH EVERY MORNING 90 tablet 01/25/20 25 Active triamcinolone (Kenalog) 0.1 % creamIndications :Rash Apply topically if needed in the morning and at bedtime (pain and swelling). 30 g 1 02/22/20 25 Active hydrOXYzine HCl (Atarax) 10 MG tabletIndication s:Rash Take 1 tablet (10 mg) by mouth every 6 (six) hours if needed for itching for up to 10 days. 20 tablet 02/22/20 25 Active Multiple Vitamin (Multivitamin) tablet TAKE 1 TABLET BY MOUTH EVERY MORNING WITH FOOD 90 tablet 1 02/28/20 25 Active venlafaxine XR (Effexor XR) 37.5 MG 24 hr capsule TAKE 1 CAPSULE BY MOUTH AT BEDTIME WITH FOOD 90 capsule 1 02/28/20 25 Active venlafaxine XR (Effexor XR) 37.5 MG 24 hr capsule TAKE 1 CAPSULE BY MOUTH AT BEDTIME WITH FOOD 90 capsule 1 09/04/20 24 025 Discontinued Multiple Vitamin (Multivitamin) tablet Take 1 tablet by mouth Once per day. TAKE 1 TABLET BY MOUTH EVERY MORNING WITH FOOD 90 tablet 1 09/06/20 24 025 Discontinued Active Problems Problem Noted Date Diagnosed Date Rash 02/21/2025 Assessment & Plan (02/22/2025 12:28 PM EDT): I will prescribe the patient triamcinolone cream to apply twice daily no more than 2 weeks and hydroxyzine 10 mg every 8 hours as needed for itchiness Sprain of left ankle 12/05/2024 Assessment & [...] day PRN C/w same treatment referral to concrete vibrator operator will be done today Constipation 11/04/2015 Essential hypertension 11/04/2015 Assessment & Plan (02/22/2025 12:28 PM EDT): Today blood pressure is slightly elevated I advised low-sodium diet and to continue with same medication regimen without missing any dose I asked son to monitor her blood pressure at home and report back if blood pressure is persistently higher than 140/90 Assessment & Plan (09/12/2024 12:09 PM EST): [...] Encounters Date Type Department Care Team Description 02/25/2025 Refill [facility] [address] [place] [address] Jemma Louise MD 02/21/2025 3:30 PM EDT Office Visit [facility] [address] [place] [phone] Jemma Louise MD Rash (Primary Dx); Essential hypertension 02/21/2025 Travel 02/16/2025 Telephone [facility] [address] [place] [phone] Jemma Louise MD telephone call 01/24/2025 Refill [facility] [address] [place] [phone] Jemma Louise MD Vitamin D deficiency; Chronic systolic congestive heart failure ([facility]/HCC); Essential hypertension 01/21/2025 Refill [facility] [address] [place] [phone] Jemma Louise MD Seasonal allergies 12/28/2024 Telephone [facility] [address] [place] [phone] Jemma Louise MD Chart Prep 12/13/2024 Telephone [facility] [address] [place] [phone] Jemma Louise MD Results 12/07/2024 Telephone [facility] [address] [place] [phone] Jemma Louise MD Call Back Request 12/05/2024 4:00 PM EST Office Visit [facility] [address] [place] [phone] Radha Yanez MD Sprain of other ligament of left ankle, initial encounter (Primary Dx) from Last 3 Months Immunizations Name Administration [...] the past 12 months, has t he [employer], gas, oil or water company threatened to [...] Sign Reading Time Taken Comments Blood Pressure 142/66 02/21/2025 4:15 PM EDT Pulse 63 02/21/2025 3:13 PM EDT Temperature 36.1 ??C (96.9 ??F) 02/21/2025 3:13 PM ED T Respiratory Rate 20 02/21/2025 3:13 PM EDT Oxygen Saturation 100% 02/21/2025 3:13 PM EDT Inhaled Oxygen Concentration - - Weight 60.8 kg (134 lb 2 oz) 02/21/2025 3:13 PM EDT Height 149.9 cm (4' 11 ) 02/21/2025 3:13 PM EDT Body Mass Index 27.09 02/21/2025 3:13 PM EDT Plan of Treatment Health Maintenance Due Date Last Done Comments Zoster Vaccines (3 of 3) 02/10/2024 12/16/2023, 01/07 Depression Screening 03/30/2025 03/30/2024, 03/30/20 24 SDOH Screening 03/30/2025 03/30/2024 Alcohol/Substance Use Screening 09/12/2025 09/12/2024 Tobacco Screening 02/21/2026 02/21/2025 Lipid Panel 07/28/2027 07/28/2022, 09/11/2021 DTaP/Tdap/Td Vaccines [...] Procedure Name Priority Date/Time Associated Diagnosis Comments XR FOOT 3+ VIEWS LEFT Routine 12/12/2024 6:14 AM EST Sprain of other ligament of left ankle, initial encounter XR ANKLE 3+ VIEWS LEFT Routine 12/12/2024 6:14 AM EST Sprain of other ligament of left ankle, initial encounter LIPID PANEL, STANDARD Routine 07/28/2022 11:36 AM EDT from Last 3 Months or Most Recently Relevant to Health Maintenance Results * XR Foot 3+ Views Left (12/12/2024 6:14 AM EST) Anatomical Region Laterality Modality Lower Extremities, Foot Left [facility] 12/12/2024 6:14 AM EST Narrative 12/12/2024 6:15 AM EST ? [facility] ?[address] ?[place] [address] ?XRay Report ? Signed ? Patient: Esquivel,Marjorie ?MR#: [id number] ? : 1940 ?Acct:[id number] ? Age/Sex: 84 / F ?ADM Date: 12/09/24 ? Loc: HO.XRAY ? Attending Dr: Radha Yanez MD ? Ordering Physician: Radha Yanez MD ?? Date of Service: 12/09/24 ?? Procedure(s): XR foot LT min 3V ?? Accession Number(s): [id number] ? cc: Radha Yanez MD ? CLINICAL HISTORY: left ankle foot pain ? 3 view left foot ? Comparison: CR - FOOT LEFT COMPLETE [id number] - 03/06/16 13:33 EDT ? Findings: ?? No fractures or dislocations. ?? Mild midfoot joint space loss. No erosions. Vascular calcium. Calcaneal ?? spurring. ?? No ankle effusion. ?? No radiopaque foreign body. ? IMPRESSION: ?? 1. Midfoot degenerative changes. No acute fracture. ? This document has been electronically signed by: Lelo Sanford MD on ?? 12/12/2024 06:14:03 ? Dictated By: ?Lelo Sanford MD ? Signed By: ?<Electronically signed by Lelo Sanford MD in OV> ?12/12/2415 ? DD/ 3 ? TD/TT: 12/12/24613 ? Retail Department Manager: ? Procedure Note Leonel Ibarra - 12/12/[address] [address] XRay Report Signed Patient: Jemma Esquivel AMR#: [id number] : 1Acct:[id number] Age/Sex: 84 / FADM Date: 12/09/24 Loc: REY Attending Dr: Radha Yanez MD Ordering Physician: Radha Yanez MD Date of Service: 12/09/24 Procedure(s): XR foot LT min 3V Accession Number(s): [id number] cc: Radha Yanez MD CLINICAL HISTORY: left ankle foot pain 3 view left foot Comparison: CR - FOOT LEFT COMPLETE [id number] - 03/06/16 13:33 EDT Findings: No fractures or dislocations. Mild midfoot joint space loss. No erosions. Vascular calcium. Calcaneal spurring. No ankle effusion. No radiopaque foreign body. IMPRESSION: 1. Midfoot degenerative changes. No acute fracture. This document has been electronically signed by: Lelo Sanford MD on 12/12/2024 06:14:03 Dictated By: Lelo Sanford MD Signed By: <Electronically signed by Lelo Sanford MD in OV> 12/12/24614 DD/ 3 TD/TT: 12/12/24613 Retail Department Manager: Radha Yanez MD IMG XR PROCEDURES Final Result * XR Ankle 3+ Views Left (12/12/2024 6:14 AM EST) Anatomical Region Laterality Modality Lower Extremities, Ankle Left Radiogr aphic Imaging 12/12/2024 6:14 AM EST Narrative 12/12/2024 6:15 AM EST ? [facility] ?[address] ?[place] [address] ?XRay Report ? Signed ? Patient: Jemma Esquivel ?MR#: [id number] ? : 1940 ?Acct:[id number] ? Age/Sex: 84 / F ?ADM Date: 12/09/24 ? Loc: HO.XRAY ? Attending Dr: Radha Yanez MD ? Ordering Physician: Radha Yanez MD ?? Date of Service: 12/09/24 ?? Procedure(s): XR ankle LT min 3V ?? Accession Number(s): [id number] ? cc: Radha Yanez MD ? CLINICAL HISTORY: left ankle foot pain ? 3 view left ankle ? Comparison: CR - ANKLE LEFT COMPLETE [id number] - 08/05/15 11:09 EDT ? Findings: ?? No acute fractures or dislocations. Findings suggest old ankle fracture. ?? No significant loss of joint space, osteophytes, or erosions. ?? No ankle effusion. ?? No radiopaque foreign body. ? IMPRESSION: ?? 1. No acute findings. Findings suggest old ankle fracture. No more than ?? mild degenerative change. ? This document has been electronically signed by: Lelo Sanford MD on ?? 12/12/2024 06:14:15 ? Dictated By: ?Lelo Sanford MD ? Signed By: ?<Electronically signed by Lelo Sanford MD in OV> ?12/12/24 0615 ? DD/ 3 ? TD/TT: 12/12/24613 ? Retail Department Manager: ? Procedure Note Donotuseinterpreter, Image - 12/12/[address] [address] XRay Report Signed Patient: Jemma Esquivel#: [id number] : 1Acct:[id number] Age/Sex: 84 / FADM Date: 12/09/24 Loc: REY Attending Dr: Radha Yanez MD Ordering Physician: Radha Yanez MD Date of Service: 12/09/24 Procedure(s): XR ankle LT min 3V Accession Number(s): [id number] cc: Radha Yanez MD CLINICAL HISTORY: left ankle foot pain 3 view left ankle Comparison: CR - ANKLE LEFT COMPLETE [id number] - 08/05/15 11:09 EDT Findings: No acute fractures or dislocations. Findings suggest old ankle fracture. No significant loss of joint space, osteophytes, or erosions. No ankle effusion. No radiopaque foreign body. IMPRESSION: 1. No acute findings. Findings suggest old ankle fracture. No more than mild degenerative change. This document has been electronically signed by: Lelo Sanford MD on 12/12/2024 06:14:15 Dictated By: Lelo Sanford MD Signed By: <Electronically signed by Lelo Sanford MD in OV> 12/12/24614 DD/ 3 TD/TT: 12/12/24613 Retail Department Manager: Radha Yanez MD IMG XR PROCEDURES Final Result * (ABNORMAL) LIPID PANEL, STANDARD (07/28/2022 11:36 [...] ?? En OBRIEN et al. EVAN. 2013;310(19): 7336-7294 ?? (http://education.[employer]/faq/JTQ459) Non-HDL Cholesterol 71 <130 mg/dL (calc) [facility] Comment: For patients with diabetes plus 1 major ASCVD risk ?? factor, treating to a non-HDL-C goal of <100 mg/dL ?? (LDL-C of <70 mg/dL) is considered a therapeutic ?? option. Triglycerides 154(H) <150 mg/dL [facility] 07/28/2022 11:3 6 AM EDT Jemma Mccarthy MD LAB BLOOD ORDERABLES Final Result [facility] [address] from Last 3 Months or Most Recently Relevant to Health Maintenance Insurance [facility] FDC OPTIONS (O D-SNP) [employer] FDC OPTIONS (HMO D-SNP) Care Teams Kick Boxer Relationship Specialty Start Date End Date Jemma Louise MD [address] [place] [phone] PCP - General Family Medicine 09/11/19
--- OUTSIDE RECORDS SUMMARY | 2025-03-05 15:51 | XMS_ITS | Clinical Summary ---
Author Organization [facility] Address [address] [place] [address] Care Team Providers Care Display Mechanic Name Role Phone Unavailable Primary Care Provider Unavailabl e Social History Tobacco Use Types Packs/Day Years Used Date Smoking Tobacco: Never Assessed Comments Unknown Sex and Gender Information Value Date Recorded Sex Assigned at Not on file Legal Sex Female 3:33 PM EST Gender Identity Not on file Sexual Orientation Not on file Plan of Treatment Health Maintenance Due Date Last Done Comments DTaP,Tdap,and Td Vaccines (1 - Tdap) 01/24/1960 Pneumococcal Vaccine: 50+ Ye ars (1 of 1 - PCV) 1991 Zoster Vaccines (1 of 2) 1991 RSV Immunization Adult Patie nts (1 - 1-dose 75+ series) 01/24/2016 Cholesterol Screening (Lipid Panel) 10/07/2022 Depression Screening 10/07/2022 Falls Risk Assessment 10/07/2022 Osteoporosis Screening (Bone Density Screening) 10/07/2022 Social Influencers of Health Screening 10/07/2022 Hypertension/CHF/CAD Annual BMP Blood Test 10/20/2022 COVID-19 Vaccine (2 - 2023-2 5 season) 2024 02/19/2021 Influenza Vaccine (Season Ended) 2025 08/29/20 20 HIB Vaccines Aged Out No longer eligi [...] patient's age to complete this topic Meningococcal B Vaccine Aged Out No l onger eligible based on patient's age to complete this topic RSV Immunization Patients Un darya 20 months Aged Out No longer eligible b ased on patient's age to complete this topic Varicella Vaccines Aged Out No longer eligible based on patient's age to complete this topic
--- OUTSIDE RECORDS SUMMARY | 2025-03-05 15:51 | XMS_ITS | Encounter Summary ---
Author Organization [employer] Address [address] [facility] 7t [place] [address] Care Team Providers Care Manager Mission Name Role Phone Jemma Louise MD Primary Care Provide r Encounter Details Date Type Department Care Team ([facility] st Contact Info) Description 11/19/2023 Orders Only [facility] [address] [place], [place] [phone] Jemma Louise MD [address] [place], [place] [phone] Social History Tobacco Use Types Packs/Day Years [...] documented as of this encounter Care Teams Manager Mission Relationship Specialty Start Date End Date Jemma Louise MD [address] [place] [address] PCP - General Family Medicine 09/11/19 documented as of this encounter
== END 2025-03-05 13:37 | disposition home or self-care (01) ==
LOC: HO.HPS 13:20
PROVIDERS: PCP Internal Medicine; Visit Provider Internal Medicine Pulmonary Disease
DX: J44.9 Chronic obstructive pulmonary disease, unspecified (principal); G47.34 Idiopathic sleep related nonobstructive alveolar hypoventilation
CPT/HCPCS: 99214

== ENCOUNTER → 2025-03-05 13:19 | Outpatient (BNVA) | payer OTHER, SELFPAY | PROVIDERS: PCP Internal Medicine; Visit Provider Internal Medicine Pulmonary Disease | DX: J44.89 Other specified chronic obstructive pulmonary disease (principal); G47.34 Idiopathic sleep related nonobstructive alveolar hypoventilation; Z99.81 Dependence on supplemental oxygen; Z87.891 Personal history of nicotine dependence | CPT/HCPCS: 99212 ==

== ENCOUNTER 2025-03-06 10:50 | Outpatient (AMB) | payer OTHER, SELFPAY ==
--- NOTE | 2025-03-06 10:52 | A.OFFVIS_ITS ---
Vital Signs 03/06/25 11:07 Height 4 ft 11 in Weight 130 lb 1.164 oz BMI 26.3 BP 120/50 L Blood Pressure Location Rt brachial Position Sitting Pulse 52 Pulse Source Pulse Oximeter Pulse Oximetry (%) 96 Oxygen Delivery Method Room Air Intake Visit Reasons: follow up Intake Note: Patient presents for Osteoporosis follow up. Manager Filter Required: Yes Manager Filter Language: Sleeve Setter Services: Manager Filter Offered & Declined Manager Filter Name: Jonny Echeverria Information Interpreted: non-clinical & clinical Sound Engineer Audio Control: Sound Engineer Audio Control Present Accompanied by: Son Allergies Penicillins Allergy (Intermediate, Verified 03/06/25 11:00) ITCHING HPI Comments Details: Patient is an 84-year-old female with hyperlipidemia, hypertension complicated by heart failure with preserved ejection fraction who presents for follow-up of her osteoporosis Interval History: Patient last seen 09/05/2024 with me. At that time she was following up for her osteoporosis with her son. No fractures or falls Received IV Reclast infusion 08/2024 Today, Patient continues to do well. No falls or fractures Rheumatologic History: Has had osteoporosis for several years. Was receiving Prolia for about 10 years. Had repeat DEXA which showed worsening bone density. Current Rheumatology Medication(s): Calcium and vitamin-D IV Reclast 5mg yearly [facility] Medical History Hypercalcemia Hyperparathyroidism Chronic kidney disease Hypovitaminosis D Chronic heart failure with preserved ejection fraction (HFpEF) HTN (hypertension) Left bundle branch block Persistent atrial fibrillation Osteoporosis Surgical History Hx of endoscopy Hx of colonoscopy (03/05/15) Hx of tubal ligation History of nasal surgery Family History Father No problems noted. Mother Alzheimer disease Brother Heart disease CVD (cardiovascular disease) Son Diabetes Daughter Diabetes Paternal Aunt CVD (cardiovascular disease) Other Osteoarthritis Social History Household Members: None Housing: Apartment Alcohol intake: never Patient Tobacco Use Status: Former Tobacco user Second Hand Smoke Exposure: No Review of Systems Const Details: Review of Systems Constitutional: Denies fever, chills, weight loss ENT: Denies vision changes, eye pain or eye redness, dental caries, dry mouth GI: Denies nausea, vomiting, diarrhea, abdominal pain, change in BM Pulm: Denies SOB, JUSTICE, hemoptysis, wheezing Cards: Denies chest pain, palpitations Skin: Denies Raynaud's, rash, nail changes, photosensitivity, TECHNICAL SUPPORT CONSULTANT: Denies headaches, weakness, paresthesias, recurrent falls MSK: as per HPI All other systems reviewed and are unremarkable except noted above Physical Exam Vital Signs: Last Vital Signs Pulse 52 03/06/25 11:07 BP 120/50 L 03/06/25 11:07 Pulse Ox 96 03/06/25 11:07 Oxygen Delivery Method Room Air 03/06/25 11:07 BMI result Body Mass Index 26.3 Vital signs reviewed Physical Examination CONSTITUITIONAL Patient alert and cooperative. Well appearing and in no apparent painful distress Elderly and frail HEENT Conjunctiva and sclera clear. ?Pupils equal round and reactive to light. ?No lymphadenopathy. ? CHEST/RESPIRATORY SYSTEM Normal respiratory effort and able to speak in complete sentences. ?Clear to auscultation bilaterally. ?No crackles, rales, rhonchi, wheezes heard. CARDIAC SYSTEM Regular rate and rhythm. ?S1 and S2 heard no murmurs. ?Radial pulses intact bilaterally MSK Hands: ?Able to make a fist. No synovitis noted to the MCPs, PIPs or DIPs. ?No tenderness to palpation of these joints. Heberden nodes Wrists: ?Full range of motion at the wrists without pain. ?No tenderness to palpation or synovitis noted to the wrists. Elbows: Full range of motion without pain. No tenderness, weakness, swelling, increased warmth or erythema. Shoulders: Full range of active range of motion without pain. No tenderness, weakness, swelling, increased warmth or erythema. Knees: ?Full range of motion. ?No tenderness, swelling, increased warmth or erythema.? Crepitations felt bilaterally Ankles: Full range of motion. ?No tenderness, swelling, increased warmth or erythema.? Feet: ?Negative squeeze test. ?No tenderness to palpation or swelling of the MTPs. Tender points:?No tenderness to palpation of the bilateral trapezius, supraspinatus, greater trochanters, anterior costochondral junctions, bilateral gluteal areas, bilateral suboccipital muscle insertions SKIN Skin intact without rashes. Results Reviewed Results Reviewed: Laboratory Tests 09/05/24 11/24/24 16:40 08:19 Sodium 141 Potassium 3.8 Chloride 104 Anion Gap 11 L BUN 16 Creatinine 1.16 Total Bilirubin 0.4 AST 19 ALT 9 Alkaline Phosphatase 60 25-OH Vitamin D Total 27 L DEXA 11/2022 FINDINGS: AP SPINE L1-L3 (excluding L4): The data of L1-L4 has been changed to exclude the L4 vertebral body, because degenerative changes at this level may cause overestimation of lumbar spine density. Current: BMD 1.020 g/cm2, Z-score 0.7, T-score -1.2, osteopenia, 1.8% decrease from previous, 9.3% increase from baseline (<5% change is not significant). Prior: BMD 1.039 g/cm2. Baseline: BMD 0.933 g/cm2. LEFT FEMUR, NECK: Current: BMD 0.615 g/cm2, Z-score -0.7, T-score -3.0, osteoporosis. Prior: BMD 0.729 g/cm2. Baseline: BMD 0.708 g/cm2. LEFT FEMUR, TOTAL: Current: BMD 0.705 g/cm2, Z-score -0.2, T-score -2.4, osteopenia, 21.0% decrease from previous, 17.9% decrease from baseline (<5% change is not significant). Prior: BMD 0.892 g/cm2. Baseline: BMD 0.859 g/cm2. Assessment & Plan Assessment & Plan (1) Osteoporosis: Comment: DEXA 11/2022: AP Spine -1.2, Left femur neck -3.0, Left femur total -2.4 prolia started 10/30/2014. Stopped 01/2024 IV reclast 08/2024 Code(s): M81.0 - Age-related osteoporosis without current pathological fracture Category: Medical Qualifiers: Osteoporosis type: age-related Presence of current pathological fracture: without current pathological fracture Qualified Code(s): M81.0 - Age- related osteoporosis without current pathological fracture Plan: #Osteoporosis Patient is an 85-year-old female with osteoporosis and history of fragility fracture here today for follow up. Currently on IV Reclast, last dose 08/2024. Due for repeat bone density Plan - DEXA - Check CMP and Vitamin D today - RTC 6 months - Labs before visit: CMP, Vit D, CBC (2) Encounter for monitoring bisphosphonate therapy: Code(s): Z51.81 - Encounter for therapeutic drug level monitoring; Z79.83 - [facility] (current) use of bisphosphonates Plan: #Long-term Use of Bisphosphonates Risks and benefits of bisphosphonates in the management of osteoporosis Benefits include improved bone density, decreased fracture risk Risks include atypical femoral fractures, GI upset, esophageal strictures Contraindicated in patients with a creatinine clearance < 30 to 35 ml/min Keep vitamin-D at least 35 ng/mL Plan I spent 20 minutes reviewing the record and labs, seeing the patient, discussing the treatment plan and documenting in the medical record ? Orders: Orders Comprehensive Met. Panel Today E55.9 - Vitamin D deficiency, unspecified, M81.0 - Age-related osteoporosis without current pathological fracture Vitamin D 25-OH (D2 and D3) Today E55.9 - Vitamin D deficiency, unspecified, M81.0 - Age-related osteoporosis without current pathological fracture XR DEXA axial skeleton Today M81.0 - Age-related osteoporosis without current pathological fracture Complete Blood Count Auto Diff 6 Months M81.0 - Age-related osteoporosis without current pathological fracture Comprehensive Met. Panel 6 Months M81.0 - Age-related osteoporosis without current pathological fracture Vitamin D 25-OH (D2 and D3) 6 Months E55.9 - Vitamin D deficiency, unspecified, M81.0 - Age-related osteoporosis without current pathological fracture Medications: Changed From cholecalciferol (vitamin D3) (Vitamin D3) 50 mcg PO DAILY 90 caps 3RF E55.9 - Vitamin D deficiency, unspecified To cholecalciferol (vitamin D3) 62.5 mcg PO DAILY 90 caps 1RF E55.9 - Vitamin D deficiency, unspecified Coding Level of Care Code Est Pt Level 3 (81608) Complex EM visit Add On G2211 Diagnoses Age-related osteoporosis without current pathological fracture M81.0 Osteoporosis type: age-related Presence of current pathological fracture: without current pathological fracture Encounter for monitoring bisphosphonate therapy Z51.81; Z79.83
[2025-03-06 11:07] VITALS: BP 120/50; PULSE 52; O2SAT 96; BMI 26.3
--- OUTSIDE RECORDS SUMMARY | 2025-03-06 12:35 | XMS_ITS | Encounter Summary ---
Author Organization [employer] Address [address] [facility] 7t [place] [address] Care Team Providers Care Claims Adjustor Name Role Phone Jemma Louise MD Primary Care Provide r Reason for Visit * Reason Comments Med Refill Encounter Details Date Type Department Care Team ([facility] st Contact Info) Description 06/25/2023 Refill [facility] MED & PEDS [address] [place] [address] Juana Vanegas ANP [address] [place] [address] Vitamin D deficiency Social History Tobacco Use [...] documented as of this encounter Care Teams Claims Adjustor Relationship Specialty Start Date End Date Jemma Louise MD [address] [place] [address] PCP - General Family Medicine 09/11/19 documented as of this encounter
--- OUTSIDE RECORDS SUMMARY | 2025-03-06 12:35 | XMS_ITS | Encounter Summary ---
Author Organization [employer] Address [address] [facility] 7t [place] [address] Care Team Providers Care Coater Operator Insulation Board Name Role Phone Jemma Louise MD Primary Care Provide r Reason for Visit * Reason Onset Date Comments Nurse Triage 09/28/2023 Encounter Details Date Type Department Care Team ([facility] st Contact Info) Description 09/28/2023 Telephone [facility] MEDICINE [address] [place], [place] [phone] Jemma Louise MD [address] [place], [place] [phone] Nurse Triage Social History Tobacco Use Types [...] 09/28/2023 3:23 PM EST Triage call with [employer] [place] [id number] Pt son, THIAGO Fuller, reports Pt has had some sinus/nasal congestion for some time now. Pt has nasal drainage which is clear and some nasal congestion. Neg for fever, cough, headache. Jonny is concerned about some snoring, whistling sound with breathing especially at night. No difficulty breathing is reported. Advised to come to [facility] today or tomorrow open til 800pm, [...] The caller accepted this outcome Patient speaks scottish documented in this encounter Plan of Treatment Not on file documented as of this encounter Visit Diagnoses Not on filedocumented in this encounter Additional Health Concerns Assessment Noted Time PHQ-9 Depression Total Score: 0 03/01/20 1:02 PM EDT documented as of this encounter Care Teams Coater Operator Insulation Board Relationship Specialty Start Date End Date Jemma Louise MD [address] [place] [address] PCP - General Family Medicine 09/11/19 documented as of this encounter
--- OUTSIDE RECORDS SUMMARY | 2025-03-06 12:35 | XMS_ITS | Clinical Summary ---
Author Organization [facility] Address [address] [place] [address] Care Team Providers Care Director Of Estate Name Role Phone Unavailable Primary Care Provider [...]
--- OUTSIDE RECORDS SUMMARY | 2025-03-06 12:35 | XMS_ITS | Encounter Summary ---
Author Organization [employer] Address [address] [place] [address] Care Team Providers Care Edge Grinder Machine Name Role Phone Jemma Louise MD Primary Care Provide r Reason for Visit * Reason Comments Med Refill Encounter Details Date Type Department Care Team (Late st Contact Info) Description 11/15/2023 Refill [facility] MEDICINE [address] [place], [place] [phone] Juana Vanegas, ANP [address] [place], [place] [phone] Iron deficiency Social History Tobacco Use Types [...] documented as of this encounter Care Teams Edge Grinder Machine Relationship Specialty Start Date End Date Jemma Louise MD [address] [place] [phone] PCP - General Family Medicine 09/11/19 documented as of this encounter
--- OUTSIDE RECORDS SUMMARY | 2025-03-06 12:35 | XMS_ITS | Clinical Summary ---
Author Organization [employer] Address [address] [facility] [address]t [place] [address] Care Team Providers Care Aml Analyst Name Role Phone Jemma Louise MD Primary [...] behavioral, psychotic, or mood disturbance or anxiety ([facility]) TAKE 1 TABLET BY MOUTH TWICE [...] day PRN C/w same treatment referral to shopper's aide will be done today Constipation 11/04/2015 Essential [...] Type Department Care Team Description 02/25/2025 Refill [facility] MED [facility] PEDS [address] [place], [place] [phone] Jemma Louise MD 02/21/2025 3:30 PM EDT Office Visit [facility] [address] [place] [phone] Jemma Louise MD Rash (Primary Dx); Essential hypertension 02/21/2025 Travel 02/16/2025 Telephone [facility] [address] [place] [phone] Jemma Louise MD telephone call 01/24/2025 Refill [facility] [address] [place] [phone] Jemma Louise MD Vitamin D deficiency; Chronic systolic congestive heart failure ([facility]); Essential hypertension 01/21/2025 Refill [facility] [address] [place] [phone] Jemma Louise MD Seasonal allergies 12/28/2024 Telephone [facility] [address] [place] [phone] Jemma Louise MD Chart Prep 12/13/2024 Telephone [facility] [address] [place] [phone] Jemma Louise MD Results 12/07/2024 Telephone [facility] [address] [place] [phone] Jemma Louise MD Call Back Request from Last 3 Months Immunizations Name Administration [...] Laterality Modality Lower Extremities, Foot Left [facility] 12/12/2024 6:14 AM EST Narrative 12/12/2024 6:15 AM EST ? [facility] ?[address] ?[place] [address] ?XRay Report ? Signed ? Patient: Esquivel,Marjorie ?MR#: [id number] ? : 1940 ?Acct:[id number] ? Age/Sex: 84 / F ?ADM Date: 12/09/24 ? Loc: HO.XRAY ? Attending Dr: Radha Yanez MD ? Ordering Physician: Radha Yanez MD ?? Date of Service: 12/09/24 ?? Procedure(s): XR foot LT min 3V ?? Accession Number(s): [id number] ? cc: Radha Yanez MD ? CLINICAL HISTORY: left ankle foot pain ? 3 view left foot ? Comparison: CR - FOOT LEFT COMPLETE [id number] - 03/06/16 13:33 EDT ? Findings: ?? [...] signed by Lelo Sanford MD in OV> ?12/12/24614 ? DD/ 3 ? TD/TT: 12/12/24613 ? Entry Operator: ? Procedure Note Leonel Ibarra - 12/12/2024 [place] [address] XRay Report Signed Patient: Jemma Esquivel [facility]#: [id number] : 1940cct:[id number] Age/Sex: 84 / FADM Date: 12/09/24 Loc: REY Attending Dr: Radha Yanez MD Ordering Physician: Radha Yanez MD Date of Service: 12/09/24 Procedure(s): XR foot LT min 3V Accession Number(s): [id number] cc: Radha Yanez MD CLINICAL HISTORY: left ankle foot pain 3 view left foot Comparison: CR - FOOT LEFT COMPLETE [id number] - 03/06/16 13:33 EDT Findings: No fractures [...] in OV> 12/12/24614 DD/ 3 TD/TT: 12/12/24613 Entry Operator: us Radha Yanez MD IMG XR PROCEDURES Final Result * XR Ankle 3+ Views Left (12/12/2024 6:14 AM EST) Anatomical Region Laterality Modality Lower Extremities, Ankle Left Radiogr aphic Imaging 12/12/2024 6:14 AM EST Narrative 12/12/2024 6:15 AM EST ? [facility] ?[address] ?[place] [address] ?XRay Report ? Signed ? Patient: Jemma Esquivel ?MR#: [id number] ? : 1940 ?Acct:[id number] ? Age/Sex: 84 / F ?ADM Date: 12/09/24 ? Loc: HO.XRAY ? Attending Dr: Radha Yanez MD ? Ordering Physician: Radha Yanez MD ?? Date of Service: 12/09/24 ?? Procedure(s): XR ankle LT min 3V ?? Accession Number(s): [id number] ? cc: Radha Yanez MD ? CLINICAL HISTORY: left ankle foot pain ? 3 view left ankle ? Comparison: CR - ANKLE LEFT COMPLETE [id number] - 08/05/15 11:09 EDT ? Findings: ?? [...] signed by Lelo Sanford MD in OV> ?12/12/24614 ? DD/ 3 ? TD/TT: 12/12/24 0614 ? Entry Operator: ? Procedure Note Donotuseinterpreter, Image - 12/12/[address] [address] XRay Report Signed Patient: Jemma Esquivel [facility]#: [id number] : 1Acct:[id number] Age/Sex: 84 / FADM Date: 12/09/24 Loc: REY Attending Dr: Radha Yanez MD Ordering Physician: Radha Yanez MD Date of Service: 12/09/24 Procedure(s): XR ankle LT min 3V Accession Number(s): [id number] cc: Radha Yanez MD CLINICAL HISTORY: left ankle foot pain 3 view left ankle Comparison: CR - ANKLE LEFT COMPLETE [id number] - 08/05/15 11:09 EDT Findings: No acute [...] in OV> 12/12/24614 DD/ 3 TD/TT: 12/12/24613 Entry Operator: Radha Yanez MD IMG XR PROCEDURES Final [...] ?? En OBRIEN et al. EVAN. 2013;310(19): 5607-7402 ?? ([email or web address]) Non-HDL Cholesterol 71 <130 mg/dL (calc) [facility] Comment: For patients with diabetes plus 1 major ASCVD risk ?? factor, treating to a non-HDL-C goal of <100 mg/dL ?? (LDL-C of <70 mg/dL) is considered a therapeutic ?? option. Triglycerides 154(H) <150 mg/dL [facility] 07/28/2022 11:3 6 AM EDT Jemma Mccarthy MD LAB BLOOD ORDERABLES Final Result [facility] [address] from Last 3 Months or Most Recently Relevant to Health Maintenance Insurance [facility] LONG-TERM OPTIONS (HMO D-SNP) [place] [id number] [facility] LONG-TERM OPTIONS (HMO D-SNP) [place]IS [id number] Care Teams Aml Analyst Relationship Specialty Start Date End Date Jemma Louise MD [address] [place] [phone] PCP - General Family Medicine 09/11/19
--- OUTSIDE RECORDS SUMMARY | 2025-03-06 12:35 | XMS_ITS | Encounter Summary ---
Author Organization [employer] Address [address] [place] [address] Care Team Providers Care Remote Sensing Research Scientist Name Role Phone Jemma Louise MD Primary Care Provide r Encounter Details Date Type Department Care Team (Late st Contact Info) Description 01/04/2023 Orders Only [facility] & PEDS [address] [place], [place] [phone] Barbara Portillo LPN Social History Tobacco Use [...] EDT) Vitamin D, 25-OH, D2 <4 ng/mL [facility] Comment:This test was develo ped and its analytical performancecharacteristics have been determined by [employer] [place], [place]. It hasnot been cleared or approved by the .[place]. Food and DrugAdministration. This assay has been validated pursuantto the CLIA regulations and is used for clinicalpurposes.THIS TEST WAS PERFORMED AT:[employer]/[id number] [place] [address]BNZLBGPOTILIA CASTAÑEDA MD,PHD Vitamin D, 25-OH, D3 37 ng/mL [facility] Comment:This test was develo ped and its analytical performancecharacteristics have been determined by [employer] [place], [place]. It hasnot been cleared or approved by the U.S. Food and DrugAdministration. This assay has been validated pursuantto the CLIA regulations and is used for clinicalpurposes. Vitamin D, 25-OH, Total 37 30 - 100 ng/mL [facility] Comment:Vitamin D, 25-Hydrox y reports [...] = 30 ng/mL.For additional information, please refer tohttp://education.[employer]/faq/FDN047(This link is being provided for informational/educational purposes only.) 08/10/2023 12:1 3 PM EDT 08/10/2023 12:13 PM EDT [facility] External Provider LAB BLO OD ORDERABLES Final Result [facility] [address] [place] [address] [phone] * (ABNORMAL) Comprehensive Metabolic Panel (08/10/2023 12:13 PM EDT) Sodium 141 135 - 145 mmol/L [facility] Potassium 4.0 3.3 - 5.1 mmol/L [facility] Chloride 97 96 - 108 mmol/L [facility] Carbon Dioxide 33(H) 22 - 29 mmol/L [facility] Anion Gap 15 12 - 20 [facility] Urea Nitrogen (BUN) 15 9 - 16 mg/dL [facility] Creatinine, Serum 0.89 0.5 - 1.4 mg/dL [facility] Estimated Glomerular Filt Rate >60 [facility] Comment:NOTE: For -Am erican individuals, multiply the result by 1.210.Chronic Kidney Disease: Estimated GFR < 60 mL/min/1.86v6Sgyceq Kidney Disease: Estimated GFR < 15 mL/min/1.73m2 Glucose 102 60 - 115 mg/dL [facility] Calcium 10.5(H) 8.4 - 10.2 mg/dL [facility] Bilirubin, Total 0.4 0.0 - 1.0 mg/dL [facility] Aspartate Amino Transferase 22 5 - 31 U/L [facility] Alanine Aminotransferase 13 0 - 31 U/L [facility] Total Protein 7.9 6.5 - 8.0 g/dL [facility] Albumin Level 4.4 3.5 - 5.0 g/dL [facility] Alkaline Phosphatase 47 39 - 117 U/L [facility] 08/10/2023 12:1 3 PM EDT 08/10/2023 12:13 PM EDT [facility] External Provider LAB BLO OD ORDERABLES Final Result [facility] [address] [place], [place] [phone] * (ABNORMAL) CBC auto differential (08/10/2023 12:13 PM EDT) White Blood Count 7.3 4.8 - 10.8 X10*3/uL [facility] Red Blood Count 4.62 4.20 - 5.50 X10*6/uL [facility] Hemoglobin 12.5 12.0 - 16.0 g/dl [facility] Hematocrit 40.9 37.0 - 47.0 % [facility] Mean Corpuscular Volume 88.5 80.0 - 98.0 fL [facility] Mean Corpuscular Hemoglobin 27.1 27.0 - 33.0 pg [facility] Mean Corpuscular HGB Conc 30.6(L) 31.0 - 35.0 g/dl [facility] Red Cell Distribution Width 14.5 11.0 - 16.0 % [facility] Platelet Count 257 160 - 400 X10*3/uL [facility] Mean Platelet Volume 12.3 9.4 - 12.3 fL [facility] Neutrophils Percent Auto 69.3 45 - 73 % [facility] Imm Gran Pct Auto 0.4 0.0 - 0.4 % [facility] Lymphocytes Percent Auto 18.4(L) 20 - 40 % [facility] Monocytes Percent Auto 9.1 2 - 11 % [facility] Eosinophils Percent Auto 2.2 0 - 4 % [facility] Basophils Percent Auto 0.6 0 - 2 % [facility] NRBC Pct Auto 0.0 0.0 - 0.2 /100WBC [facility] Neutrophils Absolute Auto 5.0 2.0 - 8.3 x10*3/uL [facility] Imm Gran Abs Auto 0.03 0.00 - 0.03 X10*3/uL [facility] Lymphocytes Absolute Auto 1.3 1.2 - 4.9 X10*3/uL [facility] Monocytes Absolute Auto 0.7 0.1 - 1.2 X10*3/uL [facility] Eosinophils Absolute Auto 0.2 0.0 - 0.4 X10*3/uL [facility] Basophils Absolute Auto 0.0 0.0 - 0.2 X10*3/uL [facility] NRBC Abs Auto 0.000 0.0 - 0.012 X10*3/uL [facility] 08/10/2023 12:1 3 PM EDT 08/10/2023 12:13 PM EDT [facility] External Provider LAB BLO OD ORDERABLES Final Result Performing Organization Address [facility]/ZIP Co de Phone Number [facility] [address] [place] [phone] * Vitamin D, 25-Hydroxy, Total, Immunoassay (03/01/2023 2:22 PM EDT) Vitamin D 25-OH Total 69.3 >30 ng/mL [facility] Comment:Health Based Referen ce Values*< 20 ng/mL [id number] ng/mL Insufficient> 30 ng/mL Sufficient*Larisa CARMONA. N [...] 2:22 PM EDT 03/01/2023 2:22 PM EDT [facility] External Provider LAB BLO OD ORDERABLES Final Result Performing Organization Address [facility]/ZIP Co de Phone Number [facility] [address] [place] [phone] * Phosphate (As Phosphorus) (03/01/2023 2:22 PM EDT) Phosphorus 2.8 2.7 - 4.5 mg/dL [facility] 03/01/2023 2:22 PM EDT 03/01/2023 2:22 PM EDT us [facility] External Provider LAB BLO OD ORDERABLES Final Result [facility] [address] [place] [address] [phone] * (ABNORMAL) Comprehensive Metabolic Panel (03/01/2023 2:22 PM EDT) Sodium 143 135 - 145 mmol/L [facility] Potassium 4.2 3.3 - 5.1 mmol/L [facility] Chloride 96 96 - 108 mmol/L [facility] Carbon Dioxide 35(H) 22 - 29 mmol/L [facility] Anion Gap 16 12 - 20 [facility] Urea Nitrogen (BUN) 18(H) 9 - 16 mg/dL [facility] Creatinine, Serum 1.02 0.5 - 1.4 mg/dL [facility] Estimated Glomerular Filt Rate 52 [facility] Comment:NOTE: For -Am erican individuals, multiply the result by 1.210.Chronic Kidney Disease: Estimated GFR < 60 mL/min/1.62p9Vmjbpx Kidney Disease: Estimated GFR < 15 mL/min/1.73m2 Glucose 85 60 - 115 mg/dL [facility] Calcium 9.9 8.4 - 10.2 mg/dL [facility] Bilirubin, Total 0.6 0.0 - 1.0 mg/dL [facility] Aspartate Amino Transferase 17 5 - 31 U/L [facility] Alanine Aminotransferase 10 0 - 31 U/L [facility] Total Protein 7.5 6.5 - 8.0 g/dL [facility] Albumin Level 4.4 3.5 - 5.0 g/dL [facility] Alkaline Phosphatase 59 39 - 117 U/L [facility] 03/01/2023 2:22 PM EDT 03/01/2023 2:22 PM EDT us [facility] External Provider LAB BLO OD ORDERABLES Final Result Performing Organization Address City/State/[facility] Co de Phone Number [facility] [address] [place] [address] [phone] documented in this encounter Visit Diagnoses Not on filedocumented in this encounter Care Teams Remote Sensing Research Scientist Relationship Specialty Start Date End Date Jemma Louise MD [address] [place] [address] PCP - General Family Medicine 09/11/19 documented as of this encounter
--- OUTSIDE RECORDS SUMMARY | 2025-03-06 12:35 | XMS_ITS | Encounter Summary ---
Author Organization [employer] Address [address] [facility] [address] [place] [address] Care Team Providers Care Stiff Leg Derrick Operator Name Role Phone Jemma Louise MD Primary Care Provide r Encounter Details Date Type Department Care Team ([facility] st Contact Info) Description 11/19/2023 Orders Only [facility] [address] [place], [place] [phone] Jemma Louise MD [address] [place], [place] [phone] Social History Tobacco Use Types Packs/Day Years [...] documented as of this encounter Care Teams Stiff Leg Derrick Operator Relationship Specialty Start Date End Date Jemma Louise MD [address] [place] [address] PCP - General Family Medicine 09/11/19 documented as of this encounter
--- OUTSIDE RECORDS SUMMARY | 2025-03-06 12:35 | XMS_ITS | Encounter Summary ---
Author Organization [employer] Address [address] [place] [address] Care Team Providers Care Rackman Name Role Phone Jemma Louise MD Primary Care Provide r Reason for Visit * Reason Comments Med Refill Encounter Details Date Type Department Care Team (Late st Contact Info) Description 11/14/2023 Refill [facility] CH[facility] MED & PEDS [address] [place], [place] [phone] Elias Croft MD [address] [place] [address] Constipation, unspecified constipation type Social History Tobacco [...] documented as of this encounter Care Teams Rackman Relationship Specialty Start Date End Date Jemma Louise MD [address] [place] [address] PCP - General Family Medicine 09/11/19 documented as of this encounter
== END 2025-03-06 11:32 | disposition home or self-care (01) ==
LOC: HO.RHE 10:51
PROVIDERS: PCP Internal Medicine; Visit Provider Student in an Organized Health Care Education/Training Program
DX: M81.0 Age-related osteoporosis without current pathological fracture (principal); Z51.81 Encounter for therapeutic drug level monitoring; Z79.83 Long term (current) use of bisphosphonates
CPT/HCPCS: 99213; G2211

== ENCOUNTER 2025-03-06 11:36 | Outpatient (REF) | payer OTHER, SELFPAY ==
--- OUTSIDE RECORDS SUMMARY | 2025-03-06 13:43 | XMS_ITS | Encounter Summary ---
Author Organization [employer] Address [address] [place] [address] Care Team Providers Care Corn Shredder Name Role Phone Jemma Louise MD Primary Care Provide r Encounter Details Date Type Department Care Team (Late st Contact Info) Description 01/04/2023 Orders Only [facility] CH[facility] MED & PEDS [address] [place], [place] [phone] Barbara Portillo LPN Social History Tobacco Use [...] EDT) Vitamin D, 25-OH, D2 <4 ng/mL [facility] Comment:This test was develo ped and its analytical performancecharacteristics have been determined by [employer] [place], [place]. It hasnot been cleared or approved by the .[place]. Food and DrugAdministration. This assay has been validated pursuantto the CLIA regulations and is used for clinicalpurposes.THIS TEST WAS PERFORMED AT:[id number] [place] [address]AUPBABUOTILIA CASTAÑEDA MD,PHD Vitamin D, 25-OH, D3 37 ng/mL [facility] Comment:This test was develo ped and its analytical performancecharacteristics have been determined by [employer] [facility] [place], [place]. It hasnot been cleared or approved by the U.S. Food and DrugAdministration. This assay has been validated pursuantto the CLIA regulations and is used for clinicalpurposes. Vitamin D, 25-OH, Total 37 30 - 100 ng/mL [facility] Comment:Vitamin D, 25-Hydrox y reports [...] = 30 ng/mL.For additional information, please refer tohttp://education.[employer]/faq/MQG504(This link is being provided for informational/educational purposes only.) 08/10/2023 12:1 3 PM EDT 08/10/2023 12:13 PM EDT [facility] External Provider LAB BLO OD ORDERABLES Final Result [facility] [address] [place] [phone] [phone] * (ABNORMAL) Comprehensive Metabolic Panel (08/10/2023 12:13 PM EDT) Sodium 141 135 - 145 mmol/L [facility] Potassium 4.0 3.3 - 5.1 mmol/L [facility] Chloride 97 96 - 108 mmol/L [facility] Carbon Dioxide 33(H) 22 - 29 mmol/L [facility] Anion Gap 15 12 - 20 [facility] Urea Nitrogen (BUN) 15 9 - 16 mg/dL [facility] Creatinine, Serum 0.89 0.5 - 1.4 mg/dL [facility] Estimated Glomerular Filt Rate >60 [facility] Comment:NOTE: For -Am erican individuals, multiply the result by 1.210.Chronic Kidney Disease: Estimated GFR < 60 mL/min/1.29y2Pabicq Kidney Disease: Estimated GFR < 15 mL/min/1.73m2 Glucose 102 60 - 115 mg/dL [facility] Calcium 10.5(H) 8.4 - 10.2 mg/dL [facility] Bilirubin, Total 0.4 0.0 - 1.0 mg/dL [facility] Aspartate Amino Transferase 22 5 - 31 U/L [facility] Alanine Aminotransferase 13 0 - 31 U/L [facility] Total Protein 7.9 6.5 - 8.0 g/dL [facility] Albumin Level 4.4 3.5 - 5.0 g/dL [facility] Alkaline Phosphatase 47 39 - 117 U/L [facility] 08/10/2023 12:1 3 PM EDT 08/10/2023 12:13 PM EDT [facility] External Provider LAB BLO OD ORDERABLES Final Result [facility] [address] [place], [place] [phone] * (ABNORMAL) CBC auto differential (08/10/2023 12:13 PM EDT) White Blood Count 7.3 4.8 - 10.8 X10*3/uL [facility] Red Blood Count 4.62 4.20 - 5.50 X10*6/uL [facility] Hemoglobin 12.5 12.0 - 16.0 g/dl [facility] Hematocrit 40.9 37.0 - 47.0 % [facility] Mean Corpuscular Volume 88.5 80.0 - 98.0 fL [facility] Mean Corpuscular Hemoglobin 27.1 27.0 - 33.0 pg [facility] Mean Corpuscular HGB Conc 30.6(L) 31.0 - 35.0 g/dl [facility] Red Cell Distribution Width 14.5 11.0 - 16.0 % [facility] Platelet Count 257 160 - 400 X10*3/uL [facility] Mean Platelet Volume 12.3 9.4 - 12.3 fL [facility] Neutrophils Percent Auto 69.3 45 - 73 % [facility] Imm Gran Pct Auto 0.4 0.0 - 0.4 % [facility] Lymphocytes Percent Auto 18.4(L) 20 - 40 % [facility] Monocytes Percent Auto 9.1 2 - 11 % [facility] Eosinophils Percent Auto 2.2 0 - 4 % [facility] Basophils Percent Auto 0.6 0 - 2 % [facility] NRBC Pct Auto 0.0 0.0 - 0.2 /100WBC [facility] Neutrophils Absolute Auto 5.0 2.0 - 8.3 x10*3/uL [facility] Imm Gran Abs Auto 0.03 0.00 - 0.03 X10*3/uL [facility] Lymphocytes Absolute Auto 1.3 1.2 - 4.9 X10*3/uL [facility] Monocytes Absolute Auto 0.7 0.1 - 1.2 X10*3/uL [facility] Eosinophils Absolute Auto 0.2 0.0 - 0.4 X10*3/uL [facility] Basophils Absolute Auto 0.0 0.0 - 0.2 X10*3/uL [facility] NRBC Abs Auto 0.000 0.0 - 0.012 X10*3/uL [facility] 08/10/2023 12:1 3 PM EDT 08/10/2023 12:13 PM EDT [facility] External Provider LAB BLO OD ORDERABLES Final Result Performing Organization Address [facility]/ZIP Co de Phone Number [facility] [address] [place] [phone] * Vitamin D, 25-Hydroxy, Total, Immunoassay (03/01/2023 2:22 PM EDT) Vitamin D 25-OH Total 69.3 >30 ng/mL [facility] Comment:Health Based Referen ce Values*< 20 ng/mL [id number] ng/mL Insufficient> 30 ng/mL Sufficient*Larisa CARMONA. N [...] 2:22 PM EDT 03/01/2023 2:22 PM EDT [facility] External Provider LAB BLO OD ORDERABLES Final Result Performing Organization Address [facility]/ZIP Co de Phone Number [facility] [address] [place] [phone] * Phosphate (As Phosphorus) (03/01/2023 2:22 PM EDT) Phosphorus 2.8 2.7 - 4.5 mg/dL [facility] 03/01/2023 2:22 PM EDT 03/01/2023 2:22 PM EDT us [facility] External Provider LAB BLO OD ORDERABLES Final Result [facility] [address] [place] [phone] [phone] * (ABNORMAL) Comprehensive Metabolic Panel (03/01/2023 2:22 PM EDT) Sodium 143 135 - 145 mmol/L [facility] Potassium 4.2 3.3 - 5.1 mmol/L [facility] Chloride 96 96 - 108 mmol/L [facility] Carbon Dioxide 35(H) 22 - 29 mmol/L [facility] Anion Gap 16 12 - 20 [facility] Urea Nitrogen (BUN) 18(H) 9 - 16 mg/dL [facility] Creatinine, Serum 1.02 0.5 - 1.4 mg/dL [facility] Estimated Glomerular Filt Rate 52 [facility] Comment:NOTE: For -Am erican individuals, multiply the result by 1.210.Chronic Kidney Disease: Estimated GFR < 60 mL/min/1.55a2Efqjqf Kidney Disease: Estimated GFR < 15 mL/min/1.73m2 Glucose 85 60 - 115 mg/dL [facility] Calcium 9.9 8.4 - 10.2 mg/dL [facility] Bilirubin, Total 0.6 0.0 - 1.0 mg/dL [facility] Aspartate Amino Transferase 17 5 - 31 U/L [facility] Alanine Aminotransferase 10 0 - 31 U/L [facility] Total Protein 7.5 6.5 - 8.0 g/dL [facility] Albumin Level 4.4 3.5 - 5.0 g/dL [facility] Alkaline Phosphatase 59 39 - 117 U/L [facility] 03/01/2023 2:22 PM EDT 03/01/2023 2:22 PM EDT us [facility] External Provider LAB BLO OD ORDERABLES Final Result Performing Organization Address City/State/[facility] [[email or web address] Co de Phone Number [facility] [address] [place] [address] [phone] documented in this encounter Visit Diagnoses Not on filedocumented in this encounter Care Teams Corn Shredder Relationship Specialty Start Date End Date Jemma Louise MD [address] [place] [address] PCP - General Family Medicine 09/11/19 documented as of this encounter
--- OUTSIDE RECORDS SUMMARY | 2025-03-06 13:43 | XMS_ITS | Encounter Summary ---
Author Organization [employer] Address [address] [facility] [address]t [place] [address] Care Team Providers Care Program Analyst Name Role Phone Jemma Louise MD Primary Care Provide r Encounter Details Date Type Department Care Team ([facility] st Contact Info) Description 11/19/2023 Orders Only [facility] [address] [place], [place] [phone] Jemma Louise MD [address] [place], [place] [phone] Social History Tobacco Use Types Packs/Day Years [...] as of this encounter Care Teams Program Analyst Relationship Specialty Start Date End Date Jemma Louise MD [address] [place] [address] PCP - General Family Medicine 09/11/19 documented as of this encounter
--- OUTSIDE RECORDS SUMMARY | 2025-03-06 13:43 | XMS_ITS | Encounter Summary ---
Author Organization [employer] Address [address] [place] [address] Care Team Providers Care Field Radio Technician Name Role Phone Jemma Louise MD Primary Care Provide r Reason for Visit * Reason Comments Med Refill Encounter Details Date Type Department Care Team (Late st Contact Info) Description 11/14/2023 Refill [facility] CH[facility] MED & PEDS [address] [place], [place] [phone] Elias Croft MD [address] [place] [phone] Constipation, unspecified constipation type Social History Tobacco [...] documented as of this encounter Care Teams Field Radio Technician Relationship Specialty Start Date End Date Jemma Louise MD [address] [place] [address] PCP - General Family Medicine 09/11/19 documented as of this encounter
--- OUTSIDE RECORDS SUMMARY | 2025-03-06 13:43 | XMS_ITS | Encounter Summary ---
Author Organization [employer] Address [address] [place] [address] Care Team Providers Care Child Day Care Provider Name Role Phone Jemma Louise MD Primary Care Provide r Reason for Visit * Reason Comments Med Refill Encounter Details Date Type Department Care Team (Late st Contact Info) Description 11/15/2023 Refill [facility] [address] [place], [place] [phone] Juana Vanegsa, ANP [address] [place], [place] [phone] Iron deficiency Social History Tobacco Use Types [...] documented as of this encounter Care Teams Child Day Care Provider Relationship Specialty Start Date End Date Jemma Louise MD [address] [place] [phone] PCP - General Family Medicine 09/11/19 documented as of this encounter
--- OUTSIDE RECORDS SUMMARY | 2025-03-06 13:43 | XMS_ITS | Encounter Summary ---
Author Organization [employer] Address [address] [facility] 7t [place] [address] Care Team Providers Care Supervisor Meter Shop Name Role Phone Jemma Louise MD Primary Care Provide r Reason for Visit * Reason Onset Date Comments Nurse Triage 09/28/2023 Encounter Details Date Type Department Care Team ([facility] st Contact Info) Description 09/28/2023 Telephone [facility] [address] [place], [place] [phone] Jemma Louise MD [address] [place], [place] [phone] Nurse Triage Social History Tobacco Use Types [...] 09/28/2023 3:23 PM EST Triage call with [employer] [place] [id number] Pt son, THIAGO Fuller, reports Pt has [...] The caller accepted this outcome Patient speaks burkinan documented in this encounter Plan of Treatment Not on file documented as of this encounter Visit Diagnoses Not on filedocumented in this encounter Additional Health Concerns Assessment Noted Time PHQ-9 Depression Total Score: 0 03/01/20 1:02 PM EDT documented as of this encounter Care Teams Supervisor Meter Shop Relationship Specialty Start Date End Date Jemma Louise MD [address] [place] [address] PCP - General Family Medicine 09/11/19 documented as of this encounter
--- OUTSIDE RECORDS SUMMARY | 2025-03-06 13:43 | XMS_ITS | Clinical Summary ---
Author Organization [facility] Address [address] [place] [address] Care Team Providers Care Asphalt Worker Name Role Phone Unavailable Primary Care Provider [...]
--- OUTSIDE RECORDS SUMMARY | 2025-03-06 13:44 | XMS_ITS | Encounter Summary ---
Author Organization [employer] Address [address] [facility] 7t [place] [address] Care Team Providers Care Loom Fixer Supervisor Name Role Phone Jemma Louise MD Primary Care Provide r Reason for Visit * Reason Comments Med Refill Encounter Details Date Type Department Care Team ([facility] st Contact Info) Description 06/25/2023 Refill [facility] & PEDS [address] [place] [address] Juana Vanegas ANP [address] [place] [address] Vitamin D deficiency Social History Tobacco Use [...] documented as of this encounter Care Teams Loom Fixer Supervisor Relationship Specialty Start Date End Date Jemma Louise MD [address] [place] [address] PCP - General Family Medicine 09/11/19 documented as of this encounter
--- OUTSIDE RECORDS SUMMARY | 2025-03-06 13:44 | XMS_ITS | Clinical Summary ---
Author Organization [employer] Address [address] [facility] 7t [place] [address] Care Team Providers Care Prick Stitcher Name Role Phone Jemma Louise MD Primary [...] behavioral, psychotic, or mood disturbance or anxiety ([facility]) TAKE 1 TABLET BY MOUTH TWICE DAILY [...] day PRN C/w same treatment referral to template inspector will be done today Constipation 11/04/2015 Essential [...] Type Department Care Team Description 02/25/2025 Refill [facility] & PEDS [address] [place], [place] [phone] Jemma Louise MD 02/21/2025 3:30 PM EDT Office Visit [facility] [address] [place] [phone] Jemma Louise MD Rash (Primary Dx); Essential hypertension 02/21/2025 Travel 02/16/2025 Telephone [facility] [address] [place] [phone] Jemma Louise MD telephone call 01/24/2025 Refill [facility] [address] [place] [phone] Jemma Louise MD Vitamin D deficiency; Chronic systolic congestive heart failure ([facility]); Essential hypertension 01/21/2025 Refill [facility] [address] [place] [phone] Jemma Louise MD Seasonal allergies 12/28/2024 Telephone [facility] [address] [place] [address] [phone] Jemma Louise MD Chart Prep 12/13/2024 Telephone [facility] [address] [place] [phone] Jemma Louise MD Results 12/07/2024 Telephone [facility] [address] [place] [phone] Jemma Louise MD Call Back Request from [...] Laterality Modality Lower Extremities, Foot Left [facility] 12/12/2024 6:14 AM EST Narrative 12/12/2024 6:15 AM EST ? [facility] ?[address] ?[place] [address] ?XRay Report ? Signed ? Patient: Esquivel,Marjorie ?MR#: [id number] ? : 1940 ?Acct:[id number] ? Age/Sex: 84 / F ?ADM Date: 12/09/24 ? Loc: HO.XRAY ? Attending Dr: Radha Yanez MD ? Ordering Physician: Radha Yanez MD ?? Date of Service: 12/09/24 ?? Procedure(s): XR foot LT min 3V ?? Accession Number(s): [id number] ? cc: Radha Yanez MD ? CLINICAL HISTORY: left ankle foot pain ? 3 view left foot ? Comparison: CR - FOOT LEFT COMPLETE [id number] - 03/06/16 13:33 EDT ? Findings: ?? [...] ? DD/ 3 ? TD/TT: 12/12/24613 ? Cold Working Supervisor: ? Procedure Note Leonel Ibarra - 12/12/2024 [place] [address] XRay Report Signed Patient: Jemma Esquivel [facility]#: [id number] : 1940cct:[id number] Age/Sex: 84 / FADM Date: 12/09/24 Loc: REY Attending Dr: Radha Yanez MD Ordering Physician: Radha Yanez MD Date of Service: 12/09/24 Procedure(s): XR foot LT min 3V Accession Number(s): [id number] cc: Radha Yanez MD CLINICAL HISTORY: left ankle foot pain 3 view left foot Comparison: CR - FOOT LEFT COMPLETE [id number] - 03/06/16 13:33 EDT Findings: No fractures [...] in OV> 12/12/24614 DD/ 3 TD/TT: 12/12/24613 Cold Working Supervisor: us Radha Yanez MD IMG XR PROCEDURES Final Result * XR Ankle 3+ Views Left (12/12/2024 6:14 AM EST) Anatomical Region Laterality Modality Lower Extremities, Ankle Left Radiogr aphic Imaging 12/12/2024 6:14 AM EST Narrative 12/12/2024 6:15 AM EST ? [facility] ?[address] ?[place] [address] ?XRay Report ? Signed ? Patient: Jemma Esquivel ?MR#: [id number] ? : 1940 ?Acct:[id number] ? Age/Sex: 84 / F ?ADM Date: 12/09/24 ? Loc: HO.XRAY ? Attending Dr: Radha Yanez MD ? Ordering Physician: Radha Yanez MD ?? Date of Service: 12/09/24 ?? Procedure(s): XR ankle LT min 3V ?? Accession Number(s): [id number] ? cc: Radha Yanez MD ? CLINICAL HISTORY: left ankle foot pain ? 3 view left ankle ? Comparison: CR - ANKLE LEFT COMPLETE [id number] - 08/05/15 11:09 EDT ? Findings: ?? [...] DD/ 3 ? TD/TT: 12/12/24 0614 ? Cold Working Supervisor: ? Procedure Note Donotuseinterpreter, Image - 12/12/[address] [address] XRay Report Signed Patient: Jemma Esquivel [facility]#: [id number] : 1Acct:[id number] Age/Sex: 84 / FADM Date: 12/09/24 Loc: REY Attending Dr: Radha Yanez MD Ordering Physician: Radha Yanez MD Date of Service: 12/09/24 Procedure(s): XR ankle LT min 3V Accession Number(s): [id number] cc: Radha Yanez MD CLINICAL HISTORY: left ankle foot pain 3 view left ankle Comparison: CR - ANKLE LEFT COMPLETE [id number] - 08/05/15 11:09 EDT Findings: No acute [...] in OV> 12/12/24614 DD/ 3 TD/TT: 12/12/24613 Cold Working Supervisor: Radha Yanez MD IMG XR PROCEDURES Final [...] ?? En OBRIEN et al. EVAN. 2013;310(19): 3057-0256 ?? ([email or web address]) Non-HDL Cholesterol 71 <130 mg/dL (calc) [facility] [...] Final Result [facility] [address] from Last 3 Months or Most Recently Relevant to Health Maintenance Insurance [facility] OPTIONS (HMO D-SNP) JOY SOLIS [id number] [facility] [employer] [facility] OPTIONS (HMO D-SNP) JOY SOLIS [id number] Care Teams Prick Stitcher Relationship Specialty Start Date End Date Jemma Louise MD [address] [place] [phone] PCP - General Family Medicine 09/11/19
[2025-03-06 15:02] LABS: Alanine Aminotransferase < 6 U/L (0-31); Albumin Level 3.8 g/dL (3.5-5.0); Alkaline Phosphatase 59 U/L (39-117); Anion Gap 12 (12-20); Aspartate Amino Transferase 19 U/L (5-31); Bilirubin Total 0.5 mg/dL (0.0-1.0); Blood Urea Nitrogen 16 mg/dL (9-16); Calcium 9.1 mg/dL (8.4-10.2); Carbon Dioxide 33 mmol/L (22-29); Chloride 102 mmol/L (96-108); Estimated Glomerular Filt Rate > 60; Glucose Random 121 mg/dL (60-115); Potassium 3.5 mmol/L (3.3-5.1); Sodium 143 mmol/L (135-145); Total Protein 7.4 g/dL (6.5-8.0)
[2025-03-10 15:48] LABS: Vitamin D 25-OH, D2 <4 ng/mL; Vitamin D 25-OH, D3 33 ng/mL; Vitamin D 25-OH, Total 33 ng/mL (30-100)
== END 2025-03-06 11:37 | disposition home or self-care (01) ==
LOC: HO.10HDL 11:36
PROVIDERS: Visit Provider Student in an Organized Health Care Education/Training Program
DX: M81.0 Age-related osteoporosis without current pathological fracture (principal); E55.9 Vitamin D deficiency, unspecified; Z51.81 Encounter for therapeutic drug level monitoring; Z79.83 Long term (current) use of bisphosphonates
CPT/HCPCS: 36415; 80053; 82306; 99212

== ENCOUNTER 2025-04-05 13:04 | Outpatient (REF) | payer OTHER, SELFPAY ==
--- NOTE | ~2025-04-05 | MM_ITS ---
EXAMINATION: DXA BONE DENSITY AXIAL HISTORY: M81.0 - Age-related osteoporosis without current pathological fracture TECHNIQUE: M86 [employer] Dual energy absorptiometry (DEXA) of the lumbar spine, total left hip, and femoral neck was performed. COMPARISON: Comparison is made with the prior examination dated 11/13/2022. FINDINGS: The bone mineral density of the lumbar spine is 0.926, corresponding to a T-score of -2.0, and a Z-score of 0.0. This is indicative of osteopenia. This represents a BMD change of -9.2% compared to the prior exam. This is statistically significant. The bone mineral density of the left total hip is 0.800, corresponding to a T-score of -1.6, and a Z-score of 0.7. This is indicative of osteopenia. This represents a BMD change of 13.5% compared to the prior exam. This is statistically significant. The bone mineral density of the left femoral neck is 0.729, corresponding to a T-score of -2.2, and a Z-score of 0.2. This is indicative of osteopenia. This represents a BMD change of 18.5% compared to the prior exam. MM/XR DEXA axial skeleton IMPRESSION: Based on bone mineral density, and according to World Health Organization (WHO) criteria, the diagnosis is consistent with osteopenia. All bone density values are in grams per centimeter squared (g/cm2). Statistically, 68% of repeat scans fall within 1 SD (+/- 0.010 g/cm2 for AP spine L1-L4) and 1 SD (+/- 0.012 g/cm2 for femur total) FRAX is a trademark of the [employer]'s [place] [employer] Metabolic Bone Disease, a World Health Organization (WHO) Collaborating Center. Electronically signed by: West Mathew MD 04/05/2025 02:10 PM EDT
--- OUTSIDE RECORDS SUMMARY | 2025-04-05 13:06 | XMS_ITS | Encounter Summary ---
Author Organization [employer] Address [address] [facility] [address] 7t [place] [address] Care Team Providers Care Computer Support Technician Name Role Phone Jemma Louise MD Primary Care Provide r Reason for Visit * Reason Comments Med Refill Encounter Details Date Type Department Care Team ([facility] st Contact Info) Description 11/15/2023 Refill [facility] MED[facility]INE [address] [place], [place] [phone] Juana Vanegas, ANP [address] [place], [place] [phone] Iron deficiency Social History Tobacco Use Types [...] documented as of this encounter Care Teams Computer Support Technician Relationship Specialty Start Date End Date Jemma Louise MD [address] [place] [phone] PCP - General Family Medicine 09/11/19 documented as of this encounter
== END 2025-04-05 13:05 | disposition home or self-care (01) ==
LOC: HO.MAMMO 13:04
PROVIDERS: PCP Internal Medicine; Visit Provider Student in an Organized Health Care Education/Training Program
DX: M81.0 Age-related osteoporosis without current pathological fracture (principal)
CPT/HCPCS: 77080

== ENCOUNTER → 2025-04-05 13:30 | Outpatient (BNV) | payer OTHER, SELFPAY | PROVIDERS: PCP Internal Medicine; Visit Provider Radiology Diagnostic Radiology | DX: E28.39 Other primary ovarian failure (principal) | CPT/HCPCS: 77080 ==

== ENCOUNTER 2025-04-13 13:00 | Outpatient (AMB) | payer OTHER, SELFPAY ==
--- OUTSIDE RECORDS SUMMARY | 2025-04-13 13:02 | XMS_ITS | Encounter Summary ---
Author Organization [employer] Address [address] [facility] [address] 7[address] [place] [address] Care Team Providers Care Director Of Exhibits Name Role Phone Jemma Louise MD Primary Care Provide r Reason for Visit * Reason Comments Med Refill Encounter Details Date Type Department Care Team ([facility] st Contact Info) Description 11/15/2023 Refill [facility] [address] [place], [place] [phone] Juana Vanegas, ANP [address] [place], [place] [phone] Iron deficiency Social History Tobacco Use Types [...] documented as of this encounter Care Teams Director Of Exhibits Relationship Specialty Start Date End Date Jemma Louise MD [address] [place] [phone] PCP - General Family Medicine 09/11/19 documented as of this encounter
--- NOTE | 2025-04-13 13:11 | HO.NEPHOV_ITS ---
Vital Signs 04/13/25 13:12 Height 4 ft 11 in Weight 128 lb 4 oz BMI 25.9 BP 110/60 Blood Pressure Location Rt brachial Position Sitting Pulse 75 Pulse Source Pulse Oximeter Pulse Oximetry (%) 96 Oxygen Delivery Method Room Air Intake Visit Reasons: R/S 12/28/24 Conf Health Care Consultant Required: Yes Health Care Consultant Language: Chucking Machine Operator Services: Health Care Consultant Offered & Declined ([facility] mergers and acquisitions banker services refused) Accompanied by: Son Allergies Penicillins Allergy (Intermediate, Verified 04/13/25 13:11) ITCHING Medication List - Last Reconciled 04/13/25 by Shree Briseno MD acetaminophen ER (Tylenol 8 Hour) 650 mg PO Q12H PRN albuterol sulfate 90 mcg/actuation 2 puffs inhalation Q6H PRN apixaban (Eliquis) 2.5 mg PO BID atorvastatin 40 mg PO DAILY calcium carbonate 600 mg PO ONCE cetirizine (All Day Allergy (cetirizine)) 10 mg PO DAILY PRN cholecalciferol (vitamin D3) 3,000 units PO DAILY 90 days docusate sodium (Colace) 100 mg PO BID ferrous sulfate (FeroSul) 325 mg PO DAILY fluticasone propionate 50 mcg/actuation sprays intranasal imlyohxxcjl-grartdtdj-wkxhxjec 100-62.5-25 mcg (Trelegy Ellipta) 1 ea PO DAILY furosemide 20 mg PO DAILY lansoprazole 30 mg PO DAILY lisinopril 10 mg PO DAILY melatonin 3 mg PO BEDTIME memantine 10 mg PO BID metoprolol tartrate 25 mg PO BID multivitamin 1 tab PO DAILY venlafaxine ER (Effexor XR) 37.5 mg PO DAILY HPI Comments Details: . Jemma is a pleasant 84-year-old woman referred for chronic kidney disease. In 12/28/2023 serum creatinine was 1.22 with a EGFR of 42 mL/minute. She was accompanied by her son. Jemma has history of congestive heart failure. She is on low-dose of Lasix. Her son monitors her weight daily and she has on a low-sodium diet. History of COPD. Has a history of hypertension. Blood pressure has been well controlled. Today she has no specific complaints. No headache nausea vomiting. No shortness of breath no cough. No edema no urinary symptoms no polyuria polydipsia. No hematuria. No rash no joint pains. 04/27/2024. Overall doing well. No new issues.Health Care Consultant service was used. 04/13/25 85-year-old female presenting for a routine nephrology follow-up with a history of essential hypertension, presumed chronic kidney disease, and hyperlipidemia. She has been maintaining good control over her blood pressure, consistently around 110/60 mm Hg. Her kidney function tests noted on April 07 show stable results, and she denies any leg swelling. The patient is also managing rheumatoid arthritis, with recent labs sent by her hockey scout. She adheres to her medication plan including Eliquis and lisinopril and is cautious with her diet, controlling her sodium and sugar intake. USG showed renal cyst. CT scan ordered twice but she never underwent the test [facility] Medical History Hypercalcemia Hyperparathyroidism Chronic kidney disease Hypovitaminosis D Chronic heart failure with preserved ejection fraction (HFpEF) HTN (hypertension) Left bundle branch block Persistent atrial fibrillation Osteoporosis Surgical History Hx of endoscopy Hx of colonoscopy (03/05/15) Hx of tubal ligation History of nasal surgery Family History Father No problems noted. Mother Alzheimer disease Brother Heart disease CVD (cardiovascular disease) Son Diabetes Daughter Diabetes Paternal Aunt CVD (cardiovascular disease) Other Osteoarthritis Social History Household Members: None Housing: Apartment Alcohol intake: never Patient Tobacco Use Status: Former Tobacco user Second Hand Smoke Exposure: No Physical Exam Vital Signs: Last Vital Signs Pulse 75 04/13/25 13:12 BP 110/60 04/13/25 13:12 Pulse Ox 96 04/13/25 13:12 Oxygen Delivery Method Room Air 04/13/25 13:12 BMI result Body Mass Index 25.9 Const General: comfortable; No acute distress Orientation/consciousness: patient oriented x3 Eyes General: appearance normal, both eyes and all related structures Visual Martinez: normal visual martinez by confrontation Neck Neck: Yes supple and Yes no JVD Resp Effort & Inspection: normal respiratory effort and respiratory effort not decreased Auscultation: rhonchi Cardio Palpation: no palpable S3 and no palpable S4 Heart sounds: no rubs GI Inspection: Yes normal to inspection Palpation (GI): Soft to palpation Percussion: Yes normal to percussion Auscultation: normal bowel sounds General: Yes no CVA tenderness Back/Spine/Pelvis Back: no CVA tenderness Skin General skin exam: no petechiae and no purpura Neuro General: patient oriented x3 and no focal motor deficits Extrem General: No clubbing and No edema Results Reviewed Nephrology Results: Sodium 143 mmol/L (135-145) 03/06/25 Potassium 3.5 mmol/L (3.3-5.1) 03/06/25 Chloride 102 mmol/L (96-108) 03/06/25 Carbon Dioxide 33 mmol/L (22-29) H 03/06/25 BUN 16 mg/dL (9-16) 03/06/25 Creatinine 0.82 mg/dL (0.5-1.4) 03/06/25 Calcium 9.1 mg/dL (8.4-10.2) 03/06/25 Assessment & Plan Assessment & Plan (1) Chronic heart failure with preserved ejection fraction (HFpEF): Code(s): I50.32 - Chronic diastolic (congestive) heart failure Category: Medical (2) Asthma-COPD overlap syndrome: Code(s): J44.9 - Chronic obstructive pulmonary disease, unspecified Category: Medical (3) CKD (chronic kidney disease) stage 3, GFR 30-59 ml/min: Code(s): N18.30 - Chronic kidney disease, stage 3 unspecified Category: Medical (4) Renal cyst: Code(s): N28.1 - Cyst of kidney, acquired Category: Medical (5) Hyperparathyroidism: Code(s): E21.3 - Hyperparathyroidism, unspecified Category: Medical Plan . Jemma is a elderly woman with a history of longstanding hypertension and congestive heart failure with stage 3 chronic kidney disease. Repeat creatinine was 0.92. 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 No Obstructive uropathy based on ultrasonogram There is no reason to believe she is any active glomerulonephritis or interstitial disease. Urine sediments or bland Blood pressure is well controlled. As for the congestive heart failure she appears well compensated. Renal cyst. CT scan has been recommended. Reordered!! Mild hypercalcemia. Most likely due to increase calcium supplementation and high dose of vitamin-D. Recommendations Continue to keep on low-sodium diet. Continue to avoid nephrotoxic agents including NSAIDs. I have not made any changes to her antihypertensive regimen. Orders: Orders Basic Metabolic Panel 10 Months E21.3 - Hyperparathyroidism, unspecified, N18.30 - Chronic kidney disease, stage 3 unspecified Complete Blood Count Auto Diff 10 Months E21.3 - Hyperparathyroidism, unspecified, N18.30 - Chronic kidney disease, stage [address] abdomen w IV con Today N28.1 - Cyst of kidney, acquired Coding Level of Care Code Est Pt Level 4 (90981) Diagnoses Chronic heart failure with preserved ejection fraction (HFpEF) I50.32 Asthma-COPD overlap syndrome J44.9 CKD (chronic kidney disease) stage 3, GFR 30-59 ml/min N18.30 Renal cyst N28.1 Hyperparathyroidism E21.3
[2025-04-13 13:12] VITALS: BP 110/60; PULSE 75; O2SAT 96; BMI 25.9
== END 2025-04-13 13:23 | disposition home or self-care (01) ==
LOC: HO.HKA 13:01
PROVIDERS: PCP Internal Medicine; Visit Provider Internal Medicine Hypertension Specialist
DX: I50.32 Chronic diastolic (congestive) heart failure (principal); J44.9 Chronic obstructive pulmonary disease, unspecified; N18.30 Chronic kidney disease, stage 3 unspecified; N28.1 Cyst of kidney, acquired; E21.3 Hyperparathyroidism, unspecified
CPT/HCPCS: 99214

== ENCOUNTER → 2025-04-13 13:00 | Outpatient (BNVA) | payer OTHER, SELFPAY | PROVIDERS: PCP Internal Medicine; Visit Provider Internal Medicine Hypertension Specialist | DX: I50.32 Chronic diastolic (congestive) heart failure (principal); J44.9 Chronic obstructive pulmonary disease, unspecified; N28.1 Cyst of kidney, acquired; E21.3 Hyperparathyroidism, unspecified; N18.30 Chronic kidney disease, stage 3 unspecified | CPT/HCPCS: 99212 ==

== ENCOUNTER 2025-04-18 08:57 | Outpatient (REF) | payer OTHER, SELFPAY ==
--- NOTE | ~2025-04-18 | XR_ITS ---
EXAMINATION: XR WRIST 3 OR MORE VIEWS LEFT HISTORY: acute swelling left wrist COMPARISON: There are no prior studies available for comparison. FINDINGS: Four views of the left wrist including a scaphoid view are submitted. Osseous mineralization is normal. There is no fracture or dislocation. There is mild degenerative change of the 1st carpometacarpal joint. There is chondrocalcinosis. There are vascular calcifications. XR/XR wrist LT min 3V IMPRESSION: Chondrocalcinosis. Mild degenerative change of the 1st carpometacarpal joint. Electronically signed by: West Mathew MD 04/18/2025 09:22 AM EDT
--- OUTSIDE RECORDS SUMMARY | 2025-04-18 09:23 | XMS_ITS | Encounter Summary ---
Author Organization [employer] Address [address] 7[address] [place] [address] Care Team Providers Care Vp Scientific Affairs Name Role Phone Jemma Louise MD Primary Care Provide r Reason for Visit * Reason Comments Med Refill Encounter Details Date Type Department Care Team ([facility] st Contact Info) Description 11/15/2023 Refill [facility] [address] [place], [place] [phone] Juana Vanegas, ANP [address] [place], [place] [phone] Iron deficiency Social History Tobacco Use Types [...] Care Team (Late st Contact Info) Description 04/20/2025 9:40 AM EDT Office Visit [facility] [address] [place] [phone] 07/13/2025 10:00 AM EDT Office Visit [facility] [address] [place] [phone] Jemma Louise MD [address] [place] [phone] documented as of this encounter Visit Diagnoses Diagnosis Iron deficiency Disorders of iron metabolism documented in this encounter Additional Health Concerns Assessment Noted Time PHQ-9 Depression Total Score: 0 03/01/20 23 1:02 PM EDT documented as of this encounter Care Teams Vp Scientific Affairs Relationship Specialty Start Date End Date Jemma Louise MD [address] [place] [phone] PCP - General Family Medicine 09/11/19 documented as of this encounter
== END 2025-04-18 08:58 | disposition home or self-care (01) ==
LOC: HO.HHCX 08:57
PROVIDERS: Visit Provider Family Medicine
DX: M25.432 Effusion, left wrist (principal)
CPT/HCPCS: 36415; 73110; 82310; 84550; 85027; 86140

== ENCOUNTER → 2025-04-18 08:57 | Outpatient (BNV) | payer OTHER, SELFPAY | PROVIDERS: Visit Provider Radiology Diagnostic Radiology | DX: M11.232 Other chondrocalcinosis, left wrist (principal) | CPT/HCPCS: 73110 ==

== ENCOUNTER 2025-04-18 09:49 | Outpatient (REF) | payer OTHER, SELFPAY ==
[2025-04-18 11:30] LABS: Hematocrit 41.4 % (37.0-47.0); Hemoglobin 12.8 g/dl (12.0-16.0); Mean Corpuscular HGB Conc 30.9 g/dl (31.0-35.0); Mean Corpuscular Hemoglobin 24.9 pg (27.0-33.0); Mean Corpuscular Volume 80.5 fL (80.0-98.0); Mean Platelet Volume 12.2 fL (9.4-12.3); Platelet Count 294 X10*3/uL (160-400); Red Blood Count 5.14 X10*6/uL (4.20-5.50); White Blood Count 9.8 X10*3/uL (4.8-10.8)
[2025-04-18 11:47] LABS: C Reactive Protein 8.78 mg/dL (< or = 0.50); Calcium 9.9 mg/dL (8.4-10.2)
[2025-04-18 11:48] LABS: Uric Acid 6.9 mg/dL (2.4-5.7)
== END 2025-04-18 09:50 | disposition home or self-care (01) ==
LOC: HO.HHCL 09:49
PROVIDERS: Student in an Organized Health Care Education/Training Program; Visit Provider Family Medicine
DX: Z13.89 Encounter for screening for other disorder (principal)
CPT/HCPCS: 36415; 82310; 84550; 85027; 86140

== ENCOUNTER 2025-05-24 13:15 | Outpatient (AMB) | payer OTHER, SELFPAY ==
[2025-05-24 13:36] VITALS: BP 108/52; PULSE 56; BMI 26.9
--- NOTE | 2025-05-24 13:36 | MHC.OFFVIS ---
Vital Signs 05/24/25 13:36 Height 4 ft 11 in Weight 133 lb 2.547 oz BMI 26.9 BP 108/52 L Blood Pressure Location Lt brachial Position Sitting Pulse 56 Pulse Source Monitor Intake Visit Reasons: 6m follow up Camera Engineer Required: No Microstrategy Architect Developer: Microstrategy Architect Developer Present Allergies Penicillins Allergy (Intermediate, Verified 05/24/25 13:39) ITCHING Medication List - Last Reconciled 05/24/25 by ELLIOT Kaur acetaminophen ER (Tylenol 8 Hour) 650 mg PO Q12H PRN albuterol sulfate 90 mcg/actuation 2 puffs inhalation Q6H PRN apixaban (Eliquis) 2.5 mg PO BID atorvastatin 40 mg PO DAILY calcium carbonate 600 mg PO ONCE cetirizine (All Day Allergy (cetirizine)) 10 mg PO DAILY PRN cholecalciferol (vitamin D3) 3,000 units PO DAILY 90 days docusate sodium (Colace) 100 mg PO BID ferrous sulfate (FeroSul) 325 mg PO DAILY fluticasone propionate 50 mcg/actuation sprays intranasal eubcyltxiub-ascblbcms-kbobdydp 100-62.5-25 mcg (Trelegy Ellipta) 1 ea PO DAILY furosemide 20 mg PO DAILY lansoprazole 30 mg PO DAILY lisinopril 10 mg PO DAILY melatonin 3 mg PO BEDTIME memantine 10 mg PO BID metoprolol tartrate 25 mg PO BID multivitamin 1 tab PO DAILY venlafaxine ER (Effexor XR) 37.5 mg PO DAILY HPI HPI 6m follow up: Details: Kesha is an 84-year-old female with past medical history of hypertension, left bundle branch block, persistent AFib, heart failure with preserved EF who presents for follow-up. Today she reports that she reports he has been doing very well since her last visit 11/13/2024. She denies any concerning symptoms. She has some mild shortness of breath if she over exerts. She only light physical activity including walking and stretching exercises. No chest discomfort at rest or with activity. No PND, orthopnea or edema. No palpitations, lightheadedness, presyncope, syncope, falls. Taking meds as directed. No bleeding issues reported. Son is present and assisting with Bahamian translation at his request. He says that he and her CERTIFIED ORTHOTIC FITTER help her out. [facility] Medical History Hypercalcemia Hyperparathyroidism Chronic kidney disease Hypovitaminosis D Chronic heart failure with preserved ejection fraction (HFpEF) HTN (hypertension) Left bundle branch block Persistent atrial fibrillation Osteoporosis Surgical History Hx of endoscopy Hx of colonoscopy (03/05/15) Hx of tubal ligation History of nasal surgery Family History Father No problems noted. Mother Alzheimer disease Brother Heart disease CVD (cardiovascular disease) Son Diabetes Daughter Diabetes Paternal Aunt CVD (cardiovascular disease) Other Osteoarthritis Social History Household Members: None Housing: Apartment Alcohol intake: never Patient Tobacco Use Status: Former Tobacco user Second Hand Smoke Exposure: No Review of Systems Const All systems reviewed & are unremarkable except as noted in HPI and below ENT Denies dizziness Card Denies chest pain, Denies chest pain at rest, Denies chest pain with activity, Denies rapid heart rate, Denies pedal edema, Denies edema, Denies leg edema, Denies lightheadedness, Denies palpitations, Denies dyspnea, Denies dyspnea on exertion and Denies orthopnea Resp Denies cough, Denies dyspnea and Denies dyspnea on exertion GI Denies hematochezia and Denies change in stool character Musc Denies abnormal gait, Denies limited range of motion, Denies muscle cramps, Denies muscle weakness, Denies numbness, Denies radiating pain into limb, Denies stiffness and Denies tingling Neuro Denies abnormal gait, Denies dizziness, Denies numbness and Denies tingling Endo Denies palpitations Physical Exam Vital Signs: Last Vital Signs Pulse 56 05/24/25 13:36 BP 108/52 L 05/24/25 13:36 BMI result Body Mass Index 26.9 Const General: cooperative, healthy appearing, comfortable and no acute distress Orientation/consciousness: patient oriented x3 Neck Neck: Yes normal visual inspection Resp Effort & Inspection: normal respiratory effort Auscultation: clear to auscultation bilaterally, no crackles, no rales, no rhonchi and no wheezes Cardio Rate: regular rate Rhythm: regular rhythm Heart sounds: S1 normal heart sound present, S2 normal heart sound present, no gallops, no murmurs and no rubs Neuro General: patient oriented x3 Extrem General: Yes normal to inspection, No no pedal edema and No calf tenderness Psych Appearance: grossly normal Mental Status: mental status grossly normal Speech and movement: Normal speech and movement present Office Procedures EKG Details: Today, read by me, afib with slow ventricular response, anterior infart, rate 56. Qtc 445ms [id number], Complete Assessment & Plan Assessment & Plan (1) Persistent atrial fibrillation: Code(s): I48.19 - Other persistent atrial fibrillation Category: Medical Plan: History of persistent atrial fibrillation. EKG today shows atrial fibrillation with slow ventricular response, rate 56. Blood pressure on low side 108/52. Will reduce her metoprolol down to 12.5 mg b.i.d.. Labs done 03/06/2025 show creatinine 0.82. Continue Eliquis 2.5 mg b.i.d. for anticoagulation. This dose is appropriate for her age and weight. No bleeding issues reported. (2) Chronic heart failure with preserved ejection fraction (HFpEF): Code(s): I50.32 - Chronic diastolic (congestive) heart failure Category: Medical Plan: History of heart failure with preserved EF. Last echo at [facility] for 02/2023 showed EF 60-65%, mildly dilated left atrium, mild TR. Condition stable with no recent recurrent hospitalizations. On exam she does not appear fluid overloaded. NYHA class 1-2. She continues on low-dose Lasix. Signs and symptoms of heart failure reviewed with her. Low-salt diet discussed. Cardiology follow-up 6 months, sooner if needed. (3) Left bundle branch block: Code(s): I44.7 - Left bundle-branch block, unspecified Category: Medical Plan: Chronic left bundle branch block. EKG today has been of incomplete left bundle branch block with QRS 118 millisecond (4) HTN (hypertension): Code(s): I10 - Essential (primary) hypertension Category: Medical Qualifiers: Hypertension type: primary hypertension Qualified Code(s): I10 - Essential (primary) hypertension Plan: Blood pressure goal less than 130/80. Well controlled at this time. No med changes made. Plan Time spent on chart review, documentation, interview and assessment Medications: Changed From metoprolol tartrate 12.5 mg PO BID To metoprolol tartrate adjust pill pack ( can wait until next pack - pt reports due 06/01/25) 12.5 mg (1/2 x 25 mg) PO BID 30 tabs 5RF Coding Level of Care Code Est Pt Level 4 (49414) Complex EM visit Add On G2211 Diagnoses Persistent atrial fibrillation I48.19 Chronic heart failure with preserved ejection fraction (HFpEF) I50.32 Left bundle branch block I44.7 Primary hypertension I10 Hypertension type: primary hypertension CPT Codes EKG - CPT: 10932-[id number], Complete ([id number]) Time Spent (min) 28
--- OUTSIDE RECORDS SUMMARY | 2025-05-24 13:43 | XMS_ITS | Encounter Summary ---
Author Organization [employer] Address [address] [place] [address] Care Team Providers Care Personal Vehicle Advisor Name Role Phone Jemma Louise MD Primary Care Provide r Reason for Visit * Reason Comments Med Refill Encounter Details Date Type Department Care Team ([facility] st Contact Info) Description 11/15/2023 Refill [facility] [address] [place], [place] [phone] Juana Vanegas, ANP [address] [place], [place] [phone] Iron deficiency Social History Tobacco Use Types [...] Care Team (Late st Contact Info) Description 07/13/2025 10:00 AM EDT Office Visit [facility] MED[facility] [address] [place] [phone] Jemma Louise MD [address] [place] [phone] documented as of this encounter Visit Diagnoses Diagnosis Iron deficiency Disorders of iron metabolism documented in this encounter Additional Health Concerns Assessment Noted Time PHQ-9 Depression Total Score: 0 03/01/20 23 1:02 PM EDT documented as of this encounter Care Teams Personal Vehicle Advisor Relationship Specialty Start Date End Date Jemma Louise MD [address] [place] [phone] PCP - General Family Medicine 09/11/19 documented as of this encounter
--- OUTSIDE RECORDS SUMMARY | 2025-05-24 13:43 | XMS_ITS | Clinical Summary ---
Author Organization [facility] ity Address [address] [place] [address] Care Team Providers Care Glazing Superintendent Name Role Phone Unavailable Primary Care Provider [...] 5 season) 2024 02/19/2021 Influenza Vaccine (#1) 2025 08/29/2020 HIB Vaccines Aged Out No longer [...]
== END 2025-05-24 14:03 | disposition home or self-care (01) ==
LOC: HO.HCS 13:16
PROVIDERS: PCP Internal Medicine; Visit Provider Nurse Practitioner Family
DX: I48.19 Other persistent atrial fibrillation (principal); I50.32 Chronic diastolic (congestive) heart failure; I44.7 Left bundle-branch block, unspecified; I10 Essential (primary) hypertension
CPT/HCPCS: 93010; 99214; G2211

== ENCOUNTER → 2025-05-24 13:15 | Outpatient (BNVA) | payer OTHER, SELFPAY | PROVIDERS: PCP Internal Medicine; Visit Provider Nurse Practitioner Family | DX: I11.0 Hypertensive heart disease with heart failure (principal); I50.32 Chronic diastolic (congestive) heart failure; I48.19 Other persistent atrial fibrillation; I44.7 Left bundle-branch block, unspecified | CPT/HCPCS: 93005; 99212 ==

== ENCOUNTER 2025-07-05 13:20 | Outpatient (REF) | payer OTHER, SELFPAY ==
--- NOTE | ~2025-07-05 | CT_ITS ---
EXAMINATION: CT ABDOMEN WITH IV CONTRAST HISTORY: N28.1 - Cyst of kidney, acquired COMPARISON: Correlation is made with a renal ultrasound dated 04/13/2024. TECHNIQUE: CT scan of the abdomen was performed following administration of 85 mL Omnipaque 350 using standard departmental protocol. Coronal and sagittal reformatted images were generated and reviewed. This CT exam was performed with one or more of the following dose reduction techniques: automated exposure control, adjustment of the mA and/or kV according to patient size, use of iterative reconstruction technique. DLP: 142 mGy-cm FINDINGS: LOWER CHEST: The visualized lung bases are clear. There is no pleural effusion. CARDIOVASCULATURE: The heart is normal in size. There is no pericardial effusion. LIVER: The liver is normal in size and contour. There is a 10 mm hypodense focus in the right lobe which is too small to accurately characterize. The hepatic and portal veins are patent. GALLBLADDER / BILE DUCTS: The gallbladder is unremarkable. There is no intra or extrahepatic biliary ductal dilatation. SPLEEN: The spleen is normal in size. No focal splenic lesion is identified. PANCREAS: The pancreas is unremarkable in appearance. ADRENAL GLANDS: Within normal limits. KIDNEYS/RETROPERITONEUM: No renal calculi are identified. There is no hydronephrosis. There is a mass in the lateral aspect of the upper pole of the right kidney measuring 2.8 x 2.1 x 2.7 cm. The mass demonstrates gross fat attenuation, consistent with an angiomyolipoma. There is a 2.4 cm cyst at the medial aspect of the upper pole of the right kidney. There are probable tiny subcentimeter left renal cysts. LYMPH NODES: No upper abdominal lymphadenopathy. VASCULATURE: The abdominal aorta demonstrates atherosclerotic calcification, but is normal in caliber. MESENTERY/PERITONEUM: No free fluid. No masses. There is no free intraperitoneal gas. STOMACH: The stomach is collapsed, limiting evaluation. SMALL BOWEL: The visualized small bowel is normal in caliber. COLON: The visualized portion of the colon is unremarkable. BONES / SOFT TISSUES: There is a moderate compression deformity of T12. 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 As these lesions are at high risk for spontaneous hemorrhage when larger than 3.5 cm in size, follow-up is recommended. Electronically signed by: West Mathew MD 07/05/2025 03:57 PM EDT RP
--- OUTSIDE RECORDS SUMMARY | 2025-07-05 14:01 | XMS_ITS | Encounter Summary ---
Author Organization [employer] Address [address] [facility] [address]t [place] [address] Care Team Providers Care Lab Courier Name Role Phone Jemma Louise MD Primary Care Provide r Encounter Details Date Type Department Care Team (Late st Contact Info) Description 01/04/2023 Orders Only [facility] [address] [place], [place] [phone] Barbara Portillo LPN Social History Tobacco Use [...] Description 07/13/2025 10:00 AM EDT Office Visit [facility] MED[facility]INE [address] [place] [phone] Jemma Louise MD [address] [place] [address] [phone] 09/21/2025 3:00 PM EST Office Visit [facility] MED[facility]INE [address] [place] [address] [phone] Ed Amezquita MD [address] [place] [address] [phone] 10/18/2025 11:00 AM EST Office Visit [facility] OPTOMETRY [address] [place] [address] Shahrzad Rust, OD [address] [place] [address] documented as of this encounter Procedures Procedure [...] EDT) Vitamin D, 25-OH, D2 <4 ng/mL [facility] Comment:This test was develo ped and its analytical performancecharacteristics have been determined by [employer] [place], [place]. It hasnot been cleared or approved by the U.S. Food and DrugAdministration. This assay has been validated pursuantto the CLIA regulations and is used for clinicalpurposes.THIS TEST WAS PERFORMED AT:[facility] [id number] [place] [id number] CASTAÑEDA MD,PHD Vitamin D, 25-OH, D3 37 ng/mL [facility] Comment:This test was develo ped and its analytical performancecharacteristics have been determined by [facility] [place], [place]. It hasnot been cleared or approved by the U.S. Food and DrugAdministration. This assay has been validated pursuantto the CLIA regulations and is used for clinicalpurposes. Vitamin D, 25-OH, Total 37 30 - 100 ng/mL [facility] Comment:Vitamin D, 25-Hydrox y reports [...] = 30 ng/mL.For additional information, please refer tohttp://education.The New Daily/faq/KNY749(This link is being provided for informational/educational purposes only.) 08/10/2023 12:1 3 PM EDT 08/10/2023 12:13 PM EDT us [facility] External Provider LAB BLO OD ORDERABLES Final Result [facility] [address] [place] [phone] * (ABNORMAL) Comprehensive Metabolic Panel (08/10/2023 12:13 PM EDT) Sodium 141 135 - 145 mmol/L [facility] Potassium 4.0 3.3 - 5.1 mmol/L [facility] Chloride 97 96 - 108 mmol/L [facility] Carbon Dioxide 33(H) 22 - 29 mmol/L [facility] Anion Gap 15 12 - 20 [facility] Urea Nitrogen (BUN) 15 9 - 16 mg/dL [facility] Creatinine, Serum 0.89 0.5 - 1.4 mg/dL [facility] Estimated Glomerular Filt Rate >60 [facility] Comment:NOTE: For -Am erican individuals, multiply the result by 1.210.Chronic Kidney Disease: Estimated GFR < 60 mL/min/[id number] Kidney Disease: Estimated GFR < 15 mL/min/1.73m2 Glucose 102 60 - 115 mg/dL [facility] Calcium 10.5(H) 8.4 - 10.2 mg/dL [facility] Bilirubin, Total 0.4 0.0 - 1.0 mg/dL [facility] Aspartate Amino Transferase 22 5 - 31 U/L [facility] Alanine Aminotransferase 13 0 - 31 U/L [facility] Total Protein 7.9 6.5 - 8.0 g/dL [facility] Albumin Level 4.4 3.5 - 5.0 g/dL [facility] Alkaline Phosphatase 47 39 - 117 U/L [facility] 08/10/2023 12:1 3 PM EDT 08/10/2023 12:13 PM EDT us [facility] External Provider LAB BLO OD ORDERABLES Final Result [facility] [address] [place] [address] [phone] * (ABNORMAL) CBC auto differential (08/10/2023 12:13 PM EDT) White Blood Count 7.3 4.8 - 10.8 X10*3/uL [facility] Red Blood Count 4.62 4.20 - 5.50 X10*6/uL [facility] Hemoglobin 12.5 12.0 - 16.0 g/dl [facility] Hematocrit 40.9 37.0 - 47.0 % [facility] Mean Corpuscular Volume 88.5 80.0 - 98.0 fL [facility] Mean Corpuscular Hemoglobin 27.1 27.0 - 33.0 pg [facility] Mean Corpuscular HGB Conc 30.6(L) 31.0 - 35.0 g/dl [facility] Red Cell Distribution Width 14.5 11.0 - 16.0 % [facility] Platelet Count 257 160 - 400 X10*3/uL [facility] Mean Platelet Volume 12.3 9.4 - 12.3 fL [facility] Neutrophils Percent Auto 69.3 45 - 73 % [facility] Imm Gran Pct Auto 0.4 0.0 - 0.4 % [facility] Lymphocytes Percent Auto 18.4(L) 20 - 40 % [facility] Monocytes Percent Auto 9.1 2 - 11 % [facility] Eosinophils Percent Auto 2.2 0 - 4 % [facility] Basophils Percent Auto 0.6 0 - 2 % [facility] NRBC Pct Auto 0.0 0.0 - 0.2 /100WBC [facility] Neutrophils Absolute Auto 5.0 2.0 - 8.3 x10*3/uL [facility] Imm Gran Abs Auto 0.03 0.00 - 0.03 X10*3/uL [facility] Lymphocytes Absolute Auto 1.3 1.2 - 4.9 X10*3/uL [facility] Monocytes Absolute Auto 0.7 0.1 - 1.2 X10*3/uL [facility] Eosinophils Absolute Auto 0.2 0.0 - 0.4 X10*3/uL [facility] Basophils Absolute Auto 0.0 0.0 - 0.2 X10*3/uL [facility] NRBC Abs Auto 0.000 0.0 - 0.012 X10*3/uL [facility] 08/10/2023 12:1 3 PM EDT 08/10/2023 12:13 PM EDT us [facility] External Provider LAB BLO OD ORDERABLES Final Result [facility] [address] [place] [phone] * Vitamin D, 25-Hydroxy, Total, Immunoassay (03/01/2023 2:22 PM EDT) Vitamin D 25-OH Total 69.3 >30 ng/mL [facility] Comment:Health Based Referen ce Values*< 20 ng/mL [id number] ng/mL Insufficient> 30 ng/mL Sufficient*Larisa CARMONA. N [...] 2:22 PM EDT 03/01/2023 2:22 PM EDT [facility] External Provider LAB BLO OD ORDERABLES Final Result Performing Organization Address [facility] Co de Phone Number [facility] [address] [place] [phone] * Phosphate (As Phosphorus) (03/01/2023 2:22 PM EDT) Phosphorus 2.8 2.7 - 4.5 mg/dL [facility] 03/01/2023 2:22 PM EDT 03/01/2023 2:22 PM EDT [facility] External Provider LAB BLO OD ORDERABLES Final Result Performing Organization Address [facility] Co de Phone Number [facility] [address] [place] [address] [phone] * (ABNORMAL) Comprehensive Metabolic Panel (03/01/2023 2:22 PM EDT) Sodium 143 135 - 145 mmol/L [facility] Potassium 4.2 3.3 - 5.1 mmol/L [facility] Chloride 96 96 - 108 mmol/L [facility] Carbon Dioxide 35(H) 22 - 29 mmol/L [facility] Anion Gap 16 12 - 20 [facility] Urea Nitrogen (BUN) 18(H) 9 - 16 mg/dL [facility] Creatinine, Serum 1.02 0.5 - 1.4 mg/dL [facility] Estimated Glomerular Filt Rate 52 [facility] Comment:NOTE: For -Am erican individuals, multiply the result by 1.210.Chronic Kidney Disease: Estimated GFR < 60 mL/min/1.47f8Yebeft Kidney Disease: Estimated GFR < 15 mL/min/1.73m2 Glucose 85 60 - 115 mg/dL [facility] Calcium 9.9 8.4 - 10.2 mg/dL [facility] Bilirubin, Total 0.6 0.0 - 1.0 mg/dL [facility] Aspartate Amino Transferase 17 5 - 31 U/L [facility] Alanine Aminotransferase 10 0 - 31 U/L [facility] Total Protein 7.5 6.5 - 8.0 g/dL [facility] Albumin Level 4.4 3.5 - 5.0 g/dL [facility] Alkaline Phosphatase 59 39 - 117 U/L [facility] 03/01/2023 2:22 PM EDT 03/01/2023 2:22 PM EDT us [facility] External Provider LAB BLO OD ORDERABLES Final Result [facility] [address] [place] [phone] documented in this encounter Visit Diagnoses Not on filedocumented in this encounter Care Teams Lab Courier Relationship Specialty Start Date End Date Jemma Louise MD [address] [place] [address] PCP - General Family Medicine 09/11/19 documented as of this encounter
--- OUTSIDE RECORDS SUMMARY | 2025-07-05 14:01 | XMS_ITS | Encounter Summary ---
Author Organization [employer] Address [address] [facility] [address] [place] [address] Care Team Providers Care Electrician Locomotive Name Role Phone Jemma Louise MD Primary Care Provide r Encounter Details Date Type Department Care Team ([facility] st Contact Info) Description 11/19/2023 Orders Only [facility] [address] [place] [address] Jemma Louise MD [address] [place] [address] Social History Tobacco Use Types Packs/Day Years [...] Description 07/13/2025 10:00 AM EDT Office Visit [facility] MEDICINE [address] [place] [phone] Jemma Louise MD [address] [place] [address] 09/21/2025 3:00 PM EST Office Visit [facility] [address] [place] [address] Ed Amezquita MD [address] [place] [address] 10/18/2025 11:00 AM EST Office Visit [facility] OPTOMETRY [address] [place] [address] TarkaShahrzad, OD [address] [place] [address] documented as of this encounter Visit Diagnoses Not on filedocumented in this encounter Additional Health Concerns Assessment Noted Time PHQ-9 Depression Total Score: 0 03/01/20 23 1:02 PM EDT documented as of this encounter Care Teams Electrician Locomotive Relationship Specialty Start Date End Date Jemma Louise MD [address] [place] [phone] PCP - General Family Medicine 09/11/19 documented as of this encounter
--- OUTSIDE RECORDS SUMMARY | 2025-07-05 14:01 | XMS_ITS | Encounter Summary ---
Author Organization [employer] Address [address] [facility] [address] [place] [address] Care Team Providers Care Process Assistant Name Role Phone Jemma Louise MD Primary Care Provide r Reason for Visit * Reason Comments Med Refill Encounter Details Date Type Department Care Team ([facility] st Contact Info) Description 11/15/2023 Refill [facility] MED[facility]INE [address] [place] [address] Juana Vanegas, ANP [address] [place] [address] Iron deficiency Social History Tobacco Use Types [...] Description 07/13/2025 10:00 AM EDT Office Visit [facility] MEDICINE [address] [place] [phone] Jemma Louise MD [address] [place] [phone] 09/21/2025 3:00 PM EST Office Visit [facility] MEDICINE [address] [place] [phone] Ed Amezquita MD [address] [place] [address] 10/18/2025 11:00 AM EST Office Visit [facility] OPTOMETRY [address] [place] [address] TarkaShahrzad, OD [address] [place] [address] documented as of this encounter Visit Diagnoses Diagnosis Iron deficiency Disorders of iron metabolism documented in this encounter Additional Health Concerns Assessment Noted Time PHQ-9 Depression Total Score: 0 03/01/20 23 1:02 PM EDT documented as of this encounter Care Teams Process Assistant Relationship Specialty Start Date End Date Jemma Louise MD [address] [place] [phone] PCP - General Family Medicine 09/11/19 documented as of this encounter
--- OUTSIDE RECORDS SUMMARY | 2025-07-05 14:01 | XMS_ITS | Encounter Summary ---
Author Organization [employer] Address [address] [facility] [address] [place] [address] Care Team Providers Care Living Skills Advisor Name Role Phone Jemma Louise MD Primary Care Provide r Reason for Visit * Reason Onset Date Comments Nurse Triage 09/28/2023 Encounter Details Date Type Department Care Team ([facility] st Contact Info) Description 09/28/2023 Telephone [facility] [address] [place] [address] Jemma Louise MD [address] [place] [address] Nurse Triage Social History Tobacco Use Types [...] 09/28/2023 3:23 PM EST Triage call with [employer] [id number] Pt son, THIAGO Fuller, reports Pt has had some sinus/nasal congestion for some time now. Pt has nasal drainage which is clear and some nasal congestion. Neg for fever, cough, headache. Jonny is concerned about some snoring, whistling sound with breathing especially at night. No difficulty breathing is reported. Advised to come to [facility] today or tomorrow open til 800pm, for [...] The caller accepted this outcome Patient speaks slovak documented in this encounter Plan of Treatment Upcoming Encounters Date Type Department Care Team (Late st Contact Info) Description 07/13/2025 10:00 AM EDT Office Visit [facility] [address] [place] [address] Jemma Louise MD [address] [place] [address] 09/21/2025 3:00 PM EST Office Visit [facility] [address] [place] [address] Ed Amezquita MD [address] [place] [address] 10/18/2025 11:00 AM EST Office Visit [facility] OPTOMETRY [address] [place] [address] Shahrzad Rust, OD [address] [place] [address] documented as of this encounter Visit Diagnoses Not on filedocumented in this encounter Additional Health Concerns Assessment Noted Time PHQ-9 Depression Total Score: 0 03/01/20 23 1:02 PM EDT documented as of this encounter Care Teams Living Skills Advisor Relationship Specialty Start Date End Date Jemma Louise MD [address] [place] [address] PCP - General Family Medicine 09/11/19 documented as of this encounter
--- OUTSIDE RECORDS SUMMARY | 2025-07-05 14:01 | XMS_ITS | Encounter Summary ---
Author Organization [employer] Address [address] [place] [address] Care Team Providers Care Motor Driver Name Role Phone Jemma Louise MD Primary Care Provide r Reason for Visit * Reason Onset Date Comments Nurse Triage 05/16/2025 Encounter Details Date Type Department Care Team ([facility] st Contact Info) Description 05/16/2025 Telephone [facility] [address] [place] [address] Jemma Louise MD [address] [place] [address] Nurse Triage Social History Tobacco Use Types Packs/Day Years Used Date Smoking Tobacco: Former Cigarettes Passive Smoke Exposure: Past Smokeless Tobacco: Never Alcohol Use Standard Drinks/Week Comments Never 0 (1 standard drink = 0.6 oz pur e alcohol) Depression Answer Date Recorded Patient Health Questionnaire-9 Score 4 03/30/2025 Patient Health Questionnaire-9 Score 4 03/30/2025 Last PHQ-9: Questionnaire Data Not on file 0 03/30/2025 Housing Stability Answer Date Recorded What is [...] getting things needed for daily living? No 03/30/2025 Utilities Answer Date Recorded In the past 12 months, has t he electric, gas, oil or water company threatened to shut off services in your home? No 03/30/2024 Depression Answer Date Recorded Patient Health Questionnaire-2 Score 0 03/30/2025 Internet Access Answer Date Recorded Internet Access Q1 No 03/30/2025 Internet Access Q2 I do not want or need it 03/09 Comments Unknown Sex and Gender Information Value Date Recorded Sex Assigned at Female 09/07/2022 10:14 AM EDT Legal Sex Female 10:14 AM EDT Gender Identity Female 09/07/2022 10:14 AM EDT Sexual Orientation Straight 09/07/2022 10 :14 AM EDT documented as of this encounter Miscellaneous Notes * Telephone Encounter - Ayesha Solis RN - 05/16/2025 10:25 AM EDT Triage call to son, Jonny, who is speaking for mom. Pt mother is next to son while triaging. Pt hashad a cough for last 2-3 days. Cough is not constant but is frequent. Pt has hx of COPD. Pt deniesdifficulty breathing, no ankle swelling, neg for fever or YOLANDA sx. Pt also continues with rash and areferral was sent for apt. Pt son reports no contact for dermatology apt with Dr. Acevedo yet and would like to obtain that apt. Pt is requesting to see PCP. ASK apt with Dr. Yanez 1200pm 05/17/25. Son reports if Pt cough should become worse before then will go to ED for evaluation. Pt agrees with disposition. Insurance is verified as active prior to booking. Protocol Used: Cough (Adult) Protocol-Based Disposition: See in Office or Video Visit Today or Tomorrow Video visit not offered Positive Triage Question: * Patient wants to be seen * All higher-acuity triage questions were negative Care Advice Discussed: * Reassurance and Education - Cough * Prevent Dehydration * Reasons To Call Back - Difficulty breathing - Cough lasts more than 3 weeks - Fever lasts more than 3 days - You become worse * Telephone Encounter - Stephanie Goldstein - 05/16/2025 9:51 AM EDT Symptom: Cough Outcome: Schedule an appointment to be seen within 24 hours Reason: Caller denied all higher acuity questions The caller accepted this outcome. Contact pt nevaeh Fuller at [phone] (denied director of anesthesia services) documented in this encounter Plan of Treatment Upcoming Encounters Date Type Department Care Team (Late st Contact Info) Description 07/13/2025 10:00 AM EDT Office Visit [facility] [address] [place] [phone] Jemma Louise MD [address] [place] [address] 09/21/2025 3:00 PM EST Office Visit [facility] [address] [place] [address] Ed Amezquita MD [address] [place] [address] 10/18/2025 11:00 AM EST Office Visit [facility] [address] [place] [address] TarShahrzad cain, OD [address] [place] [address] documented as of this encounter Visit Diagnoses Not on filedocumented in this encounter Additional Health Concerns Assessment Noted Time PHQ-9 Depression Total Score: 4 03/30/20 25 1:32 PM EDT documented as of this encounter Care Teams Motor Driver Relationship Specialty Start Date End Date Jemma Louise MD [address] [place] [phone] PCP - General Family Medicine 09/11/19 documented as of this encounter
--- OUTSIDE RECORDS SUMMARY | 2025-07-05 14:01 | XMS_ITS | Clinical Summary ---
Author Organization [facility] Address [address] [place] [address] Care Team Providers Care Cell Tender Name Role Phone Unavailable Primary Care Provider [...] series) 01/24/2016 Cholesterol Screening (Lipid Panel) 10/07/2022 Falls Risk Assessment 10/07/2022 Osteoporosis Screening (Bone Density Screening) 10/07/2022 Social Influencers of Health Screening 10/07/2022 Hypertension/CHF/CAD Annual BMP Blood Test 10/20/2022 COVID-19 Vaccine (2 - 2023-2 5 season) 2024 02/19/2021 Depression Screening 11/08/2024 Influenza Vaccine (#1) 2025 08/29/2020 HIB Vaccines [...]
--- OUTSIDE RECORDS SUMMARY | 2025-07-05 14:01 | XMS_ITS | Encounter Summary ---
Author Organization [employer] Address [address] [facility] [address] [place] [address] Care Team Providers Care Welding Operator Name Role Phone Jemma Louise MD Primary Care Provide r Reason for Visit * Reason Comments Pre-visit Planning SDOH screening compl eted on 03/30/2025 Encounter Details Date Type Department Care Team ([facility] st Contact Info) Description 07/04/2025 Patient Outreach [facility] [address] [place] [address] Jemma Louise MD [address] [place] [address] Pre-visit Planning (SDOH screening completed on 03/30/2025) Social History Tobacco Use Types Packs/Day Years [...] AM EDT documented as of this encounter Progress Notes * Jyotsna Suarez - 07/04/2025 9:30 AM EDT CC Jyotsna. Placed outbound call to patient to complete pre-visit planning. No answer at this time. Patient name and were not confirmed. CC left voicemail requesting return call. Direct contact information provided. documented in this encounter Plan of Treatment Upcoming Encounters Date Type Department Care Team (Late st Contact Info) Description 07/13/2025 10:00 AM EDT Office Visit [facility] [address] [place] [phone] Jemma Louise MD [address] [place] [address] 09/21/2025 3:00 PM EST Office Visit [address] [address] Ed Amezquita MD [address] [place] [address] 10/18/2025 11:00 AM EST Office Visit [facility] [address] [place] [employer], [place] [phone] Shahrzad Rust, OD [address] [place] [address] documented as of this encounter Visit Diagnoses Not on filedocumented in this encounter Additional Health Concerns Assessment Noted Time PHQ-9 Depression Total Score: 4 03/30/20 25 1:32 PM EDT documented as of this encounter Care Teams Welding Operator Relationship Specialty Start Date End Date Jemma Louise MD [address] [place], [place] [phone] PCP - General Family Medicine 09/11/19 documented as of this encounter
--- OUTSIDE RECORDS SUMMARY | 2025-07-05 14:01 | XMS_ITS | Encounter Summary ---
Author Organization [employer] Address [address] [place] [address] Care Team Providers Care Aeronautics Teacher Name Role Phone Jemma Louise MD Primary Care Provide r Reason for Visit * Reason Comments Med Refill Encounter Details Date Type Department Care Team ([facility] st Contact Info) Description 11/14/2023 Refill [facility] [address] [place], [place] [phone] Elias Croft MD [address] [place] [address] Constipation, unspecified constipation type Social History Tobacco [...] Description 07/13/2025 10:00 AM EDT Office Visit [facility] [address] [place] [phone] Jemma Louise MD [address] [place] [address] 09/21/2025 3:00 PM EST Office Visit [facility] [address] [place] [phone] Ed Amezquita MD [address] [place] [address] 10/18/2025 11:00 AM EST Office Visit [facility] [address] [place] [address] TarShahrzad cain, OD [address] [place] [address] documented as of this encounter Visit Diagnoses Diagnosis Constipation, unspecified constipation type documented in this encounter Additional Health Concerns Assessment Noted Time PHQ-9 Depression Total Score: 0 03/01/20 23 1:02 PM EDT documented as of this encounter Care Teams Aeronautics Teacher Relationship Specialty Start Date End Date Jemma Louise MD [address] [place] [phone] PCP - General Family Medicine 09/11/19 documented as of this encounter
--- OUTSIDE RECORDS SUMMARY | 2025-07-05 14:02 | XMS_ITS | Encounter Summary ---
Author Organization [employer] Address [address] [facility] 7[address] [place] [address] Care Team Providers Care Lumber Checker Name Role Phone Jemma Louise MD Primary Care Provide r Reason for Visit * Reason Comments Med Refill Encounter Details Date Type Department Care Team (Late Contact Info) Description 06/25/2023 Refill [facility] [address] [place] [address] Juana Vanegas ANP [address] [place] [address] Vitamin D deficiency Social History Tobacco Use [...] Upcoming Encounters Date Type Department Care Team ([facility] Contact Info) Description 07/13/2025 10:00 AM EDT Office Visit [facility] [address] [place] [address] Jemma Louise MD [address] [place] [address] 09/21/2025 3:00 PM EST Office Visit [facility] [address] [place] [address] Ed Amezquita MD [address] [place], [place] [phone] 10/18/2025 11:00 AM EST Office Visit [facility] [address] [place], [place] [phone] Shahrzad Rust, OD [address] [place], [place] [phone] documented as of this encounter Visit Diagnoses Diagnosis Vitamin D deficiency documented in this encounter Additional Health Concerns Assessment Noted Time PHQ-9 Depression Total Score: 0 03/01/20 23 1:02 PM EDT documented as of this encounter Care Teams Lumber Checker Relationship Specialty Start Date End Date Jemma Louise MD [address] [place] [phone] PCP - General Family Medicine 09/11/19 documented as of this encounter
--- OUTSIDE RECORDS SUMMARY | 2025-07-05 14:02 | XMS_ITS | Clinical Summary ---
Author Organization [employer] Address [address] [facility] [address] [place] [address] Care Team Providers Care Unit Leader Name Role Phone Jemma Louise MD Primary Care Provide r Allergies Active Allergy Reactions Criticality Noted Date Comments Penicillin V 11/04/2010 Other reaction(s): unspecified Medications Eliquis 5 MG tablet Take 1 tablet by mouth 2 times daily. 3 Active Trelegy Ellipta 100-62.5-25 MCG/ACT aerosol powder Take 1 puff by mouth 1 (one) time each day at the same time. 3 Active Blood Pressure Monitor kitIndications:Es sential hypertension Use as directed 3x/week 1 kit 3 Active D3 Super Strength 50 MCG (2000 UT) capsuleIndication s:Vitamin D deficiency Take 1 capsule (50 mcg) by mouth every other day. TAKE 1 CAPSULE BY MOUTH EVERY MORNING 90 capsule 1 4 Active furosemide (Lasix) 20 MG tabletIndications :Chronic systolic congestive heart failure (CMS/HCC) TAKE 2 TABLETS BY MOUTH ONCE DAILY IN THE MORNING and TAKE 1 TABLET BY MOUTH EVERY EVENING 90 tablet 11 4 Active memantine (Namenda) 10 MG tabletIndications :Dementia, unspecified dementia severity, unspecified dementia type, unspecified whether behavioral, psychotic, or mood disturbance or anxiety (CMS/HCC) TAKE 1 TABLET BY MOUTH TWICE DAILY IN THE MORNING AND IN THE EVENING 60 tablet 11 4 Active melatonin 3 MG tablet TAKE 2 TABLETS BY MOUTH EVERY DAY AT BEDTIME 60 tablet 11 5 Active calcium carbonate 1500 (600 Ca) MG tabletIndications :Vitamin D deficiency TAKE 1 TABLET BY MOUTH EVERY OTHER DAY IN THE MORNING vit d 45 tablet 1 5 Active lisinopril 10 MG tabletIndications :Chronic systolic congestive heart failure (CMS/HCC),Essenti al hypertension TAKE 1 TABLET BY MOUTH EVERY MORNING 90 tablet 5 Active triamcinolone (Kenalog) 0.1 % creamIndications: Rash Apply topically if needed in the morning and at bedtime (pain and swelling). 30 g 5 Active hydrOXYzine HCl (Atarax) 10 MG tabletIndications :Rash Take 1 tablet (10 mg) by mouth every 6 (six) hours if needed for itching for up to 10 days. 20 tablet 5 Active Multiple Vitamin (Multivitamin) tablet TAKE 1 TABLET BY MOUTH EVERY MORNING WITH FOOD 90 tablet 5 Active venlafaxine XR (Effexor XR) 37.5 MG 24 hr capsule TAKE 1 CAPSULE BY MOUTH AT BEDTIME WITH FOOD 90 capsule 5 Active metoprolol tartrate (Lopressor) 25 MG tablet TAKE 1 TABLET BY MOUTH TWICE DAILY IN THE MORNING AND IN THE EVENING 180 tablet 1 5 Active predniSONE (Deltasone) 20 MG tabletIndications :Wrist swelling, left 2 tabs po daily for 5 days 10 tablet 5 Active docusate sodium (Colace) 100 MG capsuleIndication s:Constipation, unspecified constipation type TAKE 1 CAPSULE BY MOUTH TWICE DAILY IN THE MORNING AND IN THE EVENING 180 capsule 5 Active Ferrous Sulfate (iron) 325 (65 Fe) MG tabletIndications :Iron deficiency TAKE 1 TABLET BY MOUTH EVERY OTHER DAY IN THE MORNING 45 tablet 1 5 Active acetaminophen (Tylenol 8 Hour) 650 MG ER tablet TAKE 1 TABLET BY MOUTH EVERY 8 HOURS NEEDED 60 tablet 5 Active polyvinyl alcohol (Liquifilm Tears) 1.4 % ophthalmic solution INSTILL 1 TO 2 DROPS IN EACH EYE THREE TIMES DAILY OR MORE NEEDED 15 mL 5 Active Ventolin HFA 108 (90 Base) MCG/ACT inhalerIndication s:COPD exacerbation (CMS/HCC) INHALE 2 PUFFS BY MOUTH EVERY 4 TO 6 HOURS NEEDED 18 g 1 5 Active fluticasone (Flonase) 50 MCG/ACT nasal spray Administer 1 spray into each nostril Once per day. Shake gently. Before first use, prime pump. After use, clean tip and replace cap. 16 g 1 5 Active atorvastatin (Lipitor) 40 MG tablet Take 1 tablet (40 mg) by mouth at bedtime. 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 Check labs. PCN allergy. -start Bactrum DS BID for 5 days -avoid NSAIDs due to CKD, acetaminophen prn pain -ER precautions discussed -follow up in 48 hours for reassessment Addendum 04/18/2512:17 PM Uric acid elevated, will add prednisone for possible gout flair and continue antibiotics for possible infection. Orders: CBC; Future C-reactive Protein; Future Uric acid; Future XR Wrist 3+ Views Left; Future predniSONE (Deltasone) 20 MG tablet; 2 tabs po daily for 5 days Anxiety and depression 03/30/2025 Assessment & Plan (03/30/2025 1:22 PM EDT): Continue with venlafaxine 37.5 mg daily Follow-up with therapist Letter for housing will be provided Rash 02/21/2025 Assessment & Plan (05/17/2025 3:42 PM EDT): Partial improvement with steroid cream, unclear if it related to medication. Alcohol med boxes to hold off on statin x 1 month and patient to follow-up with PCP to restarted if symptoms are not resolved, otherwise if you start to be related to that specific statin, PCP will follow-up Will reach out to dermatology orthotic fitter to see when can she be seen by manager of hospital in house. Continue triamcinolone cream for now Avoid using any other OTC facial creams including sunblock Assessment & Plan (02/22/2025 12:28 PM EDT): I will prescribe the patient triamcinolone cream to apply twice daily no more than 2 weeks and hydroxyzine 10 mg every 8 hours as needed for itchiness Seasonal allergies 03/30/2024 Assessment & Plan (03/30/2024 [...] Will obtain labs from ED visit Order [facility] today Dementia 02/18/2023 Assessment & Plan (05/17/2025 3:48 PM EDT): Patient lives alone, needs assistance with ADLs and ideally to be on ADFC to decrease risk of accidents, morbidity mortality. Continue with home care recommendations, needs to live in the first floor apartment with handicap access Senile osteoporosis 02/01/2019 Assessment & Plan (03/30/2024 11:34 AM EDT): Followed by rheumatology, they are waiting for insurance approval for medication Ptosis of eyelid 11/30/2018 Tubular adenoma of colon 04/21/2018 Cough 02/03/2018 Assessment & Plan (05/17/2025 3:39 PM EDT): It seems to be probably related to allergies or prodromal from some viral URI Advised to stay home, increase p.o. fluids and get some Tylenol as needed Start using Flonase daily Rapid COVID test today is negative Dry eyes 02/03/2018 Mild cognitive disorder 02/03/2018 [...] day PRN C/w same treatment referral to licensed home inspector will be done today Constipation 11/04/2015 Essential hypertension 11/04/2015 Assessment & Plan (03/30/2025 1:21 PM EDT): I advised: - Aerobic exercise to reduce BP. Initial [...] consulting health care provider Assessment & Plan (02/22/2025 12:28 PM EDT): [...] 11/04/2015 Primary osteoarthritis involving multiple joints 11/04/2015 Assessment & Plan (03/30/2025 1:23 PM EDT): Prescription for transfer wheelchair will be generated Resolved Problems Problem Noted Date Diagnosed Date Resolved Date Sprain of left ankle 12/05/2024 025 Assessment & Plan (12/05/2024 4:22 PM EST): Will rule out pathological fracture due to history of osteoporosis. Order x-rays Immobilization with an AFO splint, she will continue to ambulate with a cane, and advised to put ice on affected area. Use tylenol prn pain Pneumonia due to infectious organism 02/18/2023 05/17/2025 Encounters Date Type Department Care Team Description 07/04/2025 Patient Outreach [facility] [address] [place] [phone] Jemma Louise MD Pre-visit Planning ([facility] screening completed on 03/30/2025) 05/22/2025 Refill [facility] [address] [place] [address] Jemma Louise MD 05/20/2025 Refill [facility] [address] [place] [phone] Jemma Louise MD Seasonal allergies 05/17/2025 12:00 PM EDT Office Visit [facility] [address] [place] [phone] Radha Yanez MD Acute cough (Primary Dx); Rash; Moderate Alzheimer's dementia with mood disturbance, unspecified timing of dementia onset ([facility]) 05/17/2025 Travel 05/16/2025 Telephone [facility] [address] [place] [phone] Jemma Louise MD Chart prep 05/16/2025 Telephone [facility] [address] [place] [phone] Jemma Louise MD Nurse Triage 05/12/2025 Refill [facility] [address] [place] [phone] [facility] COPD exacerbation ([facility]) 05/02/2025 Refill [facility] [address] [place] [phone] Jemma Louise MD 05/02/2025 Refill [facility] [address] [place] [phone] [facility] 04/22/2025 Refill [facility] [address] [place] [address] Jemma Louise MD Constipation, unspecified constipation type; Iron deficiency 04/20/2025 9:40 AM EDT Office Visit [facility] [address] [place] [phone] Jemma Louise MD Acute gout due to renal impairment involving left wrist (Primary Dx) 04/18/2025 8:40 AM EDT Office Visit [facility] [address] [place] [phone] Beth Chino MD Wrist swelling, left (Primary Dx) 04/18/2025 Results Follow-Up [facility] [address] [place] [address] [phone] Beth Chino MD CBC, C-reactive Protein, Uric acid 04/18/2025 Orders Only GENERIC EXTERNAL DATA DEPARTMENT Provider, Generic External Data 04/18/2025 Travel 04/16/2025 Telephone [facility] [address] [place] [address] Jemma Louise MD 04/05/2025 Refill [facility] [address] [place] [address] IgnacioZuleyma, PUBLIC [employer] LABORER 04/05/2025 Orders Only [facility] External Provider, [facility] from Last 3 Months Immunizations Immunization Administration Dates Next Due Influenza High-dose Quadriva [...] Sign Reading Time Taken Comments Blood Pressure 110/46 05/17/2025 12:06 PM EDT Pulse 55 05/17/2025 12:06 PM EDT Temperature 36.9 C (98.5 F) 05/17/2025 12:06 PM EDT Respiratory Rate 20 05/17/2025 12:06 PM EDT Oxygen Saturation 97% 05/17/2025 12:06 PM EDT Inhaled Oxygen Concentration - - Weight 59.9 kg (132 lb) 05/17/2025 12:06 PM EDT Height 149.9 cm (4' 11 ) 05/17/2025 12:06 PM EDT Body Mass Index 26.66 05/17/2025 12:06 PM EDT Plan of Treatment Upcoming Encounters Date Type Department Care Team (Late st Contact Info) Description 07/13/2025 10:00 AM EDT Office Visit [facility] [address] [place] [address] Jemma Louise MD [address], [place] [phone] 09/21/2025 3:00 PM EST Office Visit [facility] [address], [place] [phone] Ed Amezquita MD [address], [place] [phone] 10/18/2025 11:00 AM EST Office Visit [facility] [address] [place], [place] [phone] Shahrzad Rust, OD [address] [place], [place] [phone] Health Maintenance Due Date Last Done Comments Zoster Vaccines (3 of 3) 02/10/2024 12/16/2023, 01/07 COVID-19 Vaccine ( season) 2025 09/12/2024, 03/30/2024, 03/24/2021, Additional history exists Influenza Vaccine (#1) 2025 , 08/31/2023, 07/28/2022, Additional history exists Alcohol/Substance Use Screening 09/12/2025 09/12/2024 Depression Screening 03/30/2026 03/30/2025, 03/30/20 SDOH Screening 03/30/2026 03/30/2025 Tobacco Screening 05/17/2026 05/17/2025 Lipid Panel 07/28/2027 07/28/2022, 09/11/2021 DTaP/Tdap/Td Vaccines (3 - Td or Tdap) 12/30/2033 12/30/2023, 03/02/2013, 01/28/2010, Additional history exists Pneumococcal Vaccine: 50+ Years Completed 11/04/2015, 09/05/2010, 08/06/2008, Additional history exists RSV Patients and Patients Aged 60 years or older Completed 12/16/2023 HIB Vaccines Aged Out No longer eligi [...] Procedure Name Priority Date/Time Associated Diagnosis Comments POCT COVID-19 AG LAUGHLIN ID NOW Routine 05/17/2025 12:42 PM EDT Acute cough CALCIUM Routine 04/18/2025 9:54 AM EDT URIC ACID Routine 04/18/2025 9:54 AM EDT Wrist swelling, left C-REACTIVE PROTEIN Routine 04/18/2025 9: 54 AM EDT Wrist swelling, left CBC Routine 04/18/2025 9:54 AM EDT Wrist swelling, left XR WRIST 3+ VIEWS LEFT Routine 04/18/2025 8:19 AM EDT Wrist swelling, left BD DEXA AXIAL Routine 04/05/2025 1:30 PM EDT LIPID PANEL, STANDARD Routine 07/28/2022 11:36 AM EDT from Last 3 Months or Most Recently Relevant to Health Maintenance Results * POCT Rapid Covid-19 LAUGHLIN ID NOW (05/17/2025 12:42 PM EDT) Coronavirus Antigen PCR Negative Negative, Indeterminate, None Detected, Invalid, Specimen unsatisfactory for evaluation, Weakly Positive, 2+ QC Media Lot # [id number] Lot# Expiration Date Swab 05/17/2025 12:4 2 PM EDT us Radha Yanez MD POINT OF CARE TEST ENTER /EDIT ORDERABLES Final Result * (ABNORMAL) CBC (04/18/2025 9:54 AM EDT) White Blood Count 9.8 4.8 - 10.8 X10*3/uL [facility] Red Blood Count 5.14 4.20 - 5.50 X10*6/uL [facility] Hemoglobin 12.8 12.0 - 16.0 g/dl [facility] Hematocrit 41.4 37.0 - 47.0 % [facility] Mean Corpuscular Volume 80.5 80.0 - 98.0 fL [facility] Mean Corpuscular Hemoglobin 24.9(L) 27.0 - 33.0 pg [facility] Mean Corpuscular HGB Conc 30.9(L) 31.0 - 35.0 g/dl [facility] Red Cell Distribution Width 15.0 11.0 - 16.0 % [facility] Platelet Count 294 160 - 400 X10*3/uL [facility] Mean Platelet Volume 12.2 9.4 - 12.3 fL [facility] NRBC Pct Auto 0.0 0.0 - 0.2 /100WBC [facility] NRBC Abs Auto 0.000 0.0 - 0.012 X10*3/uL [facility] Blood Venous blood specimen / Unknown 04/18/2025 9:54 AM EDT 04/18/2025 11:17 AM EDT us Beth Chino MD LAB BLOOD ORDERABLES Final Result [facility] [address] [place] [phone] * (ABNORMAL) C-reactive Protein (04/18/2025 9:54 AM EDT) Pathologist [facility] C Reactive Protein 8.78(H) < or = 0.50 mg/dL [facility] Blood Venous blood specimen / Unknown 04/18/2025 9:54 AM EDT 04/18/2025 11:20 AM EDT Beth Chino MD LAB BLOOD ORDERABLES Final Result Performing Organization Address [facility] Co de Phone Number [facility] [address] [place] [phone] * (ABNORMAL) Uric acid (04/18/2025 9:54 AM EDT) Uric Acid 6.9(H) 2.4 - 5.7 mg/dL [facility] Blood Venous blood specimen / Unknown 04/18/2025 9:54 AM EDT 04/18/2025 11:20 AM EDT Beth Chino MD LAB BLOOD ORDERABLES Final Result Performing Organization Address [facility] Co de Phone Number [facility] [address] [place] [address] [phone] * Calcium (04/18/2025 9:54 AM EDT) Calcium 9.9 8.4 - 10.2 mg/dL [facility] 04/18/2025 9:54 AM EDT 04/18/2025 11:20 AM EDT Generic External Data Provider LAB BLOOD ORDERAB LES Final Result Performing Organization Address [facility] Co de Phone Number [facility] [address] [place] [phone] * XR Wrist 3+ Views Left (04/18/2025 8:19 AM EDT) Anatomical Region Laterality Modality Upper Extremities, Wrist Left Radiogr aphic Imaging 04/18/2025 8:19 AM EDT Narrative 04/18/2025 9:24 AM EDT [facility] [address] [place] [address] XRay Report Signed Patient: Jemma Esquivel MR#: [id number] : 1940 Acct:[id number] Age/Sex: 85 / F ADM Date: 04/18/25 Loc: HO.CX Attending Dr: Beth Chino MD Ordering Physician: Beth Chino MD Date of Service: 04/18/25 Procedure(s): XR wrist LT min 3V Accession Number(s): [id number] cc: Beth Chino MD EXAMINATION: XR WRIST 3 OR MORE VIEWS LEFT HISTORY: acute swelling left wrist COMPARISON: There are no prior studies available for comparison. FINDINGS: Four views of the left wrist including a scaphoid view are submitted. Osseous mineralization is normal. There is no fracture or dislocation. There is mild degenerative change of the 1st carpometacarpal joint. There is chondrocalcinosis. There are vascular calcifications. XR/XR wrist LT min 3V IMPRESSION: Chondrocalcinosis. Mild degenerative change of the 1st carpometacarpal joint. Electronically signed by: West Mathew MD 04/18/2025 09:22 AM EDT Dictated By: West Mathew MD Signed By: <Electronically signed by West Mathew MD in OV> 04/18/2522 DD/ 0819 TD/TT: 04/18/25 0910 [employer]: Procedure Note Donotuseinterpreter, Image - 04/18/2025 [facility] [address] [place] [address] XRay Report Signed Patient: Jemma Esquivel AMR#: [id number] : 1940cct:[id number] Age/Sex: 85 / FADM Date: 04/18/25 Loc: HO.HHCX Attending Dr: Beth Chino MD Ordering Physician: Beth Chino MD Date of Service: 04/18/25 Procedure(s): XR wrist LT min 3V Accession Number(s): [id number] cc: Beth Chino MD EXAMINATION: XR WRIST 3 OR MORE VIEWS LEFT HISTORY: acute swelling left wrist COMPARISON: There are no prior studies available for comparison. FINDINGS: Four views of the left wrist including a scaphoid view are submitted. Osseous mineralization is normal. There is no fracture or dislocation. There is mild degenerative change of the 1st carpometacarpal joint. There is chondrocalcinosis. There are vascular calcifications. XR/XR wrist LT min 3V IMPRESSION: Chondrocalcinosis. Mild degenerative change of the 1st carpometacarpal joint. Electronically signed by: West Mathew MD 04/18/2025 09:22 AM EDT RP Dictated By: West Mathew MD Signed By: <Electronically signed by West Mathew MD in OV> 04/18/25921 DD/ 0819 TD/TT: 04/18/25 0910 [employer]: us Beth Chino MD IMG XR PROCEDURES Final Re sult * BD DEXA Axial (04/05/2025 1:30 PM EDT) Anatomical Region Laterality Modality Body Radiographic Heidi ging 04/05/2025 1:30 PM EDT Narrative 04/05/2025 2:13 PM EDT [facility] [address] [place] [address] Mammography Report Signed Patient: Jemma Esquivel MR#: [id number] : 1940 Acct:[id number] Age/Sex: 85 / F ADM Date: 04/05/25 Loc: GIUSEPPE Attending Dr: Lolita Fagan MD Ordering Physician: Lolita Fagan MD Results: Date of Service: 04/05/25 Follow Up: Procedure(s): XR DEXA axial skeleton Accession Number(s): [id number] cc: Lolita Fagan MD; Jemma Louise MD EXAMINATION: DXA BONE DENSITY AXIAL HISTORY: M81.0 - Age-related osteoporosis without current pathological fracture TECHNIQUE: [employer] Dual energy absorptiometry (DEXA) of the lumbar spine, total left hip, and femoral neck was performed. COMPARISON: Comparison is made with the prior examination dated 11/13/2022. FINDINGS: The bone mineral density of the lumbar spine is 0.926, corresponding to a T-score of -2.0, and a Z-score of 0.0. This is indicative of osteopenia. This represents a BMD change of -9.2% compared to the prior exam. This is statistically significant. The bone mineral density of the left total hip is 0.800, corresponding to a T-score of -1.6, and a Z-score of 0.7. This is indicative of osteopenia. This represents a BMD change of 13.5% compared to the prior exam. This is statistically significant. The bone mineral density of the left femoral neck is 0.729, corresponding to a T-score of -2.2, and a Z-score of 0.2. This is indicative of osteopenia. This represents a BMD change of 18.5% compared to the prior exam. MM/XR DEXA axial skeleton IMPRESSION: Based on bone mineral density, and according to World Health Organization (WHO) criteria, the diagnosis is consistent with osteopenia. All bone density values are in grams per centimeter squared (g/cm2). Statistically, 68% of repeat scans fall within 1 SD (+/- 0.010 g/cm2 for AP spine L1-L4) and 1 SD (+/- 0.012 g/cm2 for femur total) FRAX is a trademark of the [employer] [place] for Metabolic Bone Disease, a World Health Organization (WHO) Collaborating Center. Electronically signed by: West Mathew MD 04/05/2025 02:10 PM EDT Dictated By: West Mathew MD Signed By: <Electronically signed by West Mathew MD in OV> 04/05/25 1410 DD/ 1330 TD/TT: 04/05/25 1400 [employer]: Procedure Note Donotuseinterpreter, Image - 05/29/2025 [facility] [address] [place] [address] Mammography Report Signed Patient: Jemma Esquivel AMR#: [id number] : 1Acct:[id number] Age/Sex: 85 / FADM Date: 04/05/25 Loc: HO.MAMMO Attending Dr: Lolita Fagan MD Ordering Physician: Lolita Fagan MDResults: Date of Service: 04/05/25Follow Up: Procedure(s): XR DEXA axial skeleton Accession Number(s): [id number] cc: Lolita Fagan MD; Jemma Louise MD EXAMINATION: DXA BONE DENSITY AXIAL HISTORY: M81.0 - Age-related osteoporosis without current pathological fracture TECHNIQUE: [employer] Dual energy absorptiometry (DEXA) of the lumbar spine, total left hip, and femoral neck was performed. COMPARISON: Comparison is made with the prior examination dated 11/13/2022. FINDINGS: The bone mineral density of the lumbar spine is 0.926, corresponding to a T-score of -2.0, and a Z-score of 0.0. This is indicative of osteopenia. This represents a BMD change of -9.2% compared to the prior exam. This is statistically significant. The bone mineral density of the left total hip is 0.800, corresponding to a T-score of -1.6, and a Z-score of 0.7. This is indicative of osteopenia. This represents a BMD change of 13.5% compared to the prior exam. This is statistically significant. The bone mineral density of the left femoral neck is 0.729, corresponding to a T-score of -2.2, and a Z-score of 0.2. This is indicative of osteopenia. This represents a BMD change of 18.5% compared to the prior exam. MM/XR DEXA axial skeleton IMPRESSION: Based on bone mineral density, and according to World Health Organization (WHO) criteria, the diagnosis is consistent with osteopenia. All bone density values are in grams per centimeter squared (g/cm2). Statistically, 68% of repeat scans fall within 1 SD (+/- 0.010 g/cm2 for AP spine L1-L4) and 1 SD (+/- 0.012 g/cm2 for femur total) FRAX is a trademark of the [employer] [place] for Metabolic Bone Disease, a World Health Organization (WHO) Collaborating Center. Electronically signed by: West Mathew MD 04/05/2025 02:10 PM EDT RP Dictated By: West Mathew MD Signed By: <Electronically signed by West Mathew MD in OV> 04/05/25 1410 DD/ 1330 TD/TT: 04/05/25 1400 [employer]: [facility] External Provider IMG DXA PROCEDURES Final Result * (ABNORMAL) LIPID PANEL, STANDARD (07/28/2022 11:36 AM EDT) Chol/HDLC Ratio 2.2 <5.0 (calc) [facility] Cholesterol, Total 132 <200 mg/dL [facility] HDL Cholesterol 61 > OR = 50 mg/dL [facility] LDL Cholesterol 47 mg/dL (calc) [facility] Comment: Reference range: <100 Desirable range <100 mg/dL for primary prevention; <70 mg/dL for patients with CHD or diabetic patients with > or = 2 CHD risk factors. LDL-C is now calculated using the En-James calculation, which is a validated novel method providing better accuracy than the Friedewald equation in the estimation of LDL-C. En OBRIEN et al. EVAN. 2013;310(19): 7039-0834 (http://education.StudioSnaps.Tiange/faq/RUQ683) Non-HDL Cholesterol 71 <130 mg/dL (calc) [facility] Comment: For patients with diabetes plus 1 major ASCVD risk factor, treating to a non-HDL-C goal of <100 mg/dL (LDL-C of <70 mg/dL) is considered a therapeutic option. Triglycerides 154(H) <150 mg/dL [facility] SYSTEM 07/28/2022 11:3 6 AM EDT Jemma Mccarthy MD LAB BLOOD ORDERABLES Final Result [facility] LAB SYSTEM [facility] Anywhere [address] from Last 3 Months or Most Recently Relevant to Health Maintenance Insurance FORMERLY [facility] [employer]IT[employer]I[facility] OPTIONS (HMO D-SNP) JOY SOLIS [id number] Care Teams Unit Leader Relationship Specialty Start Date End Date Jemma Louise MD [address] [place] [address] PCP - General Family Medicine 09/11/19
[2025-07-05 14:15] LABS: Calcium 9.8 mg/dL (8.4-10.2)
[2025-07-05] MEDS: iohexoL 350 MG/ML 100 ML INFUS..BTL IV (15:38)
[2025-07-06 11:00] LABS: Creatinine POC 0.6 mg/dL (0.5-1.4); GFR POC > 60
== END 2025-07-05 13:21 | disposition home or self-care (01) ==
LOC: HO.CT 13:20
PROVIDERS: Student in an Organized Health Care Education/Training Program; PCP Internal Medicine; Visit Provider Internal Medicine Hypertension Specialist
DX: N28.1 Cyst of kidney, acquired (principal); E21.3 Hyperparathyroidism, unspecified; M81.0 Age-related osteoporosis without current pathological fracture
CPT/HCPCS: 36415; 74160; 82310; 82565; Q9967

== ENCOUNTER → 2025-07-05 13:28 | Outpatient (BNV) | payer OTHER, SELFPAY | PROVIDERS: PCP Internal Medicine; Visit Provider Radiology Diagnostic Radiology | DX: N28.1 Cyst of kidney, acquired (principal); D17.71 Benign lipomatous neoplasm of kidney | CPT/HCPCS: 74160 ==

== ENCOUNTER 2025-09-03 13:07 | Outpatient (AMB) | payer OTHER, SELFPAY ==
[2025-09-03 13:10] VITALS: BP 108/56; PULSE 64; O2SAT 97; BMI 27.1
--- NOTE | 2025-09-03 13:10 | MHC.OFFVIS ---
Vital Signs 09/03/25 13:10 Height 4 ft 11 in Weight 134 lb BMI 27.1 BP 108/56 L Blood Pressure Location Rt brachial Position Sitting Pulse 64 Pulse Source Pulse Oximeter Pulse Oximetry (%) 97 Oxygen Delivery Method Room Air Intake Visit Reasons: Asthma Allergies Penicillins Allergy (Intermediate, Verified 05/24/25 13:39) ITCHING HPI HPI Asthma: Details: 85-year-old lady, former 30+ pack-year smoker, quit 20 years prior, followed for asthma/COPD overlap syndrome and nocturnal hypoxemia.? Patient has been using Trelegy and albuterol MDI with good control of her symptoms.? She continues to use supplemental oxygen at 2 L at night for nocturnal hypoxia.? Patient denies any recent exacerbations. [facility] Medical History Hypercalcemia Hyperparathyroidism Chronic kidney disease Hypovitaminosis D Chronic heart failure with preserved ejection fraction (HFpEF) HTN (hypertension) Left bundle branch block Persistent atrial fibrillation Osteoporosis Surgical History Hx of endoscopy Hx of colonoscopy (03/05/15) Hx of tubal ligation History of nasal surgery Family History Father No problems noted. Mother Alzheimer disease Brother Heart disease CVD (cardiovascular disease) Son Diabetes Daughter Diabetes Paternal Aunt CVD (cardiovascular disease) Other Osteoarthritis Social History Household Members: None Housing: Apartment Alcohol intake: never Patient Tobacco Use Status: Former Tobacco user Second Hand Smoke Exposure: No Review of Systems Const Denies daytime sleepiness, Denies excessive sweating, Denies fatigue, Denies fever(s), Denies lethargy, Denies malaise, Denies night sweats, Denies snoring and Denies weight loss Eyes Denies blurry vision and Denies itchy eyes ENT Denies nasal congestion, Denies post nasal drip, Denies sinus pain, Denies sinus pressure and Denies other ( Thrush) Card Denies chest pain, Denies pedal edema, Denies dyspnea, Denies orthopnea and Denies paroxysmal nocturnal dyspnea Resp Denies cough, Denies hemoptysis, Denies excessive phlegm production, Denies dyspnea, Denies snoring and Denies wheezing GI Denies abdominal pain and Denies heartburn Musc Denies myalgias, Denies arthralgias and Denies joint swelling Skin/Breast Denies rash Neuro Denies memory loss and Denies seizure-like activity Psych Denies abnormal sleep pattern, Denies anxiety and Denies memory loss Endo Denies excessive sweating, Denies fatigue and Denies heat intolerance Regulo/Lymph Denies easy bruising Aller/Immun Denies itchy eyes, Denies seasonal rhinorrhea and Denies wheezing Physical Exam Vital Signs: Last Vital Signs Pulse 64 09/03/25 13:10 BP 108/56 L 09/03/25 13:10 Pulse Ox 97 09/03/25 13:10 Oxygen Delivery Method Room Air 09/03/25 13:10 BMI result Body Mass Index 27.1 Const General: no acute distress and alert Nutritional Appearance: not obese Orientation/consciousness: Other orientation findings ( oriented) HEENT Head: Yes atraumatic Eyes General: appearance normal, both eyes and all related structures Sclerae: sclerae normal EOM: EOMs intact bilaterally Neck Neck: Yes supple Lymphatic: no lymphadenopathy noted Resp Effort & Inspection: normal respiratory effort and no use of accessory muscles Auscultation: clear to auscultation bilaterally Cardio Rate: regular rate Rhythm: regular rhythm Heart sounds: no gallops, no murmurs and no rubs Skin General skin exam: other ( warm) Extrem General: No clubbing, No cyanosis and No edema Assessment & Plan Assessment & Plan (1) Asthma-COPD overlap syndrome: Code(s): J44.9 - Chronic obstructive pulmonary disease, unspecified Category: Medical Plan: Well controlled on current regimen of Trelegy and albuterol MDI. Continue current regimen. (2) Nocturnal hypoxemia: Code(s): G47.34 - Idiopathic sleep related nonobstructive alveolar hypoventilation Category: Medical Plan: Control on nocturnal supplemental oxygen at 2 L. Continue current supplemental oxygen therapy. Coding Level of Care Code Est Pt Level 4 (64269) Diagnoses Asthma-COPD overlap syndrome J44.9 Nocturnal hypoxemia G47.34
--- OUTSIDE RECORDS SUMMARY | 2025-09-03 16:41 | XMS_ITS | Clinical Summary ---
Author Organization [facility] ity Address [address] [place] [address] Care Team Providers Care Skein Straightener Name Role Phone Unavailable Primary Care Provider [...] 10/07/2022 Hypertension/CHF/CAD Annual BMP Blood Test 10/20/2022 Depression Screening 11/08/2024 COVID-19 Vaccine (2 - 2024-2 6 season) 2025 02/19/2021 Influenza Vaccine (#1) 2025 08/29/2020 HIB [...]
--- OUTSIDE RECORDS SUMMARY | 2025-09-03 16:41 | XMS_ITS | Encounter Summary ---
Author Organization [employer] Address [address] [place] [address] Care Team Providers Care Cooler Supervisor Name Role Phone Jemma Louise MD Primary Care Provide r Reason for Visit * Reason Onset Date Comments Nurse Triage 09/28/2023 Encounter Details Date Type Department Care Team ([facility] st Contact Info) Description 09/28/2023 Telephone [facility] MEDICINE [address] [place] [address] Jemma Louise MD [address] [place] [address] Nurse Triage Social History Tobacco Use Types [...] 09/28/2023 3:23 PM EST Triage call with [employer] [place] [id number] Pt son, THIAGO Fuller, reports Pt has had some sinus/nasal congestion for some time now. Pt has nasal drainage which is clear and some nasal congestion. Neg for fever, cough, headache. Jonny is concerned about some snoring, whistling sound with breathing especially at night. No difficulty breathing is reported. Advised to come to [facility] today or tomorrow open til 800pm, [...] The caller accepted this outcome Patient speaks azeri documented in this encounter Plan of Treatment Upcoming Encounters Date Type Department Care Team (Late st Contact Info) Description 09/21/2025 3:00 PM EST Office Visit [facility] MEDICINE [address] [place] [address] Ed Amezquita MD [address] [place], [place] [phone] 10/18/2025 11:00 AM EST Office Visit [facility] OPTOMETRY [address] [place] [address] Shahrzad Rust, OD [address] [place] [address] documented as of this encounter Visit Diagnoses Not on filedocumented in this encounter Additional Health Concerns Assessment Noted Time PHQ-9 Depression Total Score: 0 03/01/20 23 1:02 PM EDT documented as of this encounter Care Teams Cooler Supervisor Relationship Specialty Start Date End Date Jemma Louise MD [address] [place], [place] [phone] PCP - General Family Medicine 09/11/19 documented as of this encounter
--- OUTSIDE RECORDS SUMMARY | 2025-09-03 16:41 | XMS_ITS | Encounter Summary ---
Author Organization [employer] Address [address] [facility] 7t [place] [address] Care Team Providers Care Reinforcer Name Role Phone Jemma Louise MD Primary Care Provide r Encounter Details Date Type Department Care Team ([facility] st Contact Info) Description 11/19/2023 Orders Only [facility] [address] [place] [address] Jemma Louise MD [address] [place] [address] Social History Tobacco Use Types Packs/Day Years [...] Description 09/21/2025 3:00 PM EST Office Visit [facility] MEDICINE [address] [place] [address] Ed Amezquita MD [address] [place] [address] 10/18/2025 11:00 AM EST Office Visit [facility] OPTOMETRY [address] [place] [address] Tarka, Shahrzad, OD [address] [place] [address] documented as of this encounter Visit Diagnoses Not on filedocumented in this encounter Additional Health Concerns Assessment Noted Time PHQ-9 Depression Total Score: 0 03/01/20 23 1:02 PM EDT documented as of this encounter Care Teams Reinforcer Relationship Specialty Start Date End Date Jemma Louise MD [address] [place] [id number] PCP - General Family Medicine 09/11/19 documented as of this encounter
--- OUTSIDE RECORDS SUMMARY | 2025-09-03 16:41 | XMS_ITS | Encounter Summary ---
Author Organization [employer] Address [address] [place] [address] Care Team Providers Care Physician/Internist Name Role Phone Jemma Louise MD Primary Care Provide r Reason for Visit * Reason Comments Med Refill Encounter Details Date Type Department Care Team ([facility] st Contact Info) Description 11/15/2023 Refill [facility] MEDICINE [address] [place] [address] Juana Vanegas, ANP [address] [place] [address] Iron deficiency Social History Tobacco Use Types [...] Description 09/21/2025 3:00 PM EST Office Visit [facility] MEDICINE [address] [place] [address] Ed Amezquita MD [address] [place] [address] 10/18/2025 11:00 AM EST Office Visit [facility] OPTOMETRY [address] [place] [address] TarShahrzad cain, OD [address] [place] [address] documented as of this encounter Visit Diagnoses Diagnosis Iron deficiency Disorders of iron metabolism documented in this encounter Additional Health Concerns Assessment Noted Time PHQ-9 Depression Total Score: 0 03/01/20 23 1:02 PM EDT documented as of this encounter Care Teams Physician/Internist Relationship Specialty Start Date End Date Jemma Louise MD [address] [place] [id number] PCP - General Family Medicine 09/11/19 documented as of this encounter
--- OUTSIDE RECORDS SUMMARY | 2025-09-03 16:41 | XMS_ITS | Encounter Summary ---
Author Organization [employer] Address [address] [facility] 7t [place] [address] Care Team Providers Care Welding Machine Operator Helper Arc Name Role Phone Jemma Louise MD Primary Care Provide r Reason for Visit * Reason Comments Med Refill Encounter Details Date Type Department Care Team (Late Contact Info) Description 06/25/2023 Refill [facility] MED & PEDS [address] [place] [address] Juana Vanegas ANP [address] [place] [address] Vitamin D deficiency Social History Tobacco Use [...] Upcoming Encounters Date Type Department Care Team ([facility] Contact Info) Description 09/21/2025 3:00 PM EST Office Visit [facility] MEDICINE [address] [place] [address] Ed Amezquita MD [address] [place] [address] 10/18/2025 11:00 AM EST Office Visit [facility] OPTOMETRY [address] [place], [place] [phone] Shahrzad Rust, OD [address] [place], [place] [phone] documented as of this encounter Visit Diagnoses Diagnosis Vitamin D deficiency documented in this encounter Additional Health Concerns Assessment Noted Time PHQ-9 Depression Total Score: 0 03/01/20 23 1:02 PM EDT documented as of this encounter Care Teams Welding Machine Operator Helper Arc Relationship Specialty Start Date End Date Jemma Louise MD [address] [place] [address] PCP - General Family Medicine 09/11/19 documented as of this encounter
--- OUTSIDE RECORDS SUMMARY | 2025-09-03 16:41 | XMS_ITS | Encounter Summary ---
Author Organization [employer] Address [address] [place] [address] Care Team Providers Care Extrusion Former Name Role Phone Jemma Louise MD Primary Care Provide r Reason for Visit * Reason Onset Date Comments Nurse Triage 05/16/2025 Encounter Details Date Type Department Care Team ([facility] st Contact Info) Description 05/16/2025 Telephone [facility] MEDICINE [address] [place] [address] Jemma Louise MD [address] [place] [address] Nurse Triage Social History Tobacco Use Types [...] frequent. Pt has hx of COPD. Pt denies difficulty breathing, no ankle swelling, neg for fever or YOLANDA sx. Pt also continues with rash and a referral was sent for apt. Pt son reports [...] become worse * Telephone Encounter - Stephanie Triston - 05/16/2025 9:51 AM EDT Symptom: Cough Outcome: Schedule an appointment to be seen within 24 hours Reason: Caller denied all higher acuity questions The caller accepted this outcome. Contact pt nevaeh Fuller at [phone] (denied disk grinder) documented in this encounter Plan of Treatment Upcoming Encounters Date Type Department Care Team (Late st Contact Info) Description 09/21/2025 3:00 PM EST Office Visit [facility] MEDICINE [address] [place] [address] Ed Amezquita MD [address] [place] [address] 10/18/2025 11:00 AM EST Office Visit [facility] OPTOMETRY [address] [place] [address] Tarka, Shahrzad, OD [address] [place] [address] documented as of this encounter Visit Diagnoses Not on filedocumented in this encounter Additional Health Concerns Assessment Noted Time PHQ-9 Depression Total Score: 4 03/30/20 25 1:32 PM EDT documented as of this encounter Care Teams Extrusion Former Relationship Specialty Start Date End Date Jemma Louise MD [address] [place] [address] PCP - General Family Medicine 09/11/19 documented as of this encounter
--- OUTSIDE RECORDS SUMMARY | 2025-09-03 16:41 | XMS_ITS | Encounter Summary ---
Author Organization [employer] Address [address] [place] [address] Care Team Providers Care Aircraft Accessories Mechanic Name Role Phone Jemma Louise MD Primary Care Provide r Reason for Visit * Reason Comments Med Refill Encounter Details Date Type Department Care Team ([facility] st Contact Info) Description 11/14/2023 Refill [facility] [address] [place], [place] [phone] Elias Croft MD [address] [place] [address] Constipation, unspecified constipation type Social History Tobacco [...] Description 09/21/2025 3:00 PM EST Office Visit [facility] MEDICINE [address] [place] [address] Ed Amezquita MD [address] [place] [address] 10/18/2025 11:00 AM EST Office Visit [facility] OPTOMETRY [address] [place] [address] Shahrzad Rust, OD [address] [place] [address] documented as of this encounter Visit Diagnoses Diagnosis Constipation, unspecified constipation type documented in this encounter Additional Health Concerns Assessment Noted Time PHQ-9 Depression Total Score: 0 03/01/20 23 1:02 PM EDT documented as of this encounter Care Teams Aircraft Accessories Mechanic Relationship Specialty Start Date End Date Jemma Louise MD [address] [place] [phone] PCP - General Family Medicine 09/11/19 documented as of this encounter
--- OUTSIDE RECORDS SUMMARY | 2025-09-03 16:41 | XMS_ITS | Clinical Summary ---
Author Organization [employer] Address [address] [facility] [address] [place] [address] Care Team Providers Care Pad Extraction Tender Name Role Phone Jemma Louise MD Primary [...] time. 01/23/20 23 Active Blood Pressure Monitor kitIndications: Essential hypertension Use as directed 3x/week 1 kit 03/01/20 23 Active furosemide (Lasix) 20 MG tabletIndicatio ns:Chronic systolic congestive heart failure (HCC) TAKE 2 TABLETS BY MOUTH ONCE DAILY IN THE MORNING and TAKE 1 TABLET BY MOUTH EVERY EVENING 90 tablet 11 10/25/20 24 Active memantine (Namenda) 10 MG tabletIndicatio ns:Dementia, unspecified dementia severity, unspecified dementia type, unspecified whether behavioral, psychotic, or mood disturbance or anxiety (CMS/HCC) (HCC) TAKE 1 TABLET BY MOUTH TWICE DAILY IN THE MORNING AND IN THE EVENING 60 tablet 11 10/25/20 24 Active melatonin 3 MG tablet TAKE 2 TABLETS BY MOUTH EVERY DAY AT BEDTIME 60 tablet 11 01/23/20 25 Active calcium carbonate 1500 (600 Ca) MG tabletIndicatio ns:Vitamin D deficiency TAKE 1 TABLET BY MOUTH EVERY OTHER DAY IN THE MORNING vit d 45 tablet 1 01/25/20 25 Active triamcinolone (Kenalog) 0.1 % creamIndication s:Rash Apply topically if needed in the morning and at bedtime (pain and swelling). 30 g 02/22/20 25 Active hydrOXYzine HCl (Atarax) 10 MG tabletIndicatio ns:Rash Take 1 tablet (10 mg) by mouth every 6 (six) hours if needed for itching for up to 10 days. 20 tablet 02/22/20 25 Active metoprolol tartrate (Lopressor) 25 MG tablet TAKE 1 TABLET BY MOUTH TWICE DAILY IN THE MORNING AND IN THE EVENING 180 tablet 1 03/23/20 25 Active predniSONE (Deltasone) 20 MG tabletIndicatio ns:Wrist swelling, left 2 tabs po daily for 5 days 10 tablet 04/18/20 25 Active docusate sodium (Colace) 100 MG capsuleIndicati ons:Constipatio n, unspecified constipation type TAKE 1 CAPSULE BY MOUTH TWICE DAILY IN THE MORNING AND IN THE EVENING 180 capsule 04/23/20 25 Active Ferrous Sulfate (iron) 325 (65 Fe) MG tabletIndicatio ns:Iron deficiency TAKE 1 TABLET BY MOUTH EVERY OTHER DAY IN THE MORNING 45 tablet 04/23/20 25 Active polyvinyl alcohol (Liquifilm Tears) 1.4 % ophthalmic solution INSTILL 1 TO 2 DROPS IN EACH EYE THREE TIMES DAILY OR MORE NEEDED 15 mL 05/02/20 25 Active Ventolin HFA 108 (90 Base) MCG/ACT inhalerIndicati ons:COPD exacerbation (CMS/HCC) (HCC) INHALE 2 PUFFS BY MOUTH EVERY 4 TO 6 HOURS NEEDED 18 g 05/14/20 25 Active fluticasone (Flonase) 50 MCG/ACT nasal spray Administer 1 spray into each nostril Once per day. Shake gently. Before first use, prime pump. After use, clean tip and replace cap. 16 g 05/17/20 25 Active atorvastatin (Lipitor) 40 MG tablet Take 1 tablet (40 mg) by mouth at bedtime. 90 tablet 05/17/20 25 Active lansoprazole (Prevacid) [address] capsule TAKE 1 CAPSULE BY MOUTH EVERY MORNING BEFORE BREAKFAST 90 capsule 05/22/20 25 Active cetirizine (ZyrTEC) 10 MG tabletIndicatio ns:Seasonal allergies TAKE 1 TABLET BY MOUTH EVERY MORNING 30 tablet 1 07/18/20 25 Active lisinopril 10 MG tabletIndicatio ns:Chronic systolic congestive heart failure (HCC),Essential hypertension TAKE 1 TABLET BY MOUTH EVERY MORNING 90 tablet 1 07/19/20 25 Active Multiple Vitamin (Multivitamin) tablet Take 1 tablet by mouth Once per day. 90 tablet 1 08/20/20 25 Active venlafaxine XR (Effexor XR) 37.5 MG 24 hr capsule Take 1 capsule (37.5 mg) by mouth Once per day. Do not crush or chew. 90 capsule 1 08/20/20 25 Active D3 Super Strength 50 MCG (2000 UT) capsuleIndicati ons:Vitamin D deficiency Take 1 capsule (50 mcg) by mouth every other day. TAKE 1 CAPSULE BY MOUTH EVERY MORNING 90 capsule 1 08/20/20 25 Active acetaminophen (Tylenol 8 Hour) 650 MG ER tablet TAKE 1 TABLET BY MOUTH EVERY 8 HOURS NEEDED 60 tablet 08/28/20 25 Active D3 Super Strength 50 MCG (2000 UT) capsuleIndicati ons:Vitamin D deficiency Take 1 capsule (50 mcg) by mouth every other day. TAKE 1 CAPSULE BY MOUTH EVERY MORNING 90 capsule 1 04/27/20 24 025 Discontinued(R eorder (will not trigger notification to Pharmacy)) Multiple Vitamin (Multivitamin) tablet TAKE 1 TABLET BY MOUTH EVERY MORNING WITH FOOD 90 tablet 1 02/28/20 025 Discontinued(R eorder (will not trigger notification to Pharmacy)) venlafaxine XR (Effexor XR) 37.5 MG 24 hr capsule TAKE 1 CAPSULE BY MOUTH AT BEDTIME WITH FOOD 90 capsule 1 02/28/20 25 025 Discontinued(R eorder (will not trigger notification to Pharmacy)) acetaminophen (Tylenol 8 Hour) 650 MG ER tablet TAKE 1 TABLET BY MOUTH EVERY 8 HOURS NEEDED 60 tablet 05/02/20 25 025 Discontinued Active Problems Problem Noted Date [...] will follow-up Will reach out to dermatology hand booked folder and stitcher to see when can she be seen by tube roller in house. Continue triamcinolone cream for now [...] on cetrizine Stage 3a chronic kidney disease (CMS/HCC) 2022 Assessment & Plan (03/30/2024 11:34 AM EDT): [...] F/u BMP in 2 weeks COPD exacerbation ([facility]) 09/22/2023 Assessment & Plan (09/22/2023 11:46 AM EST): Seems to be improving Son will give her albuterol q6h for 2 days PRN Continue other medications and f/u with PCP Atrial fibrillation ([facility]) 02/18/2023 Assessment & Plan (09/12/2024 12:08 PM [...] from ED visit Order [facility] today Dementia ([facility]) 02/18/2023 Assessment & Plan (05/17/2025 3:48 PM [...] day PRN C/w same treatment referral to gritting machine operator will be done today Constipation 11/04/2015 [...] Encounters Date Type Department Care Team Description 08/24/2025 Refill [facility] [address] [place] [address] Jemma Louise MD 08/20/2025 Refill [facility] [address] [place] [address] Jemma Louise MD Vitamin D deficiency 08/20/2025 Refill [facility] [address] [place] [address] Jemma Louise MD 08/02/2025 Telephone [facility] [address] [place] [phone] Jemma Louise MD Dec recall 07/19/2025 Refill [facility] [address] [place] [address] Jemma Louise MD Chronic systolic congestive heart failure ([facility]/HCC); Essential hypertension 07/18/2025 Refill [facility] [address] [place] [address] Jemma Louise MD Seasonal allergies 07/17/2025 Telephone [facility] [address] [place] [address] Jemma Louise MD 07/13/2025 Telephone [facility] [address] [place] [phone] Jemma Louise MD No Show 07/12/2025 Telephone [facility] [address] [place] [phone] Jemma Louise MD chart prep 07/05/2025 Orders Only GENERIC EXTERNAL DATA DEPARTMENT Provider, Generic External Data 07/04/2025 Patient Outreach [facility] [address] [place] [address] Jemma Louise MD Pre-visit Planning ([facility] screening completed on 03/30/2025) from Last 3 Months Immunizations Immunization Administration [...] Description 09/21/2025 3:00 PM EST Office Visit [facility] [address] [place] [address] Ed Amezquita MD [address] [place], [place] [phone] 10/18/2025 11:00 AM EST Office Visit [facility] [address] [place], [place] [phone] Shahrzad Rust, OD [address] [place] [address] Health Maintenance Due Date Last Done Comments [...] Procedure Name Priority Date/Time Associated Diagnosis Comments CT ABDOMEN W CONTRAST Routine 07/05/2025 3:06 PM EDT POCT CREATININE GFR Routine 07/05/2025 3 :02 PM EDT CALCIUM Routine 07/05/2025 1:33 PM EDT LIPID PANEL, STANDARD Routine 07/28/2022 11:36 AM EDT from Last 3 Months or Most Recently Relevant to Health Maintenance Results * CT Abdomen w/ Contrast (07/05/2025 3:06 PM EDT) Anatomical Region Laterality Modality Body, Abdomen Computed Tomogra phy 07/05/2025 3:06 PM EDT Narrative 07/05/2025 4:00 PM EDT [place] [address] [address] Scan Report Signed Patient: Jemma Esquivel MR#: [id number] : 1940 Acct:[id number] Age/Sex: 85 / F ADM Date: 07/05/25 Loc: .CT Attending Dr: Shree Briseno MD Ordering Physician: Shree Briseno MD Date of Service: 07/05/25 Procedure(s): CT abdomen w IV con Accession Number(s): [id number] cc: Shree Briseno MD; Radha Yanez MD Report Number: [id number]: Total DLP = 142.00 mGy-cm EXAMINATION: CT ABDOMEN WITH IV CONTRAST HISTORY: N28.1 - Cyst of kidney, acquired COMPARISON: Correlation is made with a renal ultrasound dated 04/13/2024. TECHNIQUE: CT scan of the abdomen was performed following administration of 85 mL Omnipaque 350 using standard departmental protocol. Coronal and sagittal reformatted images were generated and reviewed. This CT exam was performed with one or more of the following dose reduction techniques: automated exposure control, adjustment of the mA and/or kV according to patient size, use of iterative reconstruction technique. DLP: 142 mGy-cm FINDINGS: LOWER CHEST: The visualized lung bases are clear. There is no pleural effusion. CARDIOVASCULATURE: The heart is normal in size. There is no pericardial effusion. LIVER: The liver is normal in size and contour. There is a 10 mm hypodense focus in the right lobe which is too small to accurately characterize. The hepatic and portal veins are patent. GALLBLADDER / BILE DUCTS: The gallbladder is unremarkable. There is no intra or extrahepatic biliary ductal dilatation. SPLEEN: The spleen is normal in size. No focal splenic lesion is identified. PANCREAS: The pancreas is unremarkable in appearance. ADRENAL GLANDS: Within normal limits. KIDNEYS/RETROPERITONEUM: No renal calculi are identified. There is no hydronephrosis. There is a mass in the lateral aspect of the upper pole of the right kidney measuring 2.8 x 2.1 x 2.7 cm. The mass demonstrates gross fat attenuation, consistent with an angiomyolipoma. There is a 2.4 cm cyst at the medial aspect of the upper pole of the right kidney. There are probable tiny subcentimeter left renal cysts. LYMPH NODES: No upper abdominal lymphadenopathy. VASCULATURE: The abdominal aorta demonstrates atherosclerotic calcification, but is normal in caliber. MESENTERY/PERITONEUM: No free fluid. No masses. There is no free intraperitoneal gas. STOMACH: The stomach is collapsed, limiting evaluation. SMALL BOWEL: The visualized small bowel is normal in caliber. COLON: The visualized portion of the colon is unremarkable. BONES / SOFT TISSUES: There is a moderate compression deformity of T12. 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 As these lesions are at high risk for spontaneous hemorrhage when larger than 3.5 cm in size, follow-up is recommended. Electronically signed by: West Mathew MD 07/05/2025 03:57 PM EDT Dictated By: West Mathew MD Signed By: <Electronically signed by West Mathew MD in OV> 08/28/25 1557 DD/ 1506 TD/TT: 07/05/25 1539 Power Plant Operator Apprentice: Procedure Note [place], Image - 07/05/[address] [address] [address] Scan Report Signed Patient: Jemma Esquivel AMR#: [id number] : 1940cct:[id number] Age/Sex: 85 / FADM Date: 07/05/25 Loc: HO.CT Attending Dr: Shree Briseno MD Ordering Physician: Shree Briseno MD Date of Service: 07/05/25 Procedure(s): CT abdomen w IV con Accession Number(s): [id number] cc: Shree Briseno MD; Radha Yanez MD Report Number: [id number]: Total DLP = 142.00 mGy-cm EXAMINATION: CT ABDOMEN WITH IV CONTRAST HISTORY: N28.1 - Cyst of kidney, acquired COMPARISON: Correlation is made with a renal ultrasound dated 04/13/2024. TECHNIQUE: CT scan of the abdomen was performed following administration of 85 mL Omnipaque 350 using standard departmental protocol. Coronal and sagittal reformatted images were generated and reviewed. This CT exam was performed with one or more of the following dose reduction techniques: automated exposure control, adjustment of the mA and/or kV according to patient size, use of iterative reconstruction technique. DLP: 142 mGy-cm FINDINGS: LOWER CHEST: The visualized lung bases are clear. There is no pleural effusion. CARDIOVASCULATURE: The heart is normal in size. There is no pericardial effusion. LIVER: The liver is normal in size and contour. There is a 10 mm hypodense focus in the right lobe which is too small to accurately characterize. The hepatic and portal veins are patent. GALLBLADDER / BILE DUCTS: The gallbladder is unremarkable. There is no intra or extrahepatic biliary ductal dilatation. SPLEEN: The spleen is normal in size. No focal splenic lesion is identified. PANCREAS: The pancreas is unremarkable in appearance. ADRENAL GLANDS: Within normal limits. KIDNEYS/RETROPERITONEUM: No renal calculi are identified. There is no hydronephrosis. There is a mass in the lateral aspect of the upper pole of the right kidney measuring 2.8 x 2.1 x 2.7 cm. The mass demonstrates gross fat attenuation, consistent with an angiomyolipoma. There is a 2.4 cm cyst at the medial aspect of the upper pole of the right kidney. There are probable tiny subcentimeter left renal cysts. LYMPH NODES: No upper abdominal lymphadenopathy. VASCULATURE: The abdominal aorta demonstrates atherosclerotic calcification, but is normal in caliber. MESENTERY/PERITONEUM: No free fluid. No masses. There is no free intraperitoneal gas. STOMACH: The stomach is collapsed, limiting evaluation. SMALL BOWEL: The visualized small bowel is normal in caliber. COLON: The visualized portion of the colon is unremarkable. BONES / SOFT TISSUES: There is a moderate compression deformity of T12. 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 As these lesions are at high risk for spontaneous hemorrhage when larger than 3.5 cm in size, follow-up is recommended. Electronically signed by: West Mathew MD 07/05/2025 03:57 PM EDT Dictated By: West Mathew MD Signed By: <Electronically signed by West Mathew MD in OV> 07/05/25 1557 DD/ 1506 TD/TT: 07/05/25 1539 Power Plant Operator Apprentice: us [facility] External Provider IMG CT PROCEDURES Final Result * POCT Creatinine GFR (07/05/2025 3:02 PM EDT) POCT Creatinine 0.6 0.5 - 1.4 mg/dL [facility] GFR POC >60 [facility] Comment:Chronic Kidney Disea se: Estimated GFR < 60 mL/min/[id number] Kidney Disease: Estimated GFR < 15 mL/min/1.73m2 07/05/2025 3:02 PM EDT 07/06/2025 10:58 AM EDT Narrative [facility] - 07/06/2025 11:00 AM EDT [id number] Generic External Data Provider LAB POINT OF CARE TEST DOCKED DEVICE ORDERABLES Final Result Performing Organization Address City/[facility]/ZIP Co de Phone Number [facility] [address] [place] [phone] * Calcium (07/05/2025 1:33 PM EDT) Pathologist [facility] Calcium 9.8 8.4 - 10.2 mg/dL [facility] 07/05/2025 1:33 PM EDT 07/05/2025 1:33 PM EDT Generic External Data Provider LAB BLOOD ORDERAB LES Final Result Performing Organization Address [facility] Co de Phone Number [facility] [address] [place] [phone] * (ABNORMAL) LIPID PANEL, STANDARD (07/28/2022 11:36 AM EDT) Pathologist [facility] Chol/HDLC Ratio 2.2 <5.0 (calc) [facility] factors. LDL-C is now calculated using the Jannet calculation, which is a validated novel method providing better accuracy than the Friedewald equation in the estimation of LDL-C. En OBRIEN et al. EVAN. 2013;310(19): 7703-7876 (http://education.Sazneo.mydeco/faq/POD452) Non-HDL Cholesterol 71 <130 mg/dL (calc) [facility] Comment: For patients with diabetes plus 1 major ASCVD risk factor, treating to a non-HDL-C goal of <100 mg/dL (LDL-C of <70 mg/dL) is considered a therapeutic option. Triglycerides 154(H) <150 mg/dL [facility] 07/28/2022 11:3 6 AM EDT Jemma Mccarthy MD LAB BLOOD ORDERABLES Final Result [facility] [address] from Last 3 Months or Most Recently Relevant to Health Maintenance Insurance [facility] [employer] (O D-SNP) JOY SOLIS [id number] Care Teams Pad Extraction Tender Relationship Specialty Start Date End Date Jemma Louise MD [address] [place] [phone] PCP - General Family Medicine 09/11/19
--- OUTSIDE RECORDS SUMMARY | 2025-09-03 16:41 | XMS_ITS | Encounter Summary ---
Author Organization [employer] Address [address] [facility] [address] [place] [address] Care Team Providers Care Sports Official Name Role Phone Jemma Louise MD Primary Care Provide r Reason for Visit * Reason Comments Med Refill Encounter Details Date Type Department Care Team ([facility] st Contact Info) Description 08/20/2025 Refill [facility] [address] [place] [address] Jemma Louise MD [address] [place] [address] Social History Tobacco Use Types Packs/Day Years [...] Description 09/21/2025 3:00 PM EST Office Visit [facility] [address] [place] [address] Ed Amezquita MD [address] [place] [address] 10/18/2025 11:00 AM EST Office Visit [facility] [address] [place] [address] Tarka, Shahrzad, OD [address] [place] [address] documented as of this encounter Visit Diagnoses Not on filedocumented in this encounter Additional Health Concerns Assessment Noted Time PHQ-9 Depression Total Score: 4 03/30/20 25 1:32 PM EDT documented as of this encounter Care Teams Sports Official Relationship Specialty Start Date End Date Jemma Louise MD [address] [place] [phone] PCP - General Family Medicine 09/11/19 documented as of this encounter
--- OUTSIDE RECORDS SUMMARY | 2025-09-03 16:41 | XMS_ITS | Encounter Summary ---
Author Organization [employer] Address [address] [facility] 7[address] [place] [address] Care Team Providers Care Percussion Teacher Name Role Phone Jemma Louise MD Primary Care Provide r Encounter Details Date Type Department Care Team (Late st Contact Info) Description 01/04/2023 Orders Only [facility] PEDS [address] [place], [place] [phone] Barbara Portillo LPN Social History Tobacco Use [...] Description 09/21/2025 3:00 PM EST Office Visit [facility] MEDICINE [address] [place] [address] Ed Amezquita MD [address] [place] [address] 10/18/2025 11:00 AM EST Office Visit [facility] OPTOMETRY [address] [place] [address] Shahrzad Rust, OD [address] [place] [address] documented as of this encounter Procedures Procedure [...] EDT) Vitamin D, 25-OH, D2 <4 ng/mL [facility] Comment:This test was develo ped and its analytical performancecharacteristics have been determined by [facility] [place], [place]. It hasnot been cleared or approved by the U.S. Food and DrugAdministration. This assay has been validated pursuantto the CLIA regulations and is used for clinicalpurposes.THIS TEST WAS PERFORMED AT:[facility] [id number] [place] [address]FHDUOQBOTILIA CASTAÑEDA MD,PHD Vitamin D, 25-OH, D3 37 ng/mL [facility] Comment:This test was develo ped and its analytical performancecharacteristics have been determined by [facility] [place], [place]. It hasnot been cleared or approved by the U.S. Food and DrugAdministration. This assay has been validated pursuantto the CLIA regulations and is used for clinicalpurposes. Vitamin D, 25-OH, Total 37 30 - 100 ng/mL [facility] Comment:Vitamin D, 25-Hydrox y reports [...] = 30 ng/mL.For additional information, please refer tohttp://education.InOpen/faq/PIT958(This link is being provided for informational/educational purposes only.) 08/10/2023 12:1 3 PM EDT 08/10/2023 12:13 PM EDT [facility] External Provider LAB BLO OD ORDERABLES Final Result [facility] [address] [place] [address] [phone] * (ABNORMAL) Comprehensive Metabolic Panel (08/10/2023 12:13 PM EDT) Sodium 141 135 - 145 mmol/L [facility] Potassium 4.0 3.3 - 5.1 mmol/L [facility] Chloride 97 96 - 108 mmol/L [facility] Carbon Dioxide 33(H) 22 - 29 mmol/L [facility] Anion Gap 15 12 - 20 [facility] Urea Nitrogen (BUN) 15 9 - 16 mg/dL [facility] Creatinine, Serum 0.89 0.5 - 1.4 mg/dL [facility] Estimated Glomerular Filt Rate >60 [facility] Comment:NOTE: For -Am erican individuals, multiply the result by 1.210.Chronic Kidney Disease: Estimated GFR < 60 mL/min/1.48k2Lwaknv Kidney Disease: Estimated GFR < 15 mL/min/1.73m2 Glucose 102 60 - 115 mg/dL [facility] Calcium 10.5(H) 8.4 - 10.2 mg/dL [facility] Bilirubin, Total 0.4 0.0 - 1.0 mg/dL [facility] Aspartate Amino Transferase 22 5 - 31 U/L [facility] Alanine Aminotransferase 13 0 - 31 U/L [facility] Total Protein 7.9 6.5 - 8.0 g/dL [facility] Albumin Level 4.4 3.5 - 5.0 g/dL [facility] Alkaline Phosphatase 47 39 - 117 U/L [facility] 08/10/2023 12:1 3 PM EDT 08/10/2023 12:13 PM EDT us [facility] External Provider LAB BLO OD ORDERABLES Final Result [facility] [address] [place] [address] [phone] * (ABNORMAL) CBC auto differential (08/10/2023 12:13 PM EDT) White Blood Count 7.3 4.8 - 10.8 X10*3/uL [facility] Red Blood Count 4.62 4.20 - 5.50 X10*6/uL [facility] Hemoglobin 12.5 12.0 - 16.0 g/dl [facility] Hematocrit 40.9 37.0 - 47.0 % [facility] Mean Corpuscular Volume 88.5 80.0 - 98.0 fL [facility] Mean Corpuscular Hemoglobin 27.1 27.0 - 33.0 pg [facility] Mean Corpuscular HGB Conc 30.6(L) 31.0 - 35.0 g/dl [facility] Red Cell Distribution Width 14.5 11.0 - 16.0 % [facility] Platelet Count 257 160 - 400 X10*3/uL [facility] Mean Platelet Volume 12.3 9.4 - 12.3 fL [facility] Neutrophils Percent Auto 69.3 45 - 73 % [facility] Imm Gran Pct Auto 0.4 0.0 - 0.4 % [facility] Lymphocytes Percent Auto 18.4(L) 20 - 40 % [facility] Monocytes Percent Auto 9.1 2 - 11 % [facility] Eosinophils Percent Auto 2.2 0 - 4 % [facility] Basophils Percent Auto 0.6 0 - 2 % [facility] NRBC Pct Auto 0.0 0.0 - 0.2 /100WBC [facility] Neutrophils Absolute Auto 5.0 2.0 - 8.3 x10*3/uL [facility] Imm Gran Abs Auto 0.03 0.00 - 0.03 X10*3/uL [facility] Lymphocytes Absolute Auto 1.3 1.2 - 4.9 X10*3/uL [facility] Monocytes Absolute Auto 0.7 0.1 - 1.2 X10*3/uL [facility] Eosinophils Absolute Auto 0.2 0.0 - 0.4 X10*3/uL [facility] Basophils Absolute Auto 0.0 0.0 - 0.2 X10*3/uL [facility] NRBC Abs Auto 0.000 0.0 - 0.012 X10*3/uL [facility] 08/10/2023 12:1 3 PM EDT 08/10/2023 12:13 PM EDT [facility] External Provider LAB BLO OD ORDERABLES Final Result [facility] [address] [place] [phone] * Vitamin D, 25-Hydroxy, Total, Immunoassay (03/01/2023 2:22 PM EDT) Vitamin D 25-OH Total 69.3 >30 ng/mL [facility] Comment:Health Based Referen ce Values*< 20 ng/mL Wjgfjaoxg02-26 ng/mL Insufficient> 30 ng/mL Sufficient*Larisa CARMONA. N [...] 2:22 PM EDT 03/01/2023 2:22 PM EDT [facility] External Provider LAB BLO OD ORDERABLES Final Result Performing Organization Address [facility]/ZIP Co de Phone Number [facility] [address] [place] [phone] * Phosphate (As Phosphorus) (03/01/2023 2:22 PM EDT) Phosphorus 2.8 2.7 - 4.5 mg/dL [facility] 03/01/2023 2:22 PM EDT 03/01/2023 2:22 PM EDT [facility] External Provider LAB BLO OD ORDERABLES Final Result Performing Organization Address [facility] Co de Phone Number [facility] [address] [place] [phone] * (ABNORMAL) Comprehensive Metabolic Panel (03/01/2023 2:22 PM EDT) Sodium 143 135 - 145 mmol/L [facility] Potassium 4.2 3.3 - 5.1 mmol/L [facility] Chloride 96 96 - 108 mmol/L [facility] Carbon Dioxide 35(H) 22 - 29 mmol/L [facility] Anion Gap 16 12 - 20 [facility] Urea Nitrogen (BUN) 18(H) 9 - 16 mg/dL [facility] Creatinine, Serum 1.02 0.5 - 1.4 mg/dL [facility] Estimated Glomerular Filt Rate 52 [facility] Comment:NOTE: For -Am erican individuals, multiply the result by 1.210.Chronic Kidney Disease: Estimated GFR < 60 mL/min/1.49z9Ynbqwy Kidney Disease: Estimated GFR < 15 mL/min/1.73m2 Glucose 85 60 - 115 mg/dL [facility] Calcium 9.9 8.4 - 10.2 mg/dL [facility] Bilirubin, Total 0.6 0.0 - 1.0 mg/dL [facility] Aspartate Amino Transferase 17 5 - 31 U/L [facility] Alanine Aminotransferase 10 0 - 31 U/L [facility] Total Protein 7.5 6.5 - 8.0 g/dL [facility] Albumin Level 4.4 3.5 - 5.0 g/dL [facility] Alkaline Phosphatase 59 39 - 117 U/L [facility] 03/01/2023 2:22 PM EDT 03/01/2023 2:22 PM EDT us [facility] External Provider LAB BLO OD ORDERABLES Final Result Performing Organization Address City/State/[facility] Co de Phone Number [facility] [address] [place] [address] [phone] documented in this encounter Visit Diagnoses Not on filedocumented in this encounter Care Teams Percussion Teacher Relationship Specialty Start Date End Date Jemma Louise MD [address] [place] [phone] PCP - General Family Medicine 09/11/19 documented as of this encounter
--- OUTSIDE RECORDS SUMMARY | 2025-09-03 16:41 | XMS_ITS | Data Portability ---
Author Organization [facility] Medical [facility] Address [address] [place] [phone] Care Team Providers Care Senior Ruby Developer Name Role Phone [facility] Referring Provider Assessment No assessment recorded. Plan of Treatment Reminders Order Date Submit Date Provider Last Modified By Organization Details Last Modified Time Details Appointments None recorded. Lab rapid SARS CoV 2 Ag, QL IA, respiratory specimen 2021 [facility], [address] [place] [address], [phone] 10:35:12 Referral None recorded. Procedures None recorded. Surgeries None recorded. Imaging None recorded. Medication Orders prednisone 20 mg tablet 2021 022 [facility], [address] [place] [address], [id number], 10:31:37 prednisone 20 mg tablet 2021 022 [facility], [address] [place] [address], [id number], 10:28:37 Patient TargetsNo targets recorded. Patient InstructionsNo instructions recorded. Reason for Referral None Reported. Results Created Date Observation Date Name Description Value Unit Range Abnormal Flag Note LastModifiedBy Organization Detail LastModifiedTime 04/01/20 22 04/01/2022 rapid SARS CoV 2 Ag, QL IA, respi rator y speci men rapid SARS CoV 2 Ag, QL IA, respiratory specimen negati ve Not Available [address], [phone] 04/01/2022 10:34:06 Result Notes None recorded. Medical Equipment None Reported. Allergies Allergen ID Allergen Name Allergen Category Reaction Reaction Severity Criticality Documentation Date Start Date Code Code System Note Provider Name and Address Organization Details Recorded Time 7787 Product containin g penicilli n (product) medicatio n Not available Not available Not available 09/05/2024 38862 8001 SNOMED Not Available [facility] - production [...] Heart rate Respiratory rate Body temperature Systolic And Diastolic Systolic And Diastolic Provider Name and Address Organization Details Last Updated DateTime 2 20 /min 86 /min 98 % 98 % 96.2 [degF] 98 % 98 % 86 /min 20 /min 96.2 [degF] 150/90 mm[Hg] 150/90 mm[Hg] Not Available [facility] - production 2 [...] Diagnosis SNOMED-CT Code Diagnosis ICD10 Code Diagnosis IMO Codes Diagnosis Note 1773 Rosales Richard MD Main - [facility] [address] [place] [phone] 04/01/2022 10:19:55 07/30/2022 11:19:05 Acute exacerbation of chronic obstructive pulmonary disease [id number] J44.1 Reports increase in sputum production over [...] Recorded Advance Directives Directive None Recorded Payers Insurance Date Sequence Insurance Name Policy Number Policy Hong Covered Member ID Hong Member ID Guarantor Name 01/02/2024 1 [facility] - DOS PRIOR TO 2023 - DUAL ELIGIBLE (MEDICARE REPLACEMENT/ADV ANTAGE - HMO) Jemma Esquivel [id number] Jemma Esquivel 01/02/2024 1 [facility] - DOS ON OR AFTER 2023 - DUAL ELIGIBLE - [employer] AND ONE CARE (MEDICARE REPLACEMENT/ADV ANTAGE - HMO) Jemma Esquivel [id number] Jemma Esquivel Notes Date Note Type Note Provider Name and Address Organization Details Recorded Time 04/01/2022 text/html [facility] Nursing Assessment: Reason For Request: Coughing up flem Pain in shoulder (think it could be due to the member's arthrites) Patient Reports: Sputum increase ; Cough Denies: Increased work of breathing/labored with or without fever Unable to speak in full sentences without distress Discoloration of skin -cyanosis Needs to sleep sitting up, can t catch breath Shortness of breath in [...] .................. .................. .................. .................. .................. .................. ............... Business Process Analyst Note: Chief Complaint cough Pertinent positive and [...] performed neg. 40mg Prednisone given PO per . also faxed over prescription. Red flags covered. Pt will follow up with pcp .................. .................. .................. .................. .................. .................. .................. ............... Disposition: Fulfilled Rosales Richard MD [address] [facility],[address] [facility], [place], [phone], [facility] [employer] 04/01/2022 11:09:16 OBGyn Episode No OBEpisode recorded.
== END 2025-09-03 13:30 | disposition home or self-care (01) ==
LOC: HO.HPS 13:07
PROVIDERS: PCP Internal Medicine; Visit Provider Internal Medicine Pulmonary Disease
DX: J44.9 Chronic obstructive pulmonary disease, unspecified (principal); G47.34 Idiopathic sleep related nonobstructive alveolar hypoventilation
CPT/HCPCS: 99214

== ENCOUNTER → 2025-09-03 13:07 | Outpatient (BNVA) | payer OTHER, SELFPAY | PROVIDERS: PCP Internal Medicine; Visit Provider Internal Medicine Pulmonary Disease | DX: G47.34 Idiopathic sleep related nonobstructive alveolar hypoventilation (principal); J44.9 Chronic obstructive pulmonary disease, unspecified | CPT/HCPCS: 99212 ==

== ENCOUNTER 2025-09-06 11:27 | Outpatient (REF) | payer OTHER, SELFPAY ==
[2025-09-06 17:33] LABS: MANUAL DIFF FLAG NO
[2025-09-06 17:48] LABS: Hematocrit 41.6 % (37.0-47.0); Hemoglobin 12.4 g/dl (12.0-16.0); Imm Gran Abs Auto 0.03 X10*3/uL (0.00-0.03); Imm Gran Pct Auto 0.3 % (0.0-0.4); Lymphocytes Absolute Auto 1.9 X10*3/uL (1.2-4.9); Mean Corpuscular HGB Conc 29.8 g/dl (31.0-35.0); Mean Corpuscular Hemoglobin 25.7 pg (27.0-33.0); Mean Corpuscular Volume 86.1 fL (80.0-98.0); NRBC Abs Auto 0.000 X10*3/uL (0.0-0.012); NRBC Pct Auto 0.0 /100WBC (0.0-0.2); Platelet Count 290 X10*3/uL (160-400); Red Blood Count 4.83 X10*6/uL (4.20-5.50); White Blood Count 10.1 X10*3/uL (4.8-10.8)
[2025-09-06 18:08] LABS: Alanine Aminotransferase 12 U/L (0-31); Albumin Level 4.5 g/dL (3.5-5.0); Alkaline Phosphatase 54 U/L (39-117); Anion Gap 16 (12-20); Aspartate Amino Transferase 27 U/L (5-31); Blood Urea Nitrogen 21 mg/dL (9-16); Calcium 9.6 mg/dL (8.4-10.2); Carbon Dioxide 29 mmol/L (22-29); Chloride 101 mmol/L (96-108); Estimated Glomerular Filt Rate 48; Potassium 4.1 mmol/L (3.3-5.1); Sodium 142 mmol/L (135-145); Total Protein 8.4 g/dL (6.5-8.0)
[2025-09-11 20:03] LABS: Vitamin D 25-OH, D2 <4 ng/mL; Vitamin D 25-OH, D3 68 ng/mL; Vitamin D 25-OH, Total 68 ng/mL (30-100)
== END 2025-09-06 11:28 | disposition home or self-care (01) ==
LOC: HO.HKASLDS 11:27
PROVIDERS: PCP Internal Medicine; Visit Provider Student in an Organized Health Care Education/Training Program
DX: M81.0 Age-related osteoporosis without current pathological fracture (principal); E55.9 Vitamin D deficiency, unspecified; Z51.81 Encounter for therapeutic drug level monitoring; Z79.83 Long term (current) use of bisphosphonates; Z79.899 Other long term (current) drug therapy
CPT/HCPCS: 36415; 80053; 82306; 85025; 99212

== ENCOUNTER 2025-09-06 11:27 | Outpatient (AMB) | payer OTHER, SELFPAY ==
--- NOTE | 2025-09-06 11:33 | A.OFFVIS_ITS ---
Vital Signs 09/06/25 11:39 Height 4 ft 11 in Weight 132 lb 11.492 oz BMI 26.8 BP 115/70 Blood Pressure Location Lt brachial Position Sitting Pulse 51 Pulse Source Pulse Oximeter Pulse Oximetry (%) 100 Oxygen Delivery Method Room Air Intake Visit Reasons: f/u osteoporosis Intake Note: Patient presents for Osteoporosis follow up. Merchandising Assistant Required: Yes Merchandising Assistant Language: Shell Trim Tool Setter Services: Merchandising Assistant Offered & Declined Merchandising Assistant Name: Jonny Echeverria Information Interpreted: non-clinical & clinical Quality Systems Manager: Quality Systems Manager Present (Jonny Echeverria) Accompanied by: Son Allergies Penicillins Allergy (Intermediate, Verified 09/06/25 11:39) ITCHING Medication List - Last Reconciled 09/06/25 by Lolita Fagan MD acetaminophen ER (Tylenol 8 Hour) 650 mg PO Q12H PRN albuterol sulfate 90 mcg/actuation 2 puffs inhalation Q6H PRN apixaban (Eliquis) 2.5 mg PO BID atorvastatin 40 mg PO DAILY calcium carbonate 600 mg PO ONCE cetirizine (All Day Allergy (cetirizine)) 10 mg PO DAILY PRN cholecalciferol (vitamin D3) 3,000 units PO DAILY 90 days docusate sodium (Colace) 100 mg PO BID ferrous sulfate (FeroSul) 325 mg PO DAILY fluticasone propionate 50 mcg/actuation sprays intranasal nzuzanfppqv-ptbmxhory-uwnxbgzf 100-62.5-25 mcg (Trelegy Ellipta) 1 ea PO DAILY furosemide 20 mg PO DAILY lansoprazole 30 mg PO DAILY lisinopril 10 mg PO DAILY melatonin 3 mg PO BEDTIME memantine 10 mg PO BID metoprolol tartrate 12.5 mg (1/2 x 25 mg) PO BID multivitamin 1 tab PO DAILY venlafaxine ER (Effexor XR) 37.5 mg PO DAILY HPI Comments Details: Patient is an 85-year-old female with hyperlipidemia, hypertension complicated by heart failure with preserved ejection fraction who presents for follow-up of her osteoporosis Interval History: Patient last seen 03/06/2025 - IV Reclast infusion - Patient continues to do well. - No falls or fractures Today - On IV Reclast infusion 5mg every year - No falls or fractures Rheumatologic History: Has had osteoporosis for several years. Was receiving Prolia for about 10 years. Had repeat DEXA which showed worsening bone density. Current Rheumatology Medication(s): Calcium and vitamin-D IV Reclast 5mg yearly [facility] Medical History Hypercalcemia Hyperparathyroidism Chronic kidney disease Hypovitaminosis D Chronic heart failure with preserved ejection fraction (HFpEF) HTN (hypertension) Left bundle branch block Persistent atrial fibrillation Osteoporosis Surgical History Hx of endoscopy Hx of colonoscopy (03/05/15) Hx of tubal ligation History of nasal surgery Family History Father No problems noted. Mother Alzheimer disease Brother Heart disease CVD (cardiovascular disease) Son Diabetes Daughter Diabetes Paternal Aunt CVD (cardiovascular disease) Other Osteoarthritis Social History Household Members: None Housing: Apartment Alcohol intake: never Patient Tobacco Use Status: Former Tobacco user Second Hand Smoke Exposure: No Review of Systems Narrative Review of Systems Constitutional: Denies fever, chills, weight loss ENT: Denies vision changes, eye pain or eye redness, dental caries, dry mouth GI: Denies nausea, vomiting, diarrhea, abdominal pain, change in BM Pulm: Denies SOB, JUSTICE, hemoptysis, wheezing Cards: Denies chest pain, palpitations Skin: Denies Raynaud's, rash, nail changes, photosensitivity, COMPUTER ARCHITECT: Denies headaches, weakness, paresthesias, recurrent falls MSK: as per HPI All other systems reviewed and are unremarkable except noted above Physical Exam Exam Exam: Vital signs reviewed Physical Examination CONSTITUITIONAL Patient alert and cooperative. Well appearing and in no apparent painful distress MSK Hands * Right Hand: Able to make a fist. No swelling or tenderness to palpation of the MCPs, PIPs or DIPs. * Left Hand: Able to make a fist. No swelling or tenderness to palpation of the MCPs, PIPs or DIPs. * Herbedens nodes noted bilaterally Wrists * Right Wrist: Full ROM to flexion and extension. No swelling or TTP * Left Wrist: Full ROM to flexion and extension. No swelling or TTP Elbows * Right Elbow: Full ROM. No swelling or TTP. No TTP of the medial epicondyle. No TTP of the lateral epicondyle * Left Elbow: Full ROM. No swelling or TTP. No TTP of the medial epicondyle. No TTP of the lateral epicondyle Shoulders * Right shoulder: Full ROM. No swelling noted. No TTP of the AC joint. No TTP of the subacromial bursa. No TTP of the posterior shoulder * Left shoulder: Full ROM. No swelling noted. No TTP of the AC joint. No TTP of the subacromial bursa. No TTP of the posterior shoulder Knees * Right knee: No swelling noted. No TTP of the knee joint line. No TTP of pes anserine bursa * Left knee: No swelling noted. No TTP of the knee joint line. No TTP of pes a nserine bursa. * Crepitations felt bilaterally Ankles * Right ankle: Good ankle dorsiflexion and plantar flexion. No swelling. No TTP of the ankle joint * Left ankle: Good ankle dorsiflexion and plantar flexion. No swelling. No TTP of the ankle joint Feet * Right foot: Negative squeeze test * Left foot: Negative squeeze test Tender points? * No tenderness to palpation of the bilateral trapezius, supraspinatus, anterior costochondral junctions, bilateral suboccipital muscle insertions SKIN No rashes Vital Signs: Last Vital Signs Pulse 51 09/06/25 11:39 BP 115/70 09/06/25 11:39 Pulse Ox 100 09/06/25 11:39 Oxygen Delivery Method Room Air 09/06/25 11:39 BMI result Body Mass Index 26.8 Results Reviewed Results Reviewed: DEXA 03/2025 FINDINGS: The bone mineral density of the lumbar spine is 0.926, corresponding to a T-score of -2.0, and a Z-score of 0.0. This is indicative of osteopenia. This represents a BMD change of -9.2% compared to the prior exam. This is statistically significant. The bone mineral density of the left total hip is 0.800, corresponding to a T-score of -1.6, and a Z-score of 0.7. This is indicative of osteopenia. This represents a BMD change of 13.5% compared to the prior exam. This is statistically significant. The bone mineral density of the left femoral neck is 0.729, corresponding to a T-score of -2.2, and a Z-score of 0.2. This is indicative of osteopenia. This represents a BMD change of 18.5% compared to the prior exam. Assessment & Plan Assessment & Plan (1) Osteoporosis: Comment: DEXA 11/2022: AP Spine -1.2, Left femur neck -3.0, Left femur total -2.4 DEXA 03/2025: AP Spine -2.0, Left femur neck -1.6, Left femur total -2.2 prolia started 10/30/2014. Stopped 01/2024 IV reclast 08/2024 Code(s): M81.0 - Age-related osteoporosis without current pathological fracture Category: Medical Qualifiers: Osteoporosis type: age-related Presence of current pathological fracture: without current pathological fracture Qualified Code(s): M81.0 - Age- related osteoporosis without current pathological fracture Plan: #Osteoporosis Patient is an 85-year-old female with osteoporosis and history of fragility fracture here today for follow up. Currently on IV Reclast, last dose 08/2024. Repeat bone density done March 2025 shows 13-18% improvement in her hip however her L-spine showed about and 9% decrease. Overall I think we should continue with the IV Reclast since this is doing well and she has improvement Plan - Continue IV Reclast 5mg yearly - Labs today: CMP, Vit D - RTC 6 months - Labs before visit: CMP, Vit D, CBC (2) Encounter for monitoring bisphosphonate therapy: Code(s): Z51.81 - Encounter for therapeutic drug level monitoring; Z79.83 - jail (current) use of bisphosphonates Plan: #Long-term Use of Bisphosphonates Risks and benefits of bisphosphonates in the management of osteoporosis Benefits include improved bone density, decreased fracture risk Risks include atypical femoral fractures, GI upset, esophageal strictures Contraindicated in patients with a creatinine clearance < 30 to 35 ml/min Keep vitamin-D at least 35 ng/mL Plan I spent 20 minutes reviewing the record and labs, seeing the patient, discussing the treatment plan and documenting in the medical record Orders: Orders Comprehensive Met. Panel 6 Months Z79.899 - Other fpc (current) drug therapy Vitamin D 25-OH Total 6 Months Z79.899 - Other local company intermodal truck driver (current) drug therapy Referrals Infusion Center Notification M81.0 - Age-related osteoporosis without current pathological fracture Coding Level of Care Code Est Pt Level 3 (60954) Complex EM visit Add On G2211 Diagnoses Age-related osteoporosis without current pathological fracture M81.0 Osteoporosis type: age-related Presence of current pathological fracture: without current pathological fracture Encounter for monitoring bisphosphonate therapy Z51.81; Z79.83
[2025-09-06 11:39] VITALS: BP 115/70; PULSE 51; O2SAT 100; BMI 26.8
--- OUTSIDE RECORDS SUMMARY | 2025-09-06 14:25 | XMS_ITS | Encounter Summary ---
Author Organization [employer] Address [address] [facility] [place] [address] Care Team Providers Care Plug Cutter Name Role Phone Jemma Louise MD Primary Care Provide r Reason for Visit * Reason Comments Med Refill Encounter Details Date Type Department Care Team ([facility] st Contact Info) Description 11/15/2023 Refill [facility] [address] [place] [address] Juana Vanegas, ANP [address] [place] [address] Iron deficiency Social History Tobacco Use Types [...] Office Visit [facility] [address] [place] [address] Ed Amezquita MD [address] [place] [address] 10/18/2025 11:00 AM EST Office Visit [facility] OPTOMETRY [address] [place] [address] TarShahrzad cain, OD [address] [place] [address] documented as of this encounter Visit Diagnoses Diagnosis Iron deficiency Disorders of iron metabolism documented in this encounter Additional Health Concerns Assessment Noted Time PHQ-9 Depression Total Score: 0 03/01/20 23 1:02 PM EDT documented as of this encounter Care Teams Plug Cutter Relationship Specialty Start Date End Date Jemma Louise MD [address] [place] [phone] PCP - General Family Medicine 09/11/19 documented as of this encounter
--- OUTSIDE RECORDS SUMMARY | 2025-09-06 14:25 | XMS_ITS | Data Portability ---
Author Organization [facility] Cellworks [facility] Medical [facility] Address [address] [place] [phone] Care Team Providers Care Director Smb Sales Name Role Phone [facility] Referring Provider [phone] Assessment No assessment recorded. Plan of Treatment Reminders Order Date Submit Date Provider Last Modified By Organization Details Last Modified Time Details Appointments None recorded. Lab rapid SARS CoV 2 Ag, QL IA, respiratory specimen 2021 [facility], [address] [place] [address], [id number] 10:35:12 Referral None recorded. Procedures None recorded. Surgeries None recorded. Imaging None recorded. Medication Orders prednisone 20 mg tablet 2021 022 [facility], [address] [place] [address], [id number], 10:31:37 prednisone 20 mg tablet 2021 022 [facility], [address] [place] [address], [id number], 10:28:37 Patient TargetsNo targets recorded. Patient InstructionsNo instructions recorded. Reason for Referral None Reported. Results Created Date Observation Date Name Description Value Unit Range Abnormal Flag Note LastModifiedBy Organization Detail LastModifiedTime 04/01/20 22 04/01/2022 rapid SARS CoV 2 Ag, QL IA, respi rator y speci men rapid SARS CoV 2 Ag, QL IA, respiratory specimen negati ve Not Available [address], [id number] 04/01/2022 10:34:06 Result Notes None recorded. Medical Equipment None Reported. Allergies Allergen ID Allergen Name Allergen Category Reaction Reaction Severity Criticality Documentation Date Start Date Code Code System Note Provider Name and Address Organization Details Recorded Time 7787 Product containin g penicilli n (product) medicatio n Not available Not available Not available 09/05/2024 86409 8001 SNOMED Not Available [facility] - production [...] 1773 Rosales Richard MD Main - [facility] [address] [place] [phone] 04/01/2022 10:19:55 07/30/2022 11:19:05 Acute exacerbation of chronic obstructive pulmonary disease 107485344 J44.1 Reports increase in sputum production over [...] Hong Member ID Guarantor Name 01/02/2024 1 [facility] - DOS PRIOR TO 2023 - DUAL ELIGIBLE (MEDICARE REPLACEMENT/ADV ANTAGE - HMO) Jemma Esquivel [id number] Jemma Esquivel 01/02/2024 1 [facility] - DOS ON OR AFTER 2023 - DUAL ELIGIBLE - NURSING HOME OPTIONS AND ONE CARE (MEDICARE REPLACEMENT/ADV ANTAGE - HMO) Jemma Esquivel [id number] Jemma Esquivel Notes Date Note Type Note [...] .................. .................. .................. .................. .................. .................. ............... Motion Picture Set Worker Note: Chief Complaint cough Pertinent positive and [...] ............... Disposition: Fulfilled Rosales Richard MD [address] [facility],[address] [facility], [place], [phone], EUGENIO - [employer] 04/01/2022 11:09:16 OBGyn Episode No OBEpisode recorded.
--- OUTSIDE RECORDS SUMMARY | 2025-09-06 14:25 | XMS_ITS | Encounter Summary ---
Author Organization [employer] Address [address] [facility] [address] [place] [address] Care Team Providers Care Tax Specialist Name Role Phone Jmema Louise MD Primary Care Provide r Reason for Visit * Reason Comments Med Refill Encounter Details Date Type Department Care Team ([facility] st Contact Info) Description 08/20/2025 Refill [facility] [address] [place] [address] Jemma Louise MD [address] [place] [address] Social History Tobacco Use Types Packs/Day Years [...] 3:00 PM EST Office Visit [facility] MEDICINE 230 [place] [address] Ed Amezquita MD [address] [place] [address] 10/18/2025 11:00 AM EST Office Visit [facility] OPTOMETRY [address] [place] [address] Tarka, Shahrzad, OD [address] [place] [address] documented as of this encounter Visit Diagnoses Not on filedocumented in this encounter Additional Health Concerns Assessment Noted Time PHQ-9 Depression Total Score: 4 03/30/20 25 1:32 PM EDT documented as of this encounter Care Teams Tax Specialist Relationship Specialty Start Date End Date Jemma Louise MD [address] [place] [address] PCP - General Family Medicine 09/11/19 documented as of this encounter
--- OUTSIDE RECORDS SUMMARY | 2025-09-06 14:25 | XMS_ITS | Encounter Summary ---
Author Organization [employer] Address [address] [facility] [address] 7t [place] [address] Care Team Providers Care Court Reporter Name Role Phone Jemma Louise MD Primary Care Provide r Reason for Visit * Reason Comments Med Refill Encounter Details Date Type Department Care Team ([facility] st Contact Info) Description 11/14/2023 Refill C [facility] [address] [place], [place] [phone] Elias Croft MD 230 [place] [address] Constipation, unspecified constipation type Social History Tobacco [...] Description 09/21/2025 3:00 PM EST Office Visit [facility] MEDICINE 230 [place] [address] Ed Amezquita MD 230 [place] [address] 10/18/2025 11:00 AM EST Office Visit [facility] OPTOMETRY [address] [place] [address] Shahrzad Rust, OD [address] [place] [address] documented as of this encounter Visit Diagnoses Diagnosis Constipation, unspecified constipation type documented in this encounter Additional Health Concerns Assessment Noted Time PHQ-9 Depression Total Score: 0 03/01/20 23 1:02 PM EDT documented as of this encounter Care Teams Court Reporter Relationship Specialty Start Date End Date Jemma Louise MD [address] [place] [address] [phone] PCP - General Family Medicine 09/11/19 documented as of this encounter
--- OUTSIDE RECORDS SUMMARY | 2025-09-06 14:25 | XMS_ITS | Encounter Summary ---
Author Organization [employer] Address 75 [facility] 7t [place] [address] Care Team Providers Care Submarine Operator Name Role Phone Jemma Louise MD Primary Care Provide r Reason for Visit * Reason Comments Med Refill Encounter Details Date Type Department Care Team (Late st Contact Info) Description 06/25/2023 Refill [facility] MED & PEDS 505 [place] [address] Juana Vanegas ANP 230 [place] [address] Vitamin D deficiency Social History Tobacco Use [...] Upcoming Encounters Date Type Department Care Team ([facility] Contact Info) Description 09/21/2025 3:00 PM EST Office Visit [facility] MEDICINE 230 [place] [address] Ed Amezquita MD 230 [place] [address] 10/18/2025 11:00 AM EST Office Visit C OPTOMETRY [address] [place], [place] [phone] Shahrzad Rust, OD [address] [place], [place] [phone] documented as of this encounter Visit Diagnoses Diagnosis Vitamin D deficiency documented in this encounter Additional Health Concerns Assessment Noted Time PHQ-9 Depression Total Score: 0 03/01/20 23 1:02 PM EDT documented as of this encounter Care Teams Submarine Operator Relationship Specialty Start Date End Date Jemma Louise MD 230 [place] [address] PCP - General Family Medicine 09/11/19 documented as of this encounter
--- OUTSIDE RECORDS SUMMARY | 2025-09-06 14:25 | XMS_ITS | Encounter Summary ---
Author Organization [employer] Address [address] [facility] [address] 7t [place] [address] Care Team Providers Care Chair Inspector Name Role Phone Jemma Louise MD Primary Care Provide r Reason for Visit * Reason Onset Date Comments Nurse Triage 09/28/2023 Encounter Details Date Type Department Care Team ([facility] st Contact Info) Description 09/28/2023 Telephone [facility] MEDICINE [address] [place] [address] Jemma Louise MD 230 [place] [address] Nurse Triage Social History Tobacco Use Types [...] 09/28/2023 3:23 PM EST Triage call with Radario [place] [id number] Pt son, THIAGO Fuller, reports Pt has had some sinus/nasal congestion for some time now. Pt has nasal drainage which is clear and some nasal congestion. Neg for fever, cough, headache. Jonny is concerned about some snoring, whistling sound with breathing especially at night. No difficulty breathing is reported. Advised to come to [facility] today or tomorrow open til 800pm, [...] The caller accepted this outcome Patient speaks icelandic documented in this encounter Plan of Treatment Upcoming Encounters Date Type Department Care Team (Late st Contact Info) Description 09/21/2025 3:00 PM EST Office Visit [facility] MEDICINE [address] [place] [address] Ed Amezquita MD 230 [place], [place] [phone] 10/18/2025 11:00 AM EST Office Visit [facility] OPTOMETRY [address] [place] [address] Shahrzad Rust, OD [address] [place] [address] documented as of this encounter Visit Diagnoses Not on filedocumented in this encounter Additional Health Concerns Assessment Noted Time PHQ-9 Depression Total Score: 0 03/01/20 23 1:02 PM EDT documented as of this encounter Care Teams Chair Inspector Relationship Specialty Start Date End Date Jemma Loiuse MD 230 [place], [place] [phone] PCP - General Family Medicine 09/11/19 documented as of this encounter
--- OUTSIDE RECORDS SUMMARY | 2025-09-06 14:25 | XMS_ITS | Encounter Summary ---
Author Organization [employer] Address [address] [facility] 7t [place] [address] Care Team Providers Care Resolution Manager Name Role Phone Jemma Louise MD Primary Care Provide r Encounter Details Date Type Department Care Team ([facility] st Contact Info) Description 11/19/2023 Orders Only [facility] [address] [place] [address] Jemma Louise MD [address] [place] [address] Social History Tobacco Use Types Packs/Day Years [...] Description 09/21/2025 3:00 PM EST Office Visit [facility] MEDICINE 230 [place] [address] Ed Amezquita MD 230 [place] [address] 10/18/2025 11:00 AM EST Office Visit [facility] OPTOMETRY [address] [place] [address] Tarka, Shahrzad, OD [address] [place] [address] documented as of this encounter Visit Diagnoses Not on filedocumented in this encounter Additional Health Concerns Assessment Noted Time PHQ-9 Depression Total Score: 0 03/01/20 23 1:02 PM EDT documented as of this encounter Care Teams Resolution Manager Relationship Specialty Start Date End Date Jemma Louise MD [address] [place] [phone] PCP - General Family Medicine 09/11/19 documented as of this encounter
--- OUTSIDE RECORDS SUMMARY | 2025-09-06 14:25 | XMS_ITS | Clinical Summary ---
Author Organization [employer] Address [address] [facility] 7t [place] [address] Care Team Providers Care News Copy Editor Name Role Phone Jemma Louise MD Primary [...] will follow-up Will reach out to dermatology oracle programmer to see when can she be seen by manager fleet in house. Continue triamcinolone cream for now [...] F/u BMP in 2 weeks COPD exacerbation ([facility]) 09/22/2023 Assessment & Plan (09/22/2023 11:46 AM EST): Seems to be improving Son will give her albuterol q6h for 2 days PRN Continue other medications and f/u with PCP Atrial fibrillation ([facility]) 02/18/2023 Assessment & Plan (09/12/2024 12:08 PM [...] from ED visit Order [facility] today Dementia ([facility]) 02/18/2023 Assessment & Plan (05/17/2025 3:48 PM [...] day PRN C/w same treatment referral to offset label rewinder will be done today Constipation 11/04/2015 Essential [...] Type Department Care Team Description 08/24/2025 Refill [facility] MEDICINE [address] [place] [address] Jemma Louise MD 08/20/2025 Refill [facility] MEDICINE [address] [place] [address] Jemma Louise MD Vitamin D deficiency 08/20/2025 Refill [facility] MED & PEDS [address] [place] [address] Jemma Louise MD 08/02/2025 Telephone [facility] MEDICINE [address] [place] [address] Jemma Louise MD Dec recall 07/19/2025 Refill [facility] WALK[facility]IN CENTER [address] [place] [address] Jemma Louise MD Chronic systolic congestive heart failure ([facility]); Essential hypertension 07/18/2025 Refill [facility] MEDICINE [address] [place] [address] Jemma Louise MD Seasonal allergies 07/17/2025 Telephone [facility] MED & PEDS [address] [place] [address] Jemma Louise MD 07/13/2025 Telephone [facility] MEDICINE [address] [place] [address] Jemma Louise MD No Show 07/12/2025 Telephone [facility] MED[facility] [address] [place] [address] Jemma Louise MD chart prep 07/05/2025 Orders Only GENERIC EXTERNAL DATA DEPARTMENT Provider, Generic External Data 07/04/2025 Patient Outreach [facility] MEDICINE [address] [place] [address] Jemma Louise MD Pre-visit Planning ([facility] screening completed on 03/30/2025) from Last 3 [...] Description 09/21/2025 3:00 PM EST Office Visit [facility] MEDICINE [address] [place] [address] Ed Amezquita MD 230 [place], [place] [phone] 10/18/2025 11:00 AM EST Office Visit [facility] OPTOMETRY [address] [place], [place] [phone] Shahrzad Rust, OD [address] [place] [address] Health Maintenance Due Date Last Done Comments [...] PM EDT Narrative 07/05/2025 4:00 PM EDT [place] [address] [address] Scan Report Signed Patient: Jemma Esquivel MR#: [id number] : 1940 Acct:[id number] Age/Sex: 85 / F ADM Date: 07/05/25 Loc: .CT Attending Dr: Shree Briseno MD Ordering Physician: Shree Briseno MD Date of Service: 07/05/25 Procedure(s): CT abdomen w IV con Accession Number(s): [id number] cc: Shree Briseno MD; Radha Yanez MD Report Number: [id number]: Total DLP = 142.00 mGy-cm EXAMINATION: CT [...] 08/28/25 1557 DD/ 1506 TD/TT: 07/05/25 1539 Business Support Assistant: Procedure Note Donloter, Image - 07/05/[address] [address] [address] Scan Report Signed Patient: Jemma Esquivel AMR#: [id number] : 1940cct:[id number] Age/Sex: 85 / FADM Date: 07/05/25 Loc: HO.CT Attending Dr: Shree Briseno MD Ordering Physician: Shree Briseno MD Date of Service: 07/05/25 Procedure(s): CT abdomen w IV con Accession Number(s): [id number] cc: Shree Briseno MD; Radha Yanez MD Report Number: [id number]: Total DLP = 142.00 mGy-cm EXAMINATION: CT [...] 07/05/25 1557 DD/ 1506 TD/TT: 07/05/25 1539 Business Support Assistant: us [facility] External Provider IMG CT PROCEDURES Final Result * POCT Creatinine GFR (07/05/2025 3:02 PM EDT) POCT Creatinine 0.6 0.5 - 1.4 mg/dL [facility] GFR POC >60 [facility] Comment:Chronic Kidney Disea se: Estimated GFR < 60 mL/min/1.72b0Hxokos Kidney Disease: Estimated GFR < 15 mL/min/1.73m2 07/05/2025 3:02 PM EDT 07/06/2025 10:58 AM EDT Narrative [facility] - 07/06/2025 11:00 AM EDT [id number] Generic External Data Provider LAB POINT OF CARE TEST DOCKED DEVICE ORDERABLES Final Result Performing Organization Address City/[facility]/ZIP Co de Phone Number [facility] [address] [place] [phone] * Calcium (07/05/2025 1:33 PM EDT) Pathologist [facility] Calcium 9.8 8.4 - 10.2 mg/dL [facility] 07/05/2025 1:33 PM EDT 07/05/2025 1:33 PM EDT Generic External Data Provider LAB BLOOD ORDERAB LES Final Result Performing Organization Address [facility] Co de Phone Number [facility] [address] [place] [phone] * (ABNORMAL) LIPID PANEL, STANDARD (07/28/2022 11:36 AM EDT) Pathologist [facility] Chol/HDLC Ratio 2.2 <5.0 (calc) [facility] LDL-C. En OBRIEN et al. EVAN. 2013;310(19): 6907-7433 (http://education.Tessella.Qoniac/faq/JHR967) Non-HDL Cholesterol 71 <130 mg/dL (calc) [facility] Comment: For patients with diabetes plus 1 major ASCVD risk factor, treating to a non-HDL-C goal of <100 mg/dL (LDL-C of <70 mg/dL) is considered a therapeutic option. Triglycerides 154(H) <150 mg/dL [facility] 07/28/2022 11:3 6 AM EDT Jemma Mccarthy MD LAB BLOOD ORDERABLES Final Result [facility] [address] from Last 3 Months or Most Recently Relevant to Health Maintenance Insurance [facility] DETENTION OPTIONS (O D-SNP) JOY SOLIS [id number] Care Teams News Copy Editor Relationship Specialty Start Date End Date Jemma Louise MD [address] [place] [address] PCP - General Family Medicine 09/11/19
--- OUTSIDE RECORDS SUMMARY | 2025-09-06 14:25 | XMS_ITS | Clinical Summary ---
Author Organization [facility] Address [address] [place] [address] Care Team Providers Care Manager Film Name Role Phone Unavailable Primary Care Provider [...]
--- OUTSIDE RECORDS SUMMARY | 2025-09-06 14:25 | XMS_ITS | Encounter Summary ---
Author Organization [employer] Address [address] [facility] [address] [place] [address] Care Team Providers Care Engineering Professionals Name Role Phone Jemma Louise MD Primary Care Provide r Encounter Details Date Type Department Care Team (Late st Contact Info) Description 01/04/2023 Orders Only [facility] [address] [place], [place] [phone] Barbara Portillo LPN Social History Tobacco Use [...] Description 09/21/2025 3:00 PM EST Office Visit [facility] [address] [place] [address] Ed Amezquita MD [address] [place] [address] 10/18/2025 11:00 AM EST Office Visit [facility] OPTOMETRY [address] [place] [address] Shahrzad Rust, OD [address] [place] [address] documented as of this encounter Procedures Procedure [...] EDT) Vitamin D, 25-OH, D2 <4 ng/mL [facility] Comment:This test was develo ped and its analytical performancecharacteristics have been determined by [employer] [place], [place]. It hasnot been cleared or approved by the U.S. Food and DrugAdministration. This assay has been validated pursuantto the CLIA regulations and is used for clinicalpurposes.THIS TEST WAS PERFORMED AT:[employer] [id number] [place] [address]CLBWJOFOTILIA CASTAÑEDA MD,PHD Vitamin D, 25-OH, D3 37 ng/mL [facility] Comment:This test was develo ped and its analytical performancecharacteristics have been determined by [employer] [place], [place]. It hasnot been cleared or approved by the U.S. Food and DrugAdministration. This assay has been validated pursuantto the CLIA regulations and is used for clinicalpurposes. Vitamin D, 25-OH, Total 37 30 - 100 ng/mL [facility] Comment:Vitamin D, 25-Hydrox y [...] = 30 ng/mL.For additional information, please refer tohttp://education.[employer]/faq/CIV850(This link is being provided for informational/educational purposes only.) 08/10/2023 12:1 3 PM EDT 08/10/2023 12:13 PM EDT [facility] External Provider LAB BLO OD ORDERABLES Final Result [facility] [address] [place] [address] [phone] * (ABNORMAL) Comprehensive Metabolic Panel (08/10/2023 12:13 PM EDT) Sodium 141 135 - 145 mmol/L [facility] Potassium 4.0 3.3 - 5.1 mmol/L [facility] Chloride 97 96 - 108 mmol/L [facility] Carbon Dioxide 33(H) 22 - 29 mmol/L [facility] Anion Gap 15 12 - 20 [facility] Urea Nitrogen (BUN) 15 9 - 16 mg/dL [facility] Creatinine, Serum 0.89 0.5 - 1.4 mg/dL [facility] Estimated Glomerular Filt Rate >60 [facility] Comment:NOTE: For -Am erican individuals, multiply the result by 1.210.Chronic Kidney Disease: Estimated GFR < 60 mL/min/[id number] Kidney Disease: Estimated GFR < 15 mL/min/1.73m2 Glucose 102 60 - 115 mg/dL [facility] Calcium 10.5(H) 8.4 - 10.2 mg/dL [facility] Bilirubin, Total 0.4 0.0 - 1.0 mg/dL [facility] Aspartate Amino Transferase 22 5 - 31 U/L [facility] Alanine Aminotransferase 13 0 - 31 U/L [facility] Total Protein 7.9 6.5 - 8.0 g/dL [facility] Albumin Level 4.4 3.5 - 5.0 g/dL [facility] Alkaline Phosphatase 47 39 - 117 U/L [facility] 08/10/2023 12:1 3 PM EDT 08/10/2023 12:13 PM EDT [facility] External Provider LAB BLO OD ORDERABLES Final Result [facility] [address] [place] [address] [phone] * (ABNORMAL) CBC auto differential (08/10/2023 12:13 PM EDT) White Blood Count 7.3 4.8 - 10.8 X10*3/uL [facility] Red Blood Count 4.62 4.20 - 5.50 X10*6/uL [facility] Hemoglobin 12.5 12.0 - 16.0 g/dl [facility] Hematocrit 40.9 37.0 - 47.0 % [facility] Mean Corpuscular Volume 88.5 80.0 - 98.0 fL [facility] Mean Corpuscular Hemoglobin 27.1 27.0 - 33.0 pg [facility] Mean Corpuscular HGB Conc 30.6(L) 31.0 - 35.0 g/dl [facility] Red Cell Distribution Width 14.5 11.0 - 16.0 % [facility] Platelet Count 257 160 - 400 X10*3/uL [facility] Mean Platelet Volume 12.3 9.4 - 12.3 fL [facility] Neutrophils Percent Auto 69.3 45 - 73 % [facility] Imm Gran Pct Auto 0.4 0.0 - 0.4 % [facility] Lymphocytes Percent Auto 18.4(L) 20 - 40 % [facility] Monocytes Percent Auto 9.1 2 - 11 % [facility] Eosinophils Percent Auto 2.2 0 - 4 % [facility] Basophils Percent Auto 0.6 0 - 2 % [facility] NRBC Pct Auto 0.0 0.0 - 0.2 /100WBC [facility] Neutrophils Absolute Auto 5.0 2.0 - 8.3 x10*3/uL [facility] Imm Gran Abs Auto 0.03 0.00 - 0.03 X10*3/uL [facility] Lymphocytes Absolute Auto 1.3 1.2 - 4.9 X10*3/uL [facility] Monocytes Absolute Auto 0.7 0.1 - 1.2 X10*3/uL [facility] Eosinophils Absolute Auto 0.2 0.0 - 0.4 X10*3/uL [facility] Basophils Absolute Auto 0.0 0.0 - 0.2 X10*3/uL [facility] NRBC Abs Auto 0.000 0.0 - 0.012 X10*3/uL [facility] 08/10/2023 12:1 3 PM EDT 08/10/2023 12:13 PM EDT [facility] External Provider LAB BLO OD ORDERABLES Final Result [facility] [address] [place] [phone] * Vitamin D, 25-Hydroxy, Total, Immunoassay (03/01/2023 2:22 PM EDT) Vitamin D 25-OH Total 69.3 >30 ng/mL [facility] Comment:Health Based Referen ce Values*< 20 ng/mL Cimwsuahn40-29 ng/mL Insufficient> 30 ng/mL Sufficient*Larisa CARMONA. N [...] 2:22 PM EDT 03/01/2023 2:22 PM EDT [facility] External Provider LAB BLO OD ORDERABLES Final Result Performing Organization Address [facility]/ZIP Co de Phone Number [facility] [address] [place] [phone] * Phosphate (As Phosphorus) (03/01/2023 2:22 PM EDT) Phosphorus 2.8 2.7 - 4.5 mg/dL [facility] 03/01/2023 2:22 PM EDT 03/01/2023 2:22 PM EDT [facility] External Provider LAB BLO OD ORDERABLES Final Result Performing Organization Address [facility] Co de Phone Number [facility] [address] [place] [phone] * (ABNORMAL) Comprehensive Metabolic Panel (03/01/2023 2:22 PM EDT) Sodium 143 135 - 145 mmol/L [facility] Potassium 4.2 3.3 - 5.1 mmol/L [facility] Chloride 96 96 - 108 mmol/L [facility] Carbon Dioxide 35(H) 22 - 29 mmol/L [facility] Anion Gap 16 12 - 20 [facility] Urea Nitrogen (BUN) 18(H) 9 - 16 mg/dL [facility] Creatinine, Serum 1.02 0.5 - 1.4 mg/dL [facility] Estimated Glomerular Filt Rate 52 [facility] Comment:NOTE: For -Am erican individuals, multiply the result by 1.210.Chronic Kidney Disease: Estimated GFR < 60 mL/min/[id number] Kidney Disease: Estimated GFR < 15 mL/min/1.73m2 Glucose 85 60 - 115 mg/dL [facility] Calcium 9.9 8.4 - 10.2 mg/dL [facility] Bilirubin, Total 0.6 0.0 - 1.0 mg/dL [facility] Aspartate Amino Transferase 17 5 - 31 U/L [facility] Alanine Aminotransferase 10 0 - 31 U/L [facility] Total Protein 7.5 6.5 - 8.0 g/dL [facility] Albumin Level 4.4 3.5 - 5.0 g/dL [facility] Alkaline Phosphatase 59 39 - 117 U/L [facility] 03/01/2023 2:22 PM EDT 03/01/2023 2:22 PM EDT [facility] External Provider LAB BLO OD ORDERABLES Final Result Performing Organization Address City/State/[facility] Co de Phone Number [facility] [address] [place] [phone] documented in this encounter Visit Diagnoses Not on filedocumented in this encounter Care Teams Engineering Professionals Relationship Specialty Start Date End Date Jemma Louise MD [address] [place] [phone] PCP - General Family Medicine 09/11/19 documented as of this encounter
--- OUTSIDE RECORDS SUMMARY | 2025-09-06 14:25 | XMS_ITS | Encounter Summary ---
Author Organization [employer] Address [address] [facility] [facility] [address] [place] [address] Care Team Providers Care Telegraph And Teletype Operator Name Role Phone Jemma Louise MD Primary Care Provide r Reason for Visit * Reason Onset Date Comments Nurse Triage 05/16/2025 Encounter Details Date Type Department Care Team ([facility] st Contact Info) Description 05/16/2025 Telephone [facility] MEDICINE [address] [place] [address] Jemma Louise MD [address] [place] [address] Nurse Triage Social History Tobacco Use Types [...] this outcome. 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) documented in this encounter Plan of Treatment Upcoming Encounters Date Type Department Care Team (Late st Contact Info) Description 09/21/2025 3:00 PM EST Office Visit [facility] MEDICINE [address] [place] [address] Ed Amezquita MD [address] [place] [address] 10/18/2025 11:00 AM EST Office Visit [facility] OPTOMETRY [address] [place] [address] Tarka, Shahrzad, OD [address] [place] [address] documented as of this encounter Visit Diagnoses Not on filedocumented in this encounter Additional Health Concerns Assessment Noted Time PHQ-9 Depression Total Score: 4 03/30/20 25 1:32 PM EDT documented as of this encounter Care Teams Telegraph And Teletype Operator Relationship Specialty Start Date End Date Jemma Louise MD [address] [place] [phone] PCP - General Family Medicine 09/11/19 documented as of this encounter
== END 2025-09-06 12:08 | disposition home or self-care (01) ==
LOC: HO.RHES 11:28
PROVIDERS: PCP Internal Medicine; Visit Provider Student in an Organized Health Care Education/Training Program
DX: M81.0 Age-related osteoporosis without current pathological fracture (principal); Z51.81 Encounter for therapeutic drug level monitoring; Z79.83 Long term (current) use of bisphosphonates
CPT/HCPCS: 99213; G2211

== ENCOUNTER 2025-09-28 11:31 | Outpatient (REF) | payer OTHER, SELFPAY ==
--- NOTE | ~2025-09-28 | XR_ITS ---
EXAMINATION: XR CHEST CLINICAL INFORMATION: productive cough x one week, r/o PNA COMPARISON: April 27, 2024 TECHNIQUE: 2 views of the chest were obtained. FINDINGS: There is enlargement of the cardiac silhouette similar to the prior examination. There is moderate ossification in the aortic arch. The lungs are grossly clear. There is no sign of a pneumothorax. There is no evidence of pleural effusion. Moderate degenerative disc disease is present in the lower thoracic spine. There is stable mild compression fracture involving proximally T12. XR/XR chest 2V IMPRESSION: No acute disease Cardiomegaly. Stable Electronically signed by: Froylan Mejia MD 09/28/2025 11:48 AM EST
--- OUTSIDE RECORDS SUMMARY | 2025-09-28 10:15 | XMS_ITS | Encounter Summary ---
Author Organization [employer] Address [address] [facility] [address] [place] [address] Care Team Providers Care Hands Assembler Name Role Phone Jemma Louise MD Primary Care Provide r Encounter Details Date Type Department Care Team ([facility] st Contact Info) Description 09/28/2025 10:15 AM EST Office Visit [facility] [address] [place] [address] Barbara Laws DO [address] [place] [address] COPD exacerbation (CMS/HCC) (HCC) (Primary Dx); Impacted cerumen of right ear; Wrist swelling, left Social History Tobacco Use Types Packs/Day Years [...] your housing situation today? I have gio iqra 03/30/[address] you li [...] Sign Reading Time Taken Comments Blood Pressure 118/58 09/28/2025 10:35 AM EST Pulse 68 09/28/2025 10:35 AM EST Temperature 36.3 C (97.4 F) 09/28/2025 10:35 AM EST Respiratory Rate 16 09/28/2025 10:35 AM EST Oxygen Saturation 96% 09/28/2025 10:35 AM EST Inhaled Oxygen Concentration - - Weight 60.4 kg (133 lb 3.2 oz) 09/28/2025 10:35 AM EST Height 149.9 cm (4' 11 ) 09/28/2025 10:35 AM EST Body Mass Index 26.9 09/28/2025 10:35 AM EST documented in this encounter Progress Notes * Barbara Laws, DO - 09/28/2025 10:15 AM EST SUBJECTIVE: Jemma Esquivel is a 85 y.o. year old female who presents for sick visit. HPI She was seen in [facility] ED on 09/16/25 c/o L ear pain x one day. She had no acute findings on exam andwas advised to f/u with ENT. She was seen in [place] one week ago with URI symptoms for 2 days. COVID and flu testing was negative. She was advised supportive care measures and given tessalon perles. She called yesterday reporting initial improvement then worsening of her cough with phlegm and scheduled for evaluation today. Her son says that the her cough has been worsening over the last 4-5 days, especially at night. Shehas a lot of chest congestion and phlegm. She has been using the cough medicine which has helped but still has a lot of mucous. Her children have been using OTC mucinex. She hasn't c/o any pain. She says that her breathing is ok. She uses trelegy every day. Her son says that she last used albuterol~ 3 weeks ago. She has chronic nasal congestion and rhinorrhea from her O2 use. She has not had anyfevers. No ear pain or throat pain. No vomiting or diarrhea. No sick contacts. Review of Systems Constitutional: Negative for chills, fatigue and fever. HENT: Positive for congestion. Negative for ear discharge, ear pain, rhinorrhea and sore throat. Respiratory: Positive for cough and wheezing. Negative for chest tightness and shortness of breath. Cardiovascular: Negative for chest pain and leg swelling. Gastrointestinal: Negative for abdominal pain, diarrhea and vomiting. Skin: Negative for rash. Neurological: Negative for headaches. Patient Active Problem List Diagnosis Allergic rhinitis Atrial fibrillation ([facility]) ([facility]) Chronic obstructive lung disease ([facility]) Chronic systolic heart failure (HCC) Congestive heart failure ([facility]) Constipation Cough Dementia ([facility]) ([facility]) Dry eyes Essential hypertension Gastroesophageal reflux disease without esophagitis Hyperlipidemia Impaired glucose tolerance Mild cognitive disorder Overweight Primary osteoarthritis involving multiple joints Ptosis of eyelid Senile osteoporosis Thoracic spondylosis without myelopathy Tubular adenoma of colon Vitamin D deficiency COPD exacerbation ([facility]/HCC) ([facility]) Stage 3a chronic kidney disease ([facility]) ([facility]) Seasonal allergies Rash Anxiety and depression Wrist swelling, left 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 Appearance: Normal appearance. HENT: Right Ear: External ear normal. There is impacted cerumen. Left Ear: Tympanic membrane, ear canal and external ear normal. Nose: Congestion present. No rhinorrhea. Mouth/Throat: Pharynx: Posterior oropharyngeal erythema present. No oropharyngeal exudate. Cardiovascular: Rate and Rhythm: Normal rate and regular rhythm. Heart sounds: Normal heart sounds. No murmur heard. Pulmonary: Effort: Pulmonary effort is normal. No tachypnea, accessory muscle usage or respiratory distress. Breath sounds: No decreased air movement or transmitted upper airway sounds. Wheezing and rhonchi present. No decreased breath sounds or rales. Comments: Diffuse expiratory wheezing. Few scattered coarse BS Musculoskeletal: Cervical back: Normal range of motion and neck supple. No tenderness. Lymphadenopathy: Cervical: No cervical adenopathy. Neurological: General: No focal deficit present. Mental Status: She is alert and oriented to person, place, and time. Cranial Nerves: No cranial nerve deficit. Motor: No weakness. Gait: Gait normal. Psychiatric: Mood and Affect: Mood normal. Office Visit on 09/28/2025 Component Date Value Ref Range Status Rapid COVID Ag 09/28/2025 Negative Final Rapid Influenza A Ag 09/28/2025 Negative Negative, Indeterminate Final Rapid Influenza B Ag 09/28/2025 Negative Negative, Indeterminate Final ASSESSMENT/PLAN Diagnoses and all orders for this visit: COPD exacerbation ([facility]) ([facility]) -referred for chest x-ray r/o underlying PNA -treat with azithromycin and prednisone x 5 days -cont trelegy daily -advised albuterol every 4 hours over weekend then use as needed -cont mucinex and tessalon perles prn -cont supplemental O2 as per pulm -advised rtc or go to ED if no improvement with above or symptoms worsen - POCT Rapid Covid-19 BinaxNOW - POCT Rapid Influenza A OSOM - POCT Rapid Influenza B OSOM - XR Chest 2 Views; Future - predniSONE (Deltasone) 20 MG tablet; 2 tabs po daily for 5 days\ - azithromycin (Zithromax) 250 MG tablet; Take 2 tabs PO today then take 1 tab PO daily for the next four days - guaiFENesin (Mucinex) 600 MG 12 hr tablet; Take 1 tablet (600 mg) by mouth if needed in the morning and at bedtime for cough or congestion. Do not crush, chew, or split. - benzonatate (Tessalon) 100 MG capsule; Take 1 capsule (100 mg) by mouth if needed in the morning,at noon, and at bedtime for cough for up to 10 days. Do not crush or chew. Impacted cerumen of right ear -treat with debrox BID x 4 days -advised contact [facility] for ear irrigation if no improvement, she and dtr/son agree with plans - carbamide peroxide (Debrox) 6.5 % otic solution; Administer 5 drops into the right ear 2 times daily for 4 days. F/U with PCP as scheduled or sooner prn Current Outpatient Medications: acetaminophen (Tylenol 8 Hour) 650 MG ER tablet, TAKE 1 TABLET BY MOUTH EVERY 8 HOURS NEEDED, Disp: 60 tablet, Rfl: 0 atorvastatin (Lipitor) 40 MG tablet, Take 1 tablet (40 mg) by mouth at bedtime., Disp: 90 tablet, Rfl: 3 benzonatate (Tessalon Perles) 100 MG capsule, Take 1 capsule (100 mg) by mouth if needed in the morning, at noon, and at bedtime for cough for up to 7 days. Do not crush or chew., Disp: 20 capsule, Rfl: 0 Blood Pressure Monitor kit, Use as directed 3x/week, Disp: 1 kit, Rfl: 0 calcium carbonate 1500 (600 Ca) MG tablet, TAKE 1 TABLET BY MOUTH EVERY OTHER DAY IN THE MORNING vit d, Disp: 45 tablet, Rfl: 1 cetirizine (ZyrTEC) 10 MG tablet, TAKE 1 TABLET BY MOUTH EVERY MORNING, Disp: 30 tablet, Rfl: 1 D3 Super Strength 50 MCG (2000 UT) capsule, Take 1 capsule (50 mcg) by mouth every other day. TAKE 1 CAPSULE BY MOUTH EVERY MORNING, Disp: 90 capsule, Rfl: 1 docusate sodium (Colace) 100 MG capsule, TAKE 1 CAPSULE BY MOUTH TWICE DAILY IN THE MORNING AND IN THE EVENING, Disp: 180 capsule, Rfl: 1 Eliquis 5 MG tablet, Take 1 tablet by mouth 2 times daily., Disp: , Rfl: Ferrous Sulfate (iron) 325 (65 Fe) MG tablet, TAKE 1 TABLET BY MOUTH EVERY OTHER DAY IN THE MORNING, Disp: 45 tablet, Rfl: 1 fluticasone (Flonase) 50 MCG/ACT nasal spray, Administer 1 spray into each nostril Once per day. Shake gently. Before first use, prime pump. After use, clean tip and replace cap., Disp: 16 g, Rfl: 1 furosemide (Lasix) 20 MG tablet, TAKE 2 TABLETS BY MOUTH ONCE DAILY IN THE MORNING and TAKE 1 TABLET BY MOUTH EVERY EVENING, Disp: 90 tablet, Rfl: 11 hydrOXYzine HCl (Atarax) 10 MG tablet, Take 1 tablet (10 mg) by mouth every 6 (six) hours if neededfor itching for up to 10 days., Disp: 20 tablet, Rfl: 0 lansoprazole (Prevacid) [address] capsule, TAKE 1 CAPSULE BY MOUTH EVERY MORNING BEFORE BREAKFAST, Disp: 90 capsule, Rfl: 3 lisinopril 10 MG tablet, TAKE 1 TABLET BY MOUTH EVERY MORNING, Disp: 90 tablet, Rfl: 1 melatonin 3 MG tablet, TAKE 2 TABLETS BY MOUTH EVERY DAY AT BEDTIME, Disp: 60 tablet, Rfl: 11 memantine (Namenda) 10 MG tablet, TAKE 1 TABLET BY MOUTH TWICE DAILY IN THE MORNING AND IN THE EVENING, Disp: 60 tablet, Rfl: 11 metoprolol tartrate (Lopressor) 25 MG tablet, TAKE 1 TABLET BY MOUTH TWICE DAILY IN THE MORNING ANDIN THE EVENING, Disp: 180 tablet, Rfl: 1 Multiple Vitamin (Multivitamin) tablet, Take 1 tablet by mouth Once per day., Disp: 90 tablet, Rfl:1 polyvinyl alcohol (Liquifilm Tears) 1.4 % ophthalmic solution, PLACE 1-2 DROPS IN EACH EYE THREE TIMES DAILY, OR MORE NEEDED, Disp: 15 mL, Rfl: 1 predniSONE (Deltasone) 20 MG tablet, 2 tabs po daily for 5 days, Disp: 10 tablet, Rfl: 0 Trelegy Ellipta 100-62.5-25 MCG/ACT aerosol powder , Take 1 puff by mouth 1 (one) time each day at the same time., Disp: , Rfl: triamcinolone (Kenalog) 0.1 % cream, Apply topically if needed in the morning and at bedtime (pain and swelling)., Disp: 30 g, Rfl: 1 venlafaxine XR (Effexor XR) 37.5 MG 24 hr capsule, Take 1 capsule (37.5 mg) by mouth Once per day. Do not crush or chew., Disp: 90 capsule, Rfl: 1 Ventolin HFA 108 (90 Base) MCG/ACT inhaler, INHALE 2 PUFFS BY MOUTH EVERY 4 TO 6 HOURS NEEDED, Disp: 18 g, Rfl: 1 documented in this encounter Plan of Treatment Upcoming Encounters Date Type Department Care Team (Late st Contact Info) Description 10/18/2025 11:00 AM EST Office Visit [facility] [address] [place] [address] Tarka Shahrzad, OD [address] [place] [address] documented as of this encounter Procedures Procedure Name Priority Date/Time Associated Diagnosis Comments XR CHEST 2 VIEWS STAT 09/28/2025 11:4 0 AM EST COPD exacerbation ([facility]/HCC) ([facility]) POCT INFLUENZA A Routine 09/28/2025 10:5 9 AM EST COPD exacerbation (CMS/HCC) ([facility]) POCT RAPID COVID ANTIGEN Routine 09/28/2025 10:58 AM EST COPD exacerbation ([facility]/HCC) ([facility]) POCT INFLUENZA B Routine 09/28/2025 10:5 7 AM EST COPD exacerbation ([facility]/HCC) ([facility]) documented in this encounter Results * XR Chest 2 Views (09/28/2025 11:40 AM EST) Anatomical Region Laterality Modality Chest Radiographic Heidi ging 09/28/2025 11:4 0 AM EST Narrative 09/28/2025 11:51 AM EST [facility] [address] [place] [address] XRay Report Signed Patient: Jemma Esquivel MR#: [id number] : 1940 Acct:[id number] Age/Sex: 85 / F ADM Date: 09/28/25 [facility] Att[facility] Dr: Barbara Laws DO Ordering Physician: Barbara Laws DO Date of Service: 09/28/25 Procedure(s): XR chest 2V Accession Number(s): [id number] cc: Barbara Laws DO Reason for Exam: productive cough x one week, r/o PNA EXAMINATION: XR CHEST CLINICAL INFORMATION: productive cough x one week, r/o PNA COMPARISON: April 27, 2024 TECHNIQUE: 2 views of the chest were obtained. FINDINGS: There is enlargement of the cardiac silhouette similar to the prior examination. There is moderate ossification in the aortic arch. The lungs are grossly clear. There is no sign of a pneumothorax. There is no evidence of pleural effusion. Moderate degenerative disc disease is present in the lower thoracic spine. There is stable mild compression fracture involving proximally T12. XR/XR chest 2V IMPRESSION: No acute disease Cardiomegaly. Stable Electronically signed by: Froylan Mejia MD 09/28/2025 11:48 AM EST Dictated By: Froylan Mejia MD Signed By: <Electronically signed by Froylan Mejia MD in OV> 09/28/25 1148 DD/ 1140 TD/TT: 09/28/25 1143 E M Assembler: Procedure Note Donotuseinterpreter, Image - 09/28/2025 [place] [address] XRay Report Signed Patient: Jemma Esquivel [facility]#: [id number] : 1940cct:[id number] Age/Sex: 85 / FADM Date: 09/28/25 Loc: HO.[facility] Attending Dr: Barbara Laws DO Ordering Physician: Barbara Laws DO Date of Service: 09/28/25 Procedure(s): XR chest 2V Accession Number(s): [id number] cc: Barbara Laws DO Reason for Exam: productive cough x one week, r/o PNA EXAMINATION: XR CHEST CLINICAL INFORMATION: productive cough x one week, r/o PNA COMPARISON: April 27, 2024 TECHNIQUE: 2 views of the chest were obtained. FINDINGS: There is enlargement of the cardiac silhouette similar to the prior examination. There is moderate ossification in the aortic arch. The lungs are grossly clear. There is no sign of a pneumothorax. There is no evidence of pleural effusion. Moderate degenerative disc disease is present in the lower thoracic spine. There is stable mild compression fracture involving proximally T12. XR/XR chest 2V IMPRESSION: No acute disease Cardiomegaly. Stable Electronically signed by: Froylan Mejia MD 09/28/2025 11:48 AM EST Dictated By: Froylan Mejia MD Signed By: <Electronically signed by Froylan Mejia MD in OV> 09/28/25 1148 DD/ 1140 TD/TT: 09/28/25 1143 E M Assembler: Barbara Laws DO IMG XR PROCEDURES Final Resu lt * POCT Rapid Influenza A OSOM (09/28/2025 10:59 AM EST) [facility] Rapid Influenza A Ag Negative Negative, Indeterminate Swab Nasopharyngeal structure / Unknown 09/28/2025 10:59 AM EST Barbara Laws DO POINT OF CARE TEST ENTER/LEXUS T ORDERABLES Final Result * POCT Rapid Covid-19 BinaxNOW (09/28/2025 10:58 AM EST) [facility] Rapid COVID Ag Negative Swab 09/28/2025 10:5 8 AM EST Barbara Laws DO POINT OF CARE TEST ENTER/LEXUS T ORDERABLES Final Result * POCT Rapid Influenza B OSOM (09/28/2025 10:57 AM EST) [facility] Rapid Influenza B Ag Negative Negative, Indeterminate Swab 09/28/2025 10:5 7 AM EST Barbara Eusebia DO POINT OF CARE TEST ENTER/LEXUS T ORDERABLES Final Result documented in this encounter Visit Diagnoses Diagnosis COPD exacerbation (CMS/HCC) (HCC)- Primary Obstructive chronic bronchitis with exacerbation Impacted cerumen of right ear Impacted cerumen Wrist swelling, left documented in this encounter Additional Health Concerns Assessment Noted Time PHQ-9 Depression Total Score: 4 03/30/20 25 1:32 PM EDT documented as of this encounter Care Teams Hands Assembler Relationship Specialty Start Date End Date Jemma Louise MD [address] [place] [address] PCP - General Family Medicine 09/11/19 documented as of this encounter
--- OUTSIDE RECORDS SUMMARY | 2025-09-28 12:21 | XMS_ITS | Encounter Summary ---
Author Organization [employer] Address [address] [facility] 7t [place] [address] Care Team Providers Care Glove Factory Sewer Name Role Phone Jemma Louise MD Primary Care Provide r Reason for Visit * Reason Comments Med Refill Encounter Details Date Type Department Care Team (Late st Contact Info) Description 06/25/2023 Refill [facility] MED & PEDS [address] [place], [place] [phone] Juana Vanegas, ANP [address] [place] [address] Vitamin D deficiency Social History Tobacco Use [...] Encounters Date Type Department Care Team (Late Contact Info) Description 10/18/2025 11:00 AM EST Office Visit [facility] OPTOMETRY [address] [place], [place] [phone] Shahrzad Rust, OD [address] [place] [address] documented as of this encounter Visit Diagnoses Diagnosis Vitamin D deficiency documented in this encounter Additional Health Concerns Assessment Noted Time PHQ-9 Depression Total Score: 0 03/01/20 23 1:02 PM EDT documented as of this encounter Care Teams Glove Factory Sewer Relationship Specialty Start Date End Date Jemma Louise MD [address] [place] [id number] PCP - General Family Medicine 09/11/19 documented as of this encounter
--- OUTSIDE RECORDS SUMMARY | 2025-09-28 12:21 | XMS_ITS | Encounter Summary ---
Author Organization [employer] Address [address] [facility] 7t [place] [address] Care Team Providers Care Garbage Man Name Role Phone Jemma Louise MD Primary Care Provide r Reason for Visit * Reason Comments Med Refill Encounter Details Date Type Department Care Team ([facility] st Contact Info) Description 09/27/2025 Refill [facility] MEDICINE [address] [place] [address] Jemma Louise MD [address] [place] [address] COPD exacerbation (CMS/HCC) ([facility]) Social History Tobacco Use Types Packs/Day Years [...] Description 10/18/2025 11:00 AM EST Office Visit [facility] OPTOMETRY [address] [place] [address] Shahrzad Rust, OD [address] [place] [address] documented as of this encounter Visit Diagnoses Diagnosis COPD exacerbation (CMS/HCC) (HCC) Obstructive chronic bronchitis with exacerbation documented in this encounter Additional Health Concerns Assessment Noted Time PHQ-9 Depression Total Score: 4 03/30/20 25 1:32 PM EDT documented as of this encounter Care Teams Garbage Man Relationship Specialty Start Date End Date Jemma Louise MD [address] [place] [address] PCP - General Family Medicine 09/11/19 documented as of this encounter
--- OUTSIDE RECORDS SUMMARY | 2025-09-28 12:21 | XMS_ITS | Encounter Summary ---
Author Organization [employer] Address [address] [place] [address] Care Team Providers Care Medical Engineer Name Role Phone Jemma Louise MD Primary Care Provide r Reason for Visit * Reason Comments Med Refill Encounter Details Date Type Department Care Team ([facility] st Contact Info) Description 11/14/2023 Refill C [facility] MED [facility] PEDS [address] [place], [place] [phone] Elias Croft MD [address] [place] [address] Constipation, unspecified constipation type Social History Tobacco [...] Description 10/18/2025 11:00 AM EST Office Visit [facility] OPTOMETRY [address] [place] [address] TarkaShahrzad, OD [address] [place] [address] documented as of this encounter Visit Diagnoses Diagnosis Constipation, unspecified constipation type documented in this encounter Additional Health Concerns Assessment Noted Time PHQ-9 Depression Total Score: 0 03/01/20 23 1:02 PM EDT documented as of this encounter Care Teams Medical Engineer Relationship Specialty Start Date End Date Jemma Louise MD [address] [place] [address] PCP - General Family Medicine 09/11/19 documented as of this encounter
--- OUTSIDE RECORDS SUMMARY | 2025-09-28 12:21 | XMS_ITS | Encounter Summary ---
Author Organization [employer] Address [address] [facility] 7[address] [place] [address] Care Team Providers Care Hospital Tray Service Worker Name Role Phone Jemma Louise MD Primary Care Provide r Reason for Visit * Reason Onset Date Comments Nurse Triage 09/27/2025 Encounter Details Date Type Department Care Team ([facility] st Contact Info) Description 09/27/2025 Telephone [facility] MEDIC[facility] [address] [place] [address] Jemma Louise MD [address] [place] [address] Nurse Triage Social History Tobacco Use Types [...] encounter Miscellaneous Notes * Telephone Encounter - Jossie Nolasco RN - 09/27/2025 2:09 PM EST TC placed to patient. Patient [facility]ny[facility] using [facility] #ID [id number]. Jonny reported patient was seen on 09/21 for a cough. Jonny reported patient got better than the productive cough returned 2 days ago with yellow phlegm. Jonny reported patient denies any SOB, fevers, chills.SPO2 95% on RA. Patient wears O2 at night. RN scheduled an appt with a [facility] provider for 09/28/25. RN advised patient son (Jonny) if patient symptoms worsen overnight to take her to the ED for furtherevaluation. Patient son verbalized understanding. Protocol Used: Cough (Adult) Protocol-Based Disposition: See in Office or Video Visit Today or Tomorrow Video visit not offered Positive Triage Questions: * Patient wants to be seen * Cough has been present for > 3 weeks * Cough with no complications * All higher-acuity triage questions were negative. Care Advice Discussed: * Reassurance and Education - Cough * Cough Medicines * Coughing Spells * Prevent Dehydration * Humidifier * Expected Course * Reasons To Call Back - Difficulty breathing - Cough lasts more than 3 weeks - Fever lasts more than 3 days - You become worse * Telephone Encounter - Janis Collins - 09/27/2025 11:46 AM EST Symptom: Cough Outcome: Schedule an appointment to be seen within 24 hours Reason: Caller denied all higher acuity questions The caller accepted this outcome. Contact pt son at [phone] (lithuanian) documented in this encounter Plan of Treatment Upcoming Encounters Date Type Department Care Team (Late st Contact Info) Description 10/18/2025 11:00 AM EST Office Visit [facility] OPTOMETRY [address] [place] [address] Shahrzad Rust, OD [address] [place] [address] documented as of this encounter Visit Diagnoses Not on filedocumented in this encounter Additional Health Concerns Assessment Noted Time PHQ-9 Depression Total Score: 4 03/30/20 25 1:32 PM EDT documented as of this encounter Care Teams Hospital Tray Service Worker Relationship Specialty Start Date End Date Jemma Louise MD [address] [place] [address] PCP - General Family Medicine 09/11/19 documented as of this encounter
--- OUTSIDE RECORDS SUMMARY | 2025-09-28 12:21 | XMS_ITS | Encounter Summary ---
Author Organization [employer] Address [address] [facility] 7t [place] [address] Care Team Providers Care Foundation Relations Manager Name Role Phone Jemma Louise MD Primary Care Provide r Reason for Visit * Reason Onset Date Comments Nurse Triage 05/16/2025 Encounter Details Date Type Department Care Team ([facility] st Contact Info) Description 05/16/2025 Telephone [facility] MEDICINE [address] [place] [address] Jemma Louise MD [address] [place] [address] Nurse Triage Social History Tobacco Use Types [...] this outcome. Contact pt nevaeh Fuller at [phone] (denied yeast culture developer) documented in this encounter Plan of Treatment Upcoming Encounters Date Type Department Care Team (Late st Contact Info) Description 10/18/2025 11:00 AM EST Office Visit [facility] OPTOMETRY [address] [place], [place] [phone] Shahrzad Rust, OD [address] [place] [address] documented as of this encounter Visit Diagnoses Not on filedocumented in this encounter Additional Health Concerns Assessment Noted Time PHQ-9 Depression Total Score: 4 03/30/20 25 1:32 PM EDT documented as of this encounter Care Teams Foundation Relations Manager Relationship Specialty Start Date End Date Jemma Louise MD [address] [place] [address] PCP - General Family Medicine 09/11/19 documented as of this encounter
--- OUTSIDE RECORDS SUMMARY | 2025-09-28 12:21 | XMS_ITS | Data Portability ---
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 Plan of Treatment Reminders Order Date Submit Date Provider Last Modified By Organization Details Last Modified Time Details Appointments None recorded. Lab rapid SARS CoV 2 Ag, QL IA, respiratory specimen 2021 [facility], [address] [place] [address], [id number] 10:35:12 Referral None recorded. Procedures None recorded. Surgeries None recorded. Imaging None recorded. Medication Orders prednisone 20 mg tablet 2021 022 [facility], [address] [place] [address], [id number], 10:31:37 prednisone 20 mg tablet 2021 022 [facility], [address] [place] [address], [id number], 10:28:37 Patient TargetsNo targets recorded. Patient InstructionsNo instructions recorded. Reason for Referral None Reported. Results Created Date Observation Date Name Description Value Unit Range Abnormal Flag Note LastModifiedBy Organization Detail LastModifiedTime 04/01/20 22 04/01/2022 rapid SARS CoV 2 Ag, QL IA, respi rator y speci men rapid SARS CoV 2 Ag, QL IA, respiratory specimen negati ve Not Available [address], [phone] 04/01/2022 10:34:06 Result Notes None recorded. Medical Equipment None Reported. Allergies Allergen ID Allergen Name Allergen Category Reaction Reaction Severity Criticality Documentation Date Start Date Code Code System Note Provider Name and Address Organization Details Recorded Time 7787 Product containin g penicilli n (product) medicatio n Not available Not available Not available 09/05/2024 21991 8001 SNOMED Not Available [employer] - production [...] Recorded Respiratory rate Heart rate Oxygen saturation Body temperature Oxygen saturation Heart rate Respiratory rate Body temperature Systolic And Diastolic Systolic And Diastolic Provider Name and Address Organization Details Last Updated DateTime 2 20 /min 86 /min 98 % 96.2 [degF] 98 % 86 /min 20 /min 96.2 [...] 1773 Rosales Richard MD Main - [facility] [address] [place] [phone] 04/01/2022 10:19:55 07/30/2022 11:19:05 Acute exacerbation of chronic obstructive pulmonary disease [id number] J44.1 Reports increase in sputum production over [...] Hong Member ID Guarantor Name 01/02/2024 1 [facility] - DOS PRIOR TO 2023 - DUAL ELIGIBLE (MEDICARE REPLACEMENT/ADV ANTAGE - HMO) Jemma Esquivel [id number] Jemma Esquivel 01/02/2024 1 [facility] - DOS ON OR AFTER 2023 - DUAL ELIGIBLE - DETENTION OPTIONS AND ONE CARE (MEDICARE REPLACEMENT/ADV ANTAGE - HMO) Jemma Esquivel [id number] Jemma Esquivel Notes Date Note Type Note [...] .................. .................. .................. .................. .................. .................. ............... 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 Disposition: Fulfilled Rosales Richard MD [address] [facility], [place], [phone], [employer] 04/01/2022 11:09:16 OBGyn Episode No OBEpisode recorded.
--- OUTSIDE RECORDS SUMMARY | 2025-09-28 12:21 | XMS_ITS | Encounter Summary ---
Author Organization [employer] Address [address] 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 Pt has nasal drainage which is clear and some nasal congestion. Neg for fever, cough, headache. Jonny is concerned about some snoring, whistling sound with breathing especially at night. No difficulty breathing is reported. Advised to come to [facility] today or tomorrow open til 800pm, for [...] The caller accepted this outcome Patient speaks english documented in this encounter Plan of Treatment Upcoming Encounters Date Type Department Care Team (Late st Contact Info) Description 10/18/2025 11:00 AM EST Office Visit [facility] OPTOMETRY [address] [place] [address] Shahrzad Rust, OD [address] [place], [place] [phone] documented as of this encounter Visit Diagnoses Not on filedocumented in this encounter Additional Health Concerns Assessment Noted Time PHQ-9 Depression Total Score: 0 03/01/20 23 1:02 PM EDT documented as of this encounter Care Teams Deputy Director Of Finance Relationship Specialty Start Date End Date Jemma Louise MD [address] [place] [address] PCP - General Family Medicine 09/11/19 documented as of this encounter
--- OUTSIDE RECORDS SUMMARY | 2025-09-28 12:21 | XMS_ITS | Clinical Summary ---
Author Organization [employer] Address [address] [facility] [address] [place] [address] Care Team Providers Care Line Crew Supervisor Name Role Phone Jemma Louise MD [...] TABLET BY MOUTH EVERY EVENING 90 tablet 5 11:19 AM EST 10/25/20 24 Active memantine (Namenda) 10 MG tabletIndicatio ns:Dementia, unspecified dementia severity, unspecified dementia type, unspecified whether behavioral, psychotic, or mood disturbance or anxiety (CMS/HCC) (HCC) TAKE 1 TABLET BY MOUTH TWICE DAILY IN THE MORNING AND IN THE EVENING 60 tablet 5 11:19 AM EST 10/25/20 24 Active melatonin 3 MG tablet TAKE 2 TABLETS BY MOUTH EVERY DAY AT BEDTIME 60 tablet 5 11:19 AM EST 01/23/20 25 Active calcium carbonate 1500 (600 [...] EVENING 180 tablet 1 03/23/20 25 Active docusate sodium (Colace) 100 MG capsuleIndicati ons:Constipatio n, unspecified constipation type TAKE 1 CAPSULE BY MOUTH TWICE DAILY IN THE MORNING AND IN THE EVENING 180 capsule 1 04/23/20 25 Active Ferrous Sulfate (iron) 325 (65 Fe) MG tabletIndicatio ns:Iron deficiency TAKE 1 TABLET BY MOUTH EVERY OTHER DAY IN THE MORNING 45 tablet 1 04/23/20 25 Active fluticasone (Flonase) 50 MCG/ACT nasal spray Administer 1 spray into each nostril Once per day. Shake gently. Before first use, prime pump. After use, clean tip and replace cap. 16 g 1 05/17/20 25 Active atorvastatin (Lipitor) 40 MG tablet Take 1 tablet (40 mg) by mouth at bedtime. 90 tablet 3 5 11:19 AM EST 05/17/20 25 Active lansoprazole (Prevacid) [address] capsule TAKE 1 CAPSULE BY MOUTH EVERY MORNING BEFORE BREAKFAST 90 capsule 3 05/22/20 25 Active lisinopril 10 MG tabletIndicatio ns:Chronic [...] HOURS NEEDED 60 tablet 08/28/20 25 Active cetirizine (ZyrTEC) 10 MG tabletIndicatio ns:Seasonal allergies TAKE 1 TABLET BY MOUTH EVERY MORNING 30 tablet 1 5 11:19 AM EST 09/12/20 25 Active polyvinyl alcohol (Liquifilm Tears) 1.4 % ophthalmic solution PLACE 1-2 DROPS IN EACH EYE THREE TIMES DAILY, OR MORE NEEDED 15 mL 1 5 11:19 AM EST 09/17/20 25 Active Ventolin HFA 108 (90 Base) MCG/ACT inhalerIndicati ons:COPD exacerbation (CMS/HCC) ([facility]) INHALE 2 PUFFS BY MOUTH EVERY 4 TO 6 HOURS NEEDED 18 g 1 09/27/20 25 Active azithromycin (Zithromax) 250 MG tablet Take 2 tabs PO today then take 1 tab PO daily for the next four days 6 tablet 09/28/20 25 Active guaiFENesin (Mucinex) 600 MG 12 hr tablet Take 1 tablet (600 mg) by mouth if needed in the morning and at bedtime for cough or congestion. Do not crush, chew, or split. 30 tablet 09/28/20 25 026 Active predniSONE (Deltasone) 20 MG tabletIndicatio ns:Wrist swelling, left 2 tabs po daily for 5 days 10 tablet 09/28/20 25 Active benzonatate (Tessalon) 100 MG capsule Take 1 capsule (100 mg) by mouth if needed in the morning, at noon, and at bedtime for cough for up to 10 days. Do not crush or chew. 30 capsule 09/28/20 25 025 Active carbamide peroxide (Debrox) 6.5 % otic solution Administer 5 drops into the right ear 2 times daily for 4 days. 15 mL 09/28/20 25 025 Active predniSONE (Deltasone) 20 MG tabletIndicatio ns:Wrist swelling, left 2 tabs po daily for 5 days 10 tablet 04/18/20 25 025 Discontinued(R eorder (will not trigger notification to Pharmacy)) polyvinyl alcohol (Liquifilm Tears) 1.4 % ophthalmic solution INSTILL 1 TO 2 DROPS IN EACH EYE THREE TIMES DAILY OR MORE NEEDED 15 mL 1 05/02/20 25 025 Discontinued Ventolin HFA 108 (90 Base) MCG/ACT inhalerIndicati ons:COPD exacerbation (CMS/HCC) (HCC) INHALE 2 PUFFS BY MOUTH EVERY 4 TO 6 HOURS NEEDED 18 g 1 05/14/20 25 025 Discontinued cetirizine (ZyrTEC) 10 MG tabletIndicatio ns:Seasonal allergies TAKE 1 TABLET BY MOUTH EVERY MORNING 30 tablet 1 07/18/20 25 025 Discontinued benzonatate (Tessalon Perles) 100 MG capsuleIndicati ons:Viral URI with cough Take 1 capsule (100 mg) by mouth if needed in the morning, at noon, and at bedtime for cough for up to 7 days. Do not crush or chew. 20 capsule 11:19 AM EST 09/21/20 025 Discontinued Active Problems Problem Noted Date [...] therapist Letter for housing will be provided Seasonal allergies 03/30/2024 Assessment & Plan (03/30/2024 11:34 AM EDT): I discontinue loratadine and start her on cetrizine Stage 3a chronic kidney disease ([facility]) 2022 Assessment & Plan (03/30/2024 11:34 AM [...] F/u BMP in 2 weeks COPD exacerbation ([facility]) 09/22/2023 Assessment & Plan (09/22/2023 11:46 AM EST): Seems to be improving Son will give her albuterol q6h for 2 days PRN Continue other medications and f/u with PCP Atrial fibrillation ([facility]) 02/18/2023 Assessment & Plan (09/12/2024 12:08 PM [...] from ED visit Order [facility] today Dementia ([facility]) 02/18/2023 Assessment & Plan (05/17/2025 3:48 PM [...] eyelid 11/30/2018 Tubular adenoma of colon 04/21/2018 Dry eyes 02/03/2018 Mild cognitive disorder 02/03/2018 [...] day PRN C/w same treatment referral to filter press pumper will be done today Constipation 11/04/2015 Essential [...] Problem Noted Date Diagnosed Date Resolved Date Rash 02/21/2025 09/28/2025 Assessment & Plan (05/17/2025 3:42 PM EDT): Partial improvement with steroid cream, unclear if it related to medication. Alcohol med boxes to hold off on statin x 1 month and patient to follow-up with PCP to restarted if symptoms are not resolved, otherwise if you start to be related to that specific statin, PCP will follow-up Will reach out to dermatology master scheduler to see when can she be seen by team automobile assembler in house. Continue triamcinolone cream for now Avoid using any other OTC facial creams including sunblock Assessment & Plan (02/22/2025 12:28 PM EDT): I will prescribe the patient triamcinolone cream to apply twice daily no more than 2 weeks and hydroxyzine 10 mg every 8 hours as needed for itchiness Sprain of left ankle 12/05/2024 025 Assessment & Plan (12/05/2024 4:22 PM EST): Will rule out pathological fracture due to history of osteoporosis. Order x-rays Immobilization with an AFO splint, she will continue to ambulate with a cane, and advised to put ice on affected area. Use tylenol prn pain Pneumonia due to infectious organism 02/18/2023 05/17/2025 Cough 02/03/2018 09/28/2025 Assessment & Plan (05/17/2025 3:39 PM EDT): It seems to be probably related to allergies or prodromal from some viral URI Advised to stay home, increase p.o. fluids and get some Tylenol as needed Start using Flonase daily Rapid COVID test today is negative Encounters Date Type Department Care Team Description 09/28/2025 10:15 AM EST Office Visit [facility] [address] [place] [phone] Barbara Laws DO COPD exacerbation ([facility]) ([facility]) (Primary Dx); Impacted cerumen of right ear; Wrist swelling, left 09/27/2025 Telephone [facility] [address] [place] [address] Jemma Louise MD Nurse Triage 09/27/2025 Refill [facility] [address] [place] [address] Jemma Louise MD COPD exacerbation (CMS/HCC) (HCC) 09/21/2025 10:00 AM EST Office Visit [facility] [address] [place] [phone] Mike Arevalo MD Viral URI with cough (Primary Dx) 09/21/2025 Travel 09/15/2025 Refill [facility] [address] [place] [address] Jemma Louise MD 09/12/2025 Refill [facility] [address] [place] [address] Jemma Louise MD Seasonal allergies 09/07/2025 Telephone [facility] [address] [place] [phone] Jemma Louise MD 09/06/2025 Orders Only GENERIC EXTERNAL DATA DEPARTMENT Provider, Generic External Data 08/24/2025 Refill [facility] [address] [place] [address] Jemma Louise MD 08/20/2025 Refill [facility] [address] [place] [address] Jemma Louise MD Vitamin D deficiency 08/20/2025 Refill [facility] [address] [place] [address] Jemma Louise MD 08/02/2025 Telephone [facility] [address] [place] [address] Jemma Louise MD Dec recall 07/19/2025 Refill [facility] [address] [place] [address] Jemma Louise MD Chronic systolic congestive heart failure (CMS/HCC); Essential hypertension 07/18/2025 Refill [facility] [address] [place] [address] Jemma Louise MD Seasonal allergies 07/17/2025 Telephone [facility] [address] [place] [address] Jemma Louise MD 07/13/2025 Telephone [facility] [address] [place] [address] Jemma Louise MD No Show 07/12/2025 Telephone [facility] [address] [place] [address] Jemma Louise MD chart prep 07/05/2025 Orders Only GENERIC EXTERNAL DATA DEPARTMENT Provider, Generic External Data 07/04/2025 Patient Outreach [facility] [address] [place] [address] Jemma Louise MD Pre-visit Planning ([facility] screening completed on 03/30/2025) from Last 3 [...] Mass Index 26.9 09/28/2025 10:35 AM EST Plan of Treatment Upcoming Encounters Date Type Department Care Team (Late st Contact Info) Description 10/18/2025 11:00 AM EST Office Visit [facility] [address] [place], [place] [phone] Shahrzad Rust, OD [address] [place], [place] [phone] Health Maintenance Due Date Last Done Comments Alcohol/Substance Use Screening 1952 Zoster Vaccines (3 of 3) 02/10/2024 12/16/2023, 01/07 COVID-19 Vaccine ( season) 2025 09/12/2024, 03/30/2024, 03/24/2021, Additional history exists Influenza Vaccine (#1) 2025 , 08/31/2023, 07/28/2022, Additional history exists Depression Screening 03/30/2026 03/30/2025, 03/30/20 SDOH Screening [...] 09/28/2025 11:4 0 AM EST COPD exacerbation (CMS/HCC) (HCC) POCT INFLUENZA A Routine 09/28/2025 10:5 9 AM EST COPD exacerbation (CMS/HCC) (HCC) POCT RAPID COVID ANTIGEN Routine 09/28/2025 10:58 AM EST COPD exacerbation (CMS/HCC) (HCC) POCT INFLUENZA B Routine 09/28/2025 10:5 7 AM EST COPD exacerbation (CMS/HCC) (HCC) POCT INFLUENZA B (ID NOW RAPID MOLECULAR) Routine 09/21/2025 12:25 PM EST Viral URI with cough POCT INFLUENZA A (ID NOW RAPID MOLECULAR) Routine 09/21/2025 12:25 PM EST Viral URI with cough POCT RAPID COVID ANTIGEN Routine 09/21/2025 12:25 PM EST Viral URI with cough VITAMIN D 25-OH (D2 AND D3) Routine 09/06/2025 12:17 PM EDT COMPREHENSIVE METABOLIC PANEL Routine 09/06/2025 12:17 PM EDT CBC WITH AUTO DIFFERENTIAL Routine 09/06/2025 12:[address] ABDOMEN W CONTRAST Routine 07/05/2025 3:06 PM EDT POCT CREATININE GFR Routine 07/05/2025 3 :02 PM EDT CALCIUM Routine 07/05/2025 1:33 PM EDT LIPID PANEL, STANDARD Routine 07/28/2022 11:36 AM EDT from Last 3 Months or Most Recently Relevant to Health Maintenance Results * XR Chest 2 Views (09/28/2025 11:40 AM EST) Anatomical Region Laterality Modality Chest Radiographic Heidi ging 09/28/2025 11:4 0 AM EST Narrative 09/28/2025 11:51 [place] [address] XRay Report Signed Patient: Jemma Esquivel MR#: [id number] : 1940 Acct:[id number] Age/Sex: 85 / F ADM Date: 09/28/25 Loc: HO.HHCX Attending Dr: Barbara Laws DO Ordering Physician: Barbara Laws DO Date of Service: 09/28/25 Procedure(s): XR chest 2V Accession Number(s): [id number] cc: Barbara Laws DO Reason for Exam: [...] Froylan Mejia MD 09/28/2025 11:48 AM EST RP Dictated By: Froylan Mejia MD Signed By: <Electronically signed by Froylan Mejia MD in OV> 09/28/25 1148 DD/ 1140 TD/TT: 09/28/25 1143 Drug Safety Specialist: Procedure Note Donotuseinterpreter, Image - 09/28/[address] [address] XRay Report Signed Patient: Jemma Esquivel#: [id number] : 1940cct:[id number] Age/Sex: 85 / FADM Date: 09/28/25 [facility] Attending Dr: Barbara Laws DO Ordering Physician: Barbara Laws DO Date of Service: 09/28/25 Procedure(s): XR chest 2V Accession Number(s): [id number] cc: Barbara Laws DO Reason for Exam: [...] Froylan Mejia MD 09/28/2025 11:48 AM EST RP Dictated By: Froylan Mejia MD Signed By: <Electronically signed by Froylan Mejia MD in OV> 09/28/25 1148 DD/ 1140 TD/TT: 09/28/25 1143 Drug Safety Specialist: Barbara Laws DO IMG XR PROCEDURES Final Resu lt * POCT Rapid Influenza A OSOM (09/28/2025 10:59 AM EST) [facility] Rapid Influenza A Ag Negative Negative, Indeterminate Swab Nasopharyngeal structure / Unknown 09/28/2025 10:59 AM EST Barbara Laws DO POINT OF CARE TEST ENTER/LEXUS T ORDERABLES Final Result * POCT Rapid Covid-19 BinaxNOW (09/28/2025 10:58 AM EST) Only the most recent of2 resultswithin the time period is included. [facility] Rapid COVID Ag Negative Swab 09/28/2025 10:5 8 AM EST Barbara Laws DO POINT OF CARE TEST ENTER/LEXUS T ORDERABLES Final Result * POCT Rapid Influenza B OSOM (09/28/2025 10:57 AM EST) [facility] Rapid Influenza B Ag Negative Negative, Indeterminate Swab 09/28/2025 10:5 7 AM EST Barbara Laws DO POINT OF CARE TEST ENTER/LEXUS T ORDERABLES Final Result * POCT Rapid Influenza B LAUGHLIN ID NOW (09/21/2025 12:25 PM EST) [facility] Influenza B Negative Negative, Indeterminate [facility] Swab 09/21/2025 12:2 5 PM EST Mike Arevalo MD POINT OF CARE TEST ENTER/EDIT OR DERABLES Final Result [facility] [address] [place] [phone] * POCT Rapid Influenza A LAUGHLIN ID NOW (09/21/2025 12:25 PM EST) Influenza A Negative Negative, Indeterminate [facility] Swab 09/21/2025 12:2 5 PM EST Mike Arevalo MD POINT OF CARE TEST ENTER/EDIT OR DERABLES Final Result [facility] [address] [place] [phone] * VITAMIN D 25-OH (D2 AND D3) (09/06/2025 12:17 PM EDT) Pathologist [facility] Vitamin D, 25-OH, D2 <4 ng/mL [facility] Comment:This test was develo ped and its analytical performancecharacteristics have been determined by [employer] [place], [place]. It hasnot been cleared or approved by the [place] Food and DrugAdministration. This assay has been validated pursuantto the CLIA regulations and is used for clinicalpurposes.THIS TEST WAS PERFORMED AT:[employer] [place] [address]CNPZIKNOTILIA CASTAÑEDA MD,PHD Vitamin D, 25-OH, D3 68 ng/mL [facility] Comment:This test was develo ped and its analytical performancecharacteristics have been determined by [employer] [facility], [place]. It hasnot been cleared or approved by the U.[place]. Food and DrugAdministration. This assay has been validated pursuantto the CLIA regulations and is used for clinicalpurposes. Vitamin D, 25-OH, Total 68 30 - 100 ng/mL [facility] Comment:Vitamin D, 25-Hydrox y reports [...] = 30 ng/mL.For additional information, please refer tohttp://education.NextCloud/faq/VAB650(This link is being provided for informational/educational purposes only.) 09/06/2025 12:1 7 PM EDT 09/06/2025 5:27 PM EDT us Generic External Data Provider LAB BLOOD ORDERAB LES Final Result [facility] [address] [place] [address] [phone] * (ABNORMAL) CBC auto differential (09/06/2025 12:17 PM EDT) White Blood Count 10.1 4.8 - 10.8 X10*3/uL [facility] Red Blood Count 4.83 4.20 - 5.50 X10*6/uL [facility] Hemoglobin 12.4 12.0 - 16.0 g/dl [facility] Hematocrit 41.6 37.0 - 47.0 % [facility] Mean Corpuscular Volume 86.1 80.0 - 98.0 fL [facility] Mean Corpuscular Hemoglobin 25.7(L) 27.0 - 33.0 pg [facility] Mean Corpuscular HGB Conc 29.8(L) 31.0 - 35.0 g/dl [facility] Red Cell Distribution Width 16.4(H) 11.0 - 16.0 % [facility] Platelet Count 290 160 - 400 X10*3/uL [facility] Mean Platelet Volume 11.7 9.4 - 12.3 fL [facility] Neutrophils Percent Auto 68.4 45 - 73 % [facility] Imm Gran Pct Auto 0.3 0.0 - 0.4 % [facility] Lymphocytes Percent Auto 18.9(L) 20 - 40 % [facility] Monocytes Percent Auto 10.3 2 - 11 % [facility] Eosinophils Percent Auto 1.3 0 - 4 % [facility] Basophils Percent Auto 0.8 0 - 2 % [facility] NRBC Pct Auto 0.0 0.0 - 0.2 /100WBC [facility] Neutrophils Absolute Auto 6.9 2.0 - 8.3 x10*3/uL [facility] Imm Gran Abs Auto 0.03 0.00 - 0.03 X10*3/uL [facility] Lymphocytes Absolute Auto 1.9 1.2 - 4.9 X10*3/uL [facility] Monocytes Absolute Auto 1.0 0.1 - 1.2 X10*3/uL [facility] Eosinophils Absolute Auto 0.1 0.0 - 0.4 X10*3/uL [facility] Basophils Absolute Auto 0.1 0.0 - 0.2 X10*3/uL [facility] NRBC Abs Auto 0.000 0.0 - 0.012 X10*3/uL [facility] 09/06/2025 12:1 7 PM EDT 09/06/2025 5:27 PM EDT us Generic External Data Provider LAB BLOOD ORDERAB LES Final Result [facility] [address], [place] [phone] * (ABNORMAL) Comprehensive Metabolic Panel (09/06/2025 12:17 PM EDT) Sodium 142 135 - 145 mmol/L [facility] Potassium 4.1 3.3 - 5.1 mmol/L [facility] Chloride 101 96 - 108 mmol/L [facility] Carbon Dioxide 29 22 - 29 mmol/L [facility] Anion Gap 16 12 - 20 [facility] Urea Nitrogen (BUN) 21(H) 9 - 16 mg/dL [facility] Creatinine, Serum 1.08 0.5 - 1.4 mg/dL [facility] Estimated Glomerular Filt Rate 48 [facility] Comment:Chronic Kidney Disea se: Estimated GFR < 60 mL/min/1.80m8Kobjzs Kidney Disease: Estimated GFR < 15 mL/min/1.73m2 Glucose 71 60 - 115 mg/dL [facility] Calcium 9.6 8.4 - 10.2 mg/dL [facility] Bilirubin, Total 0.4 0.0 - 1.0 mg/dL [facility] Aspartate Amino Transferase 27 5 - 31 U/L [facility] Alanine Aminotransferase 12 0 - 31 U/L [facility] Total Protein 8.4(H) 6.5 - 8.0 g/dL [facility] Albumin Level 4.5 3.5 - 5.0 g/dL [facility] Alkaline Phosphatase 54 39 - 117 U/L [facility] 09/06/2025 12:1 7 PM EDT 09/06/2025 5:27 PM EDT us Generic External Data Provider LAB BLOOD ORDERAB LES Final Result Performing Organization Address City/State/[facility] Co de Phone Number [facility] [address] [place] [phone] * CT Abdomen w/ Contrast (07/05/2025 3:06 PM EDT) Anatomical Region Laterality Modality Body, Abdomen Computed Tomogra phy 07/05/2025 3:06 PM EDT Narrative 07/05/2025 4:00 PM EDT [address] [address] [address] Scan Report Signed Patient: Jemma Esquivel MR#: [id number] : 1940 Acct:[id number] Age/Sex: 85 / F ADM Date: 07/05/25 Loc: HO.CT Attending Dr: Shree Briseno MD Ordering Physician: Shree Briseno MD Date of Service: 07/05/25 Procedure(s): CT abdomen w IV con Accession Number(s): [id number] cc: Shree Briseno MD; Radha Yanez MD Report Number: [id number]: Total DLP = 142.00 mGy-cm EXAMINATION: CT [...] West Mathew MD 07/05/2025 03:57 PM EDT RP Dictated By: West Mathew MD Signed By: <Electronically signed by West Mathew MD in OV> 07/05/25 1557 DD/ 1506 TD/TT: 07/05/25 1539 Drug Safety Specialist: Procedure Note Donotcrystalinterpreter, Image - 07/05/[address] [place] [address] [address] Scan Report Signed Patient: Jemma Esquivel AMR#: [id number] : 1940cct:[id number] Age/Sex: 85 / FADM Date: 07/05/25 Loc: HO.CT Attending Dr: Shree Briseno MD Ordering Physician: Shree Briseno MD Date of Service: 07/05/25 Procedure(s): CT abdomen w IV con Accession Number(s): [id number] cc: Shree Briseno MD; Radha Yanez MD Report Number: [id number]: Total DLP = 142.00 mGy-cm EXAMINATION: CT [...] 07/05/25 1557 DD/ 1506 TD/TT: 07/05/25 1539 Drug Safety Specialist: [facility] External Provider IMG CT PROCEDURES Final Result * POCT Creatinine GFR (07/05/2025 3:02 PM EDT) [facility] POCT Creatinine 0.6 0.5 - 1.4 mg/dL [facility] GFR POC >60 [facility] Comment:Chronic Kidney Disea se: Estimated GFR < 60 mL/min/1.76v7Qphuzy Kidney Disease: Estimated GFR < 15 mL/min/1.73m2 07/05/2025 3:02 PM EDT 07/06/2025 10:58 AM EDT Narrative [facility] - 07/06/2025 11:00 AM EDT [id number] Generic External Data Provider LAB POINT OF CARE TEST DOCKED DEVICE ORDERABLES Final Result Performing Organization Address [facility]/ZIP Co de Phone Number [facility] [address] [place] [phone] * Calcium (07/05/2025 1:33 PM EDT) [facility] Calcium 9.8 8.4 - 10.2 mg/dL [facility] 07/05/2025 1:33 PM EDT 07/05/2025 1:33 PM EDT Generic External Data Provider LAB BLOOD ORDERAB LES Final Result Performing Organization Address [facility]/ZIP Co de Phone Number [facility] [address] [place] [phone] * (ABNORMAL) LIPID PANEL, STANDARD (07/28/2022 11:36 AM EDT) [facility] Chol/HDLC Ratio 2.2 <5.0 (calc) [facility] LDL-C. En OBRIEN et al. EVAN. 2013;310(19): 7870-3723 (http://education.GTI.Tobii Technology/faq/BOY359) Non-HDL Cholesterol 71 <130 mg/dL (calc) [facility] Comment: For patients with diabetes plus 1 major ASCVD risk factor, treating to a non-HDL-C goal of <100 mg/dL (LDL-C of <70 mg/dL) is considered a therapeutic option. Triglycerides 154(H) <150 mg/dL [facility] 07/28/2022 11:3 6 AM EDT us Jemma Mccarthy MD LAB BLOOD ORDERABLES Final Result [facility] [address] from Last 3 Months or Most Recently Relevant to Health Maintenance [facility]O D-SNP) [place] [id number] [place] [address] Care Teams Line Crew Supervisor Relationship Specialty Start Date End Date Jemma Louise MD [address] [place] [address] PCP - General Family Medicine 09/11/19
--- OUTSIDE RECORDS SUMMARY | 2025-09-28 12:21 | XMS_ITS | Encounter Summary ---
Author Organization [employer] Address [address] [facility] 7t [place] [address] Care Team Providers Care Injection Molding Process Technician Name Role Phone Jemma Louise MD Primary Care Provide r Encounter Details Date Type Department Care Team (Late st Contact Info) Description 01/04/2023 Orders Only [facility] MED & PEDS [address] [place], [place] [phone] Barbara Portillo LPN Social History Tobacco Use [...] Description 10/18/2025 11:00 AM EST Office Visit [facility] OPTOMETRY [address] [place], [place] [phone] TarkaShahrzad, OD [address] [place] [address] documented as of this encounter Procedures Procedure [...] EDT) Vitamin D, 25-OH, D2 <4 ng/mL [facility] Comment:This test was develo ped and its analytical performancecharacteristics have been determined by [facility] [place], [place]. It hasnot been cleared or approved by the U.S. Food and DrugAdministration. This assay has been validated pursuantto the CLIA regulations and is used for clinicalpurposes.THIS TEST WAS PERFORMED AT:[employer] [id number] [place] [address]ZEZKUPSOTILIA CASTAÑEDA MD,PHD Vitamin D, 25-OH, D3 37 ng/mL [facility] Comment:This test was develo ped and its analytical performancecharacteristics have been determined by [facility] [place], [place]. It hasnot been cleared or approved by the U.S. Food and DrugAdministration. This assay has been validated pursuantto the CLIA regulations and is used for clinicalpurposes. Vitamin D, 25-OH, Total 37 30 - 100 ng/mL [facility] Comment:Vitamin D, 25-Hydrox y [...] = 30 ng/mL.For additional information, please refer [email or web address]/faq/[email or web address](This link is being provided for informational/educational purposes only.) 08/10/2023 12:1 3 PM EDT 08/10/2023 12:13 PM EDT us [facility] External Provider LAB BLO OD ORDERABLES Final Result [facility] [address] [place] [phone] * (ABNORMAL) Comprehensive Metabolic Panel (08/10/2023 12:13 PM EDT) Sodium 141 135 - 145 mmol/L [facility] Potassium 4.0 3.3 - 5.1 mmol/L [facility] Chloride 97 96 - 108 mmol/L [facility] Carbon Dioxide 33(H) 22 - 29 mmol/L [facility] Anion Gap 15 12 - 20 [facility] Urea Nitrogen (BUN) 15 9 - 16 mg/dL [facility] Creatinine, Serum 0.89 0.5 - 1.4 mg/dL [facility] Estimated Glomerular Filt Rate >60 [facility] Comment:NOTE: For -Am erican individuals, multiply the result by 1.210.Chronic Kidney Disease: Estimated GFR < 60 mL/min/[id number] Kidney Disease: Estimated GFR < 15 mL/min/1.73m2 Glucose 102 60 - 115 mg/dL [facility] Calcium 10.5(H) 8.4 - 10.2 mg/dL [facility] Bilirubin, Total 0.4 0.0 - 1.0 mg/dL [facility] Aspartate Amino Transferase 22 5 - 31 U/L [facility] Alanine Aminotransferase 13 0 - 31 U/L [facility] Total Protein 7.9 6.5 - 8.0 g/dL [facility] Albumin Level 4.4 3.5 - 5.0 g/dL [facility] Alkaline Phosphatase 47 39 - 117 U/L [facility] 08/10/2023 12:1 3 PM EDT 08/10/2023 12:13 PM EDT us [facility] External Provider LAB BLO OD ORDERABLES Final Result [facility] [address] [place] [address] [phone] * (ABNORMAL) CBC auto differential (08/10/2023 12:13 PM EDT) White Blood Count 7.3 4.8 - 10.8 X10*3/uL [facility] Red Blood Count 4.62 4.20 - 5.50 X10*6/uL [facility] Hemoglobin 12.5 12.0 - 16.0 g/dl [facility] Hematocrit 40.9 37.0 - 47.0 % [facility] Mean Corpuscular Volume 88.5 80.0 - 98.0 fL [facility] Mean Corpuscular Hemoglobin 27.1 27.0 - 33.0 pg [facility] Mean Corpuscular HGB Conc 30.6(L) 31.0 - 35.0 g/dl [facility] Red Cell Distribution Width 14.5 11.0 - 16.0 % [facility] Platelet Count 257 160 - 400 X10*3/uL [facility] Mean Platelet Volume 12.3 9.4 - 12.3 fL [facility] Neutrophils Percent Auto 69.3 45 - 73 % [facility] Imm Gran Pct Auto 0.4 0.0 - 0.4 % [facility] Lymphocytes Percent Auto 18.4(L) 20 - 40 % [facility] Monocytes Percent Auto 9.1 2 - 11 % [facility] Eosinophils Percent Auto 2.2 0 - 4 % [facility] Basophils Percent Auto 0.6 0 - 2 % [facility] NRBC Pct Auto 0.0 0.0 - 0.2 /100WBC [facility] Neutrophils Absolute Auto 5.0 2.0 - 8.3 x10*3/uL [facility] Imm Gran Abs Auto 0.03 0.00 - 0.03 X10*3/uL [facility] Lymphocytes Absolute Auto 1.3 1.2 - 4.9 X10*3/uL [facility] Monocytes Absolute Auto 0.7 0.1 - 1.2 X10*3/uL [facility] Eosinophils Absolute Auto 0.2 0.0 - 0.4 X10*3/uL [facility] Basophils Absolute Auto 0.0 0.0 - 0.2 X10*3/uL [facility] NRBC Abs Auto 0.000 0.0 - 0.012 X10*3/uL [facility] 08/10/2023 12:1 3 PM EDT 08/10/2023 12:13 PM EDT us [facility] External Provider LAB BLO OD ORDERABLES Final Result [facility] [address], [place] [phone] * Vitamin D, 25-Hydroxy, Total, Immunoassay (03/01/2023 2:22 PM EDT) Vitamin D 25-OH Total 69.3 >30 ng/mL [facility] Comment:Health Based Referen ce Values*< 20 ng/mL [id number] ng/mL Insufficient> 30 ng/mL Sufficient*Larisa CARMONA. N [...] 2:22 PM EDT 03/01/2023 2:22 PM EDT [facility] External Provider LAB BLO OD ORDERABLES Final Result Performing Organization Address [facility] Co de Phone Number [facility] [address] [place] [phone] * Phosphate (As Phosphorus) (03/01/2023 2:22 PM EDT) Phosphorus 2.8 2.7 - 4.5 mg/dL [facility] 03/01/2023 2:22 PM EDT 03/01/2023 2:22 PM EDT [facility] External Provider LAB BLO OD ORDERABLES Final Result Performing Organization Address [facility] de Phone Number [facility] [address] [place] [phone] * (ABNORMAL) Comprehensive Metabolic Panel (03/01/2023 2:22 PM EDT) Sodium 143 135 - 145 mmol/L [facility] Potassium 4.2 3.3 - 5.1 mmol/L [facility] Chloride 96 96 - 108 mmol/L [facility] Carbon Dioxide 35(H) 22 - 29 mmol/L [facility] Anion Gap 16 12 - 20 [facility] Urea Nitrogen (BUN) 18(H) 9 - 16 mg/dL [facility] Creatinine, Serum 1.02 0.5 - 1.4 mg/dL [facility] Estimated Glomerular Filt Rate 52 [facility] Comment:NOTE: For -Am erican individuals, multiply the result by 1.210.Chronic Kidney Disease: Estimated GFR < 60 mL/min/[id number] Kidney Disease: Estimated GFR < 15 mL/min/1.73m2 Glucose 85 60 - 115 mg/dL [facility] Calcium 9.9 8.4 - 10.2 mg/dL [facility] Bilirubin, Total 0.6 0.0 - 1.0 mg/dL [facility] Aspartate Amino Transferase 17 5 - 31 U/L [facility] Alanine Aminotransferase 10 0 - 31 U/L [facility] Total Protein 7.5 6.5 - 8.0 g/dL [facility] Albumin Level 4.4 3.5 - 5.0 g/dL [facility] Alkaline Phosphatase 59 39 - 117 U/L [facility] 03/01/2023 2:22 PM EDT 03/01/2023 2:22 PM EDT us [facility] External Provider LAB BLO OD ORDERABLES Final Result [facility] [address] [place] [phone] documented in this encounter Visit Diagnoses Not on filedocumented in this encounter Care Teams Injection Molding Process Technician Relationship Specialty Start Date End Date Jemma Louise MD [address] [place] [address] PCP - General Family Medicine 09/11/19 documented as of this encounter
--- OUTSIDE RECORDS SUMMARY | 2025-09-28 12:21 | XMS_ITS | Clinical Summary ---
Author Organization [facility] Address [address] [place] [address] Phone Care Team Providers Care Customer Supply Chain Analyst Name Role Phone Jemma Louise MD Primary Care Provide r Allergies Active Allergy Reactions Criticality Noted Date Comments Penicillins Rash 09/16/2025 Medications acetaminophen (TYLENOL) 500 mg tablet Take 1 tablet (500 mg total) by mouth every 6 (six) hours if needed for mild pain for up to 12 doses. 12 tablet 09/16/2025 Active Encounters Date Type Department Care Team Description 09/16/2025 5:37 AM EST - 09/16/2025 6:15 AM EST Emergency [facility] Emergency [address] [place] [phone] Jose F Jackman MD Otalgia of left ear (Primary Dx) Discharge Disposition: Home or Self Care from Last 3 Months Medical History Medical History Date Comments Hypertension Social History Tobacco Use Types Packs/Day Years Used Date Smoking Tobacco: Never Assessed Comments Unknown Sex and Gender Information Value Date Recorded Sex Assigned at Not on file Legal Sex Female 3:33 PM EST Gender Identity Not on file Sexual Orientation Not on file Obstetrics History Last Filed Vital Signs Vital Sign Reading Time Taken Comments Blood Pressure 150/73 09/16/2025 4:39 AM EST Pulse 70 09/16/2025 4:39 AM EST Temperature 36.6 C (97.8 F) 09/16/2025 4:39 AM EST Respiratory Rate 18 09/16/2025 4:39 AM EST Oxygen Saturation 98% 09/16/2025 4:39 AM EST Inhaled Oxygen Concentration - - Weight 60.8 kg (134 lb) 09/16/2025 4:39 AM EST Height 149.9 cm (4' 11 ) 09/16/2025 4:39 AM EST Body Mass Index 27.06 09/16/2025 4:39 AM EST Plan of Treatment Health Maintenance Due Date Last Done Comments Falls Risk Assessment 10/07/2022 Medicare Annual Wellness Visit 10/07/2022 Osteoporosis Screening (Bone Density Screening) 10/07/2022 Social Influencers of Health Screening 10/07/2022 Zoster Vaccines (3 of 3) 02/10/2024 12/16/2023, 01/07 Depression Screening 11/08/2024 COVID-19 Vaccine ( season) 2025 09/12/2024, 03/30/2024, 03/24/2021, Additional history exists Influenza Vaccine (#1) 2025 , 08/31/2023, 07/28/2022, Additional history exists Hypertension/CHF/CAD Annual BMP Blood Test 09/06/2026 09/06/2025 Cholesterol Screening (Lipid Panel) 07/28/2027 07/28/2022 DTaP,Tdap,and Td Vaccines (5 - Td or Tdap) 12/30/2033 12/30/2023, 03/02/2013, 01/28/2010, Additional history exists Pneumococcal Vaccine: 50+ Years Completed 11/04/2015, 09/05/2010, 08/06/2008, Additional history exists RSV Immunization Adult Patients Completed 12/16/2023 HIB Vaccines Aged Out No [...] to complete this topic RSV Immunization Patients Under 20 months Aged Out No longer eligible based on patient's age to complete this topic Varicella Vaccines Aged Out No longer eligible based on patient's age to complete this topic Insurance [facility] [employer] Member Subscriber Plan / Payer (Ef fective 2012-Present) Name:Jemma Esquivel Relation to Subscriber:Self Name:Alvin Jemma Payer ID:[id number] Group ID:[id number] Type:Not on file Address: [place] [address] [address] [id number] Care Teams Customer Supply Chain Analyst Relationship Specialty Start Date End Date Jemma Louise MD [address] [facility] [address] [place] [phone] PCP - General Internal Medicine 09/16/25
--- OUTSIDE RECORDS SUMMARY | 2025-09-28 12:21 | XMS_ITS | Encounter Summary ---
Author Organization [employer] Address [address] [facility] 7t [place] [address] Care Team Providers Care Armature And Rotor Winder Name Role Phone Jemma Louise MD Primary Care Provide r Reason for Visit * Reason Comments Med Refill Encounter Details Date Type Department Care Team ([facility] st Contact Info) Description 08/20/2025 Refill C [facility] MED [facility] PEDS [address] [place] [address] Jemma Louise MD [address] [place] [address] Social History Tobacco Use Types Packs/Day Years [...] AM EST Office Visit C OPTOMETRY [address] [place] [address] Tarka, Shahrzad, OD [address] [place] [address] documented as of this encounter Visit Diagnoses Not on filedocumented in this encounter Additional Health Concerns Assessment Noted Time PHQ-9 Depression Total Score: 4 03/30/20 25 1:32 PM EDT documented as of this encounter Care Teams Armature And Rotor Winder Relationship Specialty Start Date End Date Jemma Louise MD [address] [place] [address] PCP - General Family Medicine 09/11/19 documented as of this encounter
--- OUTSIDE RECORDS SUMMARY | 2025-09-28 12:21 | XMS_ITS | Encounter Summary ---
Author Organization [employer] Address [address] [facility] [address]t [place] [address] Care Team Providers Care Salvage Engineer Name Role Phone Jemma Louise MD Primary Care Provide r Reason for Visit * Reason Comments Med Refill Encounter Details Date Type Department Care Team ([facility] st Contact Info) Description 11/15/2023 Refill [facility] MEDICINE [address] [place] [address] Juana Vanegas, ANP [address] [place] [address] Iron deficiency Social History Tobacco Use Types [...] Description 10/18/2025 11:00 AM EST Office Visit [facility] OPTOMETRY [address] [place], [place] [phone] Shahrzad Rust, OD [address] [place], [place] [phone] documented as of this encounter Visit Diagnoses Diagnosis Iron deficiency Disorders of iron metabolism documented in this encounter Additional Health Concerns Assessment Noted Time PHQ-9 Depression Total Score: 0 03/01/20 23 1:02 PM EDT documented as of this encounter Care Teams Salvage Engineer Relationship Specialty Start Date End Date Jemma Louise MD [address] [place] [address] PCP - General Family Medicine 09/11/19 documented as of this encounter
--- OUTSIDE RECORDS SUMMARY | 2025-09-28 12:21 | XMS_ITS | Encounter Summary ---
Author Organization [employer] Address [address] [facility] 7t [place] [address] Care Team Providers Care Director E[facility] Name Role Phone Jemma Louise MD Primary Care Provide r Encounter Details Date Type Department Care Team ([facility] st Contact Info) Description 11/19/2023 Orders Only [facility] [address] [place] [address] Jemma Louise MD [address] [place] [address] Social History Tobacco Use Types Packs/Day Years [...] Description 10/18/2025 11:00 AM EST Office Visit [facility] OPTOMETRY [address] [place], [place] [phone] Shahrzad Rust, OD [address] [place] [address] documented as of this encounter Visit Diagnoses Not on filedocumented in this encounter Additional Health Concerns Assessment Noted Time PHQ-9 Depression Total Score: 0 03/01/20 23 1:02 PM EDT documented as of this encounter Care Teams Director Ehs Relationship Specialty Start Date End Date Jemma Louise MD [address] [place] [address] PCP - General Family Medicine 09/11/19 documented as of this encounter
== END 2025-09-28 11:32 | disposition home or self-care (01) ==
LOC: HO.HHCX 11:31
PROVIDERS: Visit Provider Family Medicine
DX: J44.1 Chronic obstructive pulmonary disease with (acute) exacerbation (principal); R05.9 Cough, unspecified
CPT/HCPCS: 71046

== ENCOUNTER → 2025-09-28 11:31 | Outpatient (BNV) | payer OTHER, SELFPAY | PROVIDERS: Visit Provider Radiology Diagnostic Radiology | DX: I51.7 Cardiomegaly (principal) | CPT/HCPCS: 71046 ==

== ENCOUNTER 2025-10-09 10:44 | Outpatient (AMB) | payer OTHER, SELFPAY ==
--- NOTE | 2025-10-09 10:46 | MHC.OFFVIS ---
Intake Visit Reasons: 1 year follow up Tower Equipment Repairer Required: Yes Tower Equipment Repairer Services: Tower Equipment Repairer Offered & Declined (family to translate) Accompanied by: Family/Other Allergies Penicillins Allergy (Intermediate, Verified 10/09/25 10:52) ITCHING Medication List - Last Reconciled 10/09/25 by Holly Chirinos CNP acetaminophen ER (Tylenol 8 Hour) 650 mg PO Q12H PRN albuterol sulfate 90 mcg/actuation 2 puffs inhalation Q6H PRN apixaban (Eliquis) 2.5 mg PO BID atorvastatin 40 mg PO DAILY calcium carbonate 600 mg PO ONCE cetirizine (All Day Allergy (cetirizine)) 10 mg PO DAILY PRN cholecalciferol (vitamin D3) 3,000 units PO DAILY 90 days docusate sodium (Colace) 100 mg PO BID ferrous sulfate (FeroSul) 325 mg PO DAILY fluticasone propionate 50 mcg/actuation sprays intranasal wufzcsinhji-eonniqazo-wctqpjhv 100-62.5-25 mcg (Trelegy Ellipta) 1 ea PO DAILY furosemide 20 mg PO DAILY lansoprazole 30 mg PO DAILY lisinopril 10 mg PO DAILY melatonin 3 mg PO BEDTIME memantine 10 mg PO BID metoprolol tartrate 12.5 mg (1/2 x 25 mg) PO BID multivitamin 1 tab PO DAILY venlafaxine ER (Effexor XR) 37.5 mg PO DAILY HPI Comments Details: 85-year-old woman who is illiterate with long standing history of depression and dementia. She returns after about 18 months. She was doing okay. Memory was declining some. She was more confused and forgetful. She was living alone, but she was rarely alone as family or DISTANCE LEARNING ADMINISTRATOR with her, even overnight. She was not cooking. Meals were prepared by family or audio visual director. Appetite was okay. She needed assistance with bathing and dressing, which was also partly due to arthritis. Sleep was okay, using 2L O2 at night. Mood was okay. She had cane and walker at home, no falls. She had some occasional headaches, including headache this morning, that was relieved with as needed Tylenol. [facility] Medical History (Updated 10/09/25 @ 11:09 by Holly Chirinos CNP) MCI (mild cognitive impairment) Alzheimer's dementia Hypercalcemia Hyperparathyroidism Chronic kidney disease Hypovitaminosis D Chronic heart failure with preserved ejection fraction (HFpEF) HTN (hypertension) Left bundle branch block Persistent atrial fibrillation Osteoporosis Surgical History Hx of endoscopy Hx of colonoscopy (03/05/15) Hx of tubal ligation History of nasal surgery Family History Father No problems noted. Mother Alzheimer disease Brother Heart disease CVD (cardiovascular disease) Son Diabetes Daughter Diabetes Paternal Aunt CVD (cardiovascular disease) Other Osteoarthritis Social History Household Members: None Housing: Apartment Alcohol intake: never Patient Tobacco Use Status: Former Tobacco user Second Hand Smoke Exposure: No Review of Systems Const Denies chills, Denies daytime sleepiness, Reports difficulty sleeping, Denies fatigue, Denies fever(s), Denies frequent falls, Denies headache(s), Denies increased appetite, Denies poor appetite, Denies snoring, Denies weakness, Denies weight gain and Denies weight loss Eyes Denies loss of vision ENT Denies vertigo, Denies dizziness, Denies headache(s) and Denies neck pain Card Denies chest pain at rest, Denies chest pain with activity, Denies syncope, Denies leg edema, Denies palpitations, Denies dyspnea and Denies dyspnea on exertion Resp Denies cough, Denies dyspnea, Denies dyspnea on exertion and Denies snoring GI Denies abdominal pain, Denies constipation, Denies heartburn, Denies diarrhea and Denies nausea Denies urinary frequency, Reports urinary incontinence and Denies urinary urgency Musc Denies abnormal gait, Denies back pain, Denies myalgias, Denies arthralgias, Denies neck pain, Denies numbness and Denies tingling Neuro Denies abnormal gait, Denies vertigo, Denies dizziness, Denies syncope, Denies frequent falls, Denies headache(s), Denies lack of coordination, Denies loss of vision, Reports memory loss, Denies numbness, Denies Other visual disturbances, Denies restless legs, Denies seizure-like activity, Denies tingling, Denies paresthesias, Denies tremor(s) and Denies weakness Psych Denies anxiety, Denies depression, Denies auditory hallucinations, Reports memory loss and Denies visual hallucinations Endo Denies fatigue and Denies palpitations Physical Exam Const Other: General Appearance:? normal, in no acute distress. Heart:? S1, S2 normal, no murmurs. Lungs:? clear anteriorly and posteriorly. Musculoskeletal:? normal. Extremities:? no edema. Psych:? alert, as below. Neuro Other: Abnormal Neurological Findings:?MMSE 13. She was able to tell me her birthday and that she lives in [place]. She was unable to tell me her age. She says we are currently in [place]. She was able to tell me that she was here with Jonny and Imelda. Mental Status: alert, as below. Cranial Nerves: Pupils are equal, round, and reactive to light. External ocular muscles are intact. Visual schmitz are full, no ptosis. Face is symmetrical, no facial weakness or droop. Facial sensations are normal. Tongue protrudes in midline. Palate elevates symmetrically. Shoulder shrugging is normal Motor Examination: Normal muscle tone, bulk and strength. No atrophy or fasciculations. No drift of the extended upper extremities. DTR 2+. Plantars are flexor. Sensory Exam: Normal light touch, temperature, pinprick, vibration, and joint-position sensations. Rhomberg sign is absent. Coordination: No ataxia. No titubation. Gait Exam: Within normal limits. Cerebellar Signs: Nxsxcz-yr-lqeu is okay. Extrapyramidal System: No tremor, rigidity with normal facial expressions. No bradykinesia. No bradyphrenia. Normal arm swing and posture. No propulsion or retropulsion. Speech: Normal. MMSE Level of Consciousness: Alert. Orientation: Knows correct state. Does not know correct year, month, date, day, season, city, county, location, or floor. Registration: Able to register 3 objects. Attention: Serial 7's unable. Recall: Able to recall 0 out of 3 objects. Language: Normal spontaneous speech, fluency, repetition, naming, comprehension, reading, and writing. Total Score: . Results Reviewed Results Reviewed: 04/06/2024 EEG: WNL 09/15/18 EEG-WNL 02/27/15 CT shows mild atrophy and microvacsular disease Assessment & Plan Assessment & Plan (1) Alzheimer's dementia: Code(s): G30.9 - Alzheimer's disease, unspecified; F02.80 - Dementia in other diseases classified elsewhere, unspecified severity, without behavioral disturbance, psychotic disturbance, mood disturbance, and anxiety Category: Medical Qualifiers: Alzheimer's disease onset: unspecified onset Dementia severity: unspecified severity Dementia behavioral or psychological symptom: unspecified whether behavioral, psychotic, or mood disturbance or anxiety Qualified Code(s): G30.9 - Alzheimer's disease, unspecified; F02.80 - Dementia in other diseases classified elsewhere, unspecified severity, without behavioral disturbance, psychotic disturbance, mood disturbance, and anxiety Plan: They were educated on this condition, its treatment, prognosis and progression. Reviewed EEG results 03/2024. Reviewed labs ordered. Continue memantine 10mg 1 tablet twice a day. Stay physically and socially active. Follow up in 6 months or sooner as needed. (2) Tension headache: Code(s): G44.209 - Tension-type headache, unspecified, not intractable Category: Medical Plan: Labs ordered r/o vasculitis/inflammatory-type conditions. May continue OTC Tylenol as needed. Plan Meds tried: donepezil (nightmares) Orders: Orders TSH reflex Free T4 Today F02.80 - Dementia in other diseases classified elsewhere, unspecified severity, without behavioral disturbance, psychotic disturbance, mood disturbance, and anxiety, G30.9 - Alzheimer's disease, unspecified Erythrocyte Sedimentation Rate Today G44.209 - Tension-type headache, unspecified, not intractable Vitamin B12 and Folate Today F02.80 - Dementia in other diseases classified elsewhere, unspecified severity, without behavioral disturbance, psychotic disturbance, mood disturbance, and anxiety, G30.9 - Alzheimer's disease, unspecified C Reactive Protein Today G44.209 - Tension-type headache, unspecified, not intractable Coding Level of Care Code Est Pt Level 4 (79574) Diagnoses Alzheimer's dementia, unspecified dementia severity, unspecified timing of dementia onset, unspecified whether behavioral, psychotic, or mood disturbance or anxiety G30.9; F02.80 Alzheimer's disease onset: unspecified onset Dementia severity: unspecified severity Dementia behavioral or psychological symptom: unspecified whether behavioral, psychotic, or mood disturbance or anxiety Tension headache G44.209
--- OUTSIDE RECORDS SUMMARY | 2025-10-09 12:31 | XMS_ITS | Encounter Summary ---
Author Organization [facility] Address [address] [place] [address] Care Team Providers Care Animal Anatomy Teacher Name Role Phone Jemma Louise MD Primary Care Provide r Reason for Visit * Reason Onset Date Comments Nurse Triage 09/28/2023 Encounter Details Date Type Department Care Team ([facility] st Contact Info) Description 09/28/2023 Telephone [facility] [address] [place] [address] Jemma Louise MD [address] [place] [address] Nurse Triage Social History Tobacco Use Types [...] 09/28/2023 3:23 PM EST Triage call with [employer] Site Safety Representative [place] [id number] Pt son, THIAGO Fuller, reports Pt has had some sinus/nasal congestion for some time now. Pt has nasal drainage which is clear and some nasal congestion. Neg for fever, cough, headache. Jonny is concerned about some snoring, whistling sound with breathing especially at night. No difficulty breathing is reported. Advised to come to [facility] today or tomorrow open til 800pm, [...] The caller accepted this outcome Patient speaks slovenian documented in this encounter Plan of Treatment Upcoming Encounters Date Type Department Care Team (Late st Contact Info) Description 10/18/2025 11:00 AM EST Office Visit [facility] [address] [place] [address] Shahrzad Rust, OD [address] [place] [address] 12/04/2025 11:00 AM EST Office Visit [facility] [address] [place] [address] Jemma Louise MD [address] [place], [place] [phone] documented as of this encounter Visit Diagnoses Not on filedocumented in this encounter Additional Health Concerns Assessment Noted Time PHQ-9 Depression Total Score: 0 03/01/20 23 1:02 PM EDT documented as of this encounter Care Teams Animal Anatomy Teacher Relationship Specialty Start Date End Date Jemma Louise MD [address] [place], [place] [phone] PCP - General Family Medicine 09/11/19 documented as of this encounter
--- OUTSIDE RECORDS SUMMARY | 2025-10-09 12:31 | XMS_ITS | Clinical Summary ---
Author Organization [employer] Address [address] [facility] 7t [place] [address] Care Team Providers Care Private Detective Name Role Phone Jemma Louise MD Primary [...] 25 Active D3 Super Strength 50 MCG (1999 UT) capsuleIndicati ons:Vitamin D deficiency Take 1 [...] (90 Base) MCG/ACT inhalerIndicati ons:COPD exacerbation (CMS/HCC) ([facility]) INHALE 2 PUFFS BY MOUTH EVERY 4 TO 6 HOURS NEEDED 18 g 1 09/27/20 25 Active azithromycin (Zithromax) 250 MG tablet Take 2 tabs PO today then take 1 tab PO daily for the next four days 6 tablet 5 5:25 PM EST 09/28/20 25 Active guaiFENesin (Mucinex) 600 MG 12 hr tablet Take 1 tablet (600 mg) by mouth if needed in the morning and at bedtime for cough or congestion. Do not crush, chew, or split. 30 tablet 09/28/20 25 026 Active predniSONE (Deltasone) 20 MG tabletIndicatio ns:Wrist swelling, left 2 tabs po daily for 5 days 10 tablet 5 5:25 PM EST 09/28/20 25 Active predniSONE (Deltasone) 20 MG tabletIndicatio [...] Do not crush or chew. 20 capsule 5 11:19 AM EST 09/21/20 25 025 Discontinued benzonatate (Tessalon) 100 MG capsule Take 1 capsule (100 mg) by mouth if needed in the morning, at noon, and at bedtime for cough for up to 10 days. Do not crush or chew. 30 capsule 09/28/20 25 025 carbamide peroxide (Debrox) 6.5 % otic solution Administer 5 drops into the right ear 2 times daily for 4 days. 15 mL 5 5:25 PM EST 09/28/20 25 025 Active Problems Problem Noted Date Diagnosed Date [...] on cetrizine Stage 3a chronic kidney disease ([facility]) 2022 Assessment & Plan (03/30/2024 11:34 AM [...] F/u BMP in 2 weeks COPD exacerbation ([facility]) 09/22/2023 Assessment & Plan (09/22/2023 11:46 AM EST): Seems to be improving Son will give her albuterol q6h for 2 days PRN Continue other medications and f/u with PCP Atrial fibrillation ([facility]) 02/18/2023 Assessment & Plan (09/12/2024 12:08 PM EST): C/w metoprolol 25mg daily and elequis 5mg BID Assessment & Plan (12/02/2023 11:15 AM EST): HR seems to be controlled Continue Eliquis + metoprolol Counseled about Covobed IZ and booster, son will take her [...] from ED visit Order [facility] today Dementia ([facility]) 02/18/2023 Assessment & Plan (05/17/2025 3:48 PM [...] day PRN C/w same treatment referral to nuclear medicine tech will be done today Constipation 11/04/2015 Essential [...] will follow-up Will reach out to dermatology tape edge machine operator to see when can she be seen by box attacher in house. Continue triamcinolone cream for now [...] Encounters Date Type Department Care Team Description 10/09/2025 Orders Only GENERIC EXTERNAL DATA DEPARTMENT Provider, Generic External Data 09/28/2025 10:15 AM EST Office Visit [facility] [address] [place] [address] Barbara Laws DO COPD exacerbation ([facility]) ([facility]) (Primary Dx); Impacted cerumen of right ear; Wrist swelling, left 09/28/2025 Results Follow-Up [facility] [address] [place] [address] Barbara Laws DO XR Chest 2 Views 09/27/2025 Telephone [facility] [address] [place] [address] Jemma Louise MD Nurse Triage 09/27/2025 Refill [facility] [address] [place] [phone] Jemma Louise MD COPD exacerbation (CMS/[facility]) (HCC) 09/21/2025 10:00 AM EST Office Visit [facility] [address] [place] [address] Mike Arevalo MD Viral URI with cough (Primary Dx) 09/21/2025 Travel 09/15/2025 Refill [facility] [address] [place] [address] Jemma Louise MD 09/12/2025 Refill [facility] [address] [place] [address] Jemma Louise MD Seasonal allergies 09/07/2025 Telephone [facility] [address] [place] [address] Jemma Louise MD 09/06/2025 Orders Only GENERIC EXTERNAL DATA DEPARTMENT Provider, Generic External Data 08/24/2025 Refill [facility] [address] [place] [address] Jemma Louise MD 08/20/2025 Refill [facility] [address] [place] [address] Jemma Louise MD Vitamin D deficiency 08/20/2025 Refill [facility] [address] [place] [address] Jemma Louise MD 08/02/2025 Telephone [facility] [address] [place] [phone] Jemma Louise MD Dec recall 07/19/2025 Refill [facility] [address] [place] [phone] Jemma Louise MD Chronic systolic congestive heart failure ([facility]/HCC); Essential hypertension 07/18/2025 Refill [facility] [address] [place] [address] Jemma Louise MD Seasonal allergies 07/17/2025 Telephone [facility] [address] [place] [address] Jemma Louise MD 07/13/2025 Telephone [facility] [address] [place] [address] Jemma Louise MD No Show 07/12/2025 Telephone [facility] [address] [place] [address] Jemma Louise MD chart prep from Last 3 Months Immunizations Immunization Administration [...] Description 10/18/2025 11:00 AM EST Office Visit [facility] OPT[facility]ET[facility] [address] [place] [address] Sahhrzad Rust, OD [address] [place] [address] 12/04/2025 11:00 AM EST Office Visit [facility] [address] [place] [address] Jemma Louise MD [address] [place] [address] Health Maintenance Due Date Last Done Comments [...] Procedure Name Priority Date/Time Associated Diagnosis Comments C-REACTIVE PROTEIN Routine 10/09/2025 11 :29 AM EST SED RATE BY MODIFIED WESTERGREN Routine 10/09/2025 11:29 AM EST XR CHEST 2 VIEWS STAT 09/28/2025 11:4 [...] AUTO DIFFERENTIAL Routine 09/06/2025 12:17 PM EDT LIPID PANEL, STANDARD Routine 07/28/2022 11:36 AM EDT from Last 3 Months or Most Recently Relevant to Health Maintenance Results * (ABNORMAL) Sed Rate by Modified Westergren (10/09/2025 11:29 AM EST) Erythrocyte Sedimentation Rate 92(H) 0 - 20 MM/HR [facility] Comment:Patients with polycy themia and many hemoglobin abnormalitiesmay have depressed sed rates whereas patients with anemiamay have elevated sed rates. 10/09/2025 11:2 9 AM EST 10/09/2025 11:29 AM EST us Generic External Data Provider LAB BLOOD ORDERAB LES Final Result [facility] [address] [place], [place] [phone] * XR Chest 2 Views (09/28/2025 11:40 AM EST) Anatomical Region Laterality Modality Chest Radiographic Heidi ging 09/28/2025 11:4 0 AM EST Narrative 09/28/2025 11:51 AM EST [facility] [address] [place] [address] XRay Report Signed Patient: Jemma Esquivel MR#: [id number] : 1940 Acct:[id number] Age/Sex: 85 / F ADM Date: 09/28/25 Loc: [facility] Attending Dr: Barbara Laws DO Ordering Physician: Barbara Laws DO Date of Service: 09/28/25 Procedure(s): XR chest 2V Accession Number(s): [id number] cc: Barbara Laws DO Reason for Exam: [...] by: Froylan Mejia MD 09/28/2025 11:48 AM [facility] Dictated By: Froylan Mejia MD Signed By: <Electronically signed by Froylan Mejia MD in OV> 09/28/25 1148 DD/ 1140 TD/TT: 09/28/25 1143 Fire Protection Engineering Technician: Procedure Note Donotuseinterpreter, Image - 09/28/[address] [address] XRay Report Signed Patient: Jemma Esquivel AMR#: [id number] : 1940cct:[id number] Age/Sex: 85 / FADM Date: 09/28/25 Loc: CAR Attending Dr: Barbara Laws DO Ordering Physician: Barbara Laws DO Date of Service: 09/28/25 Procedure(s): XR chest 2V Accession Number(s): [id number] cc: Barbara Laws DO Reason for Exam: [...] 09/28/25 1148 DD/ 1140 TD/TT: 09/28/25 1143 Fire Protection Engineering Technician: Barbara Laws DO IMG XR PROCEDURES Final Resu lt * POCT Rapid Influenza A OSOM (09/28/2025 10:59 AM EST) [facility] Rapid Influenza A Ag Negative Negative, Indeterminate Swab Nasopharyngeal structure / Unknown 09/28/2025 10:59 AM EST Barbara Laws DO POINT OF CARE TEST ENTER/LEXUS T ORDERABLES Final Result * POCT Rapid Covid-19 BinaxNOW (09/28/2025 10:58 AM EST) Only the most recent of2 resultswithin the time period is included. [facility] Rapid COVID Ag Negative Swab 09/28/2025 10:5 8 AM EST Barbara Laws DO POINT OF CARE TEST ENTER/LEXUS T ORDERABLES Final Result * POCT Rapid Influenza B OSOM (09/28/2025 10:57 AM EST) Rapid Influenza B Ag Negative Negative, Indeterminate Swab 09/28/2025 10:5 7 AM EST Barbara Eusebia DEVI POINT OF CARE TEST ENTER/LEXUS T ORDERABLES Final Result * POCT Rapid Influenza B LAUGHLIN ID NOW (09/21/2025 12:25 PM EST) Influenza B Negative Negative, Indeterminate [facility] Swab 09/21/2025 12:2 5 PM EST Mike Arevalo MD POINT OF CARE TEST ENTER/EDIT OR DERABLES Final Result Performing Organization Address City/[facility]/ZIP Co de Phone Number [facility] [address] [place] [phone] * POCT Rapid Influenza A LAUGHLIN ID NOW (09/21/2025 12:25 PM EST) Pathologist [facility] Influenza A Negative Negative, Indeterminate [facility] Swab 09/21/2025 12:2 5 PM EST Mike Arevalo MD POINT OF CARE TEST ENTER/EDIT OR DERABLES Final Result Performing Organization Address [facility] Co de Phone Number [facility] [address] [place] [phone] * VITAMIN D 25-OH (D2 AND D3) (09/06/2025 12:17 PM EDT) Pathologist [facility] Vitamin D, 25-OH, D2 <4 ng/mL [facility] Comment:This test was develo ped and its analytical performancecharacteristics have been determined by [employer] [place], [place]. It hasnot been cleared or approved by the U.S. Food and DrugAdministration. This assay has been validated pursuantto the CLIA regulations and is used for clinicalpurposes.THIS TEST WAS PERFORMED AT:[employer] [place] [phone] CASTAÑEDA MD,PHD Vitamin D, 25-OH, D3 68 ng/mL [facility] Comment:This test was develo ped and its analytical performancecharacteristics have been determined by [employer] [place], [place]. It hasnot been cleared or approved by the U.S. Food and DrugAdministration. This assay has been validated pursuantto the CLIA regulations and is used for clinicalpurposes. Vitamin D, 25-OH, Total 68 30 - 100 ng/mL [facility] Comment:Vitamin D, 25-Hydrox y reports [...] = 30 ng/mL.For additional information, please refer tohttp://education.Zakazaka/faq/SQX556(This link is being provided for informational/educational purposes only.) 09/06/2025 12:1 7 PM EDT 09/06/2025 5:27 PM EDT us Generic External Data Provider LAB BLOOD ORDERAB LES Final Result [facility] [address] [place] [phone] * (ABNORMAL) CBC auto differential (09/06/2025 12:17 PM EDT) White Blood Count 10.1 4.8 - 10.8 X10*3/uL [facility] Red Blood Count 4.83 4.20 - 5.50 X10*6/uL [facility] Hemoglobin 12.4 12.0 - 16.0 g/dl [facility] Hematocrit 41.6 37.0 - 47.0 % [facility] Mean Corpuscular Volume 86.1 80.0 - 98.0 fL [facility] Mean Corpuscular Hemoglobin 25.7(L) 27.0 - 33.0 pg [facility] Mean Corpuscular HGB Conc 29.8(L) 31.0 - 35.0 g/dl [facility] Red Cell Distribution Width 16.4(H) 11.0 - 16.0 % [facility] Platelet Count 290 160 - 400 X10*3/uL [facility] Mean Platelet Volume 11.7 9.4 - 12.3 fL [facility] Neutrophils Percent Auto 68.4 45 - 73 % [facility] Imm Gran Pct Auto 0.3 0.0 - 0.4 % [facility] Lymphocytes Percent Auto 18.9(L) 20 - 40 % [facility] Monocytes Percent Auto 10.3 2 - 11 % [facility] Eosinophils Percent Auto 1.3 0 - 4 % [facility] Basophils Percent Auto 0.8 0 - 2 % [facility] NRBC Pct Auto 0.0 0.0 - 0.2 /100WBC [facility] Neutrophils Absolute Auto 6.9 2.0 - 8.3 x10*3/uL [facility] Imm Gran Abs Auto 0.03 0.00 - 0.03 X10*3/uL [facility] Lymphocytes Absolute Auto 1.9 1.2 - 4.9 X10*3/uL [facility] Monocytes Absolute Auto 1.0 0.1 - 1.2 X10*3/uL [facility] Eosinophils Absolute Auto 0.1 0.0 - 0.4 X10*3/uL [facility] Basophils Absolute Auto 0.1 0.0 - 0.2 X10*3/uL [facility] NRBC Abs Auto 0.000 0.0 - 0.012 X10*3/uL [facility] 09/06/2025 12:1 7 PM EDT 09/06/2025 5:27 PM EDT us Generic External Data Provider LAB BLOOD ORDERAB LES Final Result [facility] [address] [place] [address] [phone] * (ABNORMAL) Comprehensive Metabolic Panel (09/06/2025 12:17 PM EDT) Sodium 142 135 - 145 mmol/L [facility] Potassium 4.1 3.3 - 5.1 mmol/L [facility] Chloride 101 96 - 108 mmol/L [facility] Carbon Dioxide 29 22 - 29 mmol/L [facility] Anion Gap 16 12 - 20 [facility] Urea Nitrogen (BUN) 21(H) 9 - 16 mg/dL [facility] Creatinine, Serum 1.08 0.5 - 1.4 mg/dL [facility] Estimated Glomerular Filt Rate 48 [facility] Comment:Chronic Kidney Disea se: Estimated GFR < 60 mL/min/1.68q7Rpebcy Kidney Disease: Estimated GFR < 15 mL/min/1.73m2 Glucose 71 60 - 115 mg/dL [facility] Calcium 9.6 8.4 - 10.2 mg/dL [facility] Bilirubin, Total 0.4 0.0 - 1.0 mg/dL [facility] Aspartate Amino Transferase 27 5 - 31 U/L [facility] Alanine Aminotransferase 12 0 - 31 U/L [facility] Total Protein 8.4(H) 6.5 - 8.0 g/dL [facility] Albumin Level 4.5 3.5 - 5.0 g/dL [facility] Alkaline Phosphatase 54 39 - 117 U/L [facility] 09/06/2025 12:1 7 PM EDT 09/06/2025 5:27 PM EDT us Generic External Data Provider LAB BLOOD ORDERAB LES Final Result [facility] [address] [place] [phone] [phone] * (ABNORMAL) LIPID PANEL, STANDARD (07/28/2022 [...] equation in the estimation of LDL-C. En SS et al. EVAN. 2013;310(19): 2149-3302 (http://education.Whisk.com/faq/BVW620) Non-HDL Cholesterol 71 <130 mg/dL (calc) [facility] [...] Result [facility] [address] from Last 3 Months or Most Recently Relevant to Health Maintenance Insurance [employer] (HMO D-SNP) JOY SOLIS [id number] Care Teams Private Detective Relationship Specialty Start Date End Date Jemma Louise MD [address] [place] [address] PCP - General Family Medicine 09/11/19
--- OUTSIDE RECORDS SUMMARY | 2025-10-09 12:31 | XMS_ITS | Data Portability ---
Author Organization [facility] [employer] [facility] Address [address] [place] [phone] Care Team Providers Care Medical Transcription Editor Name Role Phone [facility] Referring Provider [phone] Assessment No assessment recorded. Plan of Treatment Reminders Order Date Submit Date Provider Last Modified By Organization Details Last Modified Time Details Appointments None recorded. Lab rapid SARS CoV 2 Ag, QL IA, respiratory specimen 2021 [facility], [address] [place] [address], [id number] 10:35:12 Referral None recorded. Procedures None recorded. Surgeries None recorded. Imaging None recorded. Medication Orders prednisone 20 mg tablet 2021 022 [facility], [address] [place] [address], [id number], 10:31:37 prednisone 20 mg tablet 2021 022 [facility], [address] [place] [address], [id number], 10:28:37 Patient TargetsNo targets recorded. Patient InstructionsNo instructions recorded. Reason for Referral None Reported. Results Created Date Observation Date Name Description Value Unit Range Abnormal Flag Note LastModifiedBy Organization Detail LastModifiedTime 04/01/20 22 04/01/2022 rapid SARS CoV 2 Ag, QL IA, respi rator y speci men rapid SARS CoV 2 Ag, QL IA, respiratory specimen negati ve Not Available [address], [phone] 04/01/2022 10:34:06 Result Notes None recorded. Medical Equipment None Reported. Allergies Allergen ID Allergen Name Allergen Category Reaction Reaction Severity Criticality Documentation Date Start Date Code Code System Note Provider Name and Address Organization Details Recorded Time 7787 Product containin g penicilli n (product) medicatio n Not available Not available Not available 09/05/2024 23173 8001 SNOMED Not Available [employer] - production [...] 1773 Rosales Richard MD Main - [facility] [address] [place] [phone] 04/01/2022 10:19:55 07/30/2022 11:19:05 Acute exacerbation of chronic obstructive pulmonary disease 347713236 J44.1 Reports increase in sputum production over [...] Hong Member ID Guarantor Name 01/02/2024 1 [facility] - DOS PRIOR TO 2023 - DUAL ELIGIBLE (MEDICARE REPLACEMENT/ADV ANTAGE - HMO) Jemma Esquivel [id number] Jemma Esquivel 01/02/2024 1 [facility] - DOS ON OR AFTER 2023 - DUAL ELIGIBLE - [employer] OPTIONS AND ONE CARE (MEDICARE REPLACEMENT/ADV ANTAGE - HMO) Jemma Esquivel [id number] Jemma Esquivel Notes Date Note Type Note [...] .................. .................. .................. .................. .................. .................. ............... Property Damage Claims Adjustor Note: Chief Complaint cough Pertinent positive and [...] ............... Disposition: Fulfilled Rosales Richard MD [address] [facility],[address], [place], [phone], [employer] 04/01/2022 11:09:16 OBGyn Episode No OBEpisode recorded.
--- OUTSIDE RECORDS SUMMARY | 2025-10-09 12:31 | XMS_ITS | Encounter Summary ---
Author Organization [email or web address] Address [address] [facility] 7t [place] [address] Care Team Providers Care Patient Access Manager Name Role Phone Jemma Louise MD Primary Care Provide r Encounter Details Date Type Department Care Team ([facility] st Contact Info) Description 11/19/2023 Orders Only [facility] [address] [place] [address] Jemma Louise MD [address] [place] [address] Social History Tobacco Use Types Packs/Day Years [...] Description 10/18/2025 11:00 AM EST Office Visit [facility] OPTOMETRY [address] [place] [address] TarkaShahrzad, OD [address] [place] [address] 12/04/2025 11:00 AM EST Office Visit [facility] MED[facility] [address] [place] [address] Jemma Louise MD [address] [place] [address] documented as of this encounter Visit Diagnoses Not on filedocumented in this encounter Additional Health Concerns Assessment Noted Time PHQ-9 Depression Total Score: 0 03/01/20 23 1:02 PM EDT documented as of this encounter Care Teams Patient Access Manager Relationship Specialty Start Date End Date Jemma Louise MD [address] [place] [phone] PCP - General Family Medicine 09/11/19 documented as of this encounter
--- OUTSIDE RECORDS SUMMARY | 2025-10-09 12:31 | XMS_ITS | Encounter Summary ---
Author Organization [employer] Address 75 [facility] 7t [place] [address] Care Team Providers Care Sap Technical Architect Name Role Phone Jemma Louise MD Primary Care Provide r Reason for Visit * Reason Comments Med Refill Encounter Details Date Type Department Care Team (Late st Contact Info) Description 06/25/2023 Refill [facility] [address] [place], [place] [phone] Juana Vanegas, ANP [address] [place] [address] Vitamin D deficiency Social History Tobacco Use [...] AM EST Office Visit [facility] OPTOMETRY [address] [place], [place] [phone] Shahrzad Rust, OD [address] [place] [address] 12/04/2025 11:00 AM EST Office Visit [facility] MED[facility] [address] [place] [address] Jemma Louise MD [address] [place] [address] documented as of this encounter Visit Diagnoses Diagnosis Vitamin D deficiency documented in this encounter Additional Health Concerns Assessment Noted Time PHQ-9 Depression Total Score: 0 03/01/20 23 1:02 PM EDT documented as of this encounter Care Teams Sap Technical Architect Relationship Specialty Start Date End Date Jemma Louise MD [address] [place] [address] PCP - General Family Medicine 09/11/19 documented as of this encounter
--- OUTSIDE RECORDS SUMMARY | 2025-10-09 12:31 | XMS_ITS | Encounter Summary ---
Author Organization [employer] Address [address] [facility] 7t [place] [address] Care Team Providers Care Melting Operator Name Role Phone Jemma Louise MD Primary Care Provide r Reason for Visit * Reason Onset Date Comments Nurse Triage 05/16/2025 Encounter Details Date Type Department Care Team ([facility] st Contact Info) Description 05/16/2025 Telephone [facility] MED[facility] [address] [place] [address] Jemma Louise MD [address] [place] [address] Nurse Triage Social History Tobacco Use Types [...] this outcome. Contact pt nevaeh Fuller at [phone] (denied weapons system instrument mechanic) documented in this encounter Plan of Treatment Upcoming Encounters Date Type Department Care Team (Late st Contact Info) Description 10/18/2025 11:00 AM EST Office Visit [facility] OPTOMETRY [address] [place] [address] Shahrzad Rust, OD [address] [place] [address] 12/04/2025 11:00 AM EST Office Visit [facility] MEDICINE [address] [place] [address] Jemma Louise MD [address] [place] [address] documented as of this encounter Visit Diagnoses Not on filedocumented in this encounter Additional Health Concerns Assessment Noted Time PHQ-9 Depression Total Score: 4 03/30/20 25 1:32 PM EDT documented as of this encounter Care Teams Melting Operator Relationship Specialty Start Date End Date Jemma Louise MD [address] [place] [address] PCP - General Family Medicine 09/11/19 documented as of this encounter
--- OUTSIDE RECORDS SUMMARY | 2025-10-09 12:31 | XMS_ITS | Encounter Summary ---
Author Organization [employer] Address [address] [facility] [address] 7[address] [place] [address] Care Team Providers Care Neighborhood Conservation Officer Name Role Phone Jemma Louise MD Primary Care Provide r Reason for Visit * Reason Comments Med Refill Encounter Details Date Type Department Care Team ([facility] st Contact Info) Description 11/14/2023 Refill [facility] [address] [place], [place] [phone] Elias Croft MD [address] [place] [address] Constipation, unspecified constipation type Social History Tobacco [...] Description 10/18/2025 11:00 AM EST Office Visit [facility] OPTOMETRY [address] [place] [address] Tarka, Shahrzad, OD [address] [place] [address] 12/04/2025 11:00 AM EST Office Visit [facility] MEDICINE [address] [place] [address] Jemma Louise MD [address] [place] [address] documented as of this encounter Visit Diagnoses Diagnosis Constipation, unspecified constipation type documented in this encounter Additional Health Concerns Assessment Noted Time PHQ-9 Depression Total Score: 0 03/01/20 23 1:02 PM EDT documented as of this encounter Care Teams Neighborhood Conservation Officer Relationship Specialty Start Date End Date Jemma Louise MD [address] [place] [phone] PCP - General Family Medicine 09/11/19 documented as of this encounter
--- OUTSIDE RECORDS SUMMARY | 2025-10-09 12:31 | XMS_ITS | Clinical Summary ---
Author Organization [facility] Address [address] [place] [address] Phone Care Team Providers Care Interactive Marketing Strategist Name Role Phone Jemma Louise MD Primary [...] EST - 09/16/2025 6:15 AM EST Emergency [facility] Emergency [address] [place] [phone] Jose F Jackman MD Otalgia of left [...] patient's age to complete this topic Insurance [facility] Member Subscriber Plan / Payer (Ef fective 2012-Present) Name:Jemma Esquivel Relation to Subscriber:Self Name:Alvin Jemma Payer ID:[id number] Group ID:[id number] Type:Not on file Address: [place] [address] [address] [phone] Care Teams Interactive Marketing Strategist Relationship Specialty Start Date End Date Jemma Louise MD [address] [facility] [address] [place] [phone] PCP - General Internal Medicine 09/16/25
--- OUTSIDE RECORDS SUMMARY | 2025-10-09 12:31 | XMS_ITS | Encounter Summary ---
Author Organization [employer] Address [address] [facility] 7t [place] [address] Care Team Providers Care Detention Attendant Name Role Phone Jemma Louise MD Primary Care Provide r Reason for Visit * Reason Comments Med Refill Encounter Details Date Type Department Care Team ([facility] st Contact Info) Description 11/15/2023 Refill [facility] MEDICINE [address] [place] [address] Juana Vanegas, ANP [address] [place] [address] Iron deficiency Social History Tobacco Use Types [...] Description 10/18/2025 11:00 AM EST Office Visit [facility] OPTOMETRY [address] [place] [address] Shahrzad Rust, OD [address] [place] [address] 12/04/2025 11:00 AM EST Office Visit [facility] MEDICINE [address] [place] [address] Jemma oLuise MD [address] [place], [place] [phone] documented as of this encounter Visit Diagnoses Diagnosis Iron deficiency Disorders of iron metabolism documented in this encounter Additional Health Concerns Assessment Noted Time PHQ-9 Depression Total Score: 0 03/01/20 23 1:02 PM EDT documented as of this encounter Care Teams Detention Attendant Relationship Specialty Start Date End Date Jemma Louise MD [address] [place] [phone] PCP - General Family Medicine 09/11/19 documented as of this encounter
--- OUTSIDE RECORDS SUMMARY | 2025-10-09 12:31 | XMS_ITS | Encounter Summary ---
Author Organization [employer] Address [address] [facility] 7t [place] [address] Care Team Providers Care Registered Nurse Renal Name Role Phone Jemma Louise MD Primary Care Provide r Reason for Visit * Reason Comments Med Refill Encounter Details Date Type Department Care Team ([facility] st Contact Info) Description 08/20/2025 Refill [facility] [address] [place] [address] Jemma Louise MD [address] [place] [address] Social History Tobacco Use Types Packs/Day Years [...] Description 10/18/2025 11:00 AM EST Office Visit [facility] OPTOMETRY [address] [place] [address] Tarka, Shahrzad, OD [address] [place] [address] 12/04/2025 11:00 AM EST Office [facility] MEDICINE [address] [place] [address] Jemma Louise MD [address] [place] [address] documented as of this encounter Visit Diagnoses Not on filedocumented in this encounter Additional Health Concerns Assessment Noted Time PHQ-9 Depression Total Score: 4 03/30/20 25 1:32 PM EDT documented as of this encounter Care Teams Registered Nurse Renal Relationship Specialty Start Date End Date Jemma Louise MD [address] [place] [phone] PCP - General Family Medicine 09/11/19 documented as of this encounter
--- OUTSIDE RECORDS SUMMARY | 2025-10-09 12:31 | XMS_ITS | Encounter Summary ---
Author Organization [employer] Address [address] [facility] 7t [place] [address] Care Team Providers Care Measurement And Verification Engineer Name Role Phone Jemma Louise MD Primary Care Provide r Encounter Details Date Type Department Care Team (Late st Contact Info) Description 01/04/2023 Orders Only [facility] MED & PEDS [address] [place], [place] [phone] Barbara Portillo LPN Social History Tobacco Use [...] AM EST Office Visit [facility] OPTOMETRY [address] [place] [address] Shahrzad Rust, OD [address] [place] [address] 12/04/2025 11:00 AM EST Office Visit [facility] MEDICINE [address] [place] [address] Jemma Louise MD [address] [place] [address] documented as of this encounter Procedures Procedure [...] EDT) Vitamin D, 25-OH, D2 <4 ng/mL [facility] Comment:This test was develo ped and its analytical performancecharacteristics have been determined by [employer] [place], [place]. It hasnot been cleared or approved by the U.S. Food and DrugAdministration. This assay has been validated pursuantto the CLIA regulations and is used for clinicalpurposes.THIS TEST WAS PERFORMED AT:[employer] [id number] [place] [phone] CASTAÑEDA MD,PHD Vitamin D, 25-OH, D3 37 ng/mL [facility] Comment:This test was develo ped and its analytical performancecharacteristics have been determined by [employer] [place], [place]. It hasnot been cleared or approved by the U.S. Food and DrugAdministration. This assay has been validated pursuantto the CLIA regulations and is used for clinicalpurposes. Vitamin D, 25-OH, Total 37 30 - 100 ng/mL [facility] Comment:Vitamin D, 25-Hydrox [...] = 30 ng/mL.For additional information, please refer tohttp://education.Crossbar/faq/GBH975(This link is being provided for informational/educational purposes only.) 08/10/2023 12:1 3 PM EDT 08/10/2023 12:13 PM EDT [facility] External Provider LAB BLO OD ORDERABLES Final Result [facility] [address] [place] [phone] * (ABNORMAL) Comprehensive Metabolic Panel (08/10/2023 12:13 PM EDT) Sodium 141 135 - 145 mmol/L [facility] Potassium 4.0 3.3 - 5.1 mmol/L [facility] Chloride 97 96 - 108 mmol/L [facility] Carbon Dioxide 33(H) 22 - 29 mmol/L [facility] Anion Gap 15 12 - 20 [facility] Urea Nitrogen (BUN) 15 9 - 16 mg/dL [facility] Creatinine, Serum 0.89 0.5 - 1.4 mg/dL [facility] Estimated Glomerular Filt Rate >60 [facility] Comment:NOTE: For -Am erican individuals, multiply the result by 1.210.Chronic Kidney Disease: Estimated GFR < 60 mL/min/1.38j2Zjbmbs Kidney Disease: Estimated GFR < 15 mL/min/1.73m2 Glucose 102 60 - 115 mg/dL [facility] Calcium 10.5(H) 8.4 - 10.2 mg/dL [facility] Bilirubin, Total 0.4 0.0 - 1.0 mg/dL [facility] Aspartate Amino Transferase 22 5 - 31 U/L [facility] Alanine Aminotransferase 13 0 - 31 U/L [facility] Total Protein 7.9 6.5 - 8.0 g/dL [facility] Albumin Level 4.4 3.5 - 5.0 g/dL [facility] Alkaline Phosphatase 47 39 - 117 U/L [facility] 08/10/2023 12:1 3 PM EDT 08/10/2023 12:13 PM EDT us [facility] External Provider LAB BLO OD ORDERABLES Final Result [facility] [address] [place] [phone] * (ABNORMAL) CBC auto differential (08/10/2023 12:13 PM EDT) White Blood Count 7.3 4.8 - 10.8 X10*3/uL [facility] Red Blood Count 4.62 4.20 - 5.50 X10*6/uL [facility] Hemoglobin 12.5 12.0 - 16.0 g/dl [facility] Hematocrit 40.9 37.0 - 47.0 % [facility] Mean Corpuscular Volume 88.5 80.0 - 98.0 fL [facility] Mean Corpuscular Hemoglobin 27.1 27.0 - 33.0 pg [facility] Mean Corpuscular HGB Conc 30.6(L) 31.0 - 35.0 g/dl [facility] Red Cell Distribution Width 14.5 11.0 - 16.0 % [facility] Platelet Count 257 160 - 400 X10*3/uL [facility] Mean Platelet Volume 12.3 9.4 - 12.3 fL [facility] Neutrophils Percent Auto 69.3 45 - 73 % [facility] Imm Gran Pct Auto 0.4 0.0 - 0.4 % [facility] Lymphocytes Percent Auto 18.4(L) 20 - 40 % [facility] Monocytes Percent Auto 9.1 2 - 11 % [facility] Eosinophils Percent Auto 2.2 0 - 4 % [facility] Basophils Percent Auto 0.6 0 - 2 % [facility] NRBC Pct Auto 0.0 0.0 - 0.2 /100WBC [facility] Neutrophils Absolute Auto 5.0 2.0 - 8.3 x10*3/uL [facility] Imm Gran Abs Auto 0.03 0.00 - 0.03 X10*3/uL [facility] Lymphocytes Absolute Auto 1.3 1.2 - 4.9 X10*3/uL [facility] Monocytes Absolute Auto 0.7 0.1 - 1.2 X10*3/uL [facility] Eosinophils Absolute Auto 0.2 0.0 - 0.4 X10*3/uL [facility] Basophils Absolute Auto 0.0 0.0 - 0.2 X10*3/uL [facility] NRBC Abs Auto 0.000 0.0 - 0.012 X10*3/uL [facility] 08/10/2023 12:1 3 PM EDT 08/10/2023 12:13 PM EDT [facility] External Provider LAB BLO OD ORDERABLES Final Result [facility] [address] [place] [phone] * Vitamin D, 25-Hydroxy, Total, Immunoassay (03/01/2023 2:22 PM EDT) Vitamin D 25-OH Total 69.3 >30 ng/mL [facility] Comment:Health Based Referen ce Values*< 20 ng/mL Izutjlalp94-13 ng/mL Insufficient> 30 ng/mL Sufficient*Lraisa CARMONA. N Engl J Med. 2007;357:266-280Care must [...] PM EDT 03/01/2023 2:22 PM EDT [facility] External Provider LAB BLO OD ORDERABLES Final Result Performing Organization Address [facility]/ZIP Co de Phone Number [facility] [address] [place] [phone] * Phosphate (As Phosphorus) (03/01/2023 2:22 PM EDT) Pathologist [facility] Phosphorus 2.8 2.7 - 4.5 mg/dL [facility] 03/01/2023 2:22 PM EDT 03/01/2023 2:22 PM EDT [facility] External Provider LAB BLO OD ORDERABLES Final Result Performing Organization Address [facility] Co de Phone Number [facility] [address] [place] [phone] * (ABNORMAL) Comprehensive Metabolic Panel (03/01/2023 2:22 PM EDT) Sodium 143 135 - 145 mmol/L [facility] Potassium 4.2 3.3 - 5.1 mmol/L [facility] Chloride 96 96 - 108 mmol/L [facility] Carbon Dioxide 35(H) 22 - 29 mmol/L [facility] Anion Gap 16 12 - 20 [facility] Urea Nitrogen (BUN) 18(H) 9 - 16 mg/dL [facility] Creatinine, Serum 1.02 0.5 - 1.4 mg/dL [facility] Estimated Glomerular Filt Rate 52 [facility] Comment:NOTE: For -Am erican individuals, multiply the result by 1.210.Chronic Kidney Disease: Estimated GFR < 60 mL/min/1.81x6Aqttsw Kidney Disease: Estimated GFR < 15 mL/min/1.73m2 Glucose 85 60 - 115 mg/dL [facility] Calcium 9.9 8.4 - 10.2 mg/dL [facility] Bilirubin, Total 0.6 0.0 - 1.0 mg/dL [facility] Aspartate Amino Transferase 17 5 - 31 U/L [facility] Alanine Aminotransferase 10 0 - 31 U/L [facility] Total Protein 7.5 6.5 - 8.0 g/dL [facility] Albumin Level 4.4 3.5 - 5.0 g/dL [facility] Alkaline Phosphatase 59 39 - 117 U/L [facility] 03/01/2023 2:22 PM EDT 03/01/2023 2:22 PM EDT us [facility] External Provider LAB BLO OD ORDERABLES Final Result Performing Organization Address City/State/[facility] Co de Phone Number [facility] [address] [place] [address] [phone] documented in this encounter Visit Diagnoses Not on filedocumented in this encounter Care Teams Measurement And Verification Engineer Relationship Specialty Start Date End Date Jemma Louise MD [address] [place] [phone] PCP - General Family Medicine 09/11/19 documented as of this encounter
--- OUTSIDE RECORDS SUMMARY | 2025-10-09 12:31 | XMS_ITS | Encounter Summary ---
Author Organization [employer] Address [address] [facility] 7t [place] [address] Care Team Providers Care Boat And Plant Utility Supervisor Name Role Phone Jemma Louise MD Primary Care Provide r Encounter Details Date Type Department Care Team (Late st Contact Info) Description 10/09/2025 Orders Only GENERIC EXTERNAL DATA [...] [facility] [address] [place] [address] Shahrzad Rust, OD [address] [place] [address] 12/04/2025 11:00 AM EST Office Visit [facility] MEDICINE [address] [place] [address] Jemma Louise MD [address] [place] [address] Pending Results Name Type Priority Associated Diagnoses Date /Time C-reactive Protein Lab Routine 2024 11:29 AM EST documented as of this encounter Procedures Procedure Name Priority Date/Time Associated Diagnosis Comments SED RATE BY MODIFIED WESTERGREN Routine 10/09/2025 11:29 AM EST C-REACTIVE PROTEIN Routine 10/09/2025 11 :29 AM EST documented in this encounter Results * (ABNORMAL) Sed Rate by Modified Westergren (10/09/2025 11:29 AM EST) Erythrocyte Sedimentation Rate 92(H) 0 - 20 MM/HR [facility] Comment:Patients with polycy themia and many hemoglobin abnormalitiesmay have depressed sed rates whereas patients with anemiamay have elevated sed rates. 10/09/2025 11:2 9 AM EST 10/09/2025 11:29 AM EST us Generic External Data Provider LAB BLOOD ORDERAB LES Final Result [facility] [address] [place] [phone] [phone] documented in this encounter Visit Diagnoses Not on filedocumented in this encounter Additional Health Concerns Assessment Noted Time PHQ-9 Depression Total Score: 4 03/30/20 25 1:32 PM EDT documented as of this encounter Care Teams Boat And Plant Utility Supervisor Relationship Specialty Start Date End Date Jemma Louise MD [address] [place] [address] PCP - General Family Medicine 09/11/19 documented as of this encounter
== END 2025-10-09 11:14 | disposition home or self-care (01) ==
LOC: HO.HSM 10:44
PROVIDERS: PCP Internal Medicine; Visit Provider Registered Nurse
DX: G30.9 Alzheimer's disease, unspecified (principal); F02.80 Dementia in other diseases classified elsewhere, unspecified severity, without behavioral disturbance, psychotic disturbance, mood disturbance, and anxiety; G44.209 Tension-type headache, unspecified, not intractable
CPT/HCPCS: 99214

== ENCOUNTER 2025-10-09 10:44 | Outpatient (REF) | payer OTHER, SELFPAY ==
[2025-10-09 12:26] LABS: Erythrocyte Sedimentation Rate 92 MM/HR (0-20)
[2025-10-09 12:55] LABS: Folate 11.2 ng/mL (> or = 4.0); Vitamin B12 506 pg/mL (200-900)
== END 2025-10-09 10:45 | disposition home or self-care (01) ==
LOC: HO.LAB 10:44
PROVIDERS: PCP Internal Medicine; Visit Provider Registered Nurse
DX: G30.9 Alzheimer's disease, unspecified (principal); F02.80 Dementia in other diseases classified elsewhere, unspecified severity, without behavioral disturbance, psychotic disturbance, mood disturbance, and anxiety; G44.209 Tension-type headache, unspecified, not intractable
CPT/HCPCS: 36415; 82607; 82746; 84443; 85652; 86140; 99212

== ENCOUNTER 2025-10-18 11:53 | Outpatient (REF) | payer OTHER, SELFPAY | END 2025-10-18 11:54 | LOC: HO.HHCL 11:53 | PROVIDERS: PCP Internal Medicine; Visit Provider Registered Nurse | DX: M31.6 Other giant cell arteritis (principal) | CPT/HCPCS: 36415; 85652 ==